=== PATIENT | male | born 1985 | race African-American/Black ===

== ENCOUNTER 2016-06-27 13:22 | Emergency (ER) | payer MEDICAID ==
[2016-06-27 13:27] VITALS: BP 119/59; BMI 21.6
--- NOTE | 2016-06-27 13:39 | DR.GENAD ---
HPI - PCP Primary Care Physician: PATRICIO - Complaint/Symptoms Chief Complaint:: PT C/O SHARP PAINS IN RIGHT LEG AND HE THINKS HE IS HAVING A SICKLE CELL CRISIS - Nurses notes reviewed Nurses Notes Review: Yes - Source History Provided: Patient - Mode of Arrival Mode of Arrival: Ambulatory - Timing Onset of Chief Complaint: 06/27/16 Came on: Suddenly - Duration Duration: Constant How lon Duration: Days - Location Location: right leg - Severity Severity: Moderate - Modifying Factors Worsens:: poor wound care - Associated Signs and Symptoms Associated Signs and Symptoms: pain odor PMH - PMH Past Medical History: Yes Past Medical History: Anemia, Depression, GERD, PUD Past Medical History Comment: SICKLE CELL Past Surgical History: Yes Surgical History: Other Past Surgical History Comment: RT LEG/FOOT - Family History History of Family Medical Conditions: Yes Family Medical History: Diabetes Mellitus, Hypertension - Social History Does patient currently use any type of tobacco product: Yes Have you used tobacco products in the last 12 months: Yes Type of Tobacco Use: Cigarettes Does any household member use tobacco: Yes Alcohol Use: None Do you use any recreational Drugs:: No Lives With: Alone Lives Where: Home - infectious screening In the last 2 months have you had wt loss of >10#?: NO Have you had fever, night sweats or hemotysis?: No Have you traveled outside the country in the last 6 months?: No Isolation: Standard ROS - Review of Systems Constitutional: No Symptoms Reported Eyes: No Symptoms Reported ENTM: No Symptoms Reported Respiratoy: No Symptoms Reported Cardiovascular: No Symptoms Reported Gastrointestinal/Abdominal: No Symptoms Reported Genitourinary: No Symptoms Reported Neurological: No Symptoms Reported Musculoskeletal: Right, Leg Integumentary: Wound (right lower leg ) Hematologic/Lymphatic: No Symptoms Reported Endocrine: No Symptoms Reported Psychiatric: No Symptoms Reported All Other Systems: Reviewed and Negative PE - Vital Signs Vitals: Temperature 98.8 F Pulse Rate 82 Respiratory Rate 18 Blood Pressure [Right Arm] 113/57 Blood Pressure [Left Arm] 106/54 Blood Pressure 119/59 O2 Sat by Pulse Oximetry 98 - General Limitations: No Limitations General Appearance: Alert, In No Apparent Distress - Head Head Exam: Normal Inspection - Eyes Eye exam: Normal Appearance, EOMI. negative: Scleral Icterus, Conjunctival Injection - ENT ENT Exam: Normal Exam - Neck Neck Exam: Normal Inspection, Full ROM, Trachea Midline - Extremities Extremities Exam: Full ROM, Tenderness (right lower leg). negative: Normal Inspection - Neurologic Neurological Exam: Alert, Oriented X3, CN II-XII Intact - Psychiatric Psychiatric Exam: Normal Mood - Skin Skin Exam: negative: Normal Color Course - Treatment Treatment: dressing changed on leg, told to follow up at wound clinic he was at previously. ROR - Labs Reviewed Result Diagrams: 06/27/16 14:22 Laboratory: WBC 15.4 X10^3/uL (3.6-10.0) H 06/27/16 14:22 RBC 1.74 X10^6/uL (4.7-6.0) L 06/27/16 14:22 Hgb 6.5 g/dL (13.5-18.0) L* 06/27/16 14:22 Hct 19.0 % (42.0-54.0) L* 06/27/16 14:22 MCV 109.7 fL (80.0-100.0) H 06/27/16 14:22 MCH 37.3 pg (27.0-34.0) H 06/27/16 14:22 MCHC 34.0 g/dL (33.0-35.0) 06/27/16 14:22 RDW 18.6 % (11.6-16.5) H 06/27/16 14:22 Plt Count 820 X10^3/uL (150.0-450.0) H 06/27/16 14:22 Plt Count Comment Increased (ADEQUATE) 06/27/16 14:22 MPV 7.3 fL (7.4-11.0) L 06/27/16 14:22 Neut % 67.1 % (42.0-75.0) 06/27/16 14:22 Lymph % 21.6 % (21.0-51.0) 06/27/16 14:22 [place] % 8.7 % (0.0-13.0) 06/27/16 14:22 Eos % 1.8 % (0.9-2.9) 06/27/16 14:22 Baso % 0.8 % (0.2-1.0) 06/27/16 14:22 Neut # 10.4 x10^3/uL (2.2-4.8) H 06/27/16 14:22 Lymph # 3.3 X10^3/uL (1.3-2.9) H 06/27/16 14:22 [place] # 1.3 x10^3/uL (0.3-0.8) H 06/27/16 14:22 Eos # 0.3 x10^3/uL (0.0-0.2) H 06/27/16 14:22 Baso # 0.1 X10^3/uL (0.0-0.1) 06/27/16 14:22 Absolute Nucleated RBC 1.3 /100WBC 06/27/16 14:22 Plt Morphology Comment Normal (NORMAL) 06/27/16 14:22 RBC Morphology Abnormal (NORMAL) 06/27/16 14:22 Hypochromasia 2+ A 06/27/16 14:22 Anisocytosis 2+ A 06/27/16 14:22 Microcytosis 2+ A 06/27/16 14:22 Sickle Cells Slight A 06/27/16 14:22 Absolute Retic 0.2133 10^6/uL 06/27/16 14:22 Percent Retic 12.28 % (0.8-2.2) H 06/27/16 14:22 - Diagnosis Discharge Problem: Wound exudate odor absent - Discharge Plan Condition: Stable Prescriptions: Amoxicillin & Pot Clavulanate [AUGMENTIN TAB 875 mg/125 mg *] 1 tab PO BID #20 tab Tramadol HCl [ULTRAM 50 MG *] 50 mg PO Q8H PRN #21 tab PRN Reason: Pain - Follow ups/Referrals Follow ups/Referrals: JOSE ELIAS CURRY [Primary Care Provider] - 3 days - Instructions
[2016-06-27] MEDS ORDERED: NS IRRIGATION 1000 ML 1,000 ML ONE (13:43)
[2016-06-27] MEDS ORDERED: ULTRAM PO ONE (14:17)
[2016-06-27] MEDS ORDERED: ULTRAM ONE (14:26)
[2016-06-27 14:28] LABS: BASOPHILS # (AUTO) 0.1 X10^3/uL (0.0-0.1); MONOCYTES % (AUTO) 8.7 % (0.0-13.0)
[2016-06-27 14:36] LABS: BASOPHILS % (AUTO) 0.8 % (0.2-1.0); EOSINOPHILS # (AUTO) 0.3 x10^3/uL (0.0-0.2); EOSINOPHILS % (AUTO) 1.8 % (0.9-2.9); LYMPHOCYTES # (AUTO) 3.3 X10^3/uL (1.3-2.9); LYMPHOCYTES % (AUTO) 21.6 % (21.0-51.0); MEAN CORPUSCULAR HEMOGLOBIN 37.3 pg (27.0-34.0); MEAN CORPUSCULAR VOLUME 109.7 fL (80.0-100.0); MEAN PLATELET VOLUME 7.3 fL (7.4-11.0); MONOCYTES # (AUTO) 1.3 x10^3/uL (0.3-0.8); NEUTROPHILS # (AUTO) 10.4 x10^3/uL (2.2-4.8); NEUTROPHILS % (AUTO) 67.1 % (42.0-75.0); PLATELET COUNT 820 X10^3/uL (150.0-450.0); RED BLOOD COUNT 1.74 X10^6/uL (4.7-6.0); RED CELL DISTRIBUTION WIDTH 18.6 % (11.6-16.5); RETICULOCYTE % 12.28 % (0.8-2.2); WHITE BLOOD COUNT 15.4 X10^3/uL (3.6-10.0)
[2016-06-27 14:48] LABS: HEMOGLOBIN 6.5 g/dL (13.5-18.0)
[2016-06-27 14:50] LABS: PLATELET MORPHOLOGY COMMENT NORMAL (NORMAL)
[2016-06-27 14:51] LABS: ANISOCYTOSIS 2+; HYPOCHROMASIA 2+; MICROCYTOSIS 2+; SICKLE CELLS SLIGHT
[2016-06-27] MEDS ORDERED: NS 500 ML IV 1,000 ML IV ONE (15:05)
[2016-06-27] MEDS ORDERED: DEMEROL INJ IVP ONE (15:22)
[2016-06-27] MEDS ORDERED: NS 1000 ML 1,000 ML ONE (15:25)
[2016-06-27] MEDS ORDERED: DEMEROL INJ ONE (15:26)
[2016-06-27] MEDS ORDERED: ZOSYN VIAL 4.5 GM 4.5 GM in NS 100 ML IV + SPIKE MINIBAG* 100 ML IV SCH (16:00)
[2016-06-27] MEDS ORDERED: NS 100 ML IV + SPIKE MINIBAG* 100 ML IV ONE (16:12)
== END 2016-06-27 17:47 | disposition home or self-care (01) ==
LOC: ER 13:39
DX: T81.89XA Other complications of procedures, not elsewhere classified, initial encounter (principal)
CPT/HCPCS: 36415; 85025; 85045; 87070; 87075; 87077; 87186; 96365; 96374; 96375; 99283; A4222; J2175

== ENCOUNTER 2017-10-12 21:01 | Inpatient (IN) ==
[2017-10-13 00:13] LABS: BASOPHILS # (AUTO) 0.1 X10^3/uL (0.0-0.1); BASOPHILS % (AUTO) 0.9 % (0.2-1.0); EOSINOPHILS # (AUTO) 0.4 x10^3/uL (0.0-0.2); EOSINOPHILS % (AUTO) 2.2 % (0.9-2.9); LYMPHOCYTES % (AUTO) 25.3 % (21.0-51.0); MEAN CORPUSCULAR HEMOGLOBIN 31.8 pg (27.0-34.0); MEAN CORPUSCULAR HGB CONC 34.7 g/dL (33.0-35.0); MEAN CORPUSCULAR VOLUME 91.4 fL (80.0-100.0); MEAN PLATELET VOLUME 8.1 fL (7.4-11.0); MONOCYTES # (AUTO) 1.1 x10^3/uL (0.3-0.8); MONOCYTES % (AUTO) 6.9 % (0.0-13.0); NEUTROPHILS # (AUTO) 10.3 x10^3/uL (2.2-4.8); NEUTROPHILS % (AUTO) 64.7 % (42.0-75.0); PLATELET COUNT 713 X10^3/uL (150.0-450.0); RED BLOOD COUNT 1.84 X10^6/uL (4.7-6.0); RED CELL DISTRIBUTION WIDTH 17.8 % (11.6-16.5); WHITE BLOOD COUNT 15.9 X10^3/uL (3.6-10.0)
[2017-10-13 00:20] LABS: ALANINE AMINOTRANSFERASE 17 Units/L (12-78); ALBUMIN 3.7 g/dL (3.4-5.0); ALKALINE PHOSPHATASE 102 Units/L (46-116); ASPARTATE AMINO TRANSFERASE 28 Units/L (15-37); BLOOD UREA NITROGEN 15 mg/dL (7-18); CALCIUM 8.9 mg/dL (8.5-10.1); CARBON DIOXIDE 24.6 mmol/L (21-32); CHLORIDE 108 mmol/L (98-107); CREATININE 1.09 mg/dL (0.70-1.30); SODIUM 139 mmol/L (136-145); TOTAL PROTEIN 8.4 g/dL (6.4-8.2); eGFR NON BLACK RACES > 60 (>60)
[2017-10-13 00:23] LABS: HEMOGLOBIN 5.8 g/dL (13.5-18.0)
[2017-10-13 00:24] LABS: HEMATOCRIT 16.8 % (42.0-54.0)
[2017-10-13 00:37] LABS: HYPOCHROMASIA 3+; PLATELET MORPHOLOGY COMMENT NORMAL (NORMAL)
[2017-10-13] MEDS ORDERED: MORPHINE SULFATE INJ 4 MG IVP ONE (01:09)
[2017-10-13] MEDS ORDERED: ZOFRAN INJ 4 MG VIAL IVP ONE (01:09)
--- NOTE | 2017-10-13 01:13 | DR.GENAD ---
HPI PCP Primary Care Physician: sean HPI Comment HPI Comment: PATIENT HAVE SICKLE CELL DISEASE. Complaint/Symptoms Chief Complaint Doctors Comments: PATIENT SEEN AT 23:30PM. CHRONIC ULCER RIGHT LEG THAT IS MORE PAINFULL AND DRAINING GREENISH FLUID. INCREASE FOUL SCENT COMING FROM WOUND ALSO. Chief Complaint:: pt states" my right leg is infected it is starting to smell and i believe i'm having a sickle cell crisis" pt states " the wound on my leg has been there since 2005 and i've had sickle cell since " Nurses notes reviewed Nurses Notes Review: Yes Source History Provided: Patient Mode of Arrival Mode of Arrival: Ambulatory Timing Onset of Chief Complaint: 10/12/17 Came on: Gradually Duration Duration: Constant Severity Severity: Severe Modifying Factors Worsens:: WITH WALKING, CONDITION GETS WORSE. Improves:: ED Associated Signs and Symptoms Associated Signs and Symptoms: FEVER, PMH PMH Past Medical History: Yes Past Medical History: Anemia, Depression, GERD and PUD Past Medical History Comment: sickle cell Past Surgical History: Yes Surgical History: Other Past Surgical History Comment: rt lower leg Family History History of Family Medical Conditions: Yes Family Medical History: Diabetes Mellitus and Hypertension Social History Type of Tobacco Use: Cigarettes Does any household member use tobacco: Yes Alcohol Use: None Do you use any recreational Drugs:: No Lives With: Family Lives Where: Home infectious screening In the last 2 months have you had wt loss of >10#?: NO Have you had fever, night sweats or hemotysis?: No Have you traveled outside the country in the last 6 months?: No Isolation: Standard ROS Review of Systems Constitutional: Fever, Weakness and Fatigue Eyes: No Symptoms Reported ENTM: No Symptoms Reported Respiratoy: Non-Productive Cough and Short of Breath; negative Wheezing and Hemoptysis Cardiovascular: No Symptoms Reported Gastrointestinal/Abdominal: No Symptoms Reported Neurological: Weakness Musculoskeletal: Right and Leg Integumentary: Change in Color and Wound Hematologic/Lymphatic: Easy Bleeding and Easy Bruising Endocrine: No Symptoms Reported Psychiatric: No Symptoms Reported All Other Systems: Reviewed and Negative PE Vital Signs Vitals: Temperature 99.8 F Pulse Rate [Left Brachial] 108 Pulse Rate 98 Respiratory Rate 18 Blood Pressure [Right Arm] 107/67 Blood Pressure [Left Arm] 109/68 Blood Pressure 115/65 O2 Sat by Pulse Oximetry 100 General Limitations: No Limitations General Appearance: Alert and In No Apparent Distress Head Head Exam: Normal Inspection Eyes Eye exam: Normal Appearance, PERRL and EOMI; negative Scleral Icterus and Conjunctival Injection ENT ENT Exam: Normal Exam External Ear Exam: Normal External Inspection TM/Canal Exam: Bilateral: Normal Nose Exam: Normal Nose Exam Mouth Exam: Normal Inspection Throat Exam: Normal Inspection Neck Neck Exam: Normal Inspection Chest Chest Inspection: Normal Inspection Respiratory Respiratory Exam: Normal Lung Sounds Bilat Respiratory Exam: Bilateral: Clear to Auscultation Cardiovascular Cardiovascular Exam: Tachycardia Abdominal Exam Abdominal Exam: Normal Inspection, Normal Bowel Sounds and Soft; negative Tenderness Extremities Extremities Exam: Normal Inspection, Tenderness (RT LEG DENUDED AND NECROTIC. DRAINING GREENISH SECREATION.) and Normal Capillary Refill Back Back Exam: Normal Inspection Neurologic Neurological Exam: Alert, Oriented X3 and CN II-XII Intact; negative Motor Sensory Deficit Psychiatric Psychiatric Exam: Anxious Skin Skin Exam: Warm and Erythema MDM Differential Diagnosis Differential Diagnosis: CELLULITIS RLE/LEG, SICKLE CELL CRISIS COURSE Treatment Treatment: SEE ORDERS. Education/Counseling Education/Counseling: Patient and Education Educated On: Diagnosis ROR Labs Reviewed Laboratory Results Reviewed?: Yes Result Diagrams: 10/12/17 23:40 10/12/17 23:45 Laboratory: 10/13/17 02:01 Leg - Right Gram Stain - Final WBC 15.9 X10^3/uL (3.6-10.0) H 10/12/17 23:40 RBC 1.84 X10^6/uL (4.7-6.0) L 10/12/17 23:40 Hgb 5.8 g/dL (13.5-18.0) L* 10/12/17 23:40 Hct 16.8 % (42.0-54.0) L* 10/12/17 23:40 MCV 91.4 fL (80.0-100.0) 10/12/17 23:40 MCH 31.8 pg (27.0-34.0) 10/12/17 23:40 MCHC 34.7 g/dL (33.0-35.0) 10/12/17 23:40 RDW 17.8 % (11.6-16.5) H 10/12/17 23:40 Plt Count 713 X10^3/uL (150.0-450.0) H 10/12/17 23:40 Plt Count Comment Increased (ADEQUATE) 10/12/17 23:40 MPV 8.1 fL (7.4-11.0) 10/12/17 23:40 Neut % (Auto) 64.7 % (42.0-75.0) 10/12/17 23:40 Lymph % (Auto) 25.3 % (21.0-51.0) 10/12/17 23:40 [place] % (Auto) 6.9 % (0.0-13.0) 10/12/17 23:40 Eos % (Auto) 2.2 % (0.9-2.9) 10/12/17 23:40 Baso % (Auto) 0.9 % (0.2-1.0) 10/12/17 23:40 Neut # (Auto) 10.3 x10^3/uL (2.2-4.8) H 10/12/17 23:40 Lymph # (Auto) 4.0 X10^3/uL (1.3-2.9) H 10/12/17 23:40 [place] # (Auto) 1.1 x10^3/uL (0.3-0.8) H 10/12/17 23:40 Eos # (Auto) 0.4 x10^3/uL (0.0-0.2) H 10/12/17 23:40 Baso # (Auto) 0.1 X10^3/uL (0.0-0.1) 10/12/17 23:40 Absolute Nucleated RBC 1.0 /100WBC 10/12/17 23:40 Plt Morphology Comment Normal (NORMAL) 10/12/17 23:40 RBC Morphology Abnormal (NORMAL) 10/12/17 23:40 Hypochromasia 3+ A 10/12/17 23:40 Macrocytosis Slight A 10/12/17 23:40 Percent Retic 11.60 % (0.8-2.2) H 10/12/17 23:40 Sodium 139 mmol/L (136-145) 10/12/17 23:45 Corrected Sodium TNP 10/12/17 23:45 Potassium 4.1 mmol/L (3.5-5.1) 10/12/17 23:45 Chloride 108 mmol/L (98-107) H 10/12/17 23:45 Carbon Dioxide 24.6 mmol/L (21-32) 10/12/17 23:45 BUN 15 mg/dL (7-18) 10/12/17 23:45 Creatinine 1.09 mg/dL (0.70-1.30) 10/12/17 23:45 Est GFR (MDRD) Af Amer > 60 (>60) 10/12/17 23:45 Est GFR (MDRD) Non-Af > 60 (>60) 10/12/17 23:45 Glucose 83 mg/dL (65-99) 10/12/17 23:45 Lactic Acid 2.0 mmol/L (0.4-2.0) 10/12/17 00:11 Calcium 8.9 mg/dL (8.5-10.1) 10/12/17 23:45 Corrected Calcium TNP 10/12/17 23:45 Total Bilirubin 2.90 mg/dL (0.2-1.0) H 10/12/17 23:45 AST 28 Units/L (15-37) 10/12/17 23:45 ALT 17 Units/L (12-78) 10/12/17 23:45 Alkaline Phosphatase 102 Units/L (46-116) 10/12/17 23:45 C-Reactive Protein 38.80 mg/L (0-3.0) H 10/12/17 00:11 Total Protein 8.4 g/dL (6.4-8.2) H 10/12/17 23:45 Albumin 3.7 g/dL (3.4-5.0) 10/12/17 23:45 Globulin 4.7 g/dL (2.5-4.5) H 10/12/17 23:45 Albumin/Globulin Ratio 0.8 Ratio (1.1-2.1) L 10/12/17 23:45 Specimen Type Random urine 10/13/17 02:22 Urine Color Yellow (YELLOW) 10/13/17 02:22 Urine Appearance Hazy (CLEAR) 10/13/17 02:22 Urine pH 6.5 (5.0 - 8.0) 10/13/17 02:22 Ur Specific [place] 1.010 (1.000-1.030) 10/13/17 02:22 Urine Protein 1+ (NEGATIVE) 10/13/17 02:22 Urine Glucose (UA) Negative (NEGATIVE) 10/13/17 02:22 Urine Ketones Negative (NEGATIVE) 10/13/17 02:22 Urine Occult Blood Negative (NEGATIVE) 10/13/17 02:22 Urine Nitrite Negative (NEGATIVE) 10/13/17 02:22 Urine Bilirubin Negative (NEGATIVE) 10/13/17 02:22 Urine Urobilinogen 2+ (NORMAL) 10/13/17 02:22 Ur Leukocyte Esterase Negative (NEGATIVE) 10/13/17 02:22 Urine RBC None seen /HPF (NONE SEEN) 10/13/17 02:22 Urine WBC None seen /HPF (NONE SEEN) 10/13/17 02:22 Ur Squamous Epith Cells Negative /HPF (NEGATIVE) 10/13/17 02:22 Urine Bacteria Negative /HPF (NEGATIVE) 10/13/17 02:22 Urine Mucus Few /HPF (NEGATIVE) 10/13/17 02:22 Ur Culture Indicated? No/not indicated 10/13/17 02:22 Blood Type B POSITIVE 10/13/17 05:10 Antibody Screen Negative 10/13/17 05:10 Crossmatch See Detail 10/13/17 05:10 XRAY XRAY Interpreted by: Radiologist XRAY Findings: REPORT DISCUSS WITH PATIENT. Diagnosis Discharge Problem: Cellulitis of leg without foot, right, Sickle cell anemia with crisis
[2017-10-13] MEDS ORDERED: MORPHINE SULFATE INJ 4 MG ONE (01:27)
[2017-10-13] MEDS ORDERED: ZOFRAN INJ 4 MG VIAL ONE (01:27)
--- NOTE | 2017-10-13 01:34 | RAD ---
Right lower leg, AP and lateral Indication: Abscess Comparison: 04/13/2015 Findings: There is bandage along the lower portion of the leg. No soft tissue gas or other significan t soft tissue abnormality identified. No acute cortical disruption or malalignment of the tibia or fi bula. Impression: No acute osseous abnormality of the right lower leg. Reported By:
[2017-10-13] MEDS ORDERED: BENADRYL INJ 50 MG VIAL ONE (01:44)
[2017-10-13] MEDS ORDERED: BENADRYL INJ 50 MG VIAL IVP ONE (01:45)
[2017-10-13 02:33] LABS: BILIRUBIN,URINE NEGATIVE (NEGATIVE); BLOOD/HEMOGLOBIN,URINE NEGATIVE (NEGATIVE); GLUCOSE, URINE NEGATIVE (NEGATIVE); KETONES,URINE NEGATIVE (NEGATIVE); LEUKOCYTE ESTERASE ,URINE NEGATIVE (NEGATIVE); NITRITES,URINE NEGATIVE (NEGATIVE); PH,URINE 6.5 (5.0 - 8.0); PROTEIN,URINE 1+ (NEGATIVE); UROBILINOGEN,URINE 2+ (NORMAL)
[2017-10-13 02:40] LABS: APPEARANCE,URINE HAZY (CLEAR); COLOR,URINE YELLOW (YELLOW)
[2017-10-13 02:41] LABS: BACTERIA,URINE NEGATIVE /HPF (NEGATIVE); MUCUS,URINE FEW /HPF (NEGATIVE); RBC,URINE NONE SEEN /HPF (NONE SEEN); SQUAMOUS EPITHELIAL CELL,UR NEGATIVE /HPF (NEGATIVE)
[2017-10-13] MEDS ORDERED: FORTAZ or TAZICEF VIAL INJ ONE (04:50)
[2017-10-13] MEDS ORDERED: PHENERGAN INJ 25 MG ONE (04:50)
[2017-10-13] MEDS ORDERED: DEMEROL INJ ONE (04:51)
[2017-10-13] MEDS ORDERED: NS 100 ML IV + SPIKE MINIBAG* 100 ML IV ONE (04:52)
[2017-10-13] MEDS: FORTAZ or TAZICEF VIAL INJ 1 G in NS 100 ML IV + SPIKE MINIBAG* 100 ML IV SCH ×4 (04:53→22:10)
[2017-10-13] MEDS: DEMEROL INJ IVP PRN ×5 (04:54→23:16)
[2017-10-13] MEDS: PHENERGAN INJ 25 MG IV PRN ×2 (04:54→23:16)
[2017-10-13] MEDS ORDERED: NS 1000 ML 1,000 ML ONE ×2 (04:55→12:02)
[2017-10-13] MEDS ORDERED: PHENERGAN TAB 25 MG PO PRN (06:42)
[2017-10-13] MEDS ORDERED: NS 1000 ML 1,000 ML IV SCH (06:42)
[2017-10-13 07:24] VITALS: BMI 20.2
[2017-10-13] MEDS: NS 1000 ML 1,000 ML IV SCH ×2 (07:30→15:39)
[2017-10-13] MEDS: ZOSYN VIAL 3.375 GRAMS 3.375 G in NS 100 ML IV + SPIKE MINIBAG* 100 ML IV SCH ×3 (07:53→23:00)
[2017-10-13] MEDS: MOTRIN TAB 600 MG PO PRN (08:14)
--- NOTE | 2017-10-13 08:38 | DR.H&P ---
H&P - History & Physical for Day of: H&P Date: 10/13/17 - Chief Complaint Chief Complaint: RLL WOUND, WEAKNESS, "SICKLE CELL" - History of Present Illness History of Present Illness: 32 BM ER ADMISSION WITH SEVERE RLL OPEN WOUND, CHRONIC WOUND WITH WORSENED PAIN, D/C. PT HAS HX OF SICKLE CELL DISEASE. PT HAS LONG HX OF NON COMPLIANCE AND HX OF MULTIPLE SURGICAL WOUND DEBRIDEMENT AND SKIN GRAFTS. PT WAS ADMITTED FOR WOUND CARE, IV ATBX, PAIN CONTROL, SURGICAL CONSULT, TREATMENT OF ANEMIA - Past Medical History Past Medical History: Depression, Anemia, PUD, GERD Additional Medical History: Sickle Cell Disease - Past Surgical History Surgical History: Other Additional Surgical History: Skin Graft (R) Leg Wound - Family History Family Medical History: Diabetes Mellitus, Hypertension - Social History Does patient currently use any type of tobacco product: Yes Have you used tobacco products in the last 12 months: Yes Type of Tobacco Use: Cigarettes Does any household member use tobacco: Yes Alcohol Use: None Drug Use: None - Medications Home Medications: Egg Derived Allergy (Verified 10/12/17 21:04) mayonnaise Allergy (Verified 10/12/17 21:04) morphine Allergy (Verified 10/13/17 05:57) ondansetron [From Zofran] Allergy (Verified 10/13/17 05:57) - Review of Systems Constitutional: Chills, Weakness Eyes: No Symptoms Reported ENT: No Symptoms Reported Respiratory: SOB with Excertion Cardiovascular: Palpitations, Edema Gastrointestinal: Other (NO APPETITE) Genitourinary: No Symptoms Reported Musculoskeletal: Leg Pain Skin: Wound Neurological: Weakness - Physical Exam Vital Signs: Temperature 98.8 F Pulse Rate [Left Brachial] 88 Pulse Rate 98 Respiratory Rate 24 Blood Pressure [Right Arm] 113/66 Blood Pressure [Left Arm] 109/68 Blood Pressure 115/65 O2 Sat by Pulse Oximetry 100 Oriented: Normal Eyes: Normal Ear: Normal Nose: Normal Throat: Dry Respiratory: RLL Diminished, LLL Diminished Cardiovascular: Tachycardia, Edema Auscultation: Bowel Sounds: Normal Palpation: Normal Tenderness: Normal Skin: Decreased Turgur, Wound (circumferential RRL NACROTIC WOUND WITH FOUL DISCHARGE) Musculoskeletal: Right, Leg, Swelling, Tender Mood Description: Depressed, Sad Affect: Flat Speech Pattern: Clear - Assessment/Plan (1) Sickle cell disease Qualifiers: Sickle-cell associated disorders: without crisis Qualified Code(s): D57.1 - Sickle-cell disease without crisis Status: Chronic Plan: ADMIT WOUND CULTURES, IV ATBX. BLOOD CULTURES, SURGICAL CONSULT. TYPE AND CROSS MATCH TRANSFUSE WHEN BLOOD AVAILABLE. CONFIRM HOME MEDS, CARDIAC MONITORING, BP CONTROL (2) Ulcer of lower extremity with necrosis of muscle Qualifiers: Laterality: right Qualified Code(s): L97.913 - Non-pressure chronic ulcer of unspecified part of right lower leg with necrosis of muscle Status: Acute - Allergies Allergies/Adverse Reactions: Allergies Allergy/AdvReac Type Severity Reaction Status Date / Time Egg Derived Allergy Verified 10/12/17 21:04 mayonnaise Allergy Verified 10/12/17 21:04 morphine Allergy Verified 10/13/17 05:57 ondansetron [From Zofran] Allergy Verified 10/13/17 05:57
[2017-10-13] MEDS ORDERED: FENTANYL INJ 100 mcg ONE ×2 (12:30→12:59)
[2017-10-13] MEDS ORDERED: NS IRRIGATION 1000 ML 1,000 ML with BACITRACIN VIAL 50,000 UNIT IR ONE ×2 (12:40)
[2017-10-13] MEDS ORDERED: DILAUDID INJ IVP PRN (13:28)
[2017-10-13] MEDS ORDERED: BENADRYL INJ 50 MG VIAL IVP PRN (13:28)
[2017-10-13] MEDS ORDERED: PHENERGAN INJ 25 MG IVP PRN (13:28)
[2017-10-13] MEDS ORDERED: REGLAN INJ 10 MG VIAL IVP PRN (13:28)
[2017-10-13] MEDS ORDERED: DILAUDID INJ ONE (13:29)
--- NOTE | 2017-10-13 13:37 | OR.GENERIC ---
Post-Op Note Generic - Post-Op Note Operative Report: excisional debridement of multiple and large Rt leg ulcers total of 92 cm2 was done pt has acute and chronic infected Rt leg ulcers with sickle cell anemia . h/o previous failed skin graft Rt leg did well ..will change dressing in 2 days
[2017-10-13] MEDS: PERCOCET TAB 5/325 MG PO PRN (22:28)
[2017-10-14] MEDS: NS 1000 ML 1,000 ML IV SCH ×3 (02:30→15:50)
[2017-10-14] MEDS: DEMEROL INJ IVP PRN ×5 (03:30→21:45)
[2017-10-14] MEDS: PHENERGAN INJ 25 MG IV PRN ×3 (03:45→21:45)
[2017-10-14] MEDS: FORTAZ or TAZICEF VIAL INJ 1 G in NS 100 ML IV + SPIKE MINIBAG* 100 ML IV SCH ×3 (05:25→21:15)
[2017-10-14] MEDS: ZOSYN VIAL 3.375 GRAMS 3.375 G in NS 100 ML IV + SPIKE MINIBAG* 100 ML IV SCH ×3 (06:28→22:15)
[2017-10-14 07:05] LABS: BASOPHILS # (AUTO) 0.1 X10^3/uL (0.0-0.1); BASOPHILS % (AUTO) 0.7 % (0.2-1.0); EOSINOPHILS # (AUTO) 0.5 x10^3/uL (0.0-0.2); EOSINOPHILS % (AUTO) 3.6 % (0.9-2.9); LYMPHOCYTES # (AUTO) 3.9 X10^3/uL (1.3-2.9); LYMPHOCYTES % (AUTO) 29.2 % (21.0-51.0); MEAN CORPUSCULAR HEMOGLOBIN 32.5 pg (27.0-34.0); MEAN CORPUSCULAR HGB CONC 36.4 g/dL (33.0-35.0); MEAN CORPUSCULAR VOLUME 89.4 fL (80.0-100.0); MEAN PLATELET VOLUME 7.6 fL (7.4-11.0); MONOCYTES # (AUTO) 1.2 x10^3/uL (0.3-0.8); MONOCYTES % (AUTO) 9.3 % (0.0-13.0); NEUTROPHILS # (AUTO) 7.6 x10^3/uL (2.2-4.8); NEUTROPHILS % (AUTO) 57.2 % (42.0-75.0); PLATELET COUNT 642 X10^3/uL (150.0-450.0); RED BLOOD COUNT 1.41 X10^6/uL (4.7-6.0); RED CELL DISTRIBUTION WIDTH 18.1 % (11.6-16.5); WHITE BLOOD COUNT 13.3 X10^3/uL (3.6-10.0)
[2017-10-14 07:07] LABS: HEMOGLOBIN 4.6 g/dL (13.5-18.0)
[2017-10-14 07:08] LABS: HEMATOCRIT 12.6 % (42.0-54.0)
[2017-10-14 07:20] LABS: ALANINE AMINOTRANSFERASE 13 Units/L (12-78); ALBUMIN 2.7 g/dL (3.4-5.0); ALKALINE PHOSPHATASE 68 Units/L (46-116); ASPARTATE AMINO TRANSFERASE 22 Units/L (15-37); BLOOD UREA NITROGEN 8 mg/dL (7-18); CALCIUM 8.4 mg/dL (8.5-10.1); CARBON DIOXIDE 22.8 mmol/L (21-32); CHLORIDE 111 mmol/L (98-107); COR CA(FOR HYPOALB) 9.4 mg/dL (8.5-10.1); CREATININE 0.79 mg/dL (0.70-1.30); SODIUM 139 mmol/L (136-145); TOTAL PROTEIN 6.5 g/dL (6.4-8.2); eGFR NON BLACK RACES > 60 (>60)
[2017-10-14 07:34] LABS: ANISOCYTOSIS 2+; HYPOCHROMASIA 3+; PLATELET MORPHOLOGY COMMENT NORMAL (NORMAL)
[2017-10-14] MEDS ORDERED: NS 500 ML IV 500 ML IV ONE (08:47)
[2017-10-14] MEDS ORDERED: REGLAN INJ 10 MG VIAL ONE (09:29)
[2017-10-14] MEDS ORDERED: DIPRIVAN VIAL ONE (09:29)
[2017-10-14] MEDS ORDERED: VERSED ONE (09:29)
[2017-10-14] MEDS ORDERED: SUPRANE IN ONE (09:29)
[2017-10-14] MEDS: PERCOCET TAB 5/325 MG PO PRN ×2 (11:05→19:10)
[2017-10-14 19:27] LABS: HEMOGLOBIN 6.4 g/dL (13.5-18.0)
[2017-10-14 19:28] LABS: HEMATOCRIT 17.7 % (42.0-54.0)
[2017-10-15] MEDS: NS 1000 ML 1,000 ML IV SCH ×5 (02:19→22:01)
[2017-10-15] MEDS: DEMEROL INJ IVP PRN ×5 (02:20→20:22)
[2017-10-15] MEDS: FORTAZ or TAZICEF VIAL INJ 1 G in NS 100 ML IV + SPIKE MINIBAG* 100 ML IV SCH ×3 (05:30→21:00)
[2017-10-15] MEDS: ZOSYN VIAL 3.375 GRAMS 3.375 G in NS 100 ML IV + SPIKE MINIBAG* 100 ML IV SCH ×3 (06:30→21:00)
[2017-10-15 07:19] LABS: BASOPHILS # (AUTO) 0.2 X10^3/uL (0.0-0.1); BASOPHILS % (AUTO) 1.2 % (0.2-1.0); EOSINOPHILS # (AUTO) 0.8 x10^3/uL (0.0-0.2); EOSINOPHILS % (AUTO) 6.1 % (0.9-2.9); HEMATOCRIT 20.6 % (42.0-54.0); LYMPHOCYTES # (AUTO) 4.6 X10^3/uL (1.3-2.9); LYMPHOCYTES % (AUTO) 36.8 % (21.0-51.0); MEAN CORPUSCULAR HEMOGLOBIN 30.5 pg (27.0-34.0); MEAN CORPUSCULAR HGB CONC 35.5 g/dL (33.0-35.0); MEAN CORPUSCULAR VOLUME 85.7 fL (80.0-100.0); MEAN PLATELET VOLUME 7.4 fL (7.4-11.0); MONOCYTES # (AUTO) 1.1 x10^3/uL (0.3-0.8); MONOCYTES % (AUTO) 8.5 % (0.0-13.0); NEUTROPHILS # (AUTO) 5.9 x10^3/uL (2.2-4.8); NEUTROPHILS % (AUTO) 47.4 % (42.0-75.0); PLATELET COUNT 679 X10^3/uL (150.0-450.0); RED CELL DISTRIBUTION WIDTH 18.2 % (11.6-16.5); WHITE BLOOD COUNT 12.5 X10^3/uL (3.6-10.0)
[2017-10-15 07:26] LABS: ALANINE AMINOTRANSFERASE 12 Units/L (12-78); ALBUMIN 2.8 g/dL (3.4-5.0); ALKALINE PHOSPHATASE 66 Units/L (46-116); ASPARTATE AMINO TRANSFERASE 21 Units/L (15-37); BLOOD UREA NITROGEN 10 mg/dL (7-18); CALCIUM 8.7 mg/dL (8.5-10.1); CHLORIDE 112 mmol/L (98-107); COR CA(FOR HYPOALB) 9.7 mg/dL (8.5-10.1); CREATININE 0.83 mg/dL (0.70-1.30); SODIUM 141 mmol/L (136-145); TOTAL PROTEIN 6.6 g/dL (6.4-8.2); eGFR NON BLACK RACES > 60 (>60)
[2017-10-15 07:30] LABS: ANISOCYTOSIS 1+; HEMOGLOBIN 7.3 g/dL (13.5-18.0); HYPOCHROMASIA 2+; PLATELET MORPHOLOGY COMMENT NORMAL (NORMAL)
[2017-10-15 07:31] LABS: MICROCYTOSIS 1+
[2017-10-15] MEDS ORDERED: XYLOCAINE 1 % (PLAIN) ONE ×2 (07:34→09:52)
[2017-10-15] MEDS ORDERED: NS 1000 ML 1,000 ML ONE (08:10)
[2017-10-15] MEDS ORDERED: FENTANYL INJ 100 mcg ONE (08:23)
[2017-10-15] MEDS ORDERED: VERSED ONE (09:17)
[2017-10-15] MEDS ORDERED: DIPRIVAN VIAL ONE (09:17)
[2017-10-15] MEDS ORDERED: D5 LR 1000 ML 1,000 ML IV ONE (10:05)
[2017-10-15] MEDS ORDERED: BACTROBAN TOPICAL OINT ONE (10:26)
[2017-10-15] MEDS ORDERED: DILAUDID INJ ONE (10:46)
[2017-10-15] MEDS ORDERED: DILAUDID INJ IVP PRN (10:48)
[2017-10-15] MEDS ORDERED: REGLAN INJ 10 MG VIAL IVP PRN (10:48)
[2017-10-15] MEDS ORDERED: BENADRYL INJ 50 MG VIAL IVP PRN (10:48)
[2017-10-15] MEDS ORDERED: PHENERGAN INJ 25 MG IVP PRN (10:48)
--- NOTE | 2017-10-15 11:09 | RAD ---
HISTORY: Port-A-Cath placement, abscess on right tibia and fibula, near ankle. Prior history of sick le cell disease Study: Single-view chest Comparison: 02/14/2016 Technique: Single portable upright view of the chest is provided. Expiratory phase. Findings: Left-sided Port-A-Cath is seen inserted via an internal jugular approach. The catheter tip is at the cavoatrial junction. No pneumothorax is seen. The trachea is midline. The interstitial markings in tr ansverse cardiac size are situated by the expiratory technique. There is likely mild cardiomegaly. No pleural fluid is seen. Foci of atelectasis are present in the lung bases more so on the right. Left Hand us structures displayed no acute abnormality. IMPRESSION: Satisfactory position of left-sided Port-A-Cath without pneumothorax. Expiratory phase is seen to accentuate the transverse cardiac diameter and bronchovascular markings. There is likely mild cardiomegaly with bibasilar foci of atelectasis, more pronounced on the right si de. Reported By:
--- NOTE | 2017-10-15 11:14 | OR.GENERIC ---
Post-Op Note Generic - Post-Op Note Operative Report: tunneled port using the Lt internal jugular was done . dressing Lt leg was changed . will continue local care and IV ATB and use the port .. all ulcers seem to be better with less cellulitis and no necrosis
[2017-10-15] MEDS: PERCOCET TAB 5/325 MG PO PRN ×3 (13:21→23:17)
--- NOTE | 2017-10-15 13:25 | PCM.PROG ---
Progress Note - Progress Note for Day of Date of Exam: 10/14/17 - Subjective Subjective: 32 BM ER ADMISSION WITH SEVERE RLL OPEN WOUND, CHRONIC WOUND WITH WORSENED PAIN, D/C. PT HAS HX OF SICKLE CELL DISEASE. PT HAS LONG HX OF NON COMPLIANCE AND HX OF MULTIPLE SURGICAL WOUND DEBRIDEMENT AND SKIN GRAFTS. PT S/ P WOUND DEBRIDEMENT PER DR GIRARD, DISCUSSED THE NEED FOR PORT A CATH PLACEMENT. PT ANEMIC HGB 4.6, PLAN TO TRANSFUSE PRBC WHEN BLOOD AVAILABLE. PT STATES PAIN IS CONTROLLED AT THIS TIME - Past Medical Family Social History Past Med/Fam/Surg Hx: No changes since H&P Allergies: Allergies Egg Derived Allergy (Verified 10/12/17 21:04) mayonnaise Allergy (Verified 10/12/17 21:04) morphine Allergy (Verified 10/13/17 05:57) ondansetron [From Zofran] Allergy (Verified 10/13/17 05:57) - Review of Systems ROS: No change since H&P - Vital Signs and I&O's Vital Signs: Temperature 98.2 F Pulse Rate [Apical] 80 Pulse Rate [Left Brachial] 72 Pulse Rate 81 Respiratory Rate 22 Blood Pressure [Right Arm] 97/64 Blood Pressure [Left Arm] 111/63 Blood Pressure 105/60 O2 Sat by Pulse Oximetry 96 Intake and Output: Intake & Output 10/13/17 10/14/17 10/15/17 10/16/17 11:59 11:59 11:59 11:59 Intake Total 6436 / 6436 6285 / 6285 Output Total 3900 / 3900 3450 / 3450 Balance 2536 / 2536 2835 / 2835 - Physical Exam Oriented: Normal Eyes: Normal Ear: Normal Nose: Normal Throat: Dry Respiratory: Normal Cardiovascular: Tachycardia, Edema Auscultation: Bowel Sounds: Normal Tenderness: Normal Skin: Decreased Turgur, Wound (circumferential RRL WITH CLEAN DRY INTACT DRESSING) Musculoskeletal: Right, Leg, Swelling, Tender Mood Description: Depressed, Sad Affect: Flat Speech Pattern: Clear, Appropriate - Laboratory and Diagnostics Result Diagrams: 10/15/17 07:07 10/15/17 07:07 Labs: 10/13/17 13:24 Leg - Right Gram Stain - Final 10/13/17 13:24 Leg - Right Wound Culture - Final Pseudomonas Aeruginosa Morganella Morganii 10/13/17 02:01 Leg - Right Gram Stain - Final 10/13/17 02:01 Leg - Right Wound Culture - Final Proteus Mirabilis 10/12/17 23:40 Blood Blood Culture - Preliminary 10/12/17 23:45 Blood Blood Culture - Preliminary Laboratory WBC 12.5 X10^3/uL (3.6-10.0) H 10/15/17 07:07 RBC 2.40 X10^6/uL (4.7-6.0) L 10/15/17 07:07 Hgb 7.3 g/dL (13.5-18.0) L 10/15/17 07:07 Hct 20.6 % (42.0-54.0) L 10/15/17 07:07 MCV 85.7 fL (80.0-100.0) 10/15/17 07:07 MCH 30.5 pg (27.0-34.0) 10/15/17 07:07 MCHC 35.5 g/dL (33.0-35.0) H 10/15/17 07:07 RDW 18.2 % (11.6-16.5) H 10/15/17 07:07 Plt Count 679 X10^3/uL (150.0-450.0) H 10/15/17 07:07 Plt Count Comment Increased (ADEQUATE) 10/15/17 07:07 MPV 7.4 fL (7.4-11.0) 10/15/17 07:07 Neut % (Auto) 47.4 % (42.0-75.0) 10/15/17 07:07 Lymph % (Auto) 36.8 % (21.0-51.0) 10/15/17 07:07 [place] % (Auto) 8.5 % (0.0-13.0) 10/15/17 07:07 Eos % (Auto) 6.1 % (0.9-2.9) H 10/15/17 07:07 Baso % (Auto) 1.2 % (0.2-1.0) H 10/15/17 07:07 Neut # (Auto) 5.9 x10^3/uL (2.2-4.8) H 10/15/17 07:07 Lymph # (Auto) 4.6 X10^3/uL (1.3-2.9) H 10/15/17 07:07 [place] # (Auto) 1.1 x10^3/uL (0.3-0.8) H 10/15/17 07:07 Eos # (Auto) 0.8 x10^3/uL (0.0-0.2) H 10/15/17 07:07 Baso # (Auto) 0.2 X10^3/uL (0.0-0.1) H 10/15/17 07:07 Absolute Nucleated RBC 0.4 /100WBC 10/15/17 07:07 Plt Morphology Comment Normal (NORMAL) 10/15/17 07:07 RBC Morphology Abnormal (NORMAL) 10/15/17 07:07 Hypochromasia 2+ A 10/15/17 07:07 Anisocytosis 1+ A 10/15/17 07:07 Microcytosis 1+ A 10/15/17 07:07 Macrocytosis Slight A 10/12/17 23:40 Percent Retic 11.60 % (0.8-2.2) H 10/12/17 23:40 Sodium 141 mmol/L (136-145) 10/15/17 07:07 Corrected Sodium TNP 10/15/17 07:07 Potassium 4.2 mmol/L (3.5-5.1) 10/15/17 07:07 Chloride 112 mmol/L (98-107) H 10/15/17 07:07 Carbon Dioxide 25.0 mmol/L (21-32) 10/15/17 07:07 BUN 10 mg/dL (7-18) 10/15/17 07:07 Creatinine 0.83 mg/dL (0.70-1.30) 10/15/17 07:07 Est GFR (MDRD) Af Amer > 60 (>60) 10/15/17 07:07 Est GFR (MDRD) Non-Af > 60 (>60) 10/15/17 07:07 Glucose 86 mg/dL (65-99) 10/15/17 07:07 POC Glucose (mg/dL) 83 mg/dL (65-99) 10/15/17 10:46 Lactic Acid 2.0 mmol/L (0.4-2.0) 10/12/17 00:11 Calcium 8.7 mg/dL (8.5-10.1) 10/15/17 07:07 Corrected Calcium 9.7 mg/dL (8.5-10.1) 10/15/17 07:07 Total Bilirubin 2.30 mg/dL (0.2-1.0) H 10/15/17 07:07 AST 21 Units/L (15-37) 10/15/17 07:07 ALT 12 Units/L (12-78) 10/15/17 07:07 Alkaline Phosphatase 66 Units/L (46-116) 10/15/17 07:07 C-Reactive Protein 38.80 mg/L (0-3.0) H 10/12/17 00:11 Total Protein 6.6 g/dL (6.4-8.2) 10/15/17 07:07 Albumin 2.8 g/dL (3.4-5.0) L 10/15/17 07:07 Globulin 3.8 g/dL (2.5-4.5) 10/15/17 07:07 Albumin/Globulin Ratio 0.7 Ratio (1.1-2.1) L 10/15/17 07:07 Specimen Type Random urine 10/13/17 02:22 Urine Color Yellow (YELLOW) 10/13/17 02:22 Urine Appearance Hazy (CLEAR) 10/13/17 02:22 Urine pH 6.5 (5.0 - 8.0) 10/13/17 02:22 Ur Specific [place] 1.010 (1.000-1.030) 10/13/17 02:22 Urine Protein 1+ (NEGATIVE) 10/13/17 02:22 Urine Glucose (UA) Negative (NEGATIVE) 10/13/17 02:22 Urine Ketones Negative (NEGATIVE) 10/13/17 02:22 Urine Occult Blood Negative (NEGATIVE) 10/13/17 02:22 Urine Nitrite Negative (NEGATIVE) 10/13/17 02:22 Urine Bilirubin Negative (NEGATIVE) 10/13/17 02:22 Urine Urobilinogen 2+ (NORMAL) 10/13/17 02:22 Ur Leukocyte Esterase Negative (NEGATIVE) 10/13/17 02:22 Urine RBC None seen /HPF (NONE SEEN) 10/13/17 02:22 Urine WBC None seen /HPF (NONE SEEN) 10/13/17 02:22 Ur Squamous Epith Cells Negative /HPF (NEGATIVE) 10/13/17 02:22 Urine Bacteria Negative /HPF (NEGATIVE) 10/13/17 02:22 Urine Mucus Few /HPF (NEGATIVE) 10/13/17 02:22 Ur Culture Indicated? No/not indicated 10/13/17 02:22 Tissue Pathology To follow 10/13/17 13:24 Blood Type B POSITIVE 10/13/17 05:10 Antibody Screen Negative 10/13/17 05:10 Crossmatch See Detail 10/13/17 05:10 - Plan (1) Sickle cell disease Status: Chronic Qualifiers: Sickle-cell associated disorders: without crisis Qualified Code(s): D57.1 - Sickle-cell disease without crisis Plan: WOUND CULTURES, IV ATBX. BLOOD CULTURES, SURGICAL CONSULT CONTINUED S/P DEBRIDEMENT. TYPE AND CROSS MATCH TRANSFUSE WHEN BLOOD AVAILABLE. CONFIRM HOME MEDS, CARDIAC MONITORING, BP CONTROL (2) Ulcer of lower extremity with necrosis of muscle Status: Acute Qualifiers: Laterality: right Qualified Code(s): L97.913 - Non-pressure chronic ulcer of unspecified part of right lower leg with necrosis of muscle (3) Anemia Status: Acute Plan: TRANSFUSE BLOOD PRODUCT ORDERED. MONITOR H & H
[2017-10-16] MEDS: DEMEROL INJ IVP PRN ×5 (01:13→22:12)
[2017-10-16] MEDS: MOTRIN TAB 600 MG PO PRN (04:45)
[2017-10-16 05:16] LABS: WHITE BLOOD COUNT 15.3 X10^3/uL (3.6-10.0)
[2017-10-16 05:20] LABS: ALANINE AMINOTRANSFERASE 10 Units/L (12-78); ALBUMIN 2.5 g/dL (3.4-5.0); ALKALINE PHOSPHATASE 59 Units/L (46-116); ASPARTATE AMINO TRANSFERASE 21 Units/L (15-37); BASOPHILS # (AUTO) 0.2 X10^3/uL (0.0-0.1); BLOOD UREA NITROGEN 10 mg/dL (7-18); CARBON DIOXIDE 22.2 mmol/L (21-32); CHLORIDE 111 mmol/L (98-107); COR CA(FOR HYPOALB) 9.2 mg/dL (8.5-10.1); CREATININE 0.75 mg/dL (0.70-1.30); EOSINOPHILS # (AUTO) 0.9 x10^3/uL (0.0-0.2); EOSINOPHILS % (AUTO) 5.9 % (0.9-2.9); LYMPHOCYTES # (AUTO) 4.6 X10^3/uL (1.3-2.9); LYMPHOCYTES % (AUTO) 30.3 % (21.0-51.0); MEAN CORPUSCULAR HEMOGLOBIN 30.4 pg (27.0-34.0); MEAN CORPUSCULAR HGB CONC 35.7 g/dL (33.0-35.0); MEAN CORPUSCULAR VOLUME 85.2 fL (80.0-100.0); MEAN PLATELET VOLUME 7.8 fL (7.4-11.0); MONOCYTES # (AUTO) 1.3 x10^3/uL (0.3-0.8); MONOCYTES % (AUTO) 8.4 % (0.0-13.0); NEUTROPHILS # (AUTO) 8.3 x10^3/uL (2.2-4.8); NEUTROPHILS % (AUTO) 54.4 % (42.0-75.0); PLATELET COUNT 526 X10^3/uL (150.0-450.0); RED BLOOD COUNT 2.19 X10^6/uL (4.7-6.0); RED CELL DISTRIBUTION WIDTH 18.2 % (11.6-16.5); SODIUM 143 mmol/L (136-145); TOTAL PROTEIN 6.2 g/dL (6.4-8.2); eGFR NON BLACK RACES > 60 (>60)
[2017-10-16 05:23] LABS: HEMOGLOBIN 6.7 g/dL (13.5-18.0)
[2017-10-16 05:24] LABS: HEMATOCRIT 18.7 % (42.0-54.0)
[2017-10-16] MEDS: FORTAZ or TAZICEF VIAL INJ 1 G in NS 100 ML IV + SPIKE MINIBAG* 100 ML IV SCH ×3 (05:24→21:13)
[2017-10-16] MEDS: ZOSYN VIAL 3.375 GRAMS 3.375 G in NS 100 ML IV + SPIKE MINIBAG* 100 ML IV SCH ×3 (05:24→21:26)
--- NOTE | 2017-10-16 08:28 | DR.PROGNOT ---
Hospital Progress Notes - Progress Note for Day of: Progress Note Date: 10/16/17 - Chief Complaint Chief Complaint: c/o incisional and leg pain.. tolerating diet well . port is being used now. - Past Medical Family Social History Past Med/Fam/Surg Hx: No changes since H&P Allergies: Allergies Egg Derived Allergy (Verified 10/12/17 21:04) mayonnaise Allergy (Verified 10/12/17 21:04) morphine Allergy (Verified 10/13/17 05:57) ondansetron [From Zofran] Allergy (Verified 10/13/17 05:57) - Review Of Systems ROS: No change since H&P - Vital Signs Vital Signs: Temperature 99.0 F Pulse Rate [Right Brachial] 68 Pulse Rate [Apical] 60 Pulse Rate [Left Brachial] 72 Pulse Rate 81 Respiratory Rate 20 Blood Pressure [Right Arm] 104/59 Blood Pressure [Left Arm] 111/63 Blood Pressure 105/60 O2 Sat by Pulse Oximetry 97 - Physical Exam Oriented: Normal Eyes: Normal Ear: Normal Nose: Normal Throat: Dry Respiratory: Normal Cardiovascular: Tachycardia, Edema GI:Auscultation: Normal GI:Palpation: Normal GI: Tenderness: Normal Skin: Decreased Turgur, Wound (circumferential RRL WITH CLEAN DRY INTACT DRESSING.. no more necrosis or abscess formation .) Musculoskeletal: Right, Leg, Swelling, Tender Mood Description: Depressed, Sad Affect: Flat Speech Pattern: Clear, Appropriate - Laboratory and Diagnostics Result Diagrams: 10/16/17 04:35 10/16/17 04:35 Labs: 10/13/17 13:24 Leg - Right Gram Stain - Final 10/13/17 13:24 Leg - Right Wound Culture - Final Pseudomonas Aeruginosa Morganella Morganii 10/13/17 02:01 Leg - Right Gram Stain - Final 10/13/17 02:01 Leg - Right Wound Culture - Final Proteus Mirabilis 10/12/17 23:40 Blood Blood Culture - Preliminary 10/12/17 23:45 Blood Blood Culture - Preliminary Laboratory WBC 15.3 X10^3/uL (3.6-10.0) H 10/16/17 04:35 RBC 2.19 X10^6/uL (4.7-6.0) L 10/16/17 04:35 Hgb 6.7 g/dL (13.5-18.0) L* 10/16/17 04:35 Hct 18.7 % (42.0-54.0) L* 10/16/17 04:35 MCV 85.2 fL (80.0-100.0) 10/16/17 04:35 MCH 30.4 pg (27.0-34.0) 10/16/17 04:35 MCHC 35.7 g/dL (33.0-35.0) H 10/16/17 04:35 RDW 18.2 % (11.6-16.5) H 10/16/17 04:35 Plt Count 526 X10^3/uL (150.0-450.0) H 10/16/17 04:35 Plt Count Comment Increased (ADEQUATE) 10/15/17 07:07 MPV 7.8 fL (7.4-11.0) 10/16/17 04:35 Neut % (Auto) 54.4 % (42.0-75.0) 10/16/17 04:35 Lymph % (Auto) 30.3 % (21.0-51.0) 10/16/17 04:35 [place] % (Auto) 8.4 % (0.0-13.0) 10/16/17 04:35 Eos % (Auto) 5.9 % (0.9-2.9) H 10/16/17 04:35 Baso % (Auto) 1.0 % (0.2-1.0) 10/16/17 04:35 Neut # (Auto) 8.3 x10^3/uL (2.2-4.8) H 10/16/17 04:35 Lymph # (Auto) 4.6 X10^3/uL (1.3-2.9) H 10/16/17 04:35 [place] # (Auto) 1.3 x10^3/uL (0.3-0.8) H 10/16/17 04:35 Eos # (Auto) 0.9 x10^3/uL (0.0-0.2) H 10/16/17 04:35 Baso # (Auto) 0.2 X10^3/uL (0.0-0.1) H 10/16/17 04:35 Absolute Nucleated RBC 0.7 /100WBC 10/16/17 04:35 Plt Morphology Comment Normal (NORMAL) 10/15/17 07:07 RBC Morphology Abnormal (NORMAL) 10/15/17 07:07 Hypochromasia 2+ A 10/15/17 07:07 Anisocytosis 1+ A 10/15/17 07:07 Microcytosis 1+ A 10/15/17 07:07 Macrocytosis Slight A 10/12/17 23:40 Percent Retic 11.60 % (0.8-2.2) H 10/12/17 23:40 Sodium 143 mmol/L (136-145) 10/16/17 04:35 Corrected Sodium TNP 10/16/17 04:35 Potassium 4.1 mmol/L (3.5-5.1) 10/16/17 04:35 Chloride 111 mmol/L (98-107) H 10/16/17 04:35 Carbon Dioxide 22.2 mmol/L (21-32) 10/16/17 04:35 BUN 10 mg/dL (7-18) 10/16/17 04:35 Creatinine 0.75 mg/dL (0.70-1.30) 10/16/17 04:35 Est GFR (MDRD) Af Amer > 60 (>60) 10/16/17 04:35 Est GFR (MDRD) Non-Af > 60 (>60) 10/16/17 04:35 Glucose 76 mg/dL (65-99) 10/16/17 04:35 POC Glucose (mg/dL) 83 mg/dL (65-99) 10/15/17 10:46 Lactic Acid 2.0 mmol/L (0.4-2.0) 10/12/17 00:11 Calcium 8.0 mg/dL (8.5-10.1) L 10/16/17 04:35 Corrected Calcium 9.2 mg/dL (8.5-10.1) 10/16/17 04:35 Total Bilirubin 1.80 mg/dL (0.2-1.0) H 10/16/17 04:35 AST 21 Units/L (15-37) 10/16/17 04:35 ALT 10 Units/L (12-78) L 10/16/17 04:35 Alkaline Phosphatase 59 Units/L (46-116) 10/16/17 04:35 C-Reactive Protein 38.80 mg/L (0-3.0) H 10/12/17 00:11 Total Protein 6.2 g/dL (6.4-8.2) L 10/16/17 04:35 Albumin 2.5 g/dL (3.4-5.0) L 10/16/17 04:35 Globulin 3.7 g/dL (2.5-4.5) 10/16/17 04:35 Albumin/Globulin Ratio 0.7 Ratio (1.1-2.1) L 10/16/17 04:35 Specimen Type Random urine 10/13/17 02:22 Urine Color Yellow (YELLOW) 10/13/17 02:22 Urine Appearance Hazy (CLEAR) 10/13/17 02:22 Urine pH 6.5 (5.0 - 8.0) 10/13/17 02:22 Ur Specific [place] 1.010 (1.000-1.030) 10/13/17 02:22 Urine Protein 1+ (NEGATIVE) 10/13/17 02:22 Urine Glucose (UA) Negative (NEGATIVE) 10/13/17 02:22 Urine Ketones Negative (NEGATIVE) 10/13/17 02:22 Urine Occult Blood Negative (NEGATIVE) 10/13/17 02:22 Urine Nitrite Negative (NEGATIVE) 10/13/17 02:22 Urine Bilirubin Negative (NEGATIVE) 10/13/17 02:22 Urine Urobilinogen 2+ (NORMAL) 10/13/17 02:22 Ur Leukocyte Esterase Negative (NEGATIVE) 10/13/17 02:22 Urine RBC None seen /HPF (NONE SEEN) 10/13/17 02:22 Urine WBC None seen /HPF (NONE SEEN) 10/13/17 02:22 Ur Squamous Epith Cells Negative /HPF (NEGATIVE) 10/13/17 02:22 Urine Bacteria Negative /HPF (NEGATIVE) 10/13/17 02:22 Urine Mucus Few /HPF (NEGATIVE) 10/13/17 02:22 Ur Culture Indicated? No/not indicated 10/13/17 02:22 Tissue Pathology To follow 10/13/17 13:24 Blood Type B POSITIVE 10/13/17 05:10 Antibody Screen Negative 10/13/17 05:10 Crossmatch See Detail 10/13/17 05:10 - Assessment and Plan 1: po placement of tunneled port Lt J. large chronic and acute lef ulcers . sickle cell anemia . anemia . same plan and maybe skilled care placement for 2 weeks. - Problem Patient Problems: Patient Problems Cellulitis of leg without foot, right (Acute) L03.115 Sickle cell anemia with crisis (Acute) D57.00 Anemia (Acute) D64.9
[2017-10-16] MEDS: LOVENOX INJ 40 MG SYR SC SCH (09:41)
[2017-10-16] MEDS: NS 1000 ML 1,000 ML IV SCH ×4 (09:41→22:11)
[2017-10-16] MEDS: PERCOCET TAB 5/325 MG PO PRN ×2 (15:18→20:07)
[2017-10-16] MEDS ORDERED: NS 500 ML IV 500 ML IV ONE (16:46)
[2017-10-17] MEDS: PERCOCET TAB 5/325 MG PO PRN ×4 (01:01→19:24)
[2017-10-17] MEDS: DEMEROL INJ IVP PRN ×4 (02:13→20:06)
[2017-10-17] MEDS: MOTRIN TAB 600 MG PO PRN ×2 (04:41→16:43)
[2017-10-17] MEDS: FORTAZ or TAZICEF VIAL INJ 1 G in NS 100 ML IV + SPIKE MINIBAG* 100 ML IV SCH ×3 (05:00→21:20)
[2017-10-17] MEDS: ZOSYN VIAL 3.375 GRAMS 3.375 G in NS 100 ML IV + SPIKE MINIBAG* 100 ML IV SCH ×3 (05:01→22:51)
[2017-10-17 05:51] LABS: ALANINE AMINOTRANSFERASE 12 Units/L (12-78); ALBUMIN 2.7 g/dL (3.4-5.0); ALKALINE PHOSPHATASE 63 Units/L (46-116); ASPARTATE AMINO TRANSFERASE 20 Units/L (15-37); BLOOD UREA NITROGEN 11 mg/dL (7-18); CALCIUM 8.3 mg/dL (8.5-10.1); CARBON DIOXIDE 25.5 mmol/L (21-32); CHLORIDE 111 mmol/L (98-107); COR CA(FOR HYPOALB) 9.3 mg/dL (8.5-10.1); CREATININE 0.78 mg/dL (0.70-1.30); SODIUM 142 mmol/L (136-145); TOTAL PROTEIN 6.5 g/dL (6.4-8.2); eGFR NON BLACK RACES > 60 (>60)
[2017-10-17 05:56] LABS: BASOPHILS # (AUTO) 0.1 X10^3/uL (0.0-0.1); BASOPHILS % (AUTO) 0.6 % (0.2-1.0); EOSINOPHILS # (AUTO) 0.8 x10^3/uL (0.0-0.2); EOSINOPHILS % (AUTO) 4.7 % (0.9-2.9); HEMATOCRIT 20.9 % (42.0-54.0); HEMOGLOBIN 7.3 g/dL (13.5-18.0); LYMPHOCYTES # (AUTO) 3.5 X10^3/uL (1.3-2.9); LYMPHOCYTES % (AUTO) 21.3 % (21.0-51.0); MEAN CORPUSCULAR HEMOGLOBIN 30.7 pg (27.0-34.0); MEAN CORPUSCULAR HGB CONC 34.9 g/dL (33.0-35.0); MEAN PLATELET VOLUME 8.1 fL (7.4-11.0); MONOCYTES # (AUTO) 1.7 x10^3/uL (0.3-0.8); MONOCYTES % (AUTO) 10.4 % (0.0-13.0); NEUTROPHILS # (AUTO) 10.4 x10^3/uL (2.2-4.8); PLATELET COUNT 627 X10^3/uL (150.0-450.0); RED BLOOD COUNT 2.38 X10^6/uL (4.7-6.0); RED CELL DISTRIBUTION WIDTH 18.2 % (11.6-16.5); WHITE BLOOD COUNT 16.6 X10^3/uL (3.6-10.0)
[2017-10-17 06:02] LABS: ANISOCYTOSIS 1+; HYPOCHROMASIA 1+; PLATELET MORPHOLOGY COMMENT NORMAL (NORMAL)
[2017-10-17] MEDS: LOVENOX INJ 40 MG SYR SC SCH (09:01)
[2017-10-17] MEDS: NS 1000 ML 1,000 ML IV SCH ×2 (09:02→14:06)
[2017-10-17] MEDS ORDERED: BACITRACIN ZINC ONE (09:50)
--- NOTE | 2017-10-17 10:10 | DR.PROGNOT ---
Hospital Progress Notes - Progress Note for Day of: Progress Note Date: 10/17/17 - Chief Complaint Chief Complaint: moderate drainage from the leg ulcers . cultures are growing mixed bacteria ,. afebrile . dressing wsa changed . - Past Medical Family Social History Past Med/Fam/Surg Hx: No changes since H&P Allergies: Allergies Egg Derived Allergy (Verified 10/12/17 21:04) mayonnaise Allergy (Verified 10/12/17 21:04) morphine Allergy (Verified 10/13/17 05:57) ondansetron [From Zofran] Allergy (Verified 10/13/17 05:57) - Review Of Systems ROS: No change since H&P - Vital Signs Vital Signs: Temperature 98.4 F Pulse Rate [Right Brachial] 66 Pulse Rate [Apical] 60 Pulse Rate [Left Brachial] 72 Pulse Rate 81 Respiratory Rate 18 Blood Pressure [Right Arm] 129/58 Blood Pressure [Left Arm] 111/63 Blood Pressure 105/60 O2 Sat by Pulse Oximetry 100 - Physical Exam Oriented: Normal Eyes: Normal Ear: Normal Nose: Normal Throat: Dry Respiratory: Normal Cardiovascular: Tachycardia, Edema GI:Auscultation: Normal GI:Palpation: Normal GI: Tenderness: Normal Skin: Decreased Turgur, Wound (circumferential RRL .. no more necrosis or abscess formation .) Musculoskeletal: Right, Leg, Swelling, Tender Mood Description: Depressed, Sad Affect: Flat Speech Pattern: Clear, Appropriate - Laboratory and Diagnostics Result Diagrams: 10/17/17 04:10 10/17/17 04:10 Labs: 10/13/17 13:24 Leg - Right Gram Stain - Final 10/13/17 13:24 Leg - Right Wound Culture - Final Pseudomonas Aeruginosa Morganella Morganii 10/13/17 02:01 Leg - Right Gram Stain - Final 10/13/17 02:01 Leg - Right Wound Culture - Final Proteus Mirabilis 10/12/17 23:40 Blood Blood Culture - Preliminary 10/12/17 23:45 Blood Blood Culture - Preliminary Laboratory WBC 16.6 X10^3/uL (3.6-10.0) H 10/17/17 04:10 RBC 2.38 X10^6/uL (4.7-6.0) L 10/17/17 04:10 Hgb 7.3 g/dL (13.5-18.0) L 10/17/17 04:10 Hct 20.9 % (42.0-54.0) L 10/17/17 04:10 MCV 88.0 fL (80.0-100.0) 10/17/17 04:10 MCH 30.7 pg (27.0-34.0) 10/17/17 04:10 MCHC 34.9 g/dL (33.0-35.0) 10/17/17 04:10 RDW 18.2 % (11.6-16.5) H 10/17/17 04:10 Plt Count 627 X10^3/uL (150.0-450.0) H 10/17/17 04:10 Plt Count Comment Increased (ADEQUATE) 10/17/17 04:10 MPV 8.1 fL (7.4-11.0) 10/17/17 04:10 Neut % (Auto) 63.0 % (42.0-75.0) 10/17/17 04:10 Lymph % (Auto) 21.3 % (21.0-51.0) 10/17/17 04:10 [place] % (Auto) 10.4 % (0.0-13.0) 10/17/17 04:10 Eos % (Auto) 4.7 % (0.9-2.9) H 10/17/17 04:10 Baso % (Auto) 0.6 % (0.2-1.0) 10/17/17 04:10 Neut # (Auto) 10.4 x10^3/uL (2.2-4.8) H 10/17/17 04:10 Lymph # (Auto) 3.5 X10^3/uL (1.3-2.9) H 10/17/17 04:10 [place] # (Auto) 1.7 x10^3/uL (0.3-0.8) H 10/17/17 04:10 Eos # (Auto) 0.8 x10^3/uL (0.0-0.2) H 10/17/17 04:10 Baso # (Auto) 0.1 X10^3/uL (0.0-0.1) 10/17/17 04:10 Absolute Nucleated RBC 0.3 /100WBC 10/17/17 04:10 Plt Morphology Comment Normal (NORMAL) 10/17/17 04:10 RBC Morphology Abnormal (NORMAL) 10/17/17 04:10 Hypochromasia 1+ A 10/17/17 04:10 Anisocytosis 1+ A 10/17/17 04:10 Microcytosis 1+ A 10/15/17 07:07 Macrocytosis Slight A 10/12/17 23:40 Percent Retic 11.60 % (0.8-2.2) H 10/12/17 23:40 Sodium 142 mmol/L (136-145) 10/17/17 04:10 Corrected Sodium TNP 10/17/17 04:10 Potassium 3.9 mmol/L (3.5-5.1) 10/17/17 04:10 Chloride 111 mmol/L (98-107) H 10/17/17 04:10 Carbon Dioxide 25.5 mmol/L (21-32) 10/17/17 04:10 BUN 11 mg/dL (7-18) 10/17/17 04:10 Creatinine 0.78 mg/dL (0.70-1.30) 10/17/17 04:10 Est GFR (MDRD) Af Amer > 60 (>60) 10/17/17 04:10 Est GFR (MDRD) Non-Af > 60 (>60) 10/17/17 04:10 Glucose 82 mg/dL (65-99) 10/17/17 04:10 POC Glucose (mg/dL) 83 mg/dL (65-99) 10/15/17 10:46 Lactic Acid 2.0 mmol/L (0.4-2.0) 10/12/17 00:11 Calcium 8.3 mg/dL (8.5-10.1) L 10/17/17 04:10 Corrected Calcium 9.3 mg/dL (8.5-10.1) 10/17/17 04:10 Total Bilirubin 1.30 mg/dL (0.2-1.0) H 10/17/17 04:10 AST 20 Units/L (15-37) 10/17/17 04:10 ALT 12 Units/L (12-78) 10/17/17 04:10 Alkaline Phosphatase 63 Units/L (46-116) 10/17/17 04:10 C-Reactive Protein 38.80 mg/L (0-3.0) H 10/12/17 00:11 Total Protein 6.5 g/dL (6.4-8.2) 10/17/17 04:10 Albumin 2.7 g/dL (3.4-5.0) L 10/17/17 04:10 Globulin 3.8 g/dL (2.5-4.5) 10/17/17 04:10 Albumin/Globulin Ratio 0.7 Ratio (1.1-2.1) L 10/17/17 04:10 Specimen Type Random urine 10/13/17 02:22 Urine Color Yellow (YELLOW) 10/13/17 02:22 Urine Appearance Hazy (CLEAR) 10/13/17 02:22 Urine pH 6.5 (5.0 - 8.0) 10/13/17 02:22 Ur Specific [place] 1.010 (1.000-1.030) 10/13/17 02:22 Urine Protein 1+ (NEGATIVE) 10/13/17 02:22 Urine Glucose (UA) Negative (NEGATIVE) 10/13/17 02:22 Urine Ketones Negative (NEGATIVE) 10/13/17 02:22 Urine Occult Blood Negative (NEGATIVE) 10/13/17 02:22 Urine Nitrite Negative (NEGATIVE) 10/13/17 02:22 Urine Bilirubin Negative (NEGATIVE) 10/13/17 02:22 Urine Urobilinogen 2+ (NORMAL) 10/13/17 02:22 Ur Leukocyte Esterase Negative (NEGATIVE) 10/13/17 02:22 Urine RBC None seen /HPF (NONE SEEN) 10/13/17 02:22 Urine WBC None seen /HPF (NONE SEEN) 10/13/17 02:22 Ur Squamous Epith Cells Negative /HPF (NEGATIVE) 10/13/17 02:22 Urine Bacteria Negative /HPF (NEGATIVE) 10/13/17 02:22 Urine Mucus Few /HPF (NEGATIVE) 10/13/17 02:22 Ur Culture Indicated? No/not indicated 10/13/17 02:22 Tissue Pathology To follow 10/13/17 13:24 Blood Type B POSITIVE 10/13/17 05:10 Antibody Screen Negative 10/13/17 05:10 Crossmatch See Detail 10/13/17 05:10 - Assessment and Plan 1: po placement of tunneled port Lt J. large chronic and acute RL ulcers . sickle cell anemia . anemia . to change dressing daily ,. clean with H2O2 and saline . use xyroform , ABD , Curlex and Zay bandage . if xyroform is not available apply Bacitracin ointment and vaseline gauze and cover the same way - Problem Patient Problems: Patient Problems Cellulitis of leg without foot, right (Acute) L03.115 Sickle cell anemia with crisis (Acute) D57.00 Anemia (Acute) D64.9
--- NOTE | 2017-10-17 15:43 | PCM.PROG ---
Progress Note - Progress Note for Day of Date of Exam: 10/17/17 - Subjective Subjective: 32 BM ER ADMISSION WITH SEVERE RLL OPEN WOUND, CHRONIC WOUND WITH WORSENED PAIN, D/C. PT HAS HX OF SICKLE CELL DISEASE. PT HAS LONG HX OF NON COMPLIANCE AND HX OF MULTIPLE SURGICAL WOUND DEBRIDEMENT AND SKIN GRAFTS. PT S/ P WOUND DEBRIDEMENT PER DR GIRARD AND PORT A CATH PLACEMENT. PT CURRENTLY STATES HE IS FEELING BETTER, DENIES NAUSEA. PT REPORTS NORMAL BM. CASE MANAGEMENT CONSULT FOR PLAN FOR D/C WHEN STABLE. PT WILL NEED EXTENDED IV ATBX THERAPY AND WOUND CARE. REPEAT AM LABS, PAIN CONTROL, WOUND CARE - Past Medical Family Social History Past Med/Fam/Surg Hx: No changes since H&P Allergies: Allergies Egg Derived Allergy (Verified 10/12/17 21:04) mayonnaise Allergy (Verified 10/12/17 21:04) morphine Allergy (Verified 10/13/17 05:57) ondansetron [From Zofran] Allergy (Verified 10/13/17 05:57) - Review of Systems ROS: No change since H&P - Vital Signs and I&O's Vital Signs: Temperature 98.4 F Pulse Rate [Right Brachial] 51 Pulse Rate [Apical] 60 Pulse Rate [Left Brachial] 72 Pulse Rate 81 Respiratory Rate 18 Blood Pressure [Right Arm] 119/61 Blood Pressure [Left Arm] 111/63 Blood Pressure 105/60 O2 Sat by Pulse Oximetry 97 Intake and Output: Intake & Output 10/15/17 10/16/17 10/17/17 10/18/17 11:59 11:59 11:59 11:59 Intake Total 6285 / 6285 3466 / 3466 3734 / 3734 1200 / 1200 Output Total 3450 / 3450 1500 / 1500 2675 / 2675 Balance 2835 / 2835 1965 / 1965 1059 / 1059 1200 / 1200 - Physical Exam Oriented: Normal Eyes: Normal Ear: Normal Nose: Normal Throat: Dry Respiratory: Normal Cardiovascular: Tachycardia, Edema Auscultation: Bowel Sounds: Normal Tenderness: Normal Skin: Decreased Turgur, Wound (circumferential RRL .. no more necrosis or abscess formation .) Musculoskeletal: Right, Leg, Swelling, Tender Mood Description: Depressed, Sad Affect: Flat Speech Pattern: Clear, Appropriate - Laboratory and Diagnostics Result Diagrams: 10/17/17 04:10 10/17/17 04:10 Labs: 10/13/17 13:24 Leg - Right Gram Stain - Final 10/13/17 13:24 Leg - Right Wound Culture - Final Pseudomonas Aeruginosa Morganella Morganii 10/13/17 02:01 Leg - Right Gram Stain - Final 10/13/17 02:01 Leg - Right Wound Culture - Final Proteus Mirabilis 10/12/17 23:40 Blood Blood Culture - Preliminary 10/12/17 23:45 Blood Blood Culture - Preliminary Laboratory WBC 16.6 X10^3/uL (3.6-10.0) H 10/17/17 04:10 RBC 2.38 X10^6/uL (4.7-6.0) L 10/17/17 04:10 Hgb 7.3 g/dL (13.5-18.0) L 10/17/17 04:10 Hct 20.9 % (42.0-54.0) L 10/17/17 04:10 MCV 88.0 fL (80.0-100.0) 10/17/17 04:10 MCH 30.7 pg (27.0-34.0) 10/17/17 04:10 MCHC 34.9 g/dL (33.0-35.0) 10/17/17 04:10 RDW 18.2 % (11.6-16.5) H 10/17/17 04:10 Plt Count 627 X10^3/uL (150.0-450.0) H 10/17/17 04:10 Plt Count Comment Increased (ADEQUATE) 10/17/17 04:10 MPV 8.1 fL (7.4-11.0) 10/17/17 04:10 Neut % (Auto) 63.0 % (42.0-75.0) 10/17/17 04:10 Lymph % (Auto) 21.3 % (21.0-51.0) 10/17/17 04:10 [place] % (Auto) 10.4 % (0.0-13.0) 10/17/17 04:10 Eos % (Auto) 4.7 % (0.9-2.9) H 10/17/17 04:10 Baso % (Auto) 0.6 % (0.2-1.0) 10/17/17 04:10 Neut # (Auto) 10.4 x10^3/uL (2.2-4.8) H 10/17/17 04:10 Lymph # (Auto) 3.5 X10^3/uL (1.3-2.9) H 10/17/17 04:10 [place] # (Auto) 1.7 x10^3/uL (0.3-0.8) H 10/17/17 04:10 Eos # (Auto) 0.8 x10^3/uL (0.0-0.2) H 10/17/17 04:10 Baso # (Auto) 0.1 X10^3/uL (0.0-0.1) 10/17/17 04:10 Absolute Nucleated RBC 0.3 /100WBC 10/17/17 04:10 Plt Morphology Comment Normal (NORMAL) 10/17/17 04:10 RBC Morphology Abnormal (NORMAL) 10/17/17 04:10 Hypochromasia 1+ A 10/17/17 04:10 Anisocytosis 1+ A 10/17/17 04:10 Microcytosis 1+ A 10/15/17 07:07 Macrocytosis Slight A 10/12/17 23:40 Percent Retic 11.60 % (0.8-2.2) H 10/12/17 23:40 Sodium 142 mmol/L (136-145) 10/17/17 04:10 Corrected Sodium TNP 10/17/17 04:10 Potassium 3.9 mmol/L (3.5-5.1) 10/17/17 04:10 Chloride 111 mmol/L (98-107) H 10/17/17 04:10 Carbon Dioxide 25.5 mmol/L (21-32) 10/17/17 04:10 BUN 11 mg/dL (7-18) 10/17/17 04:10 Creatinine 0.78 mg/dL (0.70-1.30) 10/17/17 04:10 Est GFR (MDRD) Af Amer > 60 (>60) 10/17/17 04:10 Est GFR (MDRD) Non-Af > 60 (>60) 10/17/17 04:10 Glucose 82 mg/dL (65-99) 10/17/17 04:10 POC Glucose (mg/dL) 83 mg/dL (65-99) 10/15/17 10:46 Lactic Acid 2.0 mmol/L (0.4-2.0) 10/12/17 00:11 Calcium 8.3 mg/dL (8.5-10.1) L 10/17/17 04:10 Corrected Calcium 9.3 mg/dL (8.5-10.1) 10/17/17 04:10 Total Bilirubin 1.30 mg/dL (0.2-1.0) H 10/17/17 04:10 AST 20 Units/L (15-37) 10/17/17 04:10 ALT 12 Units/L (12-78) 10/17/17 04:10 Alkaline Phosphatase 63 Units/L (46-116) 10/17/17 04:10 C-Reactive Protein 38.80 mg/L (0-3.0) H 10/12/17 00:11 Total Protein 6.5 g/dL (6.4-8.2) 10/17/17 04:10 Albumin 2.7 g/dL (3.4-5.0) L 10/17/17 04:10 Globulin 3.8 g/dL (2.5-4.5) 10/17/17 04:10 Albumin/Globulin Ratio 0.7 Ratio (1.1-2.1) L 10/17/17 04:10 Specimen Type Random urine 10/13/17 02:22 Urine Color Yellow (YELLOW) 10/13/17 02:22 Urine Appearance Hazy (CLEAR) 10/13/17 02:22 Urine pH 6.5 (5.0 - 8.0) 10/13/17 02:22 Ur Specific [place] 1.010 (1.000-1.030) 10/13/17 02:22 Urine Protein 1+ (NEGATIVE) 10/13/17 02:22 Urine Glucose (UA) Negative (NEGATIVE) 10/13/17 02:22 Urine Ketones Negative (NEGATIVE) 10/13/17 02:22 Urine Occult Blood Negative (NEGATIVE) 10/13/17 02:22 Urine Nitrite Negative (NEGATIVE) 10/13/17 02:22 Urine Bilirubin Negative (NEGATIVE) 10/13/17 02:22 Urine Urobilinogen 2+ (NORMAL) 10/13/17 02:22 Ur Leukocyte Esterase Negative (NEGATIVE) 10/13/17 02:22 Urine RBC None seen /HPF (NONE SEEN) 10/13/17 02:22 Urine WBC None seen /HPF (NONE SEEN) 10/13/17 02:22 Ur Squamous Epith Cells Negative /HPF (NEGATIVE) 10/13/17 02:22 Urine Bacteria Negative /HPF (NEGATIVE) 10/13/17 02:22 Urine Mucus Few /HPF (NEGATIVE) 10/13/17 02:22 Ur Culture Indicated? No/not indicated 10/13/17 02:22 Tissue Pathology To follow 10/13/17 13:24 Blood Type B POSITIVE 10/13/17 05:10 Antibody Screen Negative 10/13/17 05:10 Crossmatch See Detail 10/13/17 05:10 - Plan (1) Sickle cell disease Status: Chronic Qualifiers: Sickle-cell associated disorders: without crisis Qualified Code(s): D57.1 - Sickle-cell disease without crisis Plan: WOUND CULTURES, IV ATBX. BLOOD CULTURES, SURGICAL CONSULT CONTINUED S/P DEBRIDEMENT. S/P TRANSFUSION. PAIN CONTROL, BP CONTROL. NUTRITION CONSULT, CASE MANAGEMENT CONSULT (2) Ulcer of lower extremity with necrosis of muscle Status: Acute Qualifiers: Laterality: right Qualified Code(s): L97.913 - Non-pressure chronic ulcer of unspecified part of right lower leg with necrosis of muscle Plan: S/P PORT A CATH PLACEMENT FOR IV ATBX THERAPY POST. D/C (3) Anemia Status: Acute Plan: S/P TRANSFUSION. MONITOR H & H (4) Protein calorie malnutrition Status: Acute Plan: PROTEIN SUPPLEMENT REPLACEMENT (5) Adult failure to thrive Status: Acute Plan: FOLLOWED BY APS
[2017-10-17] MEDS ORDERED: PHARMACY CONSULT - DOSE _____ XX SCH (16:00)
[2017-10-17] MEDS: FOLIC ACID TAB 1 MG PO SCH (16:43)
[2017-10-18] MEDS: NS 1000 ML 1,000 ML IV SCH ×5 (00:31→22:12)
[2017-10-18] MEDS: MOTRIN TAB 600 MG PO PRN (00:31)
[2017-10-18] MEDS: DEMEROL INJ IVP PRN ×6 (00:32→21:31)
[2017-10-18] MEDS: PERCOCET TAB 5/325 MG PO PRN ×3 (04:16→20:13)
[2017-10-18 05:24] LABS: ALANINE AMINOTRANSFERASE 20 Units/L (12-78); ALBUMIN 2.8 g/dL (3.4-5.0); ALKALINE PHOSPHATASE 65 Units/L (46-116); ASPARTATE AMINO TRANSFERASE 36 Units/L (15-37); BASOPHILS # (AUTO) 0.2 X10^3/uL (0.0-0.1); BASOPHILS % (AUTO) 0.8 % (0.2-1.0); BLOOD UREA NITROGEN 10 mg/dL (7-18); CALCIUM 8.5 mg/dL (8.5-10.1); CARBON DIOXIDE 27.2 mmol/L (21-32); CHLORIDE 109 mmol/L (98-107); COR CA(FOR HYPOALB) 9.5 mg/dL (8.5-10.1); CREATININE 0.74 mg/dL (0.70-1.30); EOSINOPHILS # (AUTO) 0.7 x10^3/uL (0.0-0.2); EOSINOPHILS % (AUTO) 4.2 % (0.9-2.9); HEMATOCRIT 21.1 % (42.0-54.0); HEMOGLOBIN 7.4 g/dL (13.5-18.0); LYMPHOCYTES # (AUTO) 2.2 X10^3/uL (1.3-2.9); LYMPHOCYTES % (AUTO) 12.3 % (21.0-51.0); MEAN CORPUSCULAR HEMOGLOBIN 30.5 pg (27.0-34.0); MEAN CORPUSCULAR HGB CONC 34.9 g/dL (33.0-35.0); MEAN CORPUSCULAR VOLUME 87.4 fL (80.0-100.0); MEAN PLATELET VOLUME 8.1 fL (7.4-11.0); MONOCYTES # (AUTO) 1.4 x10^3/uL (0.3-0.8); MONOCYTES % (AUTO) 7.6 % (0.0-13.0); NEUTROPHILS # (AUTO) 13.4 x10^3/uL (2.2-4.8); NEUTROPHILS % (AUTO) 75.1 % (42.0-75.0); PLATELET COUNT 613 X10^3/uL (150.0-450.0); RED BLOOD COUNT 2.42 X10^6/uL (4.7-6.0); RED CELL DISTRIBUTION WIDTH 18.4 % (11.6-16.5); SODIUM 142 mmol/L (136-145); TOTAL PROTEIN 6.7 g/dL (6.4-8.2); WHITE BLOOD COUNT 17.8 X10^3/uL (3.6-10.0); eGFR NON BLACK RACES > 60 (>60)
[2017-10-18] MEDS: FORTAZ or TAZICEF VIAL INJ 1 G in NS 100 ML IV + SPIKE MINIBAG* 100 ML IV SCH ×3 (05:45→21:04)
[2017-10-18 05:47] LABS: ANISOCYTOSIS 1+; HYPOCHROMASIA 1+; PLATELET MORPHOLOGY COMMENT NORMAL (NORMAL)
[2017-10-18 05:48] LABS: SICKLE CELLS PRESENT; TARGET CELLS PRESENT
[2017-10-18] MEDS: ZOSYN VIAL 3.375 GRAMS 3.375 G in NS 100 ML IV + SPIKE MINIBAG* 100 ML IV SCH ×3 (07:50→21:31)
[2017-10-18] MEDS: FOLIC ACID TAB 1 MG PO SCH (08:04)
[2017-10-18] MEDS: LOVENOX INJ 40 MG SYR SC SCH (08:04)
--- NOTE | 2017-10-18 10:26 | RAD ---
Examination: AP chest History: Diminished lung sounds with leukocytosis and sickle cell Comparison reference 10/15/2017 Findings: Continued cardiomegaly. There is significant improvement in aeration of the lungs with inc reased pulmonary volumes. Slight residual pulmonary vascular prominence is probably normal for this p atient with sickle cell disease. There is no evidence for pneumonia, atelectasis or pulmonary edema. Central line it is again noted terminating near the cavoatrial junction. Impression: Interval improvement in appearance of the chest. No new abnormality demonstrated. Reported By:
--- NOTE | 2017-10-18 12:20 | PCM.PROG ---
Progress Note - Progress Note for Day of Date of Exam: 10/18/17 - Subjective Subjective: 32 BM ER ADMISSION WITH SEVERE RLL OPEN WOUND, CHRONIC WOUND WITH WORSENED PAIN, D/C. PT HAS HX OF SICKLE CELL DISEASE. PT HAS LONG HX OF NON COMPLIANCE AND HX OF MULTIPLE SURGICAL WOUND DEBRIDEMENT AND SKIN GRAFTS. PT S/ P WOUND DEBRIDEMENT PER DR GIRARD AND PORT A CATH PLACEMENT. PT CURRENTLY STATES HE IS FEELING BETTER, DENIES NAUSEA. PT REPORTS NORMAL BM. MILD DIMINISHED LUNG BASES, WILL OBTAIN CXR TODAY, ENCOURAGE IS. CASE MANAGEMENT CONSULT FOR PLAN FOR D/C WHEN STABLE. PT WILL NEED EXTENDED IV ATBX THERAPY AND WOUND CARE. REPEAT AM LABS, PAIN CONTROL, WOUND CARE - Past Medical Family Social History Past Med/Fam/Surg Hx: No changes since H&P Allergies: Allergies Egg Derived Allergy (Verified 10/12/17 21:04) mayonnaise Allergy (Verified 10/12/17 21:04) morphine Allergy (Verified 10/13/17 05:57) ondansetron [From Zofran] Allergy (Verified 10/13/17 05:57) - Review of Systems ROS: No change since H&P - Vital Signs and I&O's Vital Signs: Temperature 97.8 F Pulse Rate [Right Brachial] 70 Pulse Rate [Apical] 60 Pulse Rate [Left Brachial] 51 Pulse Rate 81 Respiratory Rate 20 Blood Pressure [Right Arm] 116/72 Blood Pressure [Left Arm] 138/65 Blood Pressure 105/60 O2 Sat by Pulse Oximetry 98 Intake and Output: Intake & Output 10/16/17 10/17/17 10/18/17 10/19/17 11:59 11:59 11:59 11:59 Intake Total 3466 / 3466 3734 / 3734 4278 / 4278 Output Total 1500 / 1500 2675 / 2675 2200 / 2200 Balance 1965 / 1965 1059 / 1059 2077 / 2077 - Physical Exam Oriented: Normal Eyes: Normal Ear: Normal Nose: Normal Throat: Dry Respiratory: Diminished Cardiovascular: Tachycardia, Edema Auscultation: Bowel Sounds: Normal Tenderness: Normal Skin: Decreased Turgur, Wound (circumferential RRL .. no more necrosis or abscess formation .) Musculoskeletal: Right, Leg, Swelling, Tender Mood Description: Depressed, Sad Affect: Flat Speech Pattern: Clear, Appropriate - Laboratory and Diagnostics Result Diagrams: 10/18/17 04:29 10/18/17 04:29 Labs: 10/12/17 23:45 Blood Blood Culture - Final 10/12/17 23:40 Blood Blood Culture - Final 10/13/17 13:24 Leg - Right Gram Stain - Final 10/13/17 13:24 Leg - Right Wound Culture - Final Pseudomonas Aeruginosa Morganella Morganii 10/13/17 02:01 Leg - Right Gram Stain - Final 10/13/17 02:01 Leg - Right Wound Culture - Final Proteus Mirabilis Laboratory WBC 17.8 X10^3/uL (3.6-10.0) H 10/18/17 04:29 RBC 2.42 X10^6/uL (4.7-6.0) L 10/18/17 04:29 Hgb 7.4 g/dL (13.5-18.0) L 10/18/17 04:29 Hct 21.1 % (42.0-54.0) L 10/18/17 04:29 MCV 87.4 fL (80.0-100.0) 10/18/17 04:29 MCH 30.5 pg (27.0-34.0) 10/18/17 04:29 MCHC 34.9 g/dL (33.0-35.0) 10/18/17 04:29 RDW 18.4 % (11.6-16.5) H 10/18/17 04:29 Plt Count 613 X10^3/uL (150.0-450.0) H 10/18/17 04:29 Plt Count Comment Increased (ADEQUATE) 10/18/17 04:29 MPV 8.1 fL (7.4-11.0) 10/18/17 04:29 Neut % (Auto) 75.1 % (42.0-75.0) H 10/18/17 04:29 Lymph % (Auto) 12.3 % (21.0-51.0) L 10/18/17 04:29 [place] % (Auto) 7.6 % (0.0-13.0) 10/18/17 04:29 Eos % (Auto) 4.2 % (0.9-2.9) H 10/18/17 04:29 Baso % (Auto) 0.8 % (0.2-1.0) 10/18/17 04:29 Neut # (Auto) 13.4 x10^3/uL (2.2-4.8) H 10/18/17 04:29 Lymph # (Auto) 2.2 X10^3/uL (1.3-2.9) 10/18/17 04:29 [place] # (Auto) 1.4 x10^3/uL (0.3-0.8) H 10/18/17 04:29 Eos # (Auto) 0.7 x10^3/uL (0.0-0.2) H 10/18/17 04:29 Baso # (Auto) 0.2 X10^3/uL (0.0-0.1) H 10/18/17 04:29 Absolute Nucleated RBC 0.2 /100WBC 10/18/17 04:29 Plt Morphology Comment Normal (NORMAL) 10/18/17 04:29 RBC Morphology Abnormal (NORMAL) 10/18/17 04:29 Hypochromasia 1+ A 10/18/17 04:29 Anisocytosis 1+ A 10/18/17 04:29 Microcytosis 1+ A 10/15/17 07:07 Macrocytosis Slight A 10/12/17 23:40 Sickle Cells Present 10/18/17 04:29 Target Cells Present 10/18/17 04:29 Percent Retic 11.60 % (0.8-2.2) H 10/12/17 23:40 Sodium 142 mmol/L (136-145) 10/18/17 04:29 Corrected Sodium TNP 10/18/17 04:29 Potassium 3.9 mmol/L (3.5-5.1) 10/18/17 04:29 Chloride 109 mmol/L (98-107) H 10/18/17 04:29 Carbon Dioxide 27.2 mmol/L (21-32) 10/18/17 04:29 BUN 10 mg/dL (7-18) 10/18/17 04:29 Creatinine 0.74 mg/dL (0.70-1.30) 10/18/17 04:29 Est GFR (MDRD) Af Amer > 60 (>60) 10/18/17 04:29 Est GFR (MDRD) Non-Af > 60 (>60) 10/18/17 04:29 Glucose 92 mg/dL (65-99) 10/18/17 04:29 POC Glucose (mg/dL) 83 mg/dL (65-99) 10/15/17 10:46 Lactic Acid 2.0 mmol/L (0.4-2.0) 10/12/17 00:11 Calcium 8.5 mg/dL (8.5-10.1) 10/18/17 04:29 Corrected Calcium 9.5 mg/dL (8.5-10.1) 10/18/17 04:29 Total Bilirubin 1.70 mg/dL (0.2-1.0) H 10/18/17 04:29 AST 36 Units/L (15-37) 10/18/17 04:29 ALT 20 Units/L (12-78) 10/18/17 04:29 Alkaline Phosphatase 65 Units/L (46-116) 10/18/17 04:29 C-Reactive Protein 38.80 mg/L (0-3.0) H 10/12/17 00:11 Total Protein 6.7 g/dL (6.4-8.2) 10/18/17 04:29 Albumin 2.8 g/dL (3.4-5.0) L 10/18/17 04:29 Globulin 3.9 g/dL (2.5-4.5) 10/18/17 04:29 Albumin/Globulin Ratio 0.7 Ratio (1.1-2.1) L 10/18/17 04:29 Specimen Type Random urine 10/13/17 02:22 Urine Color Yellow (YELLOW) 10/13/17 02:22 Urine Appearance Hazy (CLEAR) 10/13/17 02:22 Urine pH 6.5 (5.0 - 8.0) 10/13/17 02:22 Ur Specific [place] 1.010 (1.000-1.030) 10/13/17 02:22 Urine Protein 1+ (NEGATIVE) 10/13/17 02:22 Urine Glucose (UA) Negative (NEGATIVE) 10/13/17 02:22 Urine Ketones Negative (NEGATIVE) 10/13/17 02:22 Urine Occult Blood Negative (NEGATIVE) 10/13/17 02:22 Urine Nitrite Negative (NEGATIVE) 10/13/17 02:22 Urine Bilirubin Negative (NEGATIVE) 10/13/17 02:22 Urine Urobilinogen 2+ (NORMAL) 10/13/17 02:22 Ur Leukocyte Esterase Negative (NEGATIVE) 10/13/17 02:22 Urine RBC None seen /HPF (NONE SEEN) 10/13/17 02:22 Urine WBC None seen /HPF (NONE SEEN) 10/13/17 02:22 Ur Squamous Epith Cells Negative /HPF (NEGATIVE) 10/13/17 02:22 Urine Bacteria Negative /HPF (NEGATIVE) 10/13/17 02:22 Urine Mucus Few /HPF (NEGATIVE) 10/13/17 02:22 Ur Culture Indicated? No/not indicated 10/13/17 02:22 Tissue Pathology To follow 10/13/17 13:24 Blood Type B POSITIVE 10/13/17 05:10 Antibody Screen Negative 10/13/17 05:10 Crossmatch See Detail 10/13/17 05:10 - Plan (1) Sickle cell disease Status: Chronic Qualifiers: Sickle-cell associated disorders: without crisis Qualified Code(s): D57.1 - Sickle-cell disease without crisis Plan: WOUND CULTURES, IV ATBX. BLOOD CULTURES, SURGICAL CONSULT CONTINUED S/P DEBRIDEMENT. S/P TRANSFUSION. PAIN CONTROL, BP CONTROL. NUTRITION CONSULT, CASE MANAGEMENT CONSULT (2) Ulcer of lower extremity with necrosis of muscle Status: Acute Qualifiers: Laterality: right Qualified Code(s): L97.913 - Non-pressure chronic ulcer of unspecified part of right lower leg with necrosis of muscle Plan: S/P PORT A CATH PLACEMENT FOR IV ATBX THERAPY POST. D/C (3) Anemia Status: Acute Plan: S/P TRANSFUSION. MONITOR H & H (4) Protein calorie malnutrition Status: Acute Plan: PROTEIN SUPPLEMENT REPLACEMENT (5) Adult failure to thrive Status: Acute Plan: FOLLOWED BY APS
[2017-10-19] MEDS: DEMEROL INJ IVP PRN ×5 (01:51→17:47)
[2017-10-19] MEDS: PERCOCET TAB 5/325 MG PO PRN ×3 (04:19→22:10)
[2017-10-19 05:25] LABS: BASOPHILS # (AUTO) 0.1 X10^3/uL (0.0-0.1); BASOPHILS % (AUTO) 0.9 % (0.2-1.0); EOSINOPHILS # (AUTO) 0.7 x10^3/uL (0.0-0.2); EOSINOPHILS % (AUTO) 5.5 % (0.9-2.9); HEMATOCRIT 21.1 % (42.0-54.0); HEMOGLOBIN 7.2 g/dL (13.5-18.0); LYMPHOCYTES # (AUTO) 3.1 X10^3/uL (1.3-2.9); LYMPHOCYTES % (AUTO) 26.3 % (21.0-51.0); MEAN CORPUSCULAR HEMOGLOBIN 29.9 pg (27.0-34.0); MEAN CORPUSCULAR HGB CONC 34.3 g/dL (33.0-35.0); MEAN CORPUSCULAR VOLUME 87.1 fL (80.0-100.0); MEAN PLATELET VOLUME 8.3 fL (7.4-11.0); MONOCYTES # (AUTO) 0.9 x10^3/uL (0.3-0.8); MONOCYTES % (AUTO) 7.5 % (0.0-13.0); NEUTROPHILS # (AUTO) 7.1 x10^3/uL (2.2-4.8); NEUTROPHILS % (AUTO) 59.8 % (42.0-75.0); PLATELET COUNT 621 X10^3/uL (150.0-450.0); RED BLOOD COUNT 2.42 X10^6/uL (4.7-6.0); RED CELL DISTRIBUTION WIDTH 17.9 % (11.6-16.5); WHITE BLOOD COUNT 11.8 X10^3/uL (3.6-10.0)
[2017-10-19] MEDS: FORTAZ or TAZICEF VIAL INJ 1 G in NS 100 ML IV + SPIKE MINIBAG* 100 ML IV SCH ×3 (05:30→23:00)
[2017-10-19 05:37] LABS: ALANINE AMINOTRANSFERASE 123 Units/L (12-78); ALBUMIN 2.8 g/dL (3.4-5.0); ALKALINE PHOSPHATASE 97 Units/L (46-116); ASPARTATE AMINO TRANSFERASE 131 Units/L (15-37); BLOOD UREA NITROGEN 8 mg/dL (7-18); CALCIUM 8.5 mg/dL (8.5-10.1); CARBON DIOXIDE 24.4 mmol/L (21-32); CHLORIDE 109 mmol/L (98-107); COR CA(FOR HYPOALB) 9.5 mg/dL (8.5-10.1); CREATININE 0.76 mg/dL (0.70-1.30); SODIUM 140 mmol/L (136-145); TOTAL PROTEIN 6.7 g/dL (6.4-8.2); eGFR NON BLACK RACES > 60 (>60)
[2017-10-19] MEDS: ZOSYN VIAL 3.375 GRAMS 3.375 G in NS 100 ML IV + SPIKE MINIBAG* 100 ML IV SCH ×3 (05:53→23:00)
[2017-10-19 05:59] LABS: ANISOCYTOSIS 1+; HYPOCHROMASIA 1+; PLATELET MORPHOLOGY COMMENT NORMAL (NORMAL); TARGET CELLS PRESENT
[2017-10-19] MEDS: NS 1000 ML 1,000 ML IV SCH ×2 (06:01→17:52)
[2017-10-19 06:19] LABS: RETICULOCYTE % 2.67 % (0.8-2.2)
[2017-10-19] MEDS: LOVENOX INJ 40 MG SYR SC SCH (09:18)
[2017-10-19] MEDS: FOLIC ACID TAB 1 MG PO SCH (09:18)
--- NOTE | 2017-10-19 12:01 | PCM.PROG ---
Progress Note - Progress Note for Day of Date of Exam: 10/19/17 - Subjective Subjective: 32 BM ER ADMISSION WITH SEVERE RLL OPEN WOUND, CHRONIC WOUND WITH WORSENED PAIN, D/C. PT HAS HX OF SICKLE CELL DISEASE. PT HAS LONG HX OF NON COMPLIANCE AND HX OF MULTIPLE SURGICAL WOUND DEBRIDEMENT AND SKIN GRAFTS. PT S/ P WOUND DEBRIDEMENT PER DR GIRARD AND PORT A CATH PLACEMENT. PT CURRENTLY STATES HE IS FEELING BETTER, DID HAVE SOME NAUSEA AND MILD RUQ AND EPIGASTRIC TENDERNESS ON PALPATION WITH REPORTS OF INCREASED PO INTAKE ON FRIDAY. PT HAS INCREASED ELEVATED LIVER ENZYMES, REPORTS STILL HAS GALLBLADDER. WILL ORDER GB US Q AM, GALL BLADDER DISEASE COMMON IN [place] PATIENTS, DISCUSSED WITH PT. CASE MANAGEMENT CONSULT FOR PLAN FOR D/C WHEN STABLE. PT WILL NEED EXTENDED IV ATBX THERAPY AND WOUND CARE. REPEAT AM LABS, PAIN CONTROL, WOUND CARE - Past Medical Family Social History Past Med/Fam/Surg Hx: No changes since H&P Allergies: Allergies Egg Derived Allergy (Verified 10/12/17 21:04) mayonnaise Allergy (Verified 10/12/17 21:04) morphine Allergy (Verified 10/13/17 05:57) ondansetron [From Zofran] Allergy (Verified 10/13/17 05:57) - Review of Systems ROS: No change since H&P - Vital Signs and I&O's Vital Signs: Temperature 98.3 F Pulse Rate [Right Brachial] 53 Pulse Rate [Apical] 60 Pulse Rate [Left Brachial] 50 Pulse Rate 81 Respiratory Rate 18 Blood Pressure [Right Arm] 136/64 Blood Pressure [Left Arm] 118/73 Blood Pressure 105/60 O2 Sat by Pulse Oximetry 97 Intake and Output: Intake & Output 10/16/17 10/17/17 10/18/17 10/19/17 11:59 11:59 11:59 11:59 Intake Total 3466 / 3466 3734 / 3734 4278 / 4278 3820 / 3820 Output Total 1500 / 1500 2675 / 2675 2200 / 2200 3050 / 3050 Balance 1965 / 1965 1059 / 1059 2077 / 2077 770 / 770 - Physical Exam Oriented: Normal Eyes: Normal Ear: Normal Nose: Normal Throat: Dry Respiratory: Diminished Cardiovascular: Tachycardia, Edema Auscultation: Bowel Sounds: Normal Tenderness: RUQ, Epigastric, Mild Skin: Decreased Turgur, Wound (circumferential RRL .. no more necrosis or abscess formation .) Musculoskeletal: Right, Leg, Swelling, Tender Mood Description: Depressed, Sad Affect: Flat Speech Pattern: Clear, Appropriate - Laboratory and Diagnostics Result Diagrams: 10/19/17 04:14 10/19/17 04:14 Labs: 10/12/17 23:45 Blood Blood Culture - Final 10/12/17 23:40 Blood Blood Culture - Final 10/13/17 13:24 Leg - Right Gram Stain - Final 10/13/17 13:24 Leg - Right Wound Culture - Final Pseudomonas Aeruginosa Morganella Morganii 10/13/17 02:01 Leg - Right Gram Stain - Final 10/13/17 02:01 Leg - Right Wound Culture - Final Proteus Mirabilis Laboratory WBC 11.8 X10^3/uL (3.6-10.0) H 10/19/17 04:14 RBC 2.42 X10^6/uL (4.7-6.0) L 10/19/17 04:14 Hgb 7.2 g/dL (13.5-18.0) L 10/19/17 04:14 Hct 21.1 % (42.0-54.0) L 10/19/17 04:14 MCV 87.1 fL (80.0-100.0) 10/19/17 04:14 MCH 29.9 pg (27.0-34.0) 10/19/17 04:14 MCHC 34.3 g/dL (33.0-35.0) 10/19/17 04:14 RDW 17.9 % (11.6-16.5) H 10/19/17 04:14 Plt Count 621 X10^3/uL (150.0-450.0) H 10/19/17 04:14 Plt Count Comment Increased (ADEQUATE) 10/19/17 04:14 MPV 8.3 fL (7.4-11.0) 10/19/17 04:14 Neut % (Auto) 59.8 % (42.0-75.0) 10/19/17 04:14 Lymph % (Auto) 26.3 % (21.0-51.0) 10/19/17 04:14 [place] % (Auto) 7.5 % (0.0-13.0) 10/19/17 04:14 Eos % (Auto) 5.5 % (0.9-2.9) H 10/19/17 04:14 Baso % (Auto) 0.9 % (0.2-1.0) 10/19/17 04:14 Neut # (Auto) 7.1 x10^3/uL (2.2-4.8) H 10/19/17 04:14 Lymph # (Auto) 3.1 X10^3/uL (1.3-2.9) H 10/19/17 04:14 [place] # (Auto) 0.9 x10^3/uL (0.3-0.8) H 10/19/17 04:14 Eos # (Auto) 0.7 x10^3/uL (0.0-0.2) H 10/19/17 04:14 Baso # (Auto) 0.1 X10^3/uL (0.0-0.1) 10/19/17 04:14 Absolute Nucleated RBC 0.3 /100WBC 10/19/17 04:14 Plt Morphology Comment Normal (NORMAL) 10/19/17 04:14 RBC Morphology Abnormal (NORMAL) 10/19/17 04:14 Hypochromasia 1+ A 10/19/17 04:14 Anisocytosis 1+ A 10/19/17 04:14 Microcytosis 1+ A 10/15/17 07:07 Macrocytosis Slight A 10/12/17 23:40 Sickle Cells Present 10/18/17 04:29 Target Cells Present 10/19/17 04:14 Absolute Retic 2.6700 10^6/uL 10/19/17 04:14 Percent Retic 2.67 % (0.8-2.2) H 10/19/17 04:14 Sodium 140 mmol/L (136-145) 10/19/17 04:14 Corrected Sodium TNP 10/19/17 04:14 Potassium 4.0 mmol/L (3.5-5.1) 10/19/17 04:14 Chloride 109 mmol/L (98-107) H 10/19/17 04:14 Carbon Dioxide 24.4 mmol/L (21-32) 10/19/17 04:14 BUN 8 mg/dL (7-18) 10/19/17 04:14 Creatinine 0.76 mg/dL (0.70-1.30) 10/19/17 04:14 Est GFR (MDRD) Af Amer > 60 (>60) 10/19/17 04:14 Est GFR (MDRD) Non-Af > 60 (>60) 10/19/17 04:14 Glucose 81 mg/dL (65-99) 10/19/17 04:14 POC Glucose (mg/dL) 83 mg/dL (65-99) 10/15/17 10:46 Lactic Acid 2.0 mmol/L (0.4-2.0) 10/12/17 00:11 Calcium 8.5 mg/dL (8.5-10.1) 10/19/17 04:14 Corrected Calcium 9.5 mg/dL (8.5-10.1) 10/19/17 04:14 Total Bilirubin 2.40 mg/dL (0.2-1.0) H 10/19/17 04:14 AST 131 Units/L (15-37) H 10/19/17 04:14 ALT 123 Units/L (12-78) H 10/19/17 04:14 Alkaline Phosphatase 97 Units/L (46-116) 10/19/17 04:14 C-Reactive Protein 38.80 mg/L (0-3.0) H 10/12/17 00:11 Total Protein 6.7 g/dL (6.4-8.2) 10/19/17 04:14 Albumin 2.8 g/dL (3.4-5.0) L 10/19/17 04:14 Globulin 3.9 g/dL (2.5-4.5) 10/19/17 04:14 Albumin/Globulin Ratio 0.7 Ratio (1.1-2.1) L 10/19/17 04:14 Specimen Type Random urine 10/13/17 02:22 Urine Color Yellow (YELLOW) 10/13/17 02:22 Urine Appearance Hazy (CLEAR) 10/13/17 02:22 Urine pH 6.5 (5.0 - 8.0) 10/13/17 02:22 Ur Specific [place] 1.010 (1.000-1.030) 10/13/17 02:22 Urine Protein 1+ (NEGATIVE) 10/13/17 02:22 Urine Glucose (UA) Negative (NEGATIVE) 10/13/17 02:22 Urine Ketones Negative (NEGATIVE) 10/13/17 02:22 Urine Occult Blood Negative (NEGATIVE) 10/13/17 02:22 Urine Nitrite Negative (NEGATIVE) 10/13/17 02:22 Urine Bilirubin Negative (NEGATIVE) 10/13/17 02:22 Urine Urobilinogen 2+ (NORMAL) 10/13/17 02:22 Ur Leukocyte Esterase Negative (NEGATIVE) 10/13/17 02:22 Urine RBC None seen /HPF (NONE SEEN) 10/13/17 02:22 Urine WBC None seen /HPF (NONE SEEN) 10/13/17 02:22 Ur Squamous Epith Cells Negative /HPF (NEGATIVE) 10/13/17 02:22 Urine Bacteria Negative /HPF (NEGATIVE) 10/13/17 02:22 Urine Mucus Few /HPF (NEGATIVE) 10/13/17 02:22 Ur Culture Indicated? No/not indicated 10/13/17 02:22 Tissue Pathology To follow 10/13/17 13:24 Blood Type B POSITIVE 10/13/17 05:10 Antibody Screen Negative 10/13/17 05:10 Crossmatch See Detail 10/13/17 05:10 - Plan (1) Sickle cell disease Status: Chronic Qualifiers: Sickle-cell associated disorders: without crisis Qualified Code(s): D57.1 - Sickle-cell disease without crisis Plan: WOUND CULTURES, IV ATBX. BLOOD CULTURES, SURGICAL CONSULT CONTINUED S/P DEBRIDEMENT. S/P TRANSFUSION. PAIN CONTROL, BP CONTROL. NUTRITION CONSULT, CASE MANAGEMENT CONSULT (2) Ulcer of lower extremity with necrosis of muscle Status: Acute Qualifiers: Laterality: right Qualified Code(s): L97.913 - Non-pressure chronic ulcer of unspecified part of right lower leg with necrosis of muscle Plan: S/P PORT A CATH PLACEMENT FOR IV ATBX THERAPY POST. D/C (3) Anemia Status: Acute Plan: S/P TRANSFUSION. MONITOR H & H (4) Protein calorie malnutrition Status: Acute Plan: PROTEIN SUPPLEMENT REPLACEMENT (5) Adult failure to thrive Status: Acute Plan: FOLLOWED BY APS (6) RUQ pain Status: Acute Plan: GB US, PPI THERAPY. PAIN CONTROL. MONITOR LFTS
[2017-10-19] MEDS ORDERED: BACTROBAN TOPICAL OINT TOP ONE (16:24)
[2017-10-19] MEDS ORDERED: BACTROBAN TOPICAL OINT TOP PRN (17:42)
[2017-10-20] MEDS: NS 1000 ML 1,000 ML IV SCH ×2 (01:45→14:56)
[2017-10-20] MEDS: DEMEROL INJ IVP PRN ×4 (02:31→19:39)
[2017-10-20 05:36] LABS: BASOPHILS # (AUTO) 0.2 X10^3/uL (0.0-0.1); BASOPHILS % (AUTO) 1.4 % (0.2-1.0); EOSINOPHILS # (AUTO) 0.7 x10^3/uL (0.0-0.2); EOSINOPHILS % (AUTO) 6.1 % (0.9-2.9); HEMATOCRIT 20.6 % (42.0-54.0); HEMOGLOBIN 7.3 g/dL (13.5-18.0); LYMPHOCYTES # (AUTO) 3.2 X10^3/uL (1.3-2.9); LYMPHOCYTES % (AUTO) 29.7 % (21.0-51.0); MEAN CORPUSCULAR HGB CONC 35.6 g/dL (33.0-35.0); MEAN PLATELET VOLUME 8.4 fL (7.4-11.0); MONOCYTES # (AUTO) 1.2 x10^3/uL (0.3-0.8); MONOCYTES % (AUTO) 11.3 % (0.0-13.0); NEUTROPHILS # (AUTO) 5.6 x10^3/uL (2.2-4.8); NEUTROPHILS % (AUTO) 51.5 % (42.0-75.0); PLATELET COUNT 595 X10^3/uL (150.0-450.0); RED BLOOD COUNT 2.37 X10^6/uL (4.7-6.0); RED CELL DISTRIBUTION WIDTH 17.5 % (11.6-16.5); WHITE BLOOD COUNT 10.9 X10^3/uL (3.6-10.0)
[2017-10-20] MEDS: ZOSYN VIAL 3.375 GRAMS 3.375 G in NS 100 ML IV + SPIKE MINIBAG* 100 ML IV SCH ×2 (05:37→15:28)
[2017-10-20] MEDS: FORTAZ or TAZICEF VIAL INJ 1 G in NS 100 ML IV + SPIKE MINIBAG* 100 ML IV SCH ×2 (05:37→14:56)
[2017-10-20 05:47] LABS: ALANINE AMINOTRANSFERASE 85 Units/L (12-78); ALBUMIN 2.8 g/dL (3.4-5.0); ALKALINE PHOSPHATASE 93 Units/L (46-116); ASPARTATE AMINO TRANSFERASE 65 Units/L (15-37); BLOOD UREA NITROGEN 9 mg/dL (7-18); CALCIUM 8.6 mg/dL (8.5-10.1); CARBON DIOXIDE 26.7 mmol/L (21-32); CHLORIDE 109 mmol/L (98-107); COR CA(FOR HYPOALB) 9.6 mg/dL (8.5-10.1); SODIUM 141 mmol/L (136-145); TOTAL PROTEIN 6.8 g/dL (6.4-8.2); eGFR NON BLACK RACES > 60 (>60)
[2017-10-20 06:02] LABS: ANISOCYTOSIS 1+; HYPOCHROMASIA 1+; PLATELET MORPHOLOGY COMMENT NORMAL (NORMAL); TARGET CELLS PRESENT
--- NOTE | 2017-10-20 08:35 | US ---
HISTORY: Right upper quadrant pain. Nausea. Study: Right upper quadrant ultrasound: Multiplanar ultrasonographic examination of the right upper abdominal quadrant was performed. Comparison: None Findings: The liver is of normal size, echogenicity and echotexture. No evidence of intrahepatic biliary duct dilatation is noted. Vascular flow was in normal direction. The gallbladder shows several echogenic mobile foci consistent with multiple gallstones. I see no ev idence of pericholecystic fluid or gallbladder wall thickening. The common bile duct is normal at 4 mm. The visualized pancreas and inferior vena cava are normal. The right kidney is of normal size, echogenicity and echotexture. No evidence of renal mass or hydro nephrosis is noted. The right kidney measures 10 cm in length by 4 x 6 cm. Cortex is measured at 13 mm. IMPRESSION: 1. Cholelithiasis. I see no ultrasonographic evidence of cholecystitis. 2. Otherwise, negative right upper quadrant ultrasound. Reported By:
[2017-10-20] MEDS: LOVENOX INJ 40 MG SYR SC SCH (09:46)
[2017-10-20] MEDS: FOLIC ACID TAB 1 MG PO SCH (09:46)
[2017-10-20 19:56] VITALS: BP 109/61
== END 2017-10-20 19:55 | disposition home or self-care (01) | DRG 571 ==
LOC: ICU 21:01 → ER 21:01 → OBSVTOIN 10-13 05:19 → ICU 10-13 06:32 → MED/SURG 10-15 17:34
PROVIDERS: ADMIT Internal Medicine; ATTEND Internal Medicine
DX: L03.115 Cellulitis of right lower limb; Z91.19 Patient's noncompliance with other medical treatment and regimen; D48.9 Neoplasm of uncertain behavior, unspecified; F32.89 Other specified depressive episodes; E46 Unspecified protein-calorie malnutrition; R06.02 Shortness of breath; B96.4 Proteus (mirabilis) (morganii) as the cause of diseases classified elsewhere; R11.0 Nausea; F41.8 Other specified anxiety disorders; R62.7 Adult failure to thrive; L97.813 Non-pressure chronic ulcer of other part of right lower leg with necrosis of muscle; D57.1 Sickle-cell disease without crisis; K21.9 Gastro-esophageal reflux disease without esophagitis; R10.11 Right upper quadrant pain; B96.5 Pseudomonas (aeruginosa) (mallei) (pseudomallei) as the cause of diseases classified elsewhere; R79.82 Elevated C-reactive protein (CRP); I87.2 Venous insufficiency (chronic) (peripheral)
CPT/HCPCS: 36415; 36430; 71010; 71045; 73590; 76000; 76705; 80053; 81001; 83605; 85014; 85018; 85025; 85045; 85660; 86140; 86850; 86860; 86880; 86885; 86900; 86901; 86902; 86921; 86922; 87040; 87070; 87075; 87077; 87186; 87205; 96365; 96367; 96374; 96375; 99231; 99283; 99284; 99285; A4216; A4222; P9016; Q0169; J0713; J1170; J1200; J1642; J1650; J2175; J2250; J2270; J2405; J2543; J2550; J2704; J2765; J3010; J3490; J7030; J7040; J7050; J7121

== ENCOUNTER 2018-10-12 13:16 | Inpatient (IN) ==
--- NOTE | 2018-10-12 14:36 | DR.GENAD ---
HPI Time Seen Time Seen by Provider: 10/12/18 14:29 PCP Primary Care Physician: JOHNIE HPI Comment HPI Comment: 33 yo m w/ prev hx of sickle cell anemia and chronic wound of the left lower extremity presents w/ wound discharge x 3 days. Patient hs a prev hx of non healing ulcer of the left calf. Not currently being followed by wound care. Multiple previous hospitalizations for cellulitis of this are in the past. Last one Nov. Concerned because of increasing pain from wound along w/ development of odor and green discharge over the past 3 days. No fever / chills, abd pain, CP/ SOB, urinary irritative sx's. Complaint/Symptoms Chief Complaint:: "I THINK I HAVE AN INFECTION IN MY RIGHT LEG WHERE I HAD SURGERY. IT'S DRAINING GREEN STUFF." Source History Provided: Patient Mode of Arrival Mode of Arrival: Ambulatory Timing Onset of Chief Complaint: 10/08/18 PMH PMH Past Medical History: Yes Past Medical History: Anemia, Depression, GERD and PUD Past Medical History Comment: sickle cell disease Past Surgical History: Yes Surgical History: Other Family History History of Family Medical Conditions: Yes Family Medical History: Diabetes Mellitus and Hypertension Social History Does patient currently use any type of tobacco product: Yes Have you used tobacco products in the last 12 months: Yes Type of Tobacco Use: Cigarettes Does any household member use tobacco: No Alcohol Use: None Do you use any recreational Drugs:: No Lives With: Family Lives Where: Home infectious screening In the last 2 months have you had wt loss of >10#?: NO Have you had fever, night sweats or hemotysis?: No Have you traveled outside the country in the last 6 months?: No Isolation: Standard ROS Review of Systems Constitutional: Weakness and Loss of Appetite; negative Chills and Fever Eyes: No Symptoms Reported ENTM: No Symptoms Reported Respiratoy: No Symptoms Reported Cardiovascular: No Symptoms Reported Gastrointestinal/Abdominal: No Symptoms Reported Genitourinary: No Symptoms Reported Neurological: No Symptoms Reported Musculoskeletal: No Symptoms Reported Integumentary: See HPI and Wound Hematologic/Lymphatic: No Symptoms Reported Endocrine: No Symptoms Reported Psychiatric: No Symptoms Reported All Other Systems: Reviewed and Negative PE Vital Signs Vitals: Temperature 98.0 F Pulse Rate [Left Radial] 72 Pulse Rate 99 Respiratory Rate 17 Blood Pressure [Right Arm] 109/61 Blood Pressure [Left Arm] 107/58 Blood Pressure 120/70 O2 Sat by Pulse Oximetry 100 General Limitations: No Limitations General Appearance: Alert and In Distress (mild pain distress ) Head Head Exam: Normal Inspection Eyes Eye exam: Normal Appearance ENT ENT Exam: Normal Exam External Ear Exam: Normal External Inspection TM/Canal Exam: Bilateral: Normal Nose Exam: Normal Nose Exam Mouth Exam: Normal Inspection Throat Exam: Normal Inspection Neck Neck Exam: Normal Inspection Chest Chest Inspection: Normal Inspection Respiratory Respiratory Exam: Normal Lung Sounds Bilat Respiratory Exam: Bilateral: Clear to Auscultation Cardiovascular Cardiovascular Exam: Regular Rate and Normal Rhythm Abdominal Exam Abdominal Exam: Normal Inspection, Normal Bowel Sounds and Soft Extremities Extremities Exam: Normal Inspection Back Back Exam: Normal Inspection Neurologic Neurological Exam: Alert and Oriented X3 Psychiatric Psychiatric Exam: Normal Affect and Normal Mood Skin Skin Exam: Warm, Dry, Intact and Normal Color Other Exam Other Exam: skin: three 6 cm diameter ulcerations left calf, indurated, erythema, no fluctuance, purulant discharge. MDM Additional Information Additional Information Obtained From: Old Records Differential Diagnosis Differential Diagnosis: cellulitis, osteomyelitis, chronic ulcer, sepsis COURSE Treatment Treatment: 33 yo m w/ prev hx of sickle cell disease and chronic non healing ulcer of left leg presents w/ purulent discharge from wound. Mild pain distress on arrival, afebrile. Non toxic in appearance. Wound cx obtained by RN. Given dilaudid for pain control. CBC demonstrated mod leukocytosis. Vanco initiated. Anemia noted w/ hgb in the 5 range. Most recent hgb 8. Crossmatched for 2 units packed cells. 1u packed cells given in ED. Given IVF's. Retic count ordered. Anemia likely combination between his chronic sickle cell with concomitant infection. No thrombocytopenia. Discussed all details of case with hospitalist whom agrees to admit the patient to the floor. Education/Counseling Education/Counseling: Patient Educated On: Treatment, Diagnosis and Needs for Follow Up ROR Labs Reviewed Laboratory Results Reviewed?: Yes Result Diagrams: 10/12/18 14:53 10/12/18 14:53 Laboratory: 10/12/18 14:58 Leg - Left Gram Stain - Final WBC 14.1 X10^3/uL (3.6-10.0) H 10/12/18 14:53 RBC 1.71 X10^6/uL (4.7-6.0) L 10/12/18 14:53 Hgb 5.6 g/dL (13.5-18.0) L* 10/12/18 14:53 Hct 16.0 % (42.0-54.0) L* 10/12/18 14:53 MCV 93.1 fL (80.0-100.0) 10/12/18 14:53 MCH 32.6 pg (27.0-34.0) 10/12/18 14:53 MCHC 35.1 g/dL (33.0-35.0) H 10/12/18 14:53 RDW 22.0 % (11.6-16.5) H 10/12/18 14:53 Plt Count 690 X10^3/uL (150.0-450.0) H 10/12/18 14:53 Plt Count Comment Increased (ADEQUATE) 10/12/18 14:53 MPV 7.3 fL (7.4-11.0) L 10/12/18 14:53 Neut % (Auto) 57.2 % (42.0-75.0) 10/12/18 14:53 Lymph % (Auto) 30.8 % (21.0-51.0) 10/12/18 14:53 [place] % (Auto) 8.5 % (0.0-13.0) 10/12/18 14:53 Eos % (Auto) 2.4 % (0.9-2.9) 10/12/18 14:53 Baso % (Auto) 1.1 % (0.2-1.0) H 10/12/18 14:53 Neut # (Auto) 8.1 x10^3/uL (2.2-4.8) H 10/12/18 14:53 Lymph # (Auto) 4.3 X10^3/uL (1.3-2.9) H 10/12/18 14:53 [place] # (Auto) 1.2 x10^3/uL (0.3-0.8) H 10/12/18 14:53 Eos # (Auto) 0.3 x10^3/uL (0.0-0.2) H 10/12/18 14:53 Baso # (Auto) 0.2 X10^3/uL (0.0-0.1) H 10/12/18 14:53 Absolute Nucleated RBC 1.2 /100WBC 10/12/18 14:53 Plt Morphology Comment Normal (NORMAL) 10/12/18 14:53 RBC Morphology Abnormal (NORMAL) 10/12/18 14:53 Hypochromasia 2+ A 10/12/18 14:53 Poikilocytosis 2+ A 10/12/18 14:53 Anisocytosis 2+ A 10/12/18 14:53 Sickle Cells Slight A 10/12/18 14:53 Target Cells Slight A 10/12/18 14:53 Absolute Retic 0.2555 10^6/uL 10/12/18 14:53 Percent Retic 14.78 % (0.8-2.2) H 10/12/18 14:53 Sodium 142 mmol/L (136-145) 10/12/18 14:53 Corrected Sodium TNP 10/12/18 14:53 Potassium 3.7 mmol/L (3.5-5.1) 10/12/18 14:53 Chloride 109 mmol/L (98-107) H 10/12/18 14:53 Carbon Dioxide 21.6 mmol/L (21-32) 10/12/18 14:53 BUN 6 mg/dL (7-18) L 10/12/18 14:53 Creatinine 0.83 mg/dL (0.70-1.30) 10/12/18 14:53 Est GFR (MDRD) Af Amer > 60 (>60) 10/12/18 14:53 Est GFR (MDRD) Non-Af > 60 (>60) 10/12/18 14:53 Glucose 83 mg/dL (65-99) 10/12/18 14:53 Calcium 8.6 mg/dL (8.5-10.1) 10/12/18 14:53 Opioid Opioid Risk Tool Total: 0 Total Score Risk Category: Low Risk Copyright: Trevin JOHNSON predicting aberrant behaviors Diagnosis Discharge Problem: Sickle cell disease, Non-healing wound, Cellulitis, Anemia ADDITIONAL NOTES Additional Notes Additional Notes: Admitted to medicine floor
[2018-10-12] MEDS ORDERED: MORPHINE SULFATE INJ 4 MG IVP ONE (14:57)
[2018-10-12] MEDS ORDERED: ZOFRAN INJ 4 MG VIAL IVP ONE (14:57)
[2018-10-12] MEDS ORDERED: ZOFRAN INJ 4 MG VIAL ONE (15:01)
[2018-10-12] MEDS ORDERED: MORPHINE SULFATE INJ 4 MG ONE (15:02)
[2018-10-12] MEDS ORDERED: COMPAZINE INJ IVP ONE (15:04)
[2018-10-12] MEDS ORDERED: DILAUDID INJ ONE (15:07)
[2018-10-12] MEDS ORDERED: COMPAZINE INJ ONE (15:07)
[2018-10-12] MEDS: DILAUDID INJ IVP PRN ×2 (15:13→20:42)
[2018-10-12 15:15] LABS: BASOPHILS # (AUTO) 0.2 X10^3/uL (0.0-0.1); BASOPHILS % (AUTO) 1.1 % (0.2-1.0); BLOOD UREA NITROGEN 6 mg/dL (7-18); CALCIUM 8.6 mg/dL (8.5-10.1); CARBON DIOXIDE 21.6 mmol/L (21-32); CHLORIDE 109 mmol/L (98-107); CREATININE 0.83 mg/dL (0.70-1.30); EOSINOPHILS # (AUTO) 0.3 x10^3/uL (0.0-0.2); EOSINOPHILS % (AUTO) 2.4 % (0.9-2.9); LYMPHOCYTES # (AUTO) 4.3 X10^3/uL (1.3-2.9); LYMPHOCYTES % (AUTO) 30.8 % (21.0-51.0); MEAN CORPUSCULAR HEMOGLOBIN 32.6 pg (27.0-34.0); MEAN CORPUSCULAR HGB CONC 35.1 g/dL (33.0-35.0); MEAN CORPUSCULAR VOLUME 93.1 fL (80.0-100.0); MEAN PLATELET VOLUME 7.3 fL (7.4-11.0); MONOCYTES # (AUTO) 1.2 x10^3/uL (0.3-0.8); MONOCYTES % (AUTO) 8.5 % (0.0-13.0); NEUTROPHILS # (AUTO) 8.1 x10^3/uL (2.2-4.8); NEUTROPHILS % (AUTO) 57.2 % (42.0-75.0); PLATELET COUNT 690 X10^3/uL (150.0-450.0); RED BLOOD COUNT 1.71 X10^6/uL (4.7-6.0); SODIUM 142 mmol/L (136-145); WHITE BLOOD COUNT 14.1 X10^3/uL (3.6-10.0); eGFR NON BLACK RACES > 60 (>60)
[2018-10-12 15:35] LABS: HEMOGLOBIN 5.6 g/dL (13.5-18.0)
[2018-10-12 15:36] LABS: ANISOCYTOSIS 2+; HYPOCHROMASIA 2+; PLATELET MORPHOLOGY COMMENT NORMAL (NORMAL); POIKILOCYTOSIS 2+
[2018-10-12 15:37] LABS: SICKLE CELLS SLIGHT; TARGET CELLS SLIGHT
[2018-10-12] MEDS ORDERED: PHARMACY CONSULT - VANCOMYCIN XX SCH (16:00)
[2018-10-12] MEDS ORDERED: NS 1000 ML 1,000 ML ONE (16:03)
[2018-10-12] MEDS ORDERED: VANCOMYCIN HCL 1 GM VIAL ONE (16:04)
[2018-10-12] MEDS: VANCOMYCIN HCL 1 GM VIAL 1 G in D5W 250 ML IV 250 ML IV SCH ×2 (16:07→21:44)
[2018-10-12 16:18] LABS: RETICULOCYTE % 14.78 % (0.8-2.2)
[2018-10-12] MEDS ORDERED: DUONEB 0.5 MG/3 MG NEB ONE (16:29)
[2018-10-12] MEDS ORDERED: MILK OF MAGNESIA PO PRN (16:51)
[2018-10-12] MEDS ORDERED: TYLENOL 325 MG TAB PO PRN (16:51)
[2018-10-12] MEDS ORDERED: PHENERGAN SUPP 25 MG PR PRN (16:51)
[2018-10-12] MEDS: NORCO 5/325 MG TAB PO PRN (18:26)
[2018-10-12] MEDS ORDERED: MICRO K EXTEN CAP 10 MEQ PO PRN (19:56)
[2018-10-12] MEDS ORDERED: K-RIDER 10 MEQ/NS 100 ML 10 MEQ/100 ML BAG IV PRN (19:56)
[2018-10-12] MEDS ORDERED: POTASSIUM CHL 40 MEQ/NS 0.45% 500 ML IV PRN (19:56)
[2018-10-12] MEDS ORDERED: KLOR-CON PO PRN (19:56)
[2018-10-12] MEDS ORDERED: POTASSIUM CHL 60 MEQ/NS 0.45% 500 ML IV PRN (19:56)
[2018-10-12] MEDS ORDERED: K-DUR TAB 20 MEQ PO PRN (19:56)
[2018-10-12] MEDS ORDERED: POTASSIUM CHLORIDE LIQ 20 MEQ UDC PO PRN (19:56)
[2018-10-12] MEDS ORDERED: MAGNESIUM SULFATE 1 GRAM/100 mL PREMIX 1 GM/100 ML BAG IV PRN (19:56)
[2018-10-13] MEDS: NORCO 5/325 MG TAB PO PRN ×3 (01:57→19:37)
[2018-10-13] MEDS: DILAUDID INJ IVP PRN ×3 (03:46→20:43)
[2018-10-13] MEDS: VANCOMYCIN HCL 1 GM VIAL 1 G in D5W 250 ML IV 250 ML IV SCH ×3 (05:06→21:29)
[2018-10-13 05:50] LABS: BASOPHILS # (AUTO) 0.1 X10^3/uL (0.0-0.1); BASOPHILS % (AUTO) 0.7 % (0.2-1.0); EOSINOPHILS # (AUTO) 0.5 x10^3/uL (0.0-0.2); EOSINOPHILS % (AUTO) 5.1 % (0.9-2.9); LYMPHOCYTES # (AUTO) 3.8 X10^3/uL (1.3-2.9); LYMPHOCYTES % (AUTO) 36.1 % (21.0-51.0); MEAN CORPUSCULAR HEMOGLOBIN 33.7 pg (27.0-34.0); MEAN CORPUSCULAR HGB CONC 36.1 g/dL (33.0-35.0); MEAN CORPUSCULAR VOLUME 93.3 fL (80.0-100.0); MEAN PLATELET VOLUME 7.5 fL (7.4-11.0); MONOCYTES # (AUTO) 1.2 x10^3/uL (0.3-0.8); MONOCYTES % (AUTO) 11.1 % (0.0-13.0); PLATELET COUNT 537 X10^3/uL (150.0-450.0); RED BLOOD COUNT 1.35 X10^6/uL (4.7-6.0); RED CELL DISTRIBUTION WIDTH 21.4 % (11.6-16.5); WHITE BLOOD COUNT 10.6 X10^3/uL (3.6-10.0)
[2018-10-13 05:53] LABS: HEMATOCRIT 12.6 % (42.0-54.0); HEMOGLOBIN 4.5 g/dL (13.5-18.0)
[2018-10-13 06:02] LABS: ALANINE AMINOTRANSFERASE 9 Units/L (12-78); ALBUMIN 2.9 g/dL (3.4-5.0); ALKALINE PHOSPHATASE 76 Units/L (46-116); ASPARTATE AMINO TRANSFERASE 22 Units/L (15-37); BLOOD UREA NITROGEN 5 mg/dL (7-18); CALCIUM 8.1 mg/dL (8.5-10.1); CARBON DIOXIDE 21.3 mmol/L (21-32); CHLORIDE 109 mmol/L (98-107); CREATININE 0.83 mg/dL (0.70-1.30); MAGNESIUM 1.9 mg/dL (1.7-2.9); SODIUM 140 mmol/L (136-145); TOTAL PROTEIN 6.9 g/dL (6.4-8.2); eGFR NON BLACK RACES > 60 (>60)
[2018-10-13 06:12] LABS: ANISOCYTOSIS 1+; HYPOCHROMASIA 1+; OVALOCYTES 1+; PLATELET MORPHOLOGY COMMENT NORMAL (NORMAL); POIKILOCYTOSIS 1+; SICKLE CELLS 1+
--- NOTE | 2018-10-13 09:32 | RAD ---
HISTORY: Shortness of breath Study: Chest AP portable Comparison: 10/18/2017 Findings: There is a left port present with its tip near the cavoatrial junction. The heart is enlarged. No congestive heart failure is noted. No acute alveolar infiltrates or pleural effusions are identified. The bony thorax is unremarkable. IMPRESSION: Mild cardiomegaly without congestive heart failure Lungs clear Reported By:
[2018-10-13] MEDS ORDERED: PHARMACY COMMENT IV NR (13:30)
--- NOTE | 2018-10-13 16:23 | DR.PROGNOT ---
Hospital Progress Notes - Progress Note for Day of: Progress Note Date: 10/13/18 - Chief Complaint Chief Complaint: c/o pain and drainage from Rt leg ulcers . Pt has these ulcers for long time . - Past Medical Family Social History Past Med/Fam/Surg Hx: No changes since H&P Allergies: Allergies Egg Derived Allergy (Verified 10/12/17 21:04) mayonnaise Allergy (Verified 10/12/17 21:04) morphine Allergy (Verified 10/13/17 05:57) ondansetron [From Zofran] Allergy (Verified 10/13/17 05:57) - Review Of Systems ROS: No change since H&P - Vital Signs Vital Signs: Temperature 98.4 F Pulse Rate [Left Radial] 58 Pulse Rate 99 Respiratory Rate 24 Blood Pressure [Right Arm] 109/61 Blood Pressure [Left Arm] 103/53 Blood Pressure 120/70 O2 Sat by Pulse Oximetry 100 - Physical Exam Oriented: Normal Eyes: Normal Ear: Normal Nose: Normal Respiratory: Normal Cardiovascular: Normal GI:Auscultation: Normal GI:Palpation: Normal GI: Tenderness: Normal Skin: Other (mutiple large skin ulcers involving he Rt lower extremity with purulent drainage . normal distal pulses ) Speech Pattern: Clear, Appropriate - Laboratory and Diagnostics Result Diagrams: 10/13/18 04:23 10/13/18 04:23 Labs: 10/12/18 14:58 Leg - Left Gram Stain - Final 10/12/18 14:58 Leg - Left Wound Culture - Preliminary Laboratory WBC 10.6 X10^3/uL (3.6-10.0) H 10/13/18 04:23 RBC 1.35 X10^6/uL (4.7-6.0) L 10/13/18 04:23 Hgb 4.5 g/dL (13.5-18.0) L* 10/13/18 04:23 Hct 12.6 % (42.0-54.0) L* 10/13/18 04:23 MCV 93.3 fL (80.0-100.0) 10/13/18 04:23 MCH 33.7 pg (27.0-34.0) 10/13/18 04:23 MCHC 36.1 g/dL (33.0-35.0) H 10/13/18 04:23 RDW 21.4 % (11.6-16.5) H 10/13/18 04:23 Plt Count 537 X10^3/uL (150.0-450.0) H 10/13/18 04:23 Plt Count Comment Increased (ADEQUATE) 10/13/18 04:23 MPV 7.5 fL (7.4-11.0) 10/13/18 04:23 Neut % (Auto) 47.0 % (42.0-75.0) 10/13/18 04:23 Lymph % (Auto) 36.1 % (21.0-51.0) 10/13/18 04:23 [place] % (Auto) 11.1 % (0.0-13.0) 10/13/18 04:23 Eos % (Auto) 5.1 % (0.9-2.9) H 10/13/18 04:23 Baso % (Auto) 0.7 % (0.2-1.0) 10/13/18 04:23 Neut # (Auto) 5.0 x10^3/uL (2.2-4.8) H 10/13/18 04:23 Lymph # (Auto) 3.8 X10^3/uL (1.3-2.9) H 10/13/18 04:23 [place] # (Auto) 1.2 x10^3/uL (0.3-0.8) H 10/13/18 04:23 Eos # (Auto) 0.5 x10^3/uL (0.0-0.2) H 10/13/18 04:23 Baso # (Auto) 0.1 X10^3/uL (0.0-0.1) 10/13/18 04:23 Absolute Nucleated RBC 1.3 /100WBC 10/13/18 04:23 Plt Morphology Comment Normal (NORMAL) 10/13/18 04:23 RBC Morphology Abnormal (NORMAL) 10/13/18 04:23 Hypochromasia 1+ A 10/13/18 04:23 Poikilocytosis 1+ A 10/13/18 04:23 Anisocytosis 1+ A 10/13/18 04:23 Sickle Cells 1+ A 10/13/18 04:23 Target Cells Slight A 10/12/18 14:53 Ovalocytes 1+ A 10/13/18 04:23 Absolute Retic 0.2555 10^6/uL 10/12/18 14:53 Percent Retic 14.78 % (0.8-2.2) H 10/12/18 14:53 Sodium 140 mmol/L (136-145) 10/13/18 04:23 Corrected Sodium TNP 10/13/18 04:23 Potassium 4.0 mmol/L (3.5-5.1) 10/13/18 04:23 Chloride 109 mmol/L (98-107) H 10/13/18 04:23 Carbon Dioxide 21.3 mmol/L (21-32) 10/13/18 04:23 BUN 5 mg/dL (7-18) L 10/13/18 04:23 Creatinine 0.83 mg/dL (0.70-1.30) 10/13/18 04:23 Est GFR (MDRD) Af Amer > 60 (>60) 10/13/18 04:23 Est GFR (MDRD) Non-Af > 60 (>60) 10/13/18 04:23 Glucose 81 mg/dL (65-99) 10/13/18 04:23 Lactic Acid 0.9 mmol/L (0.4-2.0) 10/13/18 08:30 Calcium 8.1 mg/dL (8.5-10.1) L 10/13/18 04:23 Corrected Calcium 9.0 mg/dL (8.5-10.1) 10/13/18 04:23 Magnesium 1.9 mg/dL (1.7-2.9) 10/13/18 04:23 Total Bilirubin 2.10 mg/dL (0.2-1.0) H 10/13/18 04:23 AST 22 Units/L (15-37) 10/13/18 04:23 ALT 9 Units/L (12-78) L 10/13/18 04:23 Alkaline Phosphatase 76 Units/L (46-116) 10/13/18 04:23 Total Protein 6.9 g/dL (6.4-8.2) 10/13/18 04:23 Albumin 2.9 g/dL (3.4-5.0) L 10/13/18 04:23 Globulin 4.0 g/dL (2.5-4.5) 10/13/18 04:23 Albumin/Globulin Ratio 0.7 Ratio (1.1-2.1) L 10/13/18 04:23 Random Vancomycin 14.2 ug/mL 10/13/18 13:25 Blood Type B POSITIVE 10/12/18 14:53 Antibody Screen Negative 10/12/18 14:53 Antibody Identification Cancelled 10/12/18 14:53 Crossmatch See Detail 10/12/18 14:53 - Assessment and Plan 1: 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 will debride in the OR in am amd maybe apply wound vac after the infection is controlled .. - Problem Patient Problems: Patient Problems Sickle cell anemia (Acute) D57.1 Non-healing wound (Acute) Cellulitis (Acute) L03.90 Anemia (Acute) D64.9
[2018-10-13] MEDS ORDERED: NS 500 ML IV 500 ML ONE (16:45)
--- NOTE | 2018-10-13 18:01 | DR.H&P ---
H&P - History & Physical for Day of: H&P Date: 10/12/18 - Chief Complaint Chief Complaint: weakness, sob, pain in limb - History of Present Illness History of Present Illness: 33 yo m w/ prev hx of sickle cell anemia and chronic wound of the left lower extremity presents w/ wound discharge x 3 days. Patient hs a prev hx of non healing ulcer of the left calf. Not currently being followed by wound care. Multiple previous hospitalizations for cellulitis of this are in the past. Last one Nov. Concerned because of increasing pain from wound along w/ development of odor and green discharge over the past 3 days. No fever / chills, abd pain, CP/ SOB, urinary irritative sx's. - Past Medical History Past Medical History: Depression, Anemia, PUD, GERD Additional Medical History: Sickle Cell Disease - Past Surgical History Surgical History: Other Additional Surgical History: Skin Graft (R) Leg Wound - Family History Family Medical History: Diabetes Mellitus, Hypertension - Social History Does patient currently use any type of tobacco product: Yes Have you used tobacco products in the last 12 months: Yes Type of Tobacco Use: Cigarettes Does any household member use tobacco: No Alcohol Use: None - Medications Home Medications: Egg Derived Allergy (Verified 10/12/17 21:04) mayonnaise Allergy (Verified 10/12/17 21:04) morphine Allergy (Verified 10/13/17 05:57) ondansetron [From Zofran] Allergy (Verified 10/13/17 05:57) CONTINUE taking the following medications NK 10/12/18 [History] - Review of Systems Constitutional: Weakness, Malaise Eyes: No Symptoms Reported ENT: No Symptoms Reported Respiratory: Shortness of Breath Cardiovascular: No Symptoms Reported Gastrointestinal: No Symptoms Reported Genitourinary: No Symptoms Reported Musculoskeletal: Leg Pain Skin: Wound Neurological: Weakness - Physical Exam Vital Signs: Temperature 99.7 F Pulse Rate [Left Radial] 69 Pulse Rate 99 Respiratory Rate 13 Blood Pressure [Right Arm] 109/61 Blood Pressure [Left Arm] 91/54 Blood Pressure 120/70 O2 Sat by Pulse Oximetry 100 Oriented: Normal Eyes: Normal Ear: Normal Nose: Normal Throat: Normal Respiratory: RLL Diminished, LLL Diminished Cardiovascular: Tachycardia, Edema. negative: Murmur : Normal Auscultation: Bowel Sounds: Normal Palpation: Normal Tenderness: Normal Skin: Red, Tender, Wound (left lower extremity open wound chronic healing) Musculoskeletal: Left, Leg, Back:Lumbar, Swelling, Tender, Deformity Psychiatric: Anxiety Affect: Anxious, Depressed Speech Pattern: Clear, Appropriate - Assessment/Plan (1) Anemia Status: Acute Plan: admit, icu type and cross and transfuse 2 u PRBCs. wound culture, IV ATBX THERAPY. PAIN CONTROL, WOUND CARE, SURGICAL CONSULT (2) Sickle cell disease Qualifiers: Sickle-cell associated disorders: without crisis Qualified Code(s): D57.1 - Sickle-cell disease without crisis Status: Chronic (3) GERD (gastroesophageal reflux disease) Status: Chronic (4) Ulcer of leg, chronic, right Status: Chronic (5) Protein calorie malnutrition Status: Acute (6) Adult failure to thrive Status: Acute - Allergies Allergies/Adverse Reactions: Allergies Allergy/AdvReac Type Severity Reaction Status Date / Time Egg Derived Allergy Verified 10/12/17 21:04 mayonnaise Allergy Verified 10/12/17 21:04 morphine Allergy Verified 10/13/17 05:57 ondansetron [From Zofran] Allergy Verified 10/13/17 05:57
[2018-10-13 21:16] LABS: HEMOGLOBIN 6.2 g/dL (13.5-18.0)
[2018-10-13 21:17] LABS: HEMATOCRIT 17.7 % (42.0-54.0)
[2018-10-13] MEDS ORDERED: NS 250 ML IV 250 ML ONE (23:25)
[2018-10-14] MEDS: DILAUDID INJ IVP PRN ×5 (03:00→20:30)
[2018-10-14 05:04] LABS: BASOPHILS # (AUTO) 0.1 X10^3/uL (0.0-0.1); BASOPHILS % (AUTO) 0.8 % (0.2-1.0); EOSINOPHILS # (AUTO) 0.6 x10^3/uL (0.0-0.2); EOSINOPHILS % (AUTO) 5.5 % (0.9-2.9); HEMATOCRIT 21.4 % (42.0-54.0); HEMOGLOBIN 7.5 g/dL (13.5-18.0); LYMPHOCYTES # (AUTO) 3.8 X10^3/uL (1.3-2.9); LYMPHOCYTES % (AUTO) 32.9 % (21.0-51.0); MEAN CORPUSCULAR HEMOGLOBIN 31.8 pg (27.0-34.0); MEAN CORPUSCULAR HGB CONC 34.8 g/dL (33.0-35.0); MEAN CORPUSCULAR VOLUME 91.3 fL (80.0-100.0); MEAN PLATELET VOLUME 8.1 fL (7.4-11.0); MONOCYTES # (AUTO) 1.2 x10^3/uL (0.3-0.8); MONOCYTES % (AUTO) 10.2 % (0.0-13.0); NEUTROPHILS # (AUTO) 5.8 x10^3/uL (2.2-4.8); NEUTROPHILS % (AUTO) 50.6 % (42.0-75.0); PLATELET COUNT 593 X10^3/uL (150.0-450.0); RED BLOOD COUNT 2.35 X10^6/uL (4.7-6.0); RED CELL DISTRIBUTION WIDTH 18.4 % (11.6-16.5); WHITE BLOOD COUNT 11.5 X10^3/uL (3.6-10.0)
[2018-10-14 05:15] LABS: ALANINE AMINOTRANSFERASE 10 Units/L (12-78); ALKALINE PHOSPHATASE 85 Units/L (46-116); ASPARTATE AMINO TRANSFERASE 24 Units/L (15-37); BLOOD UREA NITROGEN 6 mg/dL (7-18); CALCIUM 8.1 mg/dL (8.5-10.1); CARBON DIOXIDE 23.1 mmol/L (21-32); CHLORIDE 108 mmol/L (98-107); COR CA(FOR HYPOALB) 8.9 mg/dL (8.5-10.1); CREATININE 0.81 mg/dL (0.70-1.30); SODIUM 140 mmol/L (136-145); TOTAL PROTEIN 7.2 g/dL (6.4-8.2); eGFR NON BLACK RACES > 60 (>60)
[2018-10-14 05:22] LABS: HYPOCHROMASIA 1+; PLATELET MORPHOLOGY COMMENT NORMAL (NORMAL); POIKILOCYTOSIS SLIGHT; SICKLE CELLS SLIGHT
[2018-10-14] MEDS: VANCOMYCIN HCL 1 GM VIAL 1 G in D5W 250 ML IV 250 ML IV SCH ×3 (06:09→21:21)
[2018-10-14] MEDS: NORCO 5/325 MG TAB PO PRN (08:14)
[2018-10-14] MEDS ORDERED: NS IRRIGATION 1000 ML ONE (09:28)
[2018-10-14] MEDS ORDERED: LR 1000 ML IV 1,000 ML ONE (11:28)
[2018-10-14] MEDS ORDERED: XYLOCAINE 1 % (PLAIN) ONE (11:36)
[2018-10-14] MEDS ORDERED: BACITRACIN VIAL ONE (11:36)
[2018-10-14] MEDS ORDERED: DILAUDID INJ ONE ×3 (11:58→14:03)
[2018-10-14] MEDS: MILK OF MAGNESIA PO SCH ×2 (12:08→20:31)
[2018-10-14] MEDS ORDERED: BENADRYL INJ 50 MG VIAL IVP PRN (12:41)
[2018-10-14] MEDS ORDERED: PHENERGAN INJ 25 MG IM PRN (12:41)
[2018-10-14] MEDS ORDERED: REGLAN INJ 10 MG VIAL IVP PRN (12:41)
[2018-10-14] MEDS ORDERED: BACTROBAN TOPICAL OINT ONE (13:10)
[2018-10-14] MEDS ORDERED: PHARMACY COMMENT IV NR (13:30)
[2018-10-14] MEDS ORDERED: NORCURON INJ 10 MG VIAL ONE (15:57)
[2018-10-14] MEDS ORDERED: VERSED ONE (15:57)
[2018-10-14] MEDS ORDERED: DIPRIVAN VIAL ONE (15:57)
--- NOTE | 2018-10-14 17:27 | PCM.PROG ---
Progress Note - Progress Note for Day of Date of Exam: 10/13/18 - Subjective Subjective: 33 BM ER ADMISSION WITH CO LLE PAIN, CHRONIC WOUND WITH ACUTE INFECTION, WOUND CULTURE COLLECTED ON ADMISSION. PT CURRENTLY ON IV VANCOMYCIN. WBC 10.6 THIS AM PT HAD SYMPTOMATIC ANEMIA, HGB THIS AM 4.5 PENDING TRANSFUSION. PT HAD ANTIBODIES, AWAITING ARRIVAL OF BLOOD FROM [facility]. PT IS CALM THIS AM WITH CO LOWER LEG PAIN, DENIES SOB THIS AM. DR GIRARD CONSULTED FOR WOUND EVALUATION - Past Medical Family Social History Past Med/Fam/Surg Hx: No changes since H&P Allergies: Allergies Egg Derived Allergy (Verified 10/12/17 21:04) mayonnaise Allergy (Verified 10/12/17 21:04) morphine Allergy (Verified 10/13/17 05:57) ondansetron [From Zofran] Allergy (Verified 10/13/17 05:57) - Review of Systems ROS: No change since H&P - Vital Signs and I&O's Vital Signs: Temperature 97 F Pulse Rate [Left Radial] 54 Pulse Rate 62 Respiratory Rate 18 Blood Pressure [Right Arm] 109/61 Blood Pressure [Left Arm] 94/54 Blood Pressure 99/67 O2 Sat by Pulse Oximetry 100 Intake and Output: Intake & Output 10/12/18 10/13/18 10/14/18 10/15/18 11:59 11:59 11:59 11:59 Intake Total 1250 / 1250 2831 / 2831 1080 / 1080 Output Total 600 / 600 3700 / 3700 1000 / 1000 Balance 650 / 650 -869 / -869 80 / 80 - Physical Exam Oriented: Normal Eyes: Normal Ear: Normal Nose: Normal Throat: Normal Respiratory: Normal Cardiovascular: Tachycardia, Edema. negative: Murmur : Normal Auscultation: Bowel Sounds: Normal Tenderness: Normal Skin: Red, Tender, Wound (left lower extremity open wound chronic healing) Musculoskeletal: Left, Leg, Back:Lumbar, Swelling, Tender, Deformity Psychiatric: Anxiety Affect: Anxious, Depressed Speech Pattern: Clear, Appropriate - Laboratory and Diagnostics Result Diagrams: 10/14/18 03:44 10/14/18 03:44 Labs: 10/12/18 14:58 Leg - Left Gram Stain - Final 10/12/18 14:58 Leg - Left Wound Culture - Final Pseudomonas Aeruginosa Laboratory WBC 11.5 X10^3/uL (3.6-10.0) H 10/14/18 03:44 RBC 2.35 X10^6/uL (4.7-6.0) L 10/14/18 03:44 Hgb 7.5 g/dL (13.5-18.0) L 10/14/18 03:44 Hct 21.4 % (42.0-54.0) L 10/14/18 03:44 MCV 91.3 fL (80.0-100.0) 10/14/18 03:44 MCH 31.8 pg (27.0-34.0) 10/14/18 03:44 MCHC 34.8 g/dL (33.0-35.0) 10/14/18 03:44 RDW 18.4 % (11.6-16.5) H 10/14/18 03:44 Plt Count 593 X10^3/uL (150.0-450.0) H 10/14/18 03:44 Plt Count Comment Increased (ADEQUATE) 10/14/18 03:44 MPV 8.1 fL (7.4-11.0) 10/14/18 03:44 Neut % (Auto) 50.6 % (42.0-75.0) 10/14/18 03:44 Lymph % (Auto) 32.9 % (21.0-51.0) 10/14/18 03:44 [place] % (Auto) 10.2 % (0.0-13.0) 10/14/18 03:44 Eos % (Auto) 5.5 % (0.9-2.9) H 10/14/18 03:44 Baso % (Auto) 0.8 % (0.2-1.0) 10/14/18 03:44 Neut # (Auto) 5.8 x10^3/uL (2.2-4.8) H 10/14/18 03:44 Lymph # (Auto) 3.8 X10^3/uL (1.3-2.9) H 10/14/18 03:44 [place] # (Auto) 1.2 x10^3/uL (0.3-0.8) H 10/14/18 03:44 Eos # (Auto) 0.6 x10^3/uL (0.0-0.2) H 10/14/18 03:44 Baso # (Auto) 0.1 X10^3/uL (0.0-0.1) 10/14/18 03:44 Absolute Nucleated RBC 1.1 /100WBC 10/14/18 03:44 Plt Morphology Comment Normal (NORMAL) 10/14/18 03:44 RBC Morphology Abnormal (NORMAL) 10/14/18 03:44 Hypochromasia 1+ A 10/14/18 03:44 Poikilocytosis Slight A 10/14/18 03:44 Anisocytosis 1+ A 10/13/18 04:23 Sickle Cells Slight A 10/14/18 03:44 Target Cells Slight A 10/12/18 14:53 Ovalocytes 1+ A 10/13/18 04:23 Absolute Retic 0.2555 10^6/uL 10/12/18 14:53 Percent Retic 14.78 % (0.8-2.2) H 10/12/18 14:53 Sodium 140 mmol/L (136-145) 10/14/18 03:44 Corrected Sodium TNP 10/14/18 03:44 Potassium 3.8 mmol/L (3.5-5.1) 10/14/18 03:44 Chloride 108 mmol/L (98-107) H 10/14/18 03:44 Carbon Dioxide 23.1 mmol/L (21-32) 10/14/18 03:44 BUN 6 mg/dL (7-18) L 10/14/18 03:44 Creatinine 0.81 mg/dL (0.70-1.30) 10/14/18 03:44 Est GFR (MDRD) Af Amer > 60 (>60) 10/14/18 03:44 Est GFR (MDRD) Non-Af > 60 (>60) 10/14/18 03:44 Glucose 89 mg/dL (65-99) 10/14/18 03:44 Lactic Acid 0.9 mmol/L (0.4-2.0) 10/13/18 08:30 Calcium 8.1 mg/dL (8.5-10.1) L 10/14/18 03:44 Corrected Calcium 8.9 mg/dL (8.5-10.1) 10/14/18 03:44 Magnesium 1.9 mg/dL (1.7-2.9) 10/13/18 04:23 Total Bilirubin 1.50 mg/dL (0.2-1.0) H 10/14/18 03:44 AST 24 Units/L (15-37) 10/14/18 03:44 ALT 10 Units/L (12-78) L 10/14/18 03:44 Alkaline Phosphatase 85 Units/L (46-116) 10/14/18 03:44 Total Protein 7.2 g/dL (6.4-8.2) 10/14/18 03:44 Albumin 3.0 g/dL (3.4-5.0) L 10/14/18 03:44 Globulin 4.2 g/dL (2.5-4.5) 10/14/18 03:44 Albumin/Globulin Ratio 0.7 Ratio (1.1-2.1) L 10/14/18 03:44 Random Vancomycin 16.9 ug/mL 10/14/18 15:11 Tissue Pathology To follow 10/14/18 13:15 Blood Type B POSITIVE 10/12/18 14:53 Antibody Screen Negative 10/12/18 14:53 Antibody Identification Cancelled 10/12/18 14:53 Crossmatch See Detail 10/12/18 14:53 - Plan (1) Anemia Status: Acute Plan: ICU type and cross and transfuse 2 u PRBCs WHEN AVAILABLE. wound culture, IV ATBX THERAPY. PAIN CONTROL, WOUND CARE, SURGICAL CONSULT (2) Sickle cell disease Status: Chronic Qualifiers: Sickle-cell associated disorders: without crisis Qualified Code(s): D57.1 - Sickle-cell disease without crisis (3) GERD (gastroesophageal reflux disease) Status: Chronic (4) Ulcer of leg, chronic, right Status: Chronic Plan: IV VANCOMYCIN, WOUND CULTURE ON ADMISSION, DR GIRARD CONSULTED FOR WOULD CARE (5) Protein calorie malnutrition Status: Acute (6) Adult failure to thrive Status: Acute
--- NOTE | 2018-10-14 17:34 | PCM.PROG ---
Progress Note - Progress Note for Day of Date of Exam: 10/14/18 - Subjective Subjective: 33 BM ER ADMISSION WITH CO LLE PAIN, CHRONIC WOUND WITH ACUTE INFECTION, WOUND CULTURE COLLECTED ON ADMISSION. PT CURRENTLY ON IV VANCOMYCIN. WBC 11.5 THIS AM PT HAD SYMPTOMATIC ANEMIA, HGB THIS AM 7.5 POST TRANSFUSION 2U PRBC. PTIS NPO FOR SURGICAL DEBRIDEMENT OF WOUND THIS AM. PAIN IS CONTROLLED AT THIS TIME. PT DENIES SOB THIS AM. - Past Medical Family Social History Past Med/Fam/Surg Hx: No changes since H&P Allergies: Allergies Egg Derived Allergy (Verified 10/12/17 21:04) mayonnaise Allergy (Verified 10/12/17 21:04) morphine Allergy (Verified 10/13/17 05:57) ondansetron [From Zofran] Allergy (Verified 10/13/17 05:57) - Review of Systems ROS: No change since H&P - Vital Signs and I&O's Vital Signs: Temperature 97 F Pulse Rate [Left Radial] 54 Pulse Rate 62 Respiratory Rate 18 Blood Pressure [Right Arm] 109/61 Blood Pressure [Left Arm] 94/54 Blood Pressure 99/67 O2 Sat by Pulse Oximetry 100 Intake and Output: Intake & Output 10/12/18 10/13/18 10/14/18 10/15/18 11:59 11:59 11:59 11:59 Intake Total 1250 / 1250 2831 / 2831 1080 / 1080 Output Total 600 / 600 3700 / 3700 1000 / 1000 Balance 650 / 650 -869 / -869 80 / 80 - Physical Exam Oriented: Normal Eyes: Normal Ear: Normal Nose: Normal Throat: Normal Respiratory: Normal Cardiovascular: Bradycardia (RATE 58 ON EXAM), Edema. negative: Murmur : Normal Auscultation: Bowel Sounds: Normal Tenderness: Normal Skin: Red, Tender, Wound (left lower extremity open wound chronic healing) Musculoskeletal: Left, Leg, Back:Lumbar, Swelling, Tender, Deformity Psychiatric: Anxiety Affect: Anxious, Depressed Speech Pattern: Clear, Appropriate - Laboratory and Diagnostics Result Diagrams: 10/14/18 03:44 10/14/18 03:44 Labs: 10/12/18 14:58 Leg - Left Gram Stain - Final 10/12/18 14:58 Leg - Left Wound Culture - Final Pseudomonas Aeruginosa Laboratory WBC 11.5 X10^3/uL (3.6-10.0) H 10/14/18 03:44 RBC 2.35 X10^6/uL (4.7-6.0) L 10/14/18 03:44 Hgb 7.5 g/dL (13.5-18.0) L 10/14/18 03:44 Hct 21.4 % (42.0-54.0) L 10/14/18 03:44 MCV 91.3 fL (80.0-100.0) 10/14/18 03:44 MCH 31.8 pg (27.0-34.0) 10/14/18 03:44 MCHC 34.8 g/dL (33.0-35.0) 10/14/18 03:44 RDW 18.4 % (11.6-16.5) H 10/14/18 03:44 Plt Count 593 X10^3/uL (150.0-450.0) H 10/14/18 03:44 Plt Count Comment Increased (ADEQUATE) 10/14/18 03:44 MPV 8.1 fL (7.4-11.0) 10/14/18 03:44 Neut % (Auto) 50.6 % (42.0-75.0) 10/14/18 03:44 Lymph % (Auto) 32.9 % (21.0-51.0) 10/14/18 03:44 [place] % (Auto) 10.2 % (0.0-13.0) 10/14/18 03:44 Eos % (Auto) 5.5 % (0.9-2.9) H 10/14/18 03:44 Baso % (Auto) 0.8 % (0.2-1.0) 10/14/18 03:44 Neut # (Auto) 5.8 x10^3/uL (2.2-4.8) H 10/14/18 03:44 Lymph # (Auto) 3.8 X10^3/uL (1.3-2.9) H 10/14/18 03:44 [place] # (Auto) 1.2 x10^3/uL (0.3-0.8) H 10/14/18 03:44 Eos # (Auto) 0.6 x10^3/uL (0.0-0.2) H 10/14/18 03:44 Baso # (Auto) 0.1 X10^3/uL (0.0-0.1) 10/14/18 03:44 Absolute Nucleated RBC 1.1 /100WBC 10/14/18 03:44 Plt Morphology Comment Normal (NORMAL) 10/14/18 03:44 RBC Morphology Abnormal (NORMAL) 10/14/18 03:44 Hypochromasia 1+ A 10/14/18 03:44 Poikilocytosis Slight A 10/14/18 03:44 Anisocytosis 1+ A 10/13/18 04:23 Sickle Cells Slight A 10/14/18 03:44 Target Cells Slight A 10/12/18 14:53 Ovalocytes 1+ A 10/13/18 04:23 Absolute Retic 0.2555 10^6/uL 10/12/18 14:53 Percent Retic 14.78 % (0.8-2.2) H 10/12/18 14:53 Sodium 140 mmol/L (136-145) 10/14/18 03:44 Corrected Sodium TNP 10/14/18 03:44 Potassium 3.8 mmol/L (3.5-5.1) 10/14/18 03:44 Chloride 108 mmol/L (98-107) H 10/14/18 03:44 Carbon Dioxide 23.1 mmol/L (21-32) 10/14/18 03:44 BUN 6 mg/dL (7-18) L 10/14/18 03:44 Creatinine 0.81 mg/dL (0.70-1.30) 10/14/18 03:44 Est GFR (MDRD) Af Amer > 60 (>60) 10/14/18 03:44 Est GFR (MDRD) Non-Af > 60 (>60) 10/14/18 03:44 Glucose 89 mg/dL (65-99) 10/14/18 03:44 Lactic Acid 0.9 mmol/L (0.4-2.0) 10/13/18 08:30 Calcium 8.1 mg/dL (8.5-10.1) L 10/14/18 03:44 Corrected Calcium 8.9 mg/dL (8.5-10.1) 10/14/18 03:44 Magnesium 1.9 mg/dL (1.7-2.9) 10/13/18 04:23 Total Bilirubin 1.50 mg/dL (0.2-1.0) H 10/14/18 03:44 AST 24 Units/L (15-37) 10/14/18 03:44 ALT 10 Units/L (12-78) L 10/14/18 03:44 Alkaline Phosphatase 85 Units/L (46-116) 10/14/18 03:44 Total Protein 7.2 g/dL (6.4-8.2) 10/14/18 03:44 Albumin 3.0 g/dL (3.4-5.0) L 10/14/18 03:44 Globulin 4.2 g/dL (2.5-4.5) 10/14/18 03:44 Albumin/Globulin Ratio 0.7 Ratio (1.1-2.1) L 10/14/18 03:44 Random Vancomycin 16.9 ug/mL 10/14/18 15:11 Tissue Pathology To follow 10/14/18 13:15 Blood Type B POSITIVE 10/12/18 14:53 Antibody Screen Negative 10/12/18 14:53 Antibody Identification Cancelled 10/12/18 14:53 Crossmatch See Detail 10/12/18 14:53 - Plan (1) Anemia Status: Acute Plan: ICU type and cross and transfused 2 u PRBCs. wound culture + pseudomonas. PAIN CONTROL, WOUND CARE, SURGICAL CONSULT (2) Sickle cell disease Status: Chronic Qualifiers: Sickle-cell associated disorders: without crisis Qualified Code(s): D57.1 - Sickle-cell disease without crisis (3) GERD (gastroesophageal reflux disease) Status: Chronic (4) Ulcer of leg, chronic, right Status: Chronic Plan: IV VANCOMYCIN, WOUND CULTURE ON ADMISSION, DR GIRARD CONSULTED FOR WOULD CARE (5) Protein calorie malnutrition Status: Acute (6) Adult failure to thrive Status: Acute
[2018-10-15] MEDS: DILAUDID INJ IVP PRN ×5 (02:12→18:11)
[2018-10-15] MEDS: VANCOMYCIN HCL 1 GM VIAL 1 G in D5W 250 ML IV 250 ML IV SCH ×2 (05:10→14:00)
[2018-10-15 05:20] LABS: BASOPHILS # (AUTO) 0.1 X10^3/uL (0.0-0.1); BASOPHILS % (AUTO) 0.9 % (0.2-1.0); EOSINOPHILS # (AUTO) 0.8 x10^3/uL (0.0-0.2); EOSINOPHILS % (AUTO) 6.4 % (0.9-2.9); HEMATOCRIT 21.3 % (42.0-54.0); HEMOGLOBIN 7.6 g/dL (13.5-18.0); LYMPHOCYTES # (AUTO) 3.8 X10^3/uL (1.3-2.9); LYMPHOCYTES % (AUTO) 31.9 % (21.0-51.0); MEAN CORPUSCULAR HEMOGLOBIN 31.8 pg (27.0-34.0); MEAN CORPUSCULAR HGB CONC 35.4 g/dL (33.0-35.0); MEAN CORPUSCULAR VOLUME 89.9 fL (80.0-100.0); MEAN PLATELET VOLUME 7.5 fL (7.4-11.0); MONOCYTES # (AUTO) 0.7 x10^3/uL (0.3-0.8); NEUTROPHILS # (AUTO) 6.5 x10^3/uL (2.2-4.8); NEUTROPHILS % (AUTO) 54.8 % (42.0-75.0); PLATELET COUNT 627 X10^3/uL (150.0-450.0); RED BLOOD COUNT 2.37 X10^6/uL (4.7-6.0); RED CELL DISTRIBUTION WIDTH 18.2 % (11.6-16.5); WHITE BLOOD COUNT 11.9 X10^3/uL (3.6-10.0)
[2018-10-15 05:39] LABS: ALANINE AMINOTRANSFERASE 9 Units/L (12-78); ALKALINE PHOSPHATASE 84 Units/L (46-116); ASPARTATE AMINO TRANSFERASE 22 Units/L (15-37); BLOOD UREA NITROGEN 8 mg/dL (7-18); CALCIUM 8.3 mg/dL (8.5-10.1); CARBON DIOXIDE 22.2 mmol/L (21-32); CHLORIDE 110 mmol/L (98-107); COR CA(FOR HYPOALB) 9.1 mg/dL (8.5-10.1); CREATININE 0.84 mg/dL (0.70-1.30); SODIUM 142 mmol/L (136-145); TOTAL PROTEIN 7.1 g/dL (6.4-8.2); eGFR NON BLACK RACES > 60 (>60)
[2018-10-15 05:45] LABS: ANISOCYTOSIS SLIGHT; HYPOCHROMASIA SLIGHT; PLATELET MORPHOLOGY COMMENT NORMAL (NORMAL); POIKILOCYTOSIS SLIGHT
--- NOTE | 2018-10-15 10:56 | DR.PROGNOT ---
Hospital Progress Notes - Progress Note for Day of: Progress Note Date: 10/15/18 - Chief Complaint Chief Complaint: post op excisional debridement Rt leg ulcers . dressing intact , no bleeding . still having pain Rt leg . afebrile . - Past Medical Family Social History Past Med/Fam/Surg Hx: No changes since H&P Allergies: Allergies Egg Derived Allergy (Verified 10/12/17 21:04) mayonnaise Allergy (Verified 10/12/17 21:04) morphine Allergy (Verified 10/13/17 05:57) ondansetron [From Zofran] Allergy (Verified 10/13/17 05:57) - Review Of Systems ROS: No change since H&P - Vital Signs Vital Signs: Temperature 99.5 F Pulse Rate [Left Radial] 64 Pulse Rate 62 Respiratory Rate 20 Blood Pressure [Right Arm] 109/61 Blood Pressure [Left Arm] 103/62 Blood Pressure 99/67 O2 Sat by Pulse Oximetry 99 - Physical Exam Oriented: Normal Eyes: Normal Ear: Normal Nose: Normal Throat: Normal Respiratory: Normal Cardiovascular: Bradycardia (RATE 58 ON EXAM), Edema. negative: Murmur : Normal GI:Auscultation: Normal GI:Palpation: Normal GI: Tenderness: Normal Skin: Wound (dressing dry and intact . good distal pulses ) Psychiatric: Anxiety Affect: Anxious, Depressed Speech Pattern: Clear, Appropriate - Laboratory and Diagnostics Result Diagrams: 10/15/18 04:45 10/15/18 04:45 Labs: 10/12/18 14:58 Leg - Left Gram Stain - Final 10/12/18 14:58 Leg - Left Wound Culture - Final Pseudomonas Aeruginosa Laboratory WBC 11.9 X10^3/uL (3.6-10.0) H 10/15/18 04:45 RBC 2.37 X10^6/uL (4.7-6.0) L 10/15/18 04:45 Hgb 7.6 g/dL (13.5-18.0) L 10/15/18 04:45 Hct 21.3 % (42.0-54.0) L 10/15/18 04:45 MCV 89.9 fL (80.0-100.0) 10/15/18 04:45 MCH 31.8 pg (27.0-34.0) 10/15/18 04:45 MCHC 35.4 g/dL (33.0-35.0) H 10/15/18 04:45 RDW 18.2 % (11.6-16.5) H 10/15/18 04:45 Plt Count 627 X10^3/uL (150.0-450.0) H 10/15/18 04:45 Plt Count Comment Increased (ADEQUATE) 10/15/18 04:45 MPV 7.5 fL (7.4-11.0) 10/15/18 04:45 Neut % (Auto) 54.8 % (42.0-75.0) 10/15/18 04:45 Lymph % (Auto) 31.9 % (21.0-51.0) 10/15/18 04:45 [place] % (Auto) 6.0 % (0.0-13.0) 10/15/18 04:45 Eos % (Auto) 6.4 % (0.9-2.9) H 10/15/18 04:45 Baso % (Auto) 0.9 % (0.2-1.0) 10/15/18 04:45 Neut # (Auto) 6.5 x10^3/uL (2.2-4.8) H 10/15/18 04:45 Lymph # (Auto) 3.8 X10^3/uL (1.3-2.9) H 10/15/18 04:45 [place] # (Auto) 0.7 x10^3/uL (0.3-0.8) 10/15/18 04:45 Eos # (Auto) 0.8 x10^3/uL (0.0-0.2) H 10/15/18 04:45 Baso # (Auto) 0.1 X10^3/uL (0.0-0.1) 10/15/18 04:45 Absolute Nucleated RBC 0.9 /100WBC 10/15/18 04:45 Plt Morphology Comment Normal (NORMAL) 10/15/18 04:45 RBC Morphology Abnormal (NORMAL) 10/15/18 04:45 Hypochromasia Slight A 10/15/18 04:45 Poikilocytosis Slight A 10/15/18 04:45 Anisocytosis Slight A 10/15/18 04:45 Sickle Cells Slight A 10/14/18 03:44 Target Cells Slight A 10/12/18 14:53 Ovalocytes 1+ A 10/13/18 04:23 Absolute Retic 0.2555 10^6/uL 10/12/18 14:53 Percent Retic 14.78 % (0.8-2.2) H 10/12/18 14:53 Sodium 142 mmol/L (136-145) 10/15/18 04:45 Corrected Sodium TNP 10/15/18 04:45 Potassium 3.9 mmol/L (3.5-5.1) 10/15/18 04:45 Chloride 110 mmol/L (98-107) H 10/15/18 04:45 Carbon Dioxide 22.2 mmol/L (21-32) 10/15/18 04:45 BUN 8 mg/dL (7-18) 10/15/18 04:45 Creatinine 0.84 mg/dL (0.70-1.30) 10/15/18 04:45 Est GFR (MDRD) Af Amer > 60 (>60) 10/15/18 04:45 Est GFR (MDRD) Non-Af > 60 (>60) 10/15/18 04:45 Glucose 85 mg/dL (65-99) 10/15/18 04:45 Lactic Acid 0.9 mmol/L (0.4-2.0) 10/13/18 08:30 Calcium 8.3 mg/dL (8.5-10.1) L 10/15/18 04:45 Corrected Calcium 9.1 mg/dL (8.5-10.1) 10/15/18 04:45 Magnesium 1.9 mg/dL (1.7-2.9) 10/13/18 04:23 Total Bilirubin 2.30 mg/dL (0.2-1.0) H 10/15/18 04:45 AST 22 Units/L (15-37) 10/15/18 04:45 ALT 9 Units/L (12-78) L 10/15/18 04:45 Alkaline Phosphatase 84 Units/L (46-116) 10/15/18 04:45 Total Protein 7.1 g/dL (6.4-8.2) 10/15/18 04:45 Albumin 3.0 g/dL (3.4-5.0) L 10/15/18 04:45 Globulin 4.1 g/dL (2.5-4.5) 10/15/18 04:45 Albumin/Globulin Ratio 0.7 Ratio (1.1-2.1) L 10/15/18 04:45 Random Vancomycin 16.9 ug/mL 10/14/18 15:11 Tissue Pathology To follow 10/14/18 13:15 Blood Type B POSITIVE 10/12/18 14:53 Antibody Screen Negative 10/12/18 14:53 Antibody Identification Cancelled 10/12/18 14:53 Crossmatch See Detail 10/12/18 14:53 - Assessment and Plan 1: 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 same IV ATB pending final culture report.. - Problem Patient Problems: Patient Problems Sickle cell anemia (Acute) D57.1 Non-healing wound (Acute) Cellulitis (Acute) L03.90 Anemia (Acute) D64.9
[2018-10-15] MEDS: MILK OF MAGNESIA PO SCH ×2 (10:59→21:02)
[2018-10-15 15:00] LABS: CREATININE 0.76 mg/dL (0.70-1.30); VANCOMYCIN,TROUGH 14.7 ug/mL (15-20)
[2018-10-15] MEDS: ZOSYN VIAL 4.5 GRAMS 4.5 G in NS 100 ML IV + SPIKE MINIBAG* 100 ML IV SCH ×2 (15:06→21:02)
[2018-10-16] MEDS: DILAUDID INJ IVP PRN ×6 (00:37→23:51)
[2018-10-16] MEDS: ZOSYN VIAL 4.5 GRAMS 4.5 G in NS 100 ML IV + SPIKE MINIBAG* 100 ML IV SCH ×3 (05:04→21:16)
[2018-10-16 05:25] LABS: BASOPHILS # (AUTO) 0.1 X10^3/uL (0.0-0.1); BASOPHILS % (AUTO) 1.3 % (0.2-1.0); EOSINOPHILS # (AUTO) 0.9 x10^3/uL (0.0-0.2); EOSINOPHILS % (AUTO) 9.5 % (0.9-2.9); HEMATOCRIT 20.9 % (42.0-54.0); HEMOGLOBIN 7.5 g/dL (13.5-18.0); LYMPHOCYTES # (AUTO) 2.9 X10^3/uL (1.3-2.9); LYMPHOCYTES % (AUTO) 28.8 % (21.0-51.0); MEAN CORPUSCULAR HEMOGLOBIN 32.3 pg (27.0-34.0); MEAN CORPUSCULAR HGB CONC 35.7 g/dL (33.0-35.0); MEAN CORPUSCULAR VOLUME 90.5 fL (80.0-100.0); MEAN PLATELET VOLUME 7.9 fL (7.4-11.0); MONOCYTES # (AUTO) 0.9 x10^3/uL (0.3-0.8); MONOCYTES % (AUTO) 8.9 % (0.0-13.0); NEUTROPHILS # (AUTO) 5.1 x10^3/uL (2.2-4.8); NEUTROPHILS % (AUTO) 51.5 % (42.0-75.0); PLATELET COUNT 605 X10^3/uL (150.0-450.0); RED BLOOD COUNT 2.31 X10^6/uL (4.7-6.0); RED CELL DISTRIBUTION WIDTH 18.1 % (11.6-16.5)
[2018-10-16 05:44] LABS: ALANINE AMINOTRANSFERASE 12 Units/L (12-78); ALBUMIN 3.1 g/dL (3.4-5.0); ALKALINE PHOSPHATASE 84 Units/L (46-116); ASPARTATE AMINO TRANSFERASE 29 Units/L (15-37); BLOOD UREA NITROGEN 9 mg/dL (7-18); CALCIUM 8.3 mg/dL (8.5-10.1); CHLORIDE 109 mmol/L (98-107); CREATININE 0.88 mg/dL (0.70-1.30); SODIUM 142 mmol/L (136-145); TOTAL PROTEIN 7.4 g/dL (6.4-8.2); eGFR NON BLACK RACES > 60 (>60)
[2018-10-16 06:04] LABS: HYPOCHROMASIA 1+; PLATELET MORPHOLOGY COMMENT NORMAL (NORMAL); POIKILOCYTOSIS SLIGHT; TARGET CELLS PRESENT
[2018-10-16] MEDS: MILK OF MAGNESIA PO SCH ×2 (10:17→21:16)
[2018-10-16] MEDS ORDERED: ZINC SULFATE PO SCH (12:00)
[2018-10-16] MEDS ORDERED: NS 1000 ML 1,000 ML ONE (14:04)
--- NOTE | 2018-10-16 14:21 | DR.PROGNOT ---
Hospital Progress Notes - Progress Note for Day of: Progress Note Date: 10/16/18 - Chief Complaint Chief Complaint: post op excisional debridement Rt leg ulcers . dressing intact , no bleeding . still having constant pain Rt leg . afebrile . culture showed pseudomonas . - Past Medical Family Social History Past Med/Fam/Surg Hx: No changes since H&P Allergies: Allergies Egg Derived Allergy (Verified 10/12/17 21:04) mayonnaise Allergy (Verified 10/12/17 21:04) morphine Allergy (Verified 10/13/17 05:57) ondansetron [From Zofran] Allergy (Verified 10/13/17 05:57) - Review Of Systems ROS: No change since H&P - Vital Signs Vital Signs: Temperature 97.8 F Pulse Rate [Left Radial] 68 Pulse Rate 78 Respiratory Rate 30 Blood Pressure [Right Arm] 109/61 Blood Pressure [Left Arm] 95/51 Blood Pressure 109/61 O2 Sat by Pulse Oximetry 98 - Physical Exam Oriented: Normal Eyes: Normal Ear: Normal Nose: Normal Throat: Normal Respiratory: Normal Cardiovascular: Bradycardia (RATE 58 ON EXAM), Edema. negative: Murmur : Normal GI:Auscultation: Normal GI:Palpation: Normal GI: Tenderness: Normal Skin: Wound (dressing dry and intact .minimal drainage . good distal pulses ) Musculoskeletal: Left, Leg, Back:Lumbar Psychiatric: Anxiety Affect: Anxious, Depressed Speech Pattern: Clear, Appropriate - Laboratory and Diagnostics Result Diagrams: 10/16/18 04:26 10/16/18 04:26 Labs: 10/12/18 14:58 Leg - Left Gram Stain - Final 10/12/18 14:58 Leg - Left Wound Culture - Final Pseudomonas Aeruginosa Laboratory WBC 10.0 X10^3/uL (3.6-10.0) 10/16/18 04:26 RBC 2.31 X10^6/uL (4.7-6.0) L 10/16/18 04:26 Hgb 7.5 g/dL (13.5-18.0) L 10/16/18 04:26 Hct 20.9 % (42.0-54.0) L 10/16/18 04:26 MCV 90.5 fL (80.0-100.0) 10/16/18 04:26 MCH 32.3 pg (27.0-34.0) 10/16/18 04:26 MCHC 35.7 g/dL (33.0-35.0) H 10/16/18 04:26 RDW 18.1 % (11.6-16.5) H 10/16/18 04:26 Plt Count 605 X10^3/uL (150.0-450.0) H 10/16/18 04:26 Plt Count Comment Increased (ADEQUATE) 10/16/18 04:26 MPV 7.9 fL (7.4-11.0) 10/16/18 04:26 Neut % (Auto) 51.5 % (42.0-75.0) 10/16/18 04:26 Lymph % (Auto) 28.8 % (21.0-51.0) 10/16/18 04:26 [place] % (Auto) 8.9 % (0.0-13.0) 10/16/18 04:26 Eos % (Auto) 9.5 % (0.9-2.9) H 10/16/18 04:26 Baso % (Auto) 1.3 % (0.2-1.0) H 10/16/18 04:26 Neut # (Auto) 5.1 x10^3/uL (2.2-4.8) H 10/16/18 04:26 Lymph # (Auto) 2.9 X10^3/uL (1.3-2.9) 10/16/18 04:26 [place] # (Auto) 0.9 x10^3/uL (0.3-0.8) H 10/16/18 04:26 Eos # (Auto) 0.9 x10^3/uL (0.0-0.2) H 10/16/18 04:26 Baso # (Auto) 0.1 X10^3/uL (0.0-0.1) 10/16/18 04:26 Absolute Nucleated RBC 1.1 /100WBC 10/16/18 04:26 Plt Morphology Comment Normal (NORMAL) 10/16/18 04:26 RBC Morphology Abnormal (NORMAL) 10/16/18 04:26 Hypochromasia 1+ A 10/16/18 04:26 Poikilocytosis Slight A 10/16/18 04:26 Anisocytosis Slight A 10/15/18 04:45 Sickle Cells Slight A 10/14/18 03:44 Target Cells Present 10/16/18 04:26 Ovalocytes 1+ A 10/13/18 04:23 Absolute Retic 0.2555 10^6/uL 10/12/18 14:53 Percent Retic 14.78 % (0.8-2.2) H 10/12/18 14:53 Sodium 142 mmol/L (136-145) 10/16/18 04:26 Corrected Sodium TNP 10/16/18 04:26 Potassium 4.2 mmol/L (3.5-5.1) 10/16/18 04:26 Chloride 109 mmol/L (98-107) H 10/16/18 04:26 Carbon Dioxide 25.0 mmol/L (21-32) 10/16/18 04:26 BUN 9 mg/dL (7-18) 10/16/18 04:26 Creatinine 0.88 mg/dL (0.70-1.30) 10/16/18 04:26 Est GFR (MDRD) Af Amer > 60 (>60) 10/16/18 04:26 Est GFR (MDRD) Non-Af > 60 (>60) 10/16/18 04:26 Glucose 90 mg/dL (65-99) 10/16/18 04:26 Lactic Acid 0.9 mmol/L (0.4-2.0) 10/13/18 08:30 Calcium 8.3 mg/dL (8.5-10.1) L 10/16/18 04:26 Corrected Calcium 9.0 mg/dL (8.5-10.1) 10/16/18 04:26 Magnesium 1.9 mg/dL (1.7-2.9) 10/13/18 04:23 Total Bilirubin 2.80 mg/dL (0.2-1.0) H 10/16/18 04:26 AST 29 Units/L (15-37) 10/16/18 04:26 ALT 12 Units/L (12-78) 10/16/18 04:26 Alkaline Phosphatase 84 Units/L (46-116) 10/16/18 04:26 Total Protein 7.4 g/dL (6.4-8.2) 10/16/18 04:26 Albumin 3.1 g/dL (3.4-5.0) L 10/16/18 04:26 Globulin 4.3 g/dL (2.5-4.5) 10/16/18 04:26 Albumin/Globulin Ratio 0.7 Ratio (1.1-2.1) L 10/16/18 04:26 Vancomycin Trough 14.7 ug/mL (15-20) L 10/15/18 14:15 Random Vancomycin 16.9 ug/mL 10/14/18 15:11 Tissue Pathology To follow 10/14/18 13:15 Blood Type B POSITIVE 10/12/18 14:53 Antibody Screen Negative 10/12/18 14:53 Antibody Identification Cancelled 10/12/18 14:53 Crossmatch See Detail 10/12/18 14:53 - Assessment and Plan 1: 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 to continue local care ( keep Xeroform dressing in place and change the top dressing ). add Toradol and Zinc to his meds .. [facility] . will follow as out Pt . - Problem Patient Problems: Patient Problems Sickle cell anemia (Acute) D57.1 Non-healing wound (Acute) Cellulitis (Acute) L03.90 Anemia (Acute) D64.9
--- NOTE | 2018-10-16 15:10 | PCM.PROG ---
Progress Note - Progress Note for Day of Date of Exam: 10/16/18 - Subjective Subjective: 33 BM ER ADMISSION WITH CO LLE PAIN, CHRONIC WOUND WITH ACUTE INFECTION, WOUND CULTURE COLLECTED ON ADMISSION. PT HAD SYMPTOMATIC ANEMIA, HGB THIS AM 7.5 POST TRANSFUSION 2U PRBC. WBC 10. PT IS CURRENTLY ON IV ZOSYN FOR RLE WOUND INFECTION, S/P WOUND DEBRIDEMENT PER DR GIRARD. PT STATES PAIN IS CONTROLLED AT THIS TIME, BP AND HEART RATE STABLE. CONSULTED [facility] FOR POSSIBLE TRANSFER FOR CARE. PT AWARE OF PLAN OF CARE. - Past Medical Family Social History Past Med/Fam/Surg Hx: No changes since H&P Allergies: Allergies Egg Derived Allergy (Verified 10/12/17 21:04) mayonnaise Allergy (Verified 10/12/17 21:04) morphine Allergy (Verified 10/13/17 05:57) ondansetron [From Zofran] Allergy (Verified 10/13/17 05:57) - Review of Systems ROS: No change since H&P - Vital Signs and I&O's Vital Signs: Temperature 97.8 F Pulse Rate [Left Radial] 68 Pulse Rate 78 Respiratory Rate 22 Blood Pressure [Right Arm] 109/61 Blood Pressure [Left Arm] 95/51 Blood Pressure 109/61 O2 Sat by Pulse Oximetry 98 Intake and Output: Intake & Output 10/14/18 10/15/18 10/16/18 10/17/18 11:59 11:59 11:59 11:59 Intake Total 2831 / 2831 2480 / 2480 1942 / 1942 Output Total 3700 / 3700 2701 / 2701 2950 / 2950 Balance -869 / -869 -221 / -221 -1008 / -1008 - Physical Exam Oriented: Normal Eyes: Normal Ear: Normal Nose: Normal Throat: Normal Respiratory: Normal Cardiovascular: Bradycardia (RATE 58 ON EXAM), Edema. negative: Murmur : Normal Auscultation: Bowel Sounds: Normal Tenderness: Normal Skin: Wound (dressing dry and intact .minimal drainage . good distal pulses ) Musculoskeletal: Left, Leg, Back:Lumbar Psychiatric: Anxiety Affect: Anxious, Depressed Speech Pattern: Clear, Appropriate - Laboratory and Diagnostics Result Diagrams: 10/16/18 04:26 10/16/18 04:26 Labs: 10/12/18 14:58 Leg - Left Gram Stain - Final 10/12/18 14:58 Leg - Left Wound Culture - Final Pseudomonas Aeruginosa Laboratory WBC 10.0 X10^3/uL (3.6-10.0) 10/16/18 04:26 RBC 2.31 X10^6/uL (4.7-6.0) L 10/16/18 04:26 Hgb 7.5 g/dL (13.5-18.0) L 10/16/18 04:26 Hct 20.9 % (42.0-54.0) L 10/16/18 04:26 MCV 90.5 fL (80.0-100.0) 10/16/18 04:26 MCH 32.3 pg (27.0-34.0) 10/16/18 04:26 MCHC 35.7 g/dL (33.0-35.0) H 10/16/18 04:26 RDW 18.1 % (11.6-16.5) H 10/16/18 04:26 Plt Count 605 X10^3/uL (150.0-450.0) H 10/16/18 04:26 Plt Count Comment Increased (ADEQUATE) 10/16/18 04:26 MPV 7.9 fL (7.4-11.0) 10/16/18 04:26 Neut % (Auto) 51.5 % (42.0-75.0) 10/16/18 04:26 Lymph % (Auto) 28.8 % (21.0-51.0) 10/16/18 04:26 [place] % (Auto) 8.9 % (0.0-13.0) 10/16/18 04:26 Eos % (Auto) 9.5 % (0.9-2.9) H 10/16/18 04:26 Baso % (Auto) 1.3 % (0.2-1.0) H 10/16/18 04:26 Neut # (Auto) 5.1 x10^3/uL (2.2-4.8) H 10/16/18 04:26 Lymph # (Auto) 2.9 X10^3/uL (1.3-2.9) 10/16/18 04:26 [place] # (Auto) 0.9 x10^3/uL (0.3-0.8) H 10/16/18 04:26 Eos # (Auto) 0.9 x10^3/uL (0.0-0.2) H 10/16/18 04:26 Baso # (Auto) 0.1 X10^3/uL (0.0-0.1) 10/16/18 04:26 Absolute Nucleated RBC 1.1 /100WBC 10/16/18 04:26 Plt Morphology Comment Normal (NORMAL) 10/16/18 04:26 RBC Morphology Abnormal (NORMAL) 10/16/18 04:26 Hypochromasia 1+ A 10/16/18 04:26 Poikilocytosis Slight A 10/16/18 04:26 Anisocytosis Slight A 10/15/18 04:45 Sickle Cells Slight A 10/14/18 03:44 Target Cells Present 10/16/18 04:26 Ovalocytes 1+ A 10/13/18 04:23 Absolute Retic 0.2555 10^6/uL 10/12/18 14:53 Percent Retic 14.78 % (0.8-2.2) H 10/12/18 14:53 Sodium 142 mmol/L (136-145) 10/16/18 04:26 Corrected Sodium TNP 10/16/18 04:26 Potassium 4.2 mmol/L (3.5-5.1) 10/16/18 04:26 Chloride 109 mmol/L (98-107) H 10/16/18 04:26 Carbon Dioxide 25.0 mmol/L (21-32) 10/16/18 04:26 BUN 9 mg/dL (7-18) 10/16/18 04:26 Creatinine 0.88 mg/dL (0.70-1.30) 10/16/18 04:26 Est GFR (MDRD) Af Amer > 60 (>60) 10/16/18 04:26 Est GFR (MDRD) Non-Af > 60 (>60) 10/16/18 04:26 Glucose 90 mg/dL (65-99) 10/16/18 04:26 Lactic Acid 0.9 mmol/L (0.4-2.0) 10/13/18 08:30 Calcium 8.3 mg/dL (8.5-10.1) L 10/16/18 04:26 Corrected Calcium 9.0 mg/dL (8.5-10.1) 10/16/18 04:26 Magnesium 1.9 mg/dL (1.7-2.9) 10/13/18 04:23 Total Bilirubin 2.80 mg/dL (0.2-1.0) H 10/16/18 04:26 AST 29 Units/L (15-37) 10/16/18 04:26 ALT 12 Units/L (12-78) 10/16/18 04:26 Alkaline Phosphatase 84 Units/L (46-116) 10/16/18 04:26 Total Protein 7.4 g/dL (6.4-8.2) 10/16/18 04:26 Albumin 3.1 g/dL (3.4-5.0) L 10/16/18 04:26 Globulin 4.3 g/dL (2.5-4.5) 10/16/18 04:26 Albumin/Globulin Ratio 0.7 Ratio (1.1-2.1) L 10/16/18 04:26 Vancomycin Trough 14.7 ug/mL (15-20) L 10/15/18 14:15 Random Vancomycin 16.9 ug/mL 10/14/18 15:11 Tissue Pathology To follow 10/14/18 13:15 Blood Type B POSITIVE 10/12/18 14:53 Antibody Screen Negative 10/12/18 14:53 Antibody Identification Cancelled 10/12/18 14:53 Crossmatch See Detail 10/12/18 14:53 - Plan (1) Anemia Status: Acute Plan: ICU type and cross and transfused 2 u PRBCs. wound culture + pseudomonas, ON IV ATBX THERAPY. PAIN CONTROL, WOUND CARE, S/P WOUND DEBRIDEMENT PER DR WAHL. CONSULTING [facility] FOR PLACEMENT (2) Sickle cell disease Status: Chronic Qualifiers: Sickle-cell associated disorders: without crisis Qualified Code(s): D57.1 - Sickle-cell disease without crisis (3) GERD (gastroesophageal reflux disease) Status: Chronic (4) Ulcer of leg, chronic, right Status: Chronic Plan: IV VANCOMYCIN, WOUND CULTURE ON ADMISSION, DR GIRARD CONSULTED FOR WOULD CARE (5) Protein calorie malnutrition Status: Acute (6) Adult failure to thrive Status: Acute
[2018-10-16] MEDS: TORADOL TAB PO PRN (22:39)
[2018-10-17] MEDS: DILAUDID INJ IVP PRN ×5 (03:40→21:14)
[2018-10-17] MEDS: ZOSYN VIAL 4.5 GRAMS 4.5 G in NS 100 ML IV + SPIKE MINIBAG* 100 ML IV SCH ×3 (05:13→21:13)
[2018-10-17 05:21] LABS: BASOPHILS # (AUTO) 0.1 X10^3/uL (0.0-0.1); BASOPHILS % (AUTO) 1.6 % (0.2-1.0); EOSINOPHILS # (AUTO) 1.2 x10^3/uL (0.0-0.2); EOSINOPHILS % (AUTO) 15.2 % (0.9-2.9); HEMATOCRIT 20.6 % (42.0-54.0); HEMOGLOBIN 7.1 g/dL (13.5-18.0); LYMPHOCYTES % (AUTO) 36.9 % (21.0-51.0); MEAN CORPUSCULAR HEMOGLOBIN 31.1 pg (27.0-34.0); MEAN CORPUSCULAR HGB CONC 34.3 g/dL (33.0-35.0); MEAN CORPUSCULAR VOLUME 90.7 fL (80.0-100.0); MEAN PLATELET VOLUME 7.6 fL (7.4-11.0); MONOCYTES # (AUTO) 0.8 x10^3/uL (0.3-0.8); MONOCYTES % (AUTO) 10.3 % (0.0-13.0); NEUTROPHILS # (AUTO) 2.9 x10^3/uL (2.2-4.8); PLATELET COUNT 612 X10^3/uL (150.0-450.0); RED BLOOD COUNT 2.27 X10^6/uL (4.7-6.0); RED CELL DISTRIBUTION WIDTH 17.5 % (11.6-16.5); WHITE BLOOD COUNT 8.1 X10^3/uL (3.6-10.0)
[2018-10-17 05:22] LABS: ALANINE AMINOTRANSFERASE 9 Units/L (12-78); ALBUMIN 3.1 g/dL (3.4-5.0); ALKALINE PHOSPHATASE 80 Units/L (46-116); ASPARTATE AMINO TRANSFERASE 33 Units/L (15-37); BLOOD UREA NITROGEN 10 mg/dL (7-18); CALCIUM 8.5 mg/dL (8.5-10.1); CARBON DIOXIDE 24.6 mmol/L (21-32); CHLORIDE 109 mmol/L (98-107); COR CA(FOR HYPOALB) 9.2 mg/dL (8.5-10.1); CREATININE 0.97 mg/dL (0.70-1.30); SODIUM 143 mmol/L (136-145); TOTAL PROTEIN 7.3 g/dL (6.4-8.2); eGFR NON BLACK RACES > 60 (>60)
[2018-10-17 05:58] LABS: HYPOCHROMASIA 1+; PLATELET MORPHOLOGY COMMENT NORMAL (NORMAL); POIKILOCYTOSIS SLIGHT
[2018-10-17 05:59] LABS: ANISOCYTOSIS SLIGHT; MICROCYTOSIS SLIGHT; TARGET CELLS PRESENT
[2018-10-17] MEDS: MILK OF MAGNESIA PO SCH ×2 (08:25→21:13)
[2018-10-17] MEDS: ZINC SULFATE PO SCH (09:23)
[2018-10-17] MEDS ORDERED: PROCRIT or EPOGEN SC ONE (09:29)
[2018-10-17] MEDS: HEMOCYTE-PLUS PO SCH (15:55)
[2018-10-17] MEDS ORDERED: PROCRIT or EPOGEN ONE (15:59)
[2018-10-18] MEDS: DILAUDID INJ IVP PRN ×5 (02:07→21:01)
[2018-10-18] MEDS: ZOSYN VIAL 4.5 GRAMS 4.5 G in NS 100 ML IV + SPIKE MINIBAG* 100 ML IV SCH ×3 (05:24→21:01)
[2018-10-18 05:34] LABS: BASOPHILS # (AUTO) 0.1 X10^3/uL (0.0-0.1); BASOPHILS % (AUTO) 1.2 % (0.2-1.0); EOSINOPHILS # (AUTO) 1.4 x10^3/uL (0.0-0.2); EOSINOPHILS % (AUTO) 13.3 % (0.9-2.9); HEMATOCRIT 20.1 % (42.0-54.0); HEMOGLOBIN 7.1 g/dL (13.5-18.0); LYMPHOCYTES # (AUTO) 2.7 X10^3/uL (1.3-2.9); MEAN CORPUSCULAR HEMOGLOBIN 32.1 pg (27.0-34.0); MEAN CORPUSCULAR HGB CONC 35.6 g/dL (33.0-35.0); MEAN CORPUSCULAR VOLUME 90.1 fL (80.0-100.0); MEAN PLATELET VOLUME 7.6 fL (7.4-11.0); MONOCYTES # (AUTO) 1.1 x10^3/uL (0.3-0.8); MONOCYTES % (AUTO) 10.3 % (0.0-13.0); NEUTROPHILS # (AUTO) 5.1 x10^3/uL (2.2-4.8); NEUTROPHILS % (AUTO) 49.2 % (42.0-75.0); PLATELET COUNT 609 X10^3/uL (150.0-450.0); RED BLOOD COUNT 2.23 X10^6/uL (4.7-6.0); RED CELL DISTRIBUTION WIDTH 17.3 % (11.6-16.5); WHITE BLOOD COUNT 10.3 X10^3/uL (3.6-10.0)
[2018-10-18 05:46] LABS: ALANINE AMINOTRANSFERASE 11 Units/L (12-78); ALBUMIN 3.3 g/dL (3.4-5.0); ALKALINE PHOSPHATASE 79 Units/L (46-116); ASPARTATE AMINO TRANSFERASE 34 Units/L (15-37); BLOOD UREA NITROGEN 12 mg/dL (7-18); CALCIUM 8.8 mg/dL (8.5-10.1); CARBON DIOXIDE 27.1 mmol/L (21-32); CHLORIDE 108 mmol/L (98-107); COR CA(FOR HYPOALB) 9.4 mg/dL (8.5-10.1); CREATININE 0.86 mg/dL (0.70-1.30); TOTAL PROTEIN 7.5 g/dL (6.4-8.2); eGFR NON BLACK RACES > 60 (>60)
[2018-10-18 06:06] LABS: HYPOCHROMASIA 1+; PLATELET MORPHOLOGY COMMENT NORMAL (NORMAL); POIKILOCYTOSIS SLIGHT
[2018-10-18 06:07] LABS: ANISOCYTOSIS SLIGHT; TARGET CELLS PRESENT
[2018-10-18 06:14] LABS: SODIUM 142 mmol/L (136-145)
[2018-10-18] MEDS ORDERED: PROCRIT or EPOGEN SC NR (09:00)
[2018-10-18] MEDS: HEMOCYTE-PLUS PO SCH (10:02)
[2018-10-18] MEDS: MILK OF MAGNESIA PO SCH ×2 (10:02→20:34)
[2018-10-18] MEDS: ZINC SULFATE PO SCH (10:02)
[2018-10-18] MEDS: TORADOL TAB PO PRN (10:10)
[2018-10-18] MEDS: NORCO 5/325 MG TAB PO PRN (14:44)
--- NOTE | 2018-10-18 19:55 | PCM.PROG ---
Progress Note - Progress Note for Day of Date of Exam: 10/17/18 - Subjective Subjective: IS A 33 YEAR OLD BLACK MALE WHO IS A PATIENT OF . HE IS BEING TREATED FOR LLE PAIN, CHRONIC WOUND WITH ACUTE INFECTION, AND ANEMIA. HE IS STATUS POST DEBRIDEMENT PER . HE RECEIVED TWO UNITS OF PACKED RED BLOOD CELLS ON ADMISSION DUE TO SYMTOMATIC ANEMIA WITH H GB OF 5.6. TODAY, HE IS ALERT AND ORIENTED, LYING IN BED ON MORNING ROUNDS. HE CONTINUES WITH LOWER EXTREMITY PAIN. ON EXAMINATION, HEART IS REGULAR IN RATE AND RHYTHM. BILATERAL LUNGS ARE NOTED WITH DIMINISHED LUNG SOUNDS THROUGHOUT. ABDOMEN IS FLAT, SOFT, AND NON-TENDER WITH NORMAL BOWEL SOUNDS NOTED IN ALL QUADRANTS. HIS VITALS THIS MORNING ARE: 99.5-64-25-97%-91/54. LABS WERE OBTAINED. ABNORMAL LAB VALUES INCLUDE THE FOLLOWING: RBC 2.27, HGB 7.1, HCT 20.6, PLT COUNT 612, CHLORIDE 109, GLUCOSE 108, TOTAL BILI 2.90, ALT 9, ALBUMIN 3.1. WOUND CULTURE WAS POSITIVE FOR GROWTH OF PSEUDOMONAS AERUGINOSA. HE IS CURRENTLY RECEIVING IV ZOSYN. WE WILL CONTINUE WITH CURRENT PLAN OF CARE TODAY AND START HEMOCYTE PLUS 1 TABLET DAILY AND ADMINISTER PROCRIT 5,000 UNITS X 1 DOSE. OTHERWISE, WE WILL FOLLOW UP WITH AM LABS AND CONTINUE TO MONITOR. - Past Medical Family Social History Past Med/Fam/Surg Hx: No changes since H&P Allergies: Allergies Egg Derived Allergy (Verified 10/12/17 21:04) mayonnaise Allergy (Verified 10/12/17 21:04) morphine Allergy (Verified 10/13/17 05:57) ondansetron [From Zofran] Allergy (Verified 10/13/17 05:57) - Review of Systems ROS: No change since H&P - Vital Signs and I&O's Vital Signs: Temperature 98.9 F Pulse Rate [Left Radial] 67 Pulse Rate 78 Respiratory Rate 23 Blood Pressure [Right Arm] 109/61 Blood Pressure [Left Arm] 95/54 Blood Pressure 109/61 O2 Sat by Pulse Oximetry 98 Intake and Output: Intake & Output 10/16/18 10/17/18 10/18/18 10/19/18 11:59 11:59 11:59 11:59 Intake Total 1941 1941 3033 / 3033 2029 2029 1218 / 1218 Output Total 2950 / 2950 1478 / 1478 2857 / 2857 1400 / 1400 Balance -1008 / -1008 1555 / 1555 -827 / -827 -182 / -182 - Physical Exam Oriented: Normal Eyes: Normal Ear: Normal Nose: Normal Throat: Normal Respiratory: Normal Cardiovascular: Normal, Edema. negative: Murmur : Normal Auscultation: Bowel Sounds: Normal Palpation: Normal Tenderness: Normal Skin: Wound (dressing dry and intact .minimal drainage . good distal pulses ) Musculoskeletal: Left, Leg, Back:Lumbar Psychiatric: Anxiety Affect: Anxious, Depressed Speech Pattern: Clear, Appropriate - Laboratory and Diagnostics Result Diagrams: 10/18/18 04:57 10/18/18 04:57 Labs: 10/12/18 14:58 Leg - Left Gram Stain - Final 10/12/18 14:58 Leg - Left Wound Culture - Final Pseudomonas Aeruginosa Laboratory WBC 10.3 X10^3/uL (3.6-10.0) H 10/18/18 04:57 RBC 2.23 X10^6/uL (4.7-6.0) L 10/18/18 04:57 Hgb 7.1 g/dL (13.5-18.0) L 10/18/18 04:57 Hct 20.1 % (42.0-54.0) L 10/18/18 04:57 MCV 90.1 fL (80.0-100.0) 10/18/18 04:57 MCH 32.1 pg (27.0-34.0) 10/18/18 04:57 MCHC 35.6 g/dL (33.0-35.0) H 10/18/18 04:57 RDW 17.3 % (11.6-16.5) H 10/18/18 04:57 Plt Count 609 X10^3/uL (150.0-450.0) H 10/18/18 04:57 Plt Count Comment Increased (ADEQUATE) 10/18/18 04:57 MPV 7.6 fL (7.4-11.0) 10/18/18 04:57 Neut % (Auto) 49.2 % (42.0-75.0) 10/18/18 04:57 Lymph % (Auto) 26.0 % (21.0-51.0) 10/18/18 04:57 [place] % (Auto) 10.3 % (0.0-13.0) 10/18/18 04:57 Eos % (Auto) 13.3 % (0.9-2.9) H 10/18/18 04:57 Baso % (Auto) 1.2 % (0.2-1.0) H 10/18/18 04:57 Neut # (Auto) 5.1 x10^3/uL (2.2-4.8) H 10/18/18 04:57 Lymph # (Auto) 2.7 X10^3/uL (1.3-2.9) 10/18/18 04:57 [place] # (Auto) 1.1 x10^3/uL (0.3-0.8) H 10/18/18 04:57 Eos # (Auto) 1.4 x10^3/uL (0.0-0.2) H 10/18/18 04:57 Baso # (Auto) 0.1 X10^3/uL (0.0-0.1) 10/18/18 04:57 Absolute Nucleated RBC 0.3 /100WBC 10/18/18 04:57 Plt Morphology Comment Normal (NORMAL) 10/18/18 04:57 RBC Morphology Abnormal (NORMAL) 10/18/18 04:57 Hypochromasia 1+ A 10/18/18 04:57 Poikilocytosis Slight A 10/18/18 04:57 Anisocytosis Slight A 10/18/18 04:57 Microcytosis Slight A 10/17/18 04:42 Sickle Cells Slight A 10/14/18 03:44 Target Cells Present 10/18/18 04:57 Ovalocytes 1+ A 10/13/18 04:23 Absolute Retic 0.2555 10^6/uL 10/12/18 14:53 Percent Retic 14.78 % (0.8-2.2) H 10/12/18 14:53 Sodium 142 mmol/L (136-145) 10/18/18 04:57 Corrected Sodium TNP 10/18/18 04:57 Potassium 4.2 mmol/L (3.5-5.1) 10/18/18 04:57 Chloride 108 mmol/L (98-107) H 10/18/18 04:57 Carbon Dioxide 27.1 mmol/L (21-32) 10/18/18 04:57 BUN 12 mg/dL (7-18) 10/18/18 04:57 Creatinine 0.86 mg/dL (0.70-1.30) 10/18/18 04:57 Est GFR (MDRD) Af Amer > 60 (>60) 10/18/18 04:57 Est GFR (MDRD) Non-Af > 60 (>60) 10/18/18 04:57 Glucose 88 mg/dL (65-99) 10/18/18 04:57 Lactic Acid 0.9 mmol/L (0.4-2.0) 10/13/18 08:30 Calcium 8.8 mg/dL (8.5-10.1) 10/18/18 04:57 Corrected Calcium 9.4 mg/dL (8.5-10.1) 10/18/18 04:57 Magnesium 1.9 mg/dL (1.7-2.9) 10/13/18 04:23 Total Bilirubin 3.00 mg/dL (0.2-1.0) H 10/18/18 04:57 AST 34 Units/L (15-37) 10/18/18 04:57 ALT 11 Units/L (12-78) L 10/18/18 04:57 Alkaline Phosphatase 79 Units/L (46-116) 10/18/18 04:57 Total Protein 7.5 g/dL (6.4-8.2) 10/18/18 04:57 Albumin 3.3 g/dL (3.4-5.0) L 10/18/18 04:57 Globulin 4.2 g/dL (2.5-4.5) 10/18/18 04:57 Albumin/Globulin Ratio 0.8 Ratio (1.1-2.1) L 10/18/18 04:57 Vancomycin Trough 14.7 ug/mL (15-20) L 10/15/18 14:15 Random Vancomycin 16.9 ug/mL 10/14/18 15:11 Tissue Pathology To follow 10/14/18 13:15 Blood Type B POSITIVE 10/12/18 14:53 Antibody Screen Negative 10/12/18 14:53 Antibody Identification Cancelled 10/12/18 14:53 Crossmatch See Detail 10/12/18 14:53
[2018-10-18] MEDS: SENOKOT PO SCH (20:34)
[2018-10-19] MEDS: DILAUDID INJ IVP PRN ×6 (01:17→22:38)
[2018-10-19] MEDS: ZOSYN VIAL 4.5 GRAMS 4.5 G in NS 100 ML IV + SPIKE MINIBAG* 100 ML IV SCH ×3 (05:00→21:00)
[2018-10-19 06:22] LABS: BASOPHILS # (AUTO) 0.1 X10^3/uL (0.0-0.1); BASOPHILS % (AUTO) 1.2 % (0.2-1.0); EOSINOPHILS # (AUTO) 1.6 x10^3/uL (0.0-0.2); EOSINOPHILS % (AUTO) 14.2 % (0.9-2.9); HEMATOCRIT 20.1 % (42.0-54.0); LYMPHOCYTES # (AUTO) 3.3 X10^3/uL (1.3-2.9); LYMPHOCYTES % (AUTO) 29.4 % (21.0-51.0); MEAN CORPUSCULAR HEMOGLOBIN 30.8 pg (27.0-34.0); MEAN CORPUSCULAR HGB CONC 33.9 g/dL (33.0-35.0); MEAN CORPUSCULAR VOLUME 90.8 fL (80.0-100.0); MONOCYTES % (AUTO) 8.7 % (0.0-13.0); NEUTROPHILS # (AUTO) 5.2 x10^3/uL (2.2-4.8); NEUTROPHILS % (AUTO) 46.5 % (42.0-75.0); PLATELET COUNT 640 X10^3/uL (150.0-450.0); RED BLOOD COUNT 2.21 X10^6/uL (4.7-6.0); RED CELL DISTRIBUTION WIDTH 17.3 % (11.6-16.5); WHITE BLOOD COUNT 11.1 X10^3/uL (3.6-10.0)
[2018-10-19 06:23] LABS: ALANINE AMINOTRANSFERASE 11 Units/L (12-78); ALBUMIN 3.2 g/dL (3.4-5.0); ALKALINE PHOSPHATASE 76 Units/L (46-116); ASPARTATE AMINO TRANSFERASE 31 Units/L (15-37); BLOOD UREA NITROGEN 13 mg/dL (7-18); CALCIUM 8.9 mg/dL (8.5-10.1); CARBON DIOXIDE 27.6 mmol/L (21-32); CHLORIDE 107 mmol/L (98-107); COR CA(FOR HYPOALB) 9.5 mg/dL (8.5-10.1); CREATININE 0.87 mg/dL (0.70-1.30); SODIUM 142 mmol/L (136-145); TOTAL PROTEIN 7.4 g/dL (6.4-8.2); eGFR NON BLACK RACES > 60 (>60)
[2018-10-19 06:32] LABS: HEMOGLOBIN 6.8 g/dL (13.5-18.0)
[2018-10-19 06:45] LABS: HYPOCHROMASIA 1+; PLATELET MORPHOLOGY COMMENT NORMAL (NORMAL)
[2018-10-19 06:46] LABS: SICKLE CELLS SLIGHT
[2018-10-19] MEDS: HEMOCYTE-PLUS PO SCH (09:56)
[2018-10-19] MEDS: ZINC SULFATE PO SCH (09:56)
[2018-10-19] MEDS: MILK OF MAGNESIA PO SCH ×2 (09:59→20:19)
[2018-10-19] MEDS ORDERED: HYDROGEN PEROXIDE 3% ONE (10:35)
[2018-10-19] MEDS ORDERED: NS IRRIGATION 500 ML ONE (10:35)
--- NOTE | 2018-10-19 17:50 | PCM.PROG ---
Progress Note - Progress Note for Day of Date of Exam: 10/19/18 - Subjective Subjective: IS A 33 YEAR OLD BLACK MALE WHO IS A PATIENT OF . HE IS BEING TREATED FOR LLE PAIN, CHRONIC WOUND WITH ACUTE INFECTION, AND ANEMIA. HE IS STATUS POST DEBRIDEMENT PER . HE RECEIVED TWO UNITS OF PACKED RED BLOOD CELLS ON ADMISSION DUE TO SYMTOMATIC ANEMIA WITH H GB OF 5.6. TODAY, HE IS ALERT AND ORIENTED, LYING IN BED ON MORNING ROUNDS. HE CONTINUES WITH LOWER EXTREMITY PAIN. WE WILL FOLLOW UP WITH AM LABS AND CONTINUE TO MONITOR. PT HAS BEEN EVALUATED BY [facility] AND TRANSFER PENDING Friday. - Past Medical Family Social History Past Med/Fam/Surg Hx: No changes since H&P Allergies: Allergies Egg Derived Allergy (Verified 10/12/17 21:04) mayonnaise Allergy (Verified 10/12/17 21:04) morphine Allergy (Verified 10/13/17 05:57) ondansetron [From Zofran] Allergy (Verified 10/13/17 05:57) - Review of Systems ROS: No change since H&P - Vital Signs and I&O's Vital Signs: Temperature 99.1 F Pulse Rate [Left Radial] 75 Pulse Rate 78 Respiratory Rate 18 Blood Pressure [Right Arm] 109/61 Blood Pressure [Left Arm] 99/52 Blood Pressure 109/61 O2 Sat by Pulse Oximetry 99 Intake and Output: Intake & Output 10/17/18 10/18/18 10/19/18 10/20/18 11:59 11:59 11:59 11:59 Intake Total 3033 / 3033 2029 / 2029 2378 / 2378 986 / 986 Output Total 1478 / 1478 2857 / 2857 2800 / 2800 800 / 800 Balance 1555 / 1555 -827 / -827 -422 / -422 186 / 186 - Physical Exam Oriented: Normal Eyes: Normal Ear: Normal Nose: Normal Throat: Normal Respiratory: Normal Cardiovascular: Normal, Edema. negative: Murmur : Normal Auscultation: Bowel Sounds: Normal Tenderness: Normal Skin: Wound (dressing dry and intact .minimal drainage . good distal pulses ) Musculoskeletal: Left, Leg, Back:Lumbar Psychiatric: Anxiety Affect: Anxious, Depressed Speech Pattern: Clear, Appropriate - Laboratory and Diagnostics Result Diagrams: 10/19/18 05:10 08/19/19 05:10 Labs: 10/12/18 14:58 Leg - Left Gram Stain - Final 10/12/18 14:58 Leg - Left Wound Culture - Final Pseudomonas Aeruginosa Laboratory WBC 11.1 X10^3/uL (3.6-10.0) H 10/19/18 05:10 RBC 2.21 X10^6/uL (4.7-6.0) L 10/19/18 05:10 Hgb 6.8 g/dL (13.5-18.0) L* 10/19/18 05:10 Hct 20.1 % (42.0-54.0) L 10/19/18 05:10 MCV 90.8 fL (80.0-100.0) 10/19/18 05:10 MCH 30.8 pg (27.0-34.0) 10/19/18 05:10 MCHC 33.9 g/dL (33.0-35.0) 10/19/18 05:10 RDW 17.3 % (11.6-16.5) H 10/19/18 05:10 Plt Count 640 X10^3/uL (150.0-450.0) H 10/19/18 05:10 Plt Count Comment Increased (ADEQUATE) 10/19/18 05:10 MPV 8.0 fL (7.4-11.0) 10/19/18 05:10 Neut % (Auto) 46.5 % (42.0-75.0) 10/19/18 05:10 Lymph % (Auto) 29.4 % (21.0-51.0) 10/19/18 05:10 [place] % (Auto) 8.7 % (0.0-13.0) 10/19/18 05:10 Eos % (Auto) 14.2 % (0.9-2.9) H 10/19/18 05:10 Baso % (Auto) 1.2 % (0.2-1.0) H 10/19/18 05:10 Neut # (Auto) 5.2 x10^3/uL (2.2-4.8) H 10/19/18 05:10 Lymph # (Auto) 3.3 X10^3/uL (1.3-2.9) H 10/19/18 05:10 [place] # (Auto) 1.0 x10^3/uL (0.3-0.8) H 10/19/18 05:10 Eos # (Auto) 1.6 x10^3/uL (0.0-0.2) H 10/19/18 05:10 Baso # (Auto) 0.1 X10^3/uL (0.0-0.1) 10/19/18 05:10 Absolute Nucleated RBC 0.4 /100WBC 10/19/18 05:10 Plt Morphology Comment Normal (NORMAL) 10/19/18 05:10 RBC Morphology Abnormal (NORMAL) 10/19/18 05:10 Hypochromasia 1+ A 10/19/18 05:10 Poikilocytosis Slight A 10/18/18 04:57 Anisocytosis Slight A 10/18/18 04:57 Microcytosis Slight A 10/17/18 04:42 Sickle Cells Slight A 10/19/18 05:10 Target Cells Present 10/18/18 04:57 Ovalocytes 1+ A 10/13/18 04:23 Absolute Retic 0.2555 10^6/uL 10/12/18 14:53 Percent Retic 14.78 % (0.8-2.2) H 10/12/18 14:53 Sodium 142 mmol/L (136-145) 10/19/18 05:10 Corrected Sodium TNP 10/19/18 05:10 Potassium 4.1 mmol/L (3.5-5.1) 10/19/18 05:10 Chloride 107 mmol/L (98-107) 10/19/18 05:10 Carbon Dioxide 27.6 mmol/L (21-32) 10/19/18 05:10 BUN 13 mg/dL (7-18) 10/19/18 05:10 Creatinine 0.87 mg/dL (0.70-1.30) 10/19/18 05:10 Est GFR (MDRD) Af Amer > 60 (>60) 10/19/18 05:10 Est GFR (MDRD) Non-Af > 60 (>60) 10/19/18 05:10 Glucose 77 mg/dL (65-99) 10/19/18 05:10 Lactic Acid 0.9 mmol/L (0.4-2.0) 10/13/18 08:30 Calcium 8.9 mg/dL (8.5-10.1) 10/19/18 05:10 Corrected Calcium 9.5 mg/dL (8.5-10.1) 10/19/18 05:10 Magnesium 1.9 mg/dL (1.7-2.9) 10/13/18 04:23 Total Bilirubin 2.50 mg/dL (0.2-1.0) H 10/19/18 05:10 AST 31 Units/L (15-37) 10/19/18 05:10 ALT 11 Units/L (12-78) L 10/19/18 05:10 Alkaline Phosphatase 76 Units/L (46-116) 10/19/18 05:10 Total Protein 7.4 g/dL (6.4-8.2) 10/19/18 05:10 Albumin 3.2 g/dL (3.4-5.0) L 10/19/18 05:10 Globulin 4.2 g/dL (2.5-4.5) 10/19/18 05:10 Albumin/Globulin Ratio 0.8 Ratio (1.1-2.1) L 10/19/18 05:10 Vancomycin Trough 14.7 ug/mL (15-20) L 10/15/18 14:15 Random Vancomycin 16.9 ug/mL 10/14/18 15:11 Tissue Pathology To follow 10/14/18 13:15 Blood Type B POSITIVE 10/12/18 14:53 Antibody Screen Negative 10/12/18 14:53 Antibody Identification Cancelled 10/12/18 14:53 Crossmatch See Detail 10/12/18 14:53 - Plan (1) Anemia Status: Acute Plan: ICU type and cross and transfused 2 u PRBCs. wound culture + pseudomonas, ON IV ATBX THERAPY. PAIN CONTROL, WOUND CARE, S/P WOUND DEBRIDEMENT PER DR GIRARD. CONSULTING [facility] FOR PLACEMENT (2) Sickle cell disease Status: Chronic Qualifiers: Sickle-cell associated disorders: without crisis Qualified Code(s): D57.1 - Sickle-cell disease without crisis (3) GERD (gastroesophageal reflux disease) Status: Chronic (4) Ulcer of leg, chronic, right Status: Chronic Plan: IV VANCOMYCIN, WOUND CULTURE ON ADMISSION, DR GIRARD CONSULTED FOR WOULD CARE (5) Protein calorie malnutrition Status: Acute (6) Adult failure to thrive Status: Acute
[2018-10-19] MEDS: SENOKOT PO SCH (20:36)
[2018-10-20] MEDS: DILAUDID INJ IVP PRN ×2 (03:06→06:56)
[2018-10-20] MEDS: ZOSYN VIAL 4.5 GRAMS 4.5 G in NS 100 ML IV + SPIKE MINIBAG* 100 ML IV SCH (05:00)
[2018-10-20] MEDS: HEMOCYTE-PLUS PO SCH (09:14)
[2018-10-20] MEDS: ZINC SULFATE PO SCH (09:15)
[2018-10-20] MEDS: MILK OF MAGNESIA PO SCH (09:15)
--- NOTE | 2018-10-20 09:21 | DR.PROGNOT ---
Hospital Progress Notes - Progress Note for Day of: Progress Note Date: 10/20/18 - Chief Complaint Chief Complaint: dressing was changed yesterday . all ulcers seem to be stable , no necrosis or abscess formation . c/o significant pain . afebrile . - Past Medical Family Social History Past Med/Fam/Surg Hx: No changes since H&P Allergies: Allergies Egg Derived Allergy (Verified 10/12/17 21:04) mayonnaise Allergy (Verified 10/12/17 21:04) morphine Allergy (Verified 10/13/17 05:57) ondansetron [From Zofran] Allergy (Verified 10/13/17 05:57) - Review Of Systems ROS: No change since H&P - Vital Signs Vital Signs: Temperature 98.0 F Pulse Rate [Left Radial] 53 Pulse Rate 78 Respiratory Rate 22 Blood Pressure [Right Arm] 109/61 Blood Pressure [Left Arm] 100/55 Blood Pressure 109/61 O2 Sat by Pulse Oximetry 99 - Physical Exam Oriented: Normal Eyes: Normal Ear: Normal Nose: Normal Throat: Normal Respiratory: Normal Cardiovascular: Normal, Edema. negative: Murmur : Normal GI:Auscultation: Normal GI:Palpation: Normal GI: Tenderness: Normal Skin: Wound ( .minimal drainage .some granulation of the ulcers . good distal pulses ) Musculoskeletal: Left, Leg, Back:Lumbar Psychiatric: Anxiety Affect: Anxious, Depressed Speech Pattern: Clear, Appropriate - Laboratory and Diagnostics Result Diagrams: 10/19/18 05:10 10/19/18 05:10 Labs: 10/12/18 14:58 Leg - Left Gram Stain - Final 10/12/18 14:58 Leg - Left Wound Culture - Final Pseudomonas Aeruginosa Laboratory WBC 11.1 X10^3/uL (3.6-10.0) H 10/19/18 05:10 RBC 2.21 X10^6/uL (4.7-6.0) L 10/19/18 05:10 Hgb 6.8 g/dL (13.5-18.0) L* 10/19/18 05:10 Hct 20.1 % (42.0-54.0) L 10/19/18 05:10 MCV 90.8 fL (80.0-100.0) 10/19/18 05:10 MCH 30.8 pg (27.0-34.0) 10/19/18 05:10 MCHC 33.9 g/dL (33.0-35.0) 10/19/18 05:10 RDW 17.3 % (11.6-16.5) H 10/19/18 05:10 Plt Count 640 X10^3/uL (150.0-450.0) H 10/19/18 05:10 Plt Count Comment Increased (ADEQUATE) 10/19/18 05:10 MPV 8.0 fL (7.4-11.0) 10/19/18 05:10 Neut % (Auto) 46.5 % (42.0-75.0) 10/19/18 05:10 Lymph % (Auto) 29.4 % (21.0-51.0) 10/19/18 05:10 [place] % (Auto) 8.7 % (0.0-13.0) 10/19/18 05:10 Eos % (Auto) 14.2 % (0.9-2.9) H 10/19/18 05:10 Baso % (Auto) 1.2 % (0.2-1.0) H 10/19/18 05:10 Neut # (Auto) 5.2 x10^3/uL (2.2-4.8) H 10/19/18 05:10 Lymph # (Auto) 3.3 X10^3/uL (1.3-2.9) H 10/19/18 05:10 [place] # (Auto) 1.0 x10^3/uL (0.3-0.8) H 10/19/18 05:10 Eos # (Auto) 1.6 x10^3/uL (0.0-0.2) H 10/19/18 05:10 Baso # (Auto) 0.1 X10^3/uL (0.0-0.1) 10/19/18 05:10 Absolute Nucleated RBC 0.4 /100WBC 10/19/18 05:10 Plt Morphology Comment Normal (NORMAL) 10/19/18 05:10 RBC Morphology Abnormal (NORMAL) 10/19/18 05:10 Hypochromasia 1+ A 10/19/18 05:10 Poikilocytosis Slight A 10/18/18 04:57 Anisocytosis Slight A 10/18/18 04:57 Microcytosis Slight A 10/17/18 04:42 Sickle Cells Slight A 10/19/18 05:10 Target Cells Present 10/18/18 04:57 Ovalocytes 1+ A 10/13/18 04:23 Absolute Retic 0.2555 10^6/uL 10/12/18 14:53 Percent Retic 14.78 % (0.8-2.2) H 10/12/18 14:53 Sodium 142 mmol/L (136-145) 10/19/18 05:10 Corrected Sodium TNP 10/19/18 05:10 Potassium 4.1 mmol/L (3.5-5.1) 10/19/18 05:10 Chloride 107 mmol/L (98-107) 10/19/18 05:10 Carbon Dioxide 27.6 mmol/L (21-32) 10/19/18 05:10 BUN 13 mg/dL (7-18) 10/19/18 05:10 Creatinine 0.87 mg/dL (0.70-1.30) 10/19/18 05:10 Est GFR (MDRD) Af Amer > 60 (>60) 10/19/18 05:10 Est GFR (MDRD) Non-Af > 60 (>60) 10/19/18 05:10 Glucose 77 mg/dL (65-99) 10/19/18 05:10 Lactic Acid 0.9 mmol/L (0.4-2.0) 10/13/18 08:30 Calcium 8.9 mg/dL (8.5-10.1) 10/19/18 05:10 Corrected Calcium 9.5 mg/dL (8.5-10.1) 10/19/18 05:10 Magnesium 1.9 mg/dL (1.7-2.9) 10/13/18 04:23 Total Bilirubin 2.50 mg/dL (0.2-1.0) H 10/19/18 05:10 AST 31 Units/L (15-37) 10/19/18 05:10 ALT 11 Units/L (12-78) L 10/19/18 05:10 Alkaline Phosphatase 76 Units/L (46-116) 10/19/18 05:10 Total Protein 7.4 g/dL (6.4-8.2) 10/19/18 05:10 Albumin 3.2 g/dL (3.4-5.0) L 10/19/18 05:10 Globulin 4.2 g/dL (2.5-4.5) 10/19/18 05:10 Albumin/Globulin Ratio 0.8 Ratio (1.1-2.1) L 10/19/18 05:10 Vancomycin Trough 14.7 ug/mL (15-20) L 10/15/18 14:15 Random Vancomycin 16.9 ug/mL 10/14/18 15:11 Tissue Pathology To follow 10/14/18 13:15 Blood Type B POSITIVE 10/12/18 14:53 Antibody Screen Negative 10/12/18 14:53 Antibody Identification Cancelled 10/12/18 14:53 Crossmatch See Detail 10/12/18 14:53 - Assessment and Plan 1: 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 to continue local care and follow up . - Problem Patient Problems: Patient Problems Sickle cell anemia (Acute) D57.1 Non-healing wound (Acute) Cellulitis (Acute) L03.90 Anemia (Acute) D64.9
[2018-10-20 09:57] VITALS: BP 98/55
== END 2018-10-20 09:50 | disposition short-term general hospital (02) | DRG 803 ==
LOC: ER 13:16 → ICU 16:12
PROVIDERS: ADMIT Internal Medicine; ATTEND Internal Medicine
DX: E46 Unspecified protein-calorie malnutrition; R94.31 Abnormal electrocardiogram [ECG] [EKG]; B96.5 Pseudomonas (aeruginosa) (mallei) (pseudomallei) as the cause of diseases classified elsewhere; R62.7 Adult failure to thrive; D64.89 Other specified anemias; D57.1 Sickle-cell disease without crisis; L03.115 Cellulitis of right lower limb; L97.918 Non-pressure chronic ulcer of unspecified part of right lower leg with other specified severity; K21.9 Gastro-esophageal reflux disease without esophagitis
CPT/HCPCS: 36415; 36430; 71010; 71045; 80048; 80053; 80202; 82565; 83605; 83735; 85014; 85018; 85025; 85045; 85660; 86850; 86900; 86901; 86902; 86922; 87070; 87075; 87077; 87186; 87205; 93005; 96365; 96374; 96375; 99284; A4222; J3490; P9016; J0780; J0885; J1170; J2250; J2270; J2405; J2543; J2704; J3370; J7030; J7040; J7050; J7060; J7120

== ENCOUNTER 2020-06-09 14:58 | Inpatient (IN) ==
[2020-06-09] MEDS ORDERED: NS 1000 ML 1,000 ML IV STA (15:58)
--- NOTE | 2020-06-09 15:59 | DR.GENAD ---
HPI Time Seen Time Seen by Provider: 06/09/20 15:54 HPI Comment HPI Comment: PATIENT WITH A HISTORY OF SICKLE CELL DISEASE COMPLAINS OF RIGHT ULCERATIONS TO RIGHT SCHUSTER AND CALF WITH DRAINAGE PAST YEAR. HAS SEVERE PAIN, AND DRAINAGE OVER ULCERATIONS. DENIES FEVER AND CHILLS. Complaint/Symptoms Chief Complaint Doctors Comments: ULCERATIONS TO LEFT SCHUSTER, DRAINAGE Chief Complaint:: PATIENT CAME TO ER REPORTS WOUND TO RIGHT LOWER LEG WITH FOUL SMELL. COVID-19 Coronavirus risk:travel/contact w/high risk person: No Has patient experienced Coronavirus symptoms: No Source History Provided: Patient Mode of Arrival Mode of Arrival: Ambulatory Timing Onset of Chief Complaint: 06/09/20 Associated Signs and Symptoms Associated Signs and Symptoms: DENIES FEVER PMH PMH Past Medical History: Yes Past Medical History: Anemia, Depression, GERD and PUD Past Medical History Comment: SICKLE CELL Past Surgical History: Yes Surgical History: Other Past Surgical History Comment: SKIN GRAFTS WITH DEBRIDMENT Family History History of Family Medical Conditions: No Family Medical History: Diabetes Mellitus and Hypertension Social History Alcohol Use: None Do you use any recreational Drugs:: No Lives With: Alone Lives Where: Home Travel Risk Coronavirus risk:travel/contact w/high risk person: No Has patient experienced Coronavirus symptoms: No Infectious screening In the last 2 months have you had wt loss of >10#?: NO Have you had fever, night sweats or hemotysis?: No Have you traveled outside the country in the last 6 months?: No Isolation: Standard ROS Review of Systems Constitutional: No Symptoms Reported Eyes: No Symptoms Reported ENTM: No Symptoms Reported Respiratoy: No Symptoms Reported Cardiovascular: No Symptoms Reported Gastrointestinal/Abdominal: No Symptoms Reported Genitourinary: No Symptoms Reported Neurological: No Symptoms Reported Musculoskeletal: See HPI, Left and Leg (LEFT LEG ULCERATIONS AND DRAINAGE) Integumentary: No Symptoms Reported Hematologic/Lymphatic: No Symptoms Reported Endocrine: No Symptoms Reported Psychiatric: No Symptoms Reported All Other Systems: Reviewed and Negative PE Vital Signs Vitals: Temperature 98.5 F Pulse Rate 88 Respiratory Rate 16 Blood Pressure [Right Arm] 109/61 Blood Pressure [Left Arm] 98/55 Blood Pressure 110/58 O2 Sat by Pulse Oximetry 90 General Limitations: No Limitations General Appearance: Alert and In No Apparent Distress Head Head Exam: Normal Inspection and Atraumatic Eyes Eye exam: Normal Appearance and PERRL ENT ENT Exam: Normal Exam and Normal Oropharynx External Ear Exam: Normal External Inspection TM/Canal Exam: Bilateral: Normal Nose Exam: Normal Nose Exam Mouth Exam: Normal Inspection Throat Exam: Normal Inspection Neck Neck Exam: Normal Inspection and Full ROM Chest Chest Inspection: Normal Inspection Respiratory Respiratory Exam: Normal Lung Sounds Bilat Respiratory Exam: Bilateral: Clear to Auscultation Cardiovascular Cardiovascular Exam: Regular Rate and Normal Rhythm Abdominal Exam Abdominal Exam: Normal Inspection, Normal Bowel Sounds and Soft Extremities Extremities Exam: Other (LEFT LOWER EXTREMITY WITH CONFLUENT DECUBITUS MID TO DISTAL SCHUSTER CIRCUMFERENCIAL, GREEN DISCHARGE, 4CM X 8CM ULCERATION OVER MEDIAL MALLEOLUS) Back Back Exam: Normal Inspection Neurologic Neurological Exam: Alert and Oriented X3 Psychiatric Psychiatric Exam: Normal Affect and Normal Mood Skin Skin Exam: Warm, Dry, Intact and Normal Color MDM Differential Diagnosis Differential Diagnosis: SEVERE ANEMIA, SICKLE CELL ANEMIA, CELLULITIS LEFT LOWER EXTREMITY, COURSE Treatment Treatment: IV NORMAL SALINE 200ML/HR, DILAUDID 0.5MG IV, AFTER 2 SETS OF BLOOD CULTURES, VANCOMYCIN 1GM IVPB Reevaluation 1st: Improved Consultation Call Returned: 18:40 Consultation Comments: DICSCUSSE FINDINGS WITH DR WILLIS AT 1840 FOR ADMISSION, WILL CONSULT GENERAL SURGERY DR GONZALEZ FOR CONSULTATION. ROR Labs Reviewed Laboratory Results Reviewed?: Yes Result Diagrams: 06/09/20 16:34 06/09/20 16:25 Laboratory: WBC 22.3 X10^3/uL (3.6-10.0) H 06/09/20 16:34 RBC 1.55 X10^6/uL (4.7-6.0) L 06/09/20 16:34 Hgb 4.6 g/dL (13.5-18.0) L* 06/09/20 16:34 Hct 13.3 % (42.0-54.0) L* 06/09/20 16:34 MCV 85.8 fL (80.0-100.0) 06/09/20 16:34 MCH 29.4 pg (27.0-34.0) 06/09/20 16:34 MCHC 34.2 g/dL (33.0-35.0) 06/09/20 16:34 RDW 23.5 % (11.6-16.5) H 06/09/20 16:34 Plt Count 752 X10^3/uL (150.0-450.0) H 06/09/20 16:34 Plt Count Comment Increased (ADEQUATE) 06/09/20 16:34 MPV 7.0 fL (7.4-11.0) L 06/09/20 16:34 Neut % (Auto) 67.9 % (42.0-75.0) 06/09/20 16:34 Lymph % (Auto) 19.6 % (21.0-51.0) L 06/09/20 16:34 [place] % (Auto) 7.8 % (0.0-13.0) 06/09/20 16:34 Eos % (Auto) 4.0 % (0.9-2.9) H 06/09/20 16:34 Baso % (Auto) 0.7 % (0.2-1.0) 06/09/20 16:34 Neut # (Auto) 15.2 x10^3/uL (2.2-4.8) H 06/09/20 16:34 Lymph # (Auto) 4.4 X10^3/uL (1.3-2.9) H 06/09/20 16:34 [place] # (Auto) 1.7 x10^3/uL (0.3-0.8) H 06/09/20 16:34 Eos # (Auto) 0.9 x10^3/uL (0.0-0.2) H 06/09/20 16:34 Baso # (Auto) 0.2 X10^3/uL (0.0-0.1) H 06/09/20 16:34 Absolute Nucleated RBC 2.1 /100WBC 06/09/20 16:34 Total Counted 100 06/09/20 16:34 Neutrophils % (Manual) 69 % (39-76) 06/09/20 16:34 Band Neutrophils % 5 % (0-10) 06/09/20 16:34 Lymphocytes % (Manual) 18 % (13-43) 06/09/20 16:34 Monocytes % (Manual) 5 % (4-9) 06/09/20 16:34 Eosinophils % (Manual) 3 % (0-6) 06/09/20 16:34 Plt Morphology Comment Normal (NORMAL) 06/09/20 16:34 RBC Morphology Abnormal (NORMAL) 06/09/20 16:34 Polychromasia 1+ 06/09/20 16:34 Poikilocytosis Slight A 06/09/20 16:34 Anisocytosis 2+ A 06/09/20 16:34 Sickle Cells 1+ A 06/09/20 16:34 Target Cells Slight A 06/09/20 16:34 PT 15.2 SECONDS (11.8-14.3) 06/09/20 16:25 INR Target Range - 06/09/20 16:25 INR 1.26 (0.8-1.3) 06/09/20 16:25 Sodium 140 mmol/L (136-145) 06/09/20 16:25 Corrected Sodium 140 mmol/L (136-145) 06/09/20 16:25 Potassium 3.8 mmol/L (3.5-5.1) 06/09/20 16:25 Chloride 107 mmol/L (98-107) 06/09/20 16:25 Carbon Dioxide 24.5 mmol/L (21-32) 06/09/20 16:25 BUN 7 mg/dL (7-18) 06/09/20 16:25 Creatinine 1.14 mg/dL (0.70-1.30) 06/09/20 16:25 Est GFR (MDRD) Af Amer > 60 (>60) 06/09/20 16:25 Est GFR (MDRD) Non-Af > 60 (>60) 06/09/20 16:25 Glucose 111 mg/dL (65-99) H 06/09/20 16:25 Calcium 8.4 mg/dL (8.5-10.1) L 06/09/20 16:25 Corrected Calcium 9.2 mg/dL (8.5-10.1) 06/09/20 16:25 Total Bilirubin 3.80 mg/dL (0.2-1.0) H 06/09/20 16:25 AST 23 Units/L (15-37) 06/09/20 16:25 ALT 20 Units/L (12-78) 06/09/20 16:25 Alkaline Phosphatase 101 Units/L (46-116) 06/09/20 16:25 Total Protein 7.3 g/dL (6.4-8.2) 06/09/20 16:25 Albumin 3.0 g/dL (3.4-5.0) L 06/09/20 16:25 Globulin 4.3 g/dL (2.5-4.5) 06/09/20 16:25 Albumin/Globulin Ratio 0.7 Ratio (1.1-2.1) L 06/09/20 16:25 Blood Type B POSITIVE 06/09/20 18:24 Antibody Screen Negative 06/09/20 18:24 Crossmatch See Detail 06/09/20 18:24 Opioid Opioid Risk Tool Age (Pablo box if 16-45): Yes History of Preadolescent Sexual Abuse: No Psychological Disease: Depression Total: 1 Total Score Risk Category: Low Risk Copyright: Trevin JOHNSON predicting aberrant behaviors Diagnosis Discharge Problem: Cellulitis of left leg, Decubitus ulcer of left leg, Signs and symptoms of anemia Instructions Forms: Social Distancing
[2020-06-09] MEDS ORDERED: NS 1000 ML 1,000 ML ONE (16:09)
[2020-06-09] MEDS ORDERED: HYDROGEN PEROXIDE 3% ONE (16:42)
[2020-06-09] MEDS ORDERED: VANCOMYCIN IV *PREMIX 1 G/200 ML BAG 1 G/200 ML PIGGYBACK IV ONE ×2 (16:43→17:05)
[2020-06-09] MEDS ORDERED: DILAUDID INJ IVP STA (16:43)
[2020-06-09 16:52] LABS: BASOPHILS # (AUTO) 0.2 X10^3/uL (0.0-0.1); BASOPHILS % (AUTO) 0.7 % (0.2-1.0); EOSINOPHILS # (AUTO) 0.9 x10^3/uL (0.0-0.2); LYMPHOCYTES # (AUTO) 4.4 X10^3/uL (1.3-2.9); LYMPHOCYTES % (AUTO) 19.6 % (21.0-51.0); MEAN CORPUSCULAR HEMOGLOBIN 29.4 pg (27.0-34.0); MEAN CORPUSCULAR HGB CONC 34.2 g/dL (33.0-35.0); MEAN CORPUSCULAR VOLUME 85.8 fL (80.0-100.0); MONOCYTES # (AUTO) 1.7 x10^3/uL (0.3-0.8); MONOCYTES % (AUTO) 7.8 % (0.0-13.0); NEUTROPHILS # (AUTO) 15.2 x10^3/uL (2.2-4.8); NEUTROPHILS % (AUTO) 67.9 % (42.0-75.0); PLATELET COUNT 752 X10^3/uL (150.0-450.0); RED BLOOD COUNT 1.55 X10^6/uL (4.7-6.0); RED CELL DISTRIBUTION WIDTH 23.5 % (11.6-16.5); WHITE BLOOD COUNT 22.3 X10^3/uL (3.6-10.0)
[2020-06-09 16:59] LABS: ALANINE AMINOTRANSFERASE 20 Units/L (12-78); ALKALINE PHOSPHATASE 101 Units/L (46-116); ASPARTATE AMINO TRANSFERASE 23 Units/L (15-37); BLOOD UREA NITROGEN 7 mg/dL (7-18); CALCIUM 8.4 mg/dL (8.5-10.1); CARBON DIOXIDE 24.5 mmol/L (21-32); CHLORIDE 107 mmol/L (98-107); COR CA(FOR HYPOALB) 9.2 mg/dL (8.5-10.1); COR NA(FOR HYPERGLY) 140 mmol/L (136-145); CREATININE 1.14 mg/dL (0.70-1.30); SODIUM 140 mmol/L (136-145); TOTAL PROTEIN 7.3 g/dL (6.4-8.2); eGFR NON BLACK RACES > 60 (>60)
[2020-06-09 17:00] LABS: HEMOGLOBIN 4.6 g/dL (13.5-18.0)
[2020-06-09 17:02] LABS: HEMATOCRIT 13.3 % (42.0-54.0)
[2020-06-09] MEDS ORDERED: DILAUDID INJ ONE (17:05)
[2020-06-09 17:14] LABS: BAND NEUTROPHILS % 5 % (0-10); SICKLE CELLS 1+
[2020-06-09 17:15] LABS: TARGET CELLS SLIGHT
[2020-06-09 17:19] LABS: ANISOCYTOSIS 2+; PLATELET MORPHOLOGY COMMENT NORMAL (NORMAL); POIKILOCYTOSIS SLIGHT; POLYCHROMASIA 1+
[2020-06-09] MEDS ORDERED: VANCOMYCIN IV *PREMIX 1 G/200 ML BAG 1 G/200 ML PIGGYBACK IV SCH (20:47)
[2020-06-09] MEDS: DILAUDID INJ IVP PRN (22:29)
[2020-06-09] MEDS ORDERED: NS 500 ML IV 500 ML IV ONE (23:22)
[2020-06-09] MEDS ORDERED: NS 500 ML IV 500 ML IV PRN (23:24)
[2020-06-10] MEDS: DILAUDID INJ IVP PRN ×5 (02:18→20:10)
[2020-06-10] MEDS ORDERED: NS 250 ML IV 250 ML IV ONE (10:13)
[2020-06-10] MEDS ORDERED: MORPHINE SULFATE INJ 4 MG IVP PRN (10:58)
--- NOTE | 2020-06-10 10:58 | DR.H&P ---
H&P History & Physical for Day of: H&P Date: 06/10/20 Chief Complaint Chief Complaint: Lightheaded/Weakness Right leg ulcer Allergies Allergies Allergy/AdvReac Type Severity Reaction Status Date / Time Egg Derived Allergy Verified 10/12/17 21:04 mayonnaise Allergy Verified 10/12/17 21:04 morphine Allergy Verified 10/13/17 05:57 ondansetron [From Zofran] Allergy Verified 10/13/17 05:57 History of Present Illness History of Present Illness: Pt is a 35 year old male past medical history of sickle cell disease, anemia, depression, presenting feeling lightheaded, weak, and with chronic right lower leg wound/ulceration. Pt has been non-compliance in the past with medication and follow up with any pcp. He is currently not on any medications. Labs/imaging: Wbc 22.3, Hgb 4.6, Platelet 752, Na 140, K 3.8, Creatinine 1.14, Glucose 111, COVID-19 negative. Pt was started on packed red blood cells infusion. Total units ordered 4, will transfuse 2 units today and another 2 units tomorrow. Order serial H/H and trend. IVF NS@75ml/h, regular diet. Start on IV vancomycin, pharmacy to dose. Chronic wound/ulcerations noted on right lower extremity, will consult general surgery to evaluate and follow up recommendations. IV dilaudid for pain control. Will continue to monitor and follow up labs/imaging in the morning. Past Medical History Past Medical History: Anemia, Depression, GERD and PUD Additional Medical History: Sickle Cell Disease Past Surgical History Surgical History: Other Additional Surgical History: Skin Graft (R) Leg Wound Family History Family Medical History: Diabetes Mellitus and Hypertension Social History Does patient currently use any type of tobacco product: Yes Have you used tobacco products in the last 12 months: Yes Type of Tobacco Use: Cigarettes How many years tobacco product used: 6 Does any household member use tobacco: No Alcohol Use: None Drug Use: None Medications Home Medications: Egg Derived Allergy (Verified 10/12/17 21:04) mayonnaise Allergy (Verified 10/12/17 21:04) morphine Allergy (Verified 10/13/17 05:57) ondansetron [From Zofran] Allergy (Verified 10/13/17 05:57) Labs Result Diagrams: 06/09/20 16:34 06/09/20 16:25 Labs: 06/09/20 21:16 Leg - Right Wound Culture - Preliminary Laboratory WBC 22.3 X10^3/uL (3.6-10.0) H 06/09/20 16:34 RBC 1.55 X10^6/uL (4.7-6.0) L 06/09/20 16:34 Hgb 4.6 g/dL (13.5-18.0) L* 06/09/20 16:34 Hct 13.3 % (42.0-54.0) L* 06/09/20 16:34 MCV 85.8 fL (80.0-100.0) 06/09/20 16:34 MCH 29.4 pg (27.0-34.0) 06/09/20 16:34 MCHC 34.2 g/dL (33.0-35.0) 06/09/20 16:34 RDW 23.5 % (11.6-16.5) H 06/09/20 16:34 Plt Count 752 X10^3/uL (150.0-450.0) H 06/09/20 16:34 Plt Count Comment Increased (ADEQUATE) 06/09/20 16:34 MPV 7.0 fL (7.4-11.0) L 06/09/20 16:34 Neut % (Auto) 67.9 % (42.0-75.0) 06/09/20 16:34 Lymph % (Auto) 19.6 % (21.0-51.0) L 06/09/20 16:34 [place] % (Auto) 7.8 % (0.0-13.0) 06/09/20 16:34 Eos % (Auto) 4.0 % (0.9-2.9) H 06/09/20 16:34 Baso % (Auto) 0.7 % (0.2-1.0) 06/09/20 16:34 Neut # (Auto) 15.2 x10^3/uL (2.2-4.8) H 06/09/20 16:34 Lymph # (Auto) 4.4 X10^3/uL (1.3-2.9) H 06/09/20 16:34 [place] # (Auto) 1.7 x10^3/uL (0.3-0.8) H 06/09/20 16:34 Eos # (Auto) 0.9 x10^3/uL (0.0-0.2) H 06/09/20 16:34 Baso # (Auto) 0.2 X10^3/uL (0.0-0.1) H 06/09/20 16:34 Absolute Nucleated RBC 2.1 /100WBC 06/09/20 16:34 Total Counted 100 06/09/20 16:34 Neutrophils % (Manual) 69 % (39-76) 06/09/20 16:34 Band Neutrophils % 5 % (0-10) 06/09/20 16:34 Lymphocytes % (Manual) 18 % (13-43) 06/09/20 16:34 Monocytes % (Manual) 5 % (4-9) 06/09/20 16:34 Eosinophils % (Manual) 3 % (0-6) 06/09/20 16:34 Plt Morphology Comment Normal (NORMAL) 06/09/20 16:34 RBC Morphology Abnormal (NORMAL) 06/09/20 16:34 Polychromasia 1+ 06/09/20 16:34 Poikilocytosis Slight A 06/09/20 16:34 Anisocytosis 2+ A 06/09/20 16:34 Sickle Cells 1+ A 06/09/20 16:34 Target Cells Slight A 06/09/20 16:34 PT 15.2 SECONDS (11.8-14.3) 06/09/20 16:25 INR Target Range - 06/09/20 16:25 INR 1.26 (0.8-1.3) 06/09/20 16:25 Sodium 140 mmol/L (136-145) 06/09/20 16:25 Corrected Sodium 140 mmol/L (136-145) 06/09/20 16:25 Potassium 3.8 mmol/L (3.5-5.1) 06/09/20 16:25 Chloride 107 mmol/L (98-107) 06/09/20 16:25 Carbon Dioxide 24.5 mmol/L (21-32) 06/09/20 16:25 BUN 7 mg/dL (7-18) 06/09/20 16:25 Creatinine 1.14 mg/dL (0.70-1.30) 06/09/20 16:25 Est GFR (MDRD) Af Amer > 60 (>60) 06/09/20 16:25 Est GFR (MDRD) Non-Af > 60 (>60) 06/09/20 16:25 Glucose 111 mg/dL (65-99) H 06/09/20 16:25 Calcium 8.4 mg/dL (8.5-10.1) L 06/09/20 16:25 Corrected Calcium 9.2 mg/dL (8.5-10.1) 06/09/20 16:25 Total Bilirubin 3.80 mg/dL (0.2-1.0) H 06/09/20 16:25 AST 23 Units/L (15-37) 06/09/20 16:25 ALT 20 Units/L (12-78) 06/09/20 16:25 Alkaline Phosphatase 101 Units/L (46-116) 06/09/20 16:25 Total Protein 7.3 g/dL (6.4-8.2) 06/09/20 16:25 Albumin 3.0 g/dL (3.4-5.0) L 06/09/20 16:25 Globulin 4.3 g/dL (2.5-4.5) 06/09/20 16:25 Albumin/Globulin Ratio 0.7 Ratio (1.1-2.1) L 06/09/20 16:25 SARS CoV-2 RNA Rapid MAGNOLIA Negative (NEGATIVE) 06/09/20 20:47 Blood Type B POSITIVE 06/09/20 18:24 Antibody Screen Negative 06/09/20 18:24 Crossmatch See Detail 06/09/20 18:24 Review of Systems Constitutional: Weakness Eyes: No Symptoms Reported ENT: No Symptoms Reported Respiratory: No Symptoms Reported Cardiovascular: No Symptoms Reported Gastrointestinal: No Symptoms Reported Genitourinary: No Symptoms Reported Musculoskeletal: No Symptoms Reported Skin: Wound (Purulent ulceration RLE) Neurological: No Symptoms Reported Physical Exam Vital Signs: Temperature 98.7 F Pulse Rate [Left Brachial] 73 Pulse Rate 88 Respiratory Rate 18 Blood Pressure [Right Arm] 109/61 Blood Pressure [Left Arm] 103/59 Blood Pressure 110/58 O2 Sat by Pulse Oximetry 99 Oriented: Normal Eyes: Normal Ear: Normal Nose: Normal Throat: Normal Respiratory: Clear Throughout Cardiovascular: Normal : Normal Auscultation: Bowel Sounds: Normal Palpation: Normal Tenderness: Normal Skin: Normal Musculoskeletal: Leg (ulceration RLE) Psychiatric: Normal Mood Description: Calm and Appropriate Affect: Normal Speech Pattern: Clear and Appropriate Assessment/Plan (1) Sickle cell anemia: Status: Acute Plan: Hgb 4.6, order 4 units pack red blood cells Trend H/H. (2) Ulcer of leg, chronic, right: Status: Chronic Plan: consult general surgery IV vancomycin Review H&P Reviewed: Yes Patient was examined?: Yes
[2020-06-10] MEDS ORDERED: PHARMACY CONSULT - VANCOMYCIN XX SCH (11:00)
[2020-06-10 12:24] LABS: HEMATOCRIT 19.9 % (42.0-54.0); HEMOGLOBIN 6.7 g/dL (13.5-18.0)
[2020-06-10] MEDS: NS 1000 ML 1,000 ML IV SCH (12:38)
[2020-06-10] MEDS: VANCOMYCIN IV *PREMIX 750 mg/150 ML BAG 750 MG/150 ML PIGGYBACK IV SCH ×2 (12:38→20:46)
[2020-06-10 12:42] VITALS: BMI 19.8
--- NOTE | 2020-06-10 16:24 | DR.CONSULT ---
CONSULT Consultation for Day of: Date: 06/10/20 Chief Complaint Chief Complaint: 35 yo male with history of sickle cell disease with several year history of open wounds to the right leg below the knee with near circumferential wound from the knee to the foot into the subcutaneous fat. Has been treated before ,including skin grafting with little benefit . Allergies Allergies Allergy/AdvReac Type Severity Reaction Status Date / Time Egg Derived Allergy Verified 10/12/17 21:04 mayonnaise Allergy Verified 10/12/17 21:04 morphine Allergy Verified 10/13/17 05:57 ondansetron [From Zofran] Allergy Verified 10/13/17 05:57 History of Present Illness History of Present Illness: See chief complaint above. Last sickle crisis event over 1 year ago. Past Medical History Past Medical History: Anemia, Depression, GERD and PUD Additional Medical History: Sickle Cell Disease Past Surgical History Surgical History: Other Additional Surgical History: Skin Graft (R) Leg Wound Family History Family Medical History: Diabetes Mellitus and Hypertension Social History Does patient currently use any type of tobacco product: Yes Have you used tobacco products in the last 12 months: Yes Type of Tobacco Use: Cigarettes How many years tobacco product used: 6 Does any household member use tobacco: No Alcohol Use: None Drug Use: None Medications Home Medications: Egg Derived Allergy (Verified 10/12/17 21:04) mayonnaise Allergy (Verified 10/12/17 21:04) morphine Allergy (Verified 10/13/17 05:57) ondansetron [From Zofran] Allergy (Verified 10/13/17 05:57) Review of Systems Constitutional: No Symptoms Reported, See HPI, Chills, Sweats and Other; denies Fever and Weakness Eyes: No Symptoms Reported ENT: No Symptoms Reported Respiratory: No Symptoms Reported Cardiovascular: No Symptoms Reported Gastrointestinal: Other (Ge reflux) Musculoskeletal: See HPI, Leg Pain (right lg with pain and open wound as reported ) and Other Skin: Other (as above ) Neurological: No Symptoms Reported Physical Exam Vital Signs: Temperature 99.0 F Pulse Rate [Left Brachial] 66 Pulse Rate 88 Respiratory Rate 17 Blood Pressure [Right Arm] 109/61 Blood Pressure [Left Arm] 112/76 Blood Pressure 110/58 O2 Sat by Pulse Oximetry 100 Oriented: Normal, Time, Person and Place Eyes: Normal Ear: Normal Nose: Normal Throat: Normal Respiratory: Clear Throughout Cardiovascular: Normal : Normal Auscultation: Bowel Sounds: Normal Tenderness: Normal Skin: Pustular, Tender and Wound (nearly encmpassing the entire leg below the knee into the subcutaneous tissue and onto the foot on the right) Musculoskeletal: Normal Mood Description: Calm, Depressed and Flat Affect: Flat Speech Pattern: Clear Plan Plan: Will admit and place on IV vancomycin and dressing changes and plan debridement next Friday. To receive one unit of packed red blood cells. When wound is clean will need skin grafting of some type and may be excellent candidate for full thickness skin grafting using Skin TE process. I will follow daily.
[2020-06-11] MEDS: DILAUDID INJ IVP PRN ×6 (01:37→21:49)
[2020-06-11] MEDS: NS 1000 ML 1,000 ML IV SCH ×2 (05:04→17:00)
[2020-06-11 05:51] LABS: BASOPHILS # (AUTO) 0.1 X10^3/uL (0.0-0.1); EOSINOPHILS # (AUTO) 0.8 x10^3/uL (0.0-0.2)
[2020-06-11 05:59] LABS: BASOPHILS % (AUTO) 0.8 % (0.2-1.0); EOSINOPHILS % (AUTO) 4.2 % (0.9-2.9); HEMATOCRIT 20.3 % (42.0-54.0); LYMPHOCYTES # (AUTO) 3.9 X10^3/uL (1.3-2.9); LYMPHOCYTES % (AUTO) 20.9 % (21.0-51.0); MEAN CORPUSCULAR HEMOGLOBIN 28.7 pg (27.0-34.0); MEAN CORPUSCULAR HGB CONC 33.4 g/dL (33.0-35.0); MEAN CORPUSCULAR VOLUME 86.1 fL (80.0-100.0); MEAN PLATELET VOLUME 7.3 fL (7.4-11.0); MONOCYTES # (AUTO) 1.3 x10^3/uL (0.3-0.8); MONOCYTES % (AUTO) 7.1 % (0.0-13.0); NEUTROPHILS # (AUTO) 12.4 x10^3/uL (2.2-4.8); PLATELET COUNT 851 X10^3/uL (150.0-450.0); RED BLOOD COUNT 2.36 X10^6/uL (4.7-6.0); RED CELL DISTRIBUTION WIDTH 22.6 % (11.6-16.5); WHITE BLOOD COUNT 18.6 X10^3/uL (3.6-10.0)
[2020-06-11 06:01] LABS: ALANINE AMINOTRANSFERASE 14 Units/L (12-78); ALBUMIN 2.6 g/dL (3.4-5.0); ALKALINE PHOSPHATASE 98 Units/L (46-116); ASPARTATE AMINO TRANSFERASE 20 Units/L (15-37); BLOOD UREA NITROGEN 5 mg/dL (7-18); CALCIUM 8.7 mg/dL (8.5-10.1); CARBON DIOXIDE 22.3 mmol/L (21-32); CHLORIDE 110 mmol/L (98-107); COR CA(FOR HYPOALB) 9.8 mg/dL (8.5-10.1); CREATININE 0.92 mg/dL (0.70-1.30); SODIUM 140 mmol/L (136-145); TOTAL PROTEIN 6.9 g/dL (6.4-8.2); eGFR NON BLACK RACES > 60 (>60)
[2020-06-11 06:02] LABS: HEMOGLOBIN 6.8 g/dL (13.5-18.0)
[2020-06-11 06:36] LABS: PLATELET MORPHOLOGY COMMENT NORMAL (NORMAL)
[2020-06-11 06:40] LABS: POLYCHROMASIA SLIGHT
[2020-06-11 06:41] LABS: HYPOCHROMASIA SLIGHT; POIKILOCYTOSIS SLIGHT
[2020-06-11 06:42] LABS: ANISOCYTOSIS 2+; SICKLE CELLS SLIGHT; TARGET CELLS 1+
[2020-06-11] MEDS ORDERED: XYLOCAINE 1 % (PLAIN) ONE (09:00)
[2020-06-11] MEDS ORDERED: DECADRON INJ ONE (09:00)
[2020-06-11] MEDS ORDERED: DIPRIVAN VIAL ONE (09:00)
[2020-06-11] MEDS ORDERED: KETALAR ONE (09:00)
[2020-06-11] MEDS: VANCOMYCIN IV *PREMIX 750 mg/150 ML BAG 750 MG/150 ML PIGGYBACK IV SCH ×2 (09:02→21:49)
--- NOTE | 2020-06-11 10:42 | PCM.PROG ---
Progress Note Progress Note for Day of Date of Exam: 06/11/20 Subjective Subjective: Pt is a 35 year old male past medical history of sickle cell disease, anemia, depression, admitted for symptomatic anemia and chronic right lower leg wound/ulceration. This morning patient reports some improvement in his fatigue. No acute events overnight. Labs/imaging: Wbc 18.6, Hgb 4.6>2 units prbc>6.8, Platelet 851, Na 140, K 4.1, Creatinine 0.92, Glucose 92. Pt is scheduled this morning to receive another 2 units packed red blood cells. Monitor serial H/H and trend. IVF NS@75ml/h, regular diet. Continue antibiotics IV vancomycin, pharmacy to dose. Wound cultures pending. General surgery following chronic right lower extremity wound/ulceration, plan for debridement tomorrow. NPO after midnight. IV dilaudid for pain control. Continue to monitor and follow up labs/imaging in the morning. Past Medical Family Social History Past Med/Fam/Surg Hx: No changes since H&P Allergies: Allergies Egg Derived Allergy (Verified 10/12/17 21:04) mayonnaise Allergy (Verified 10/12/17 21:04) morphine Allergy (Verified 10/13/17 05:57) ondansetron [From Zofran] Allergy (Verified 10/13/17 05:57) Review of Systems ROS: No change since H&P Vital Signs and I&O's Vital Signs: Temperature 98.7 F Pulse Rate [Left Brachial] 69 Pulse Rate 88 Respiratory Rate 18 Blood Pressure [Right Arm] 109/61 Blood Pressure [Left Arm] 106/59 Blood Pressure 110/58 O2 Sat by Pulse Oximetry 99 Intake and Output: Intake & Output 06/08/20 06/09/20 06/10/20 06/11/20 23:59 23:59 23:59 23:59 Intake Total 160 / 160 2558 / 2558 1240 / 1240 Output Total 2875 / 2875 1125 / 1125 Balance 160 / 160 -317 / -317 115 / 115 Physical Exam Oriented: Normal, Time, Person and Place Eyes: Normal Ear: Normal Nose: Normal Throat: Normal Respiratory: Normal Cardiovascular: Normal : Normal Auscultation: Bowel Sounds: Normal Tenderness: Normal Skin: Pustular, Tender and Wound (nearly encmpassing the entire leg below the knee into the subcutaneous tissue and onto the foot on the right) Musculoskeletal: Normal Psychiatric: Normal Mood Description: Calm, Depressed and Flat Affect: Flat Speech Pattern: Clear and Appropriate Laboratory and Diagnostics Result Diagrams: 06/11/20 05:25 06/11/20 05:25 Labs: 06/09/20 21:16 Leg - Right Wound Culture - Preliminary Laboratory WBC 18.6 X10^3/uL (3.6-10.0) H 06/11/20 05:25 RBC 2.36 X10^6/uL (4.7-6.0) L 06/11/20 05:25 Hgb 6.8 g/dL (13.5-18.0) L* 06/11/20 05:25 Hct 20.3 % (42.0-54.0) L 06/11/20 05:25 MCV 86.1 fL (80.0-100.0) 06/11/20 05:25 MCH 28.7 pg (27.0-34.0) 06/11/20 05:25 MCHC 33.4 g/dL (33.0-35.0) 06/11/20 05:25 RDW 22.6 % (11.6-16.5) H 06/11/20 05:25 Plt Count 851 X10^3/uL (150.0-450.0) H 06/11/20 05:25 Plt Count Comment Increased (ADEQUATE) 06/11/20 05:25 MPV 7.3 fL (7.4-11.0) L 06/11/20 05:25 Neut % (Auto) 67.0 % (42.0-75.0) 06/11/20 05:25 Lymph % (Auto) 20.9 % (21.0-51.0) L 06/11/20 05:25 [place] % (Auto) 7.1 % (0.0-13.0) 06/11/20 05:25 Eos % (Auto) 4.2 % (0.9-2.9) H 06/11/20 05:25 Baso % (Auto) 0.8 % (0.2-1.0) 06/11/20 05:25 Neut # (Auto) 12.4 x10^3/uL (2.2-4.8) H 06/11/20 05:25 Lymph # (Auto) 3.9 X10^3/uL (1.3-2.9) H 06/11/20 05:25 [place] # (Auto) 1.3 x10^3/uL (0.3-0.8) H 06/11/20 05:25 Eos # (Auto) 0.8 x10^3/uL (0.0-0.2) H 06/11/20 05:25 Baso # (Auto) 0.1 X10^3/uL (0.0-0.1) 06/11/20 05:25 Absolute Nucleated RBC 1.9 /100WBC 06/11/20 05:25 Total Counted 100 06/09/20 16:34 Neutrophils % (Manual) 69 % (39-76) 06/09/20 16:34 Band Neutrophils % 5 % (0-10) 06/09/20 16:34 Lymphocytes % (Manual) 18 % (13-43) 06/09/20 16:34 Monocytes % (Manual) 5 % (4-9) 06/09/20 16:34 Eosinophils % (Manual) 3 % (0-6) 06/09/20 16:34 Plt Morphology Comment Normal (NORMAL) 06/11/20 05:25 RBC Morphology Abnormal (NORMAL) 06/11/20 05:25 Dimorphic RBCs Noted 06/11/20 05:25 Polychromasia Slight 06/11/20 05:25 Hypochromasia Slight A 06/11/20 05:25 Poikilocytosis Slight A 06/11/20 05:25 Anisocytosis 2+ A 06/11/20 05:25 Sickle Cells Slight A 06/11/20 05:25 Target Cells 1+ A 06/11/20 05:25 PT 15.2 SECONDS (11.8-14.3) 06/09/20 16:25 INR Target Range - 06/09/20 16:25 INR 1.26 (0.8-1.3) 06/09/20 16:25 Sodium 140 mmol/L (136-145) 06/11/20 05:25 Corrected Sodium TNP 06/11/20 05:25 Potassium 4.1 mmol/L (3.5-5.1) 06/11/20 05:25 Chloride 110 mmol/L (98-107) H 06/11/20 05:25 Carbon Dioxide 22.3 mmol/L (21-32) 06/11/20 05:25 BUN 5 mg/dL (7-18) L 06/11/20 05:25 Creatinine 0.92 mg/dL (0.70-1.30) 06/11/20 05:25 Est GFR (MDRD) Af Amer > 60 (>60) 06/11/20 05:25 Est GFR (MDRD) Non-Af > 60 (>60) 06/11/20 05:25 Glucose 92 mg/dL (65-99) 06/11/20 05:25 Calcium 8.7 mg/dL (8.5-10.1) 06/11/20 05:25 Corrected Calcium 9.8 mg/dL (8.5-10.1) 06/11/20 05:25 Total Bilirubin 2.90 mg/dL (0.2-1.0) H 06/11/20 05:25 AST 20 Units/L (15-37) 06/11/20 05:25 ALT 14 Units/L (12-78) 06/11/20 05:25 Alkaline Phosphatase 98 Units/L (46-116) 06/11/20 05:25 Total Protein 6.9 g/dL (6.4-8.2) 06/11/20 05:25 Albumin 2.6 g/dL (3.4-5.0) L 06/11/20 05:25 Globulin 4.3 g/dL (2.5-4.5) 06/11/20 05:25 Albumin/Globulin Ratio 0.6 Ratio (1.1-2.1) L 06/11/20 05:25 SARS CoV-2 RNA Rapid MAGNOLIA Negative (NEGATIVE) 06/09/20 20:47 Blood Type B POSITIVE 06/09/20 18:24 Antibody Screen Negative 06/09/20 18:24 Crossmatch See Detail 06/09/20 18:24 Plan (1) Sickle cell anemia: Status: Acute Plan: Hgb 6.8 Trend H/H. (2) Ulcer of leg, chronic, right: Status: Chronic Plan: General surgery following, debridement tomorrow. IV vancomycin, Wound cultures pending
--- NOTE | 2020-06-11 15:07 | PCM.PROG ---
Progress Note Progress Note for Day of Date of Exam: 06/11/20 Subjective Subjective: Pt is a 35 year old male past medical history of sickle cell disease, anemia, depression, admitted for symptomatic anemia and chronic right lower leg wound/ulceration. This morning patient reports some improvement in his fatigue. No acute events overnight. Labs/imaging: Wbc 18.6, Hgb 4.6>2 units prbc>6.8, Platelet 851, Na 140, K 4.1, Creatinine 0.92, Glucose 92. Pt is scheduled this morning to receive another 2 units packed red blood cells. Monitor serial H/H and trend. IVF NS@75ml/h, regular diet. Continue antibiotics IV vancomycin, pharmacy to dose. Wound cultures pending. General surgery following chronic right lower extremity wound/ulceration, plan for debridement tomorrow. NPO after midnight. IV dilaudid for pain control. Continue to monitor and follow up labs/imaging in the morning. As above, WBC decreased. Past Medical Family Social History Past Med/Fam/Surg Hx: No changes since H&P Changes in Past Med/Fam/Surg Hx: As above Allergies: Allergies Egg Derived Allergy (Verified 10/12/17 21:04) mayonnaise Allergy (Verified 10/12/17 21:04) morphine Allergy (Verified 10/13/17 05:57) ondansetron [From Zofran] Allergy (Verified 10/13/17 05:57) Review of Systems ROS: No change since H&P Vital Signs and I&O's Vital Signs: Temperature 99.5 F Pulse Rate [Left Brachial] 70 Pulse Rate 88 Respiratory Rate 18 Blood Pressure [Right Arm] 109/61 Blood Pressure [Left Arm] 89/50 Blood Pressure 110/58 O2 Sat by Pulse Oximetry 96 Intake and Output: Intake & Output 06/08/20 06/09/20 06/10/20 06/11/20 23:59 23:59 23:59 23:59 Intake Total 160 / 160 2558 / 2558 1240 / 1240 Output Total 2875 / 2875 1125 / 1125 Balance 160 / 160 -317 / -317 115 / 115 Physical Exam Oriented: Normal, Time, Person and Place Eyes: Normal Ear: Normal Nose: Normal Throat: Normal Respiratory: Normal Cardiovascular: Normal : Normal Auscultation: Bowel Sounds: Normal Tenderness: Normal Skin: Pustular, Tender and Wound (nearly encmpassing the entire leg below the knee into the subcutaneous tissue and onto the foot on the right. Wound dressed today) Musculoskeletal: Normal Psychiatric: Normal Mood Description: Calm, Depressed and Flat Affect: Flat Speech Pattern: Clear and Appropriate Laboratory and Diagnostics Result Diagrams: 06/11/20 05:25 06/11/20 05:25 Labs: 06/09/20 16:34 Blood Blood Culture - Preliminary 06/09/20 16:25 Blood Blood Culture - Preliminary 06/09/20 21:16 Leg - Right Wound Culture - Preliminary Laboratory WBC 18.6 X10^3/uL (3.6-10.0) H 06/11/20 05:25 RBC 2.36 X10^6/uL (4.7-6.0) L 06/11/20 05:25 Hgb 6.8 g/dL (13.5-18.0) L* 06/11/20 05:25 Hct 20.3 % (42.0-54.0) L 06/11/20 05:25 MCV 86.1 fL (80.0-100.0) 06/11/20 05:25 MCH 28.7 pg (27.0-34.0) 06/11/20 05:25 MCHC 33.4 g/dL (33.0-35.0) 06/11/20 05:25 RDW 22.6 % (11.6-16.5) H 06/11/20 05:25 Plt Count 851 X10^3/uL (150.0-450.0) H 06/11/20 05:25 Plt Count Comment Increased (ADEQUATE) 06/11/20 05:25 MPV 7.3 fL (7.4-11.0) L 06/11/20 05:25 Neut % (Auto) 67.0 % (42.0-75.0) 06/11/20 05:25 Lymph % (Auto) 20.9 % (21.0-51.0) L 06/11/20 05:25 [place] % (Auto) 7.1 % (0.0-13.0) 06/11/20 05:25 Eos % (Auto) 4.2 % (0.9-2.9) H 06/11/20 05:25 Baso % (Auto) 0.8 % (0.2-1.0) 06/11/20 05:25 Neut # (Auto) 12.4 x10^3/uL (2.2-4.8) H 06/11/20 05:25 Lymph # (Auto) 3.9 X10^3/uL (1.3-2.9) H 06/11/20 05:25 [place] # (Auto) 1.3 x10^3/uL (0.3-0.8) H 06/11/20 05:25 Eos # (Auto) 0.8 x10^3/uL (0.0-0.2) H 06/11/20 05:25 Baso # (Auto) 0.1 X10^3/uL (0.0-0.1) 06/11/20 05:25 Absolute Nucleated RBC 1.9 /100WBC 06/11/20 05:25 Total Counted 100 06/09/20 16:34 Neutrophils % (Manual) 69 % (39-76) 06/09/20 16:34 Band Neutrophils % 5 % (0-10) 06/09/20 16:34 Lymphocytes % (Manual) 18 % (13-43) 06/09/20 16:34 Monocytes % (Manual) 5 % (4-9) 06/09/20 16:34 Eosinophils % (Manual) 3 % (0-6) 06/09/20 16:34 Plt Morphology Comment Normal (NORMAL) 06/11/20 05:25 RBC Morphology Abnormal (NORMAL) 06/11/20 05:25 Dimorphic RBCs Noted 06/11/20 05:25 Polychromasia Slight 06/11/20 05:25 Hypochromasia Slight A 06/11/20 05:25 Poikilocytosis Slight A 06/11/20 05:25 Anisocytosis 2+ A 06/11/20 05:25 Sickle Cells Slight A 06/11/20 05:25 Target Cells 1+ A 06/11/20 05:25 PT 15.2 SECONDS (11.8-14.3) 06/09/20 16:25 INR Target Range - 06/09/20 16:25 INR 1.26 (0.8-1.3) 06/09/20 16:25 Sodium 140 mmol/L (136-145) 06/11/20 05:25 Corrected Sodium TNP 06/11/20 05:25 Potassium 4.1 mmol/L (3.5-5.1) 06/11/20 05:25 Chloride 110 mmol/L (98-107) H 06/11/20 05:25 Carbon Dioxide 22.3 mmol/L (21-32) 06/11/20 05:25 BUN 5 mg/dL (7-18) L 06/11/20 05:25 Creatinine 0.92 mg/dL (0.70-1.30) 06/11/20 05:25 Est GFR (MDRD) Af Amer > 60 (>60) 06/11/20 05:25 Est GFR (MDRD) Non-Af > 60 (>60) 06/11/20 05:25 Glucose 92 mg/dL (65-99) 06/11/20 05:25 Calcium 8.7 mg/dL (8.5-10.1) 06/11/20 05:25 Corrected Calcium 9.8 mg/dL (8.5-10.1) 06/11/20 05:25 Total Bilirubin 2.90 mg/dL (0.2-1.0) H 06/11/20 05:25 AST 20 Units/L (15-37) 06/11/20 05:25 ALT 14 Units/L (12-78) 06/11/20 05:25 Alkaline Phosphatase 98 Units/L (46-116) 06/11/20 05:25 Total Protein 6.9 g/dL (6.4-8.2) 06/11/20 05:25 Albumin 2.6 g/dL (3.4-5.0) L 06/11/20 05:25 Globulin 4.3 g/dL (2.5-4.5) 06/11/20 05:25 Albumin/Globulin Ratio 0.6 Ratio (1.1-2.1) L 06/11/20 05:25 SARS CoV-2 RNA Rapid MAGNOLIA Negative (NEGATIVE) 06/09/20 20:47 Blood Type B POSITIVE 06/09/20 18:24 Antibody Screen Negative 06/09/20 18:24 Crossmatch See Detail 06/09/20 18:24 Plan (1) Sickle cell anemia: Status: Acute Narrative Support Text: Will plan debridement of wound in OR tomorrow AM. Plan: Hgb 6.8 Trend H/H. (2) Ulcer of leg, chronic, right: Status: Chronic Plan: General surgery following, debridement tomorrow. IV vancomycin, Wound cultures pending
[2020-06-11] MEDS ORDERED: PHARMACY COMMENT IV NR (20:30)
[2020-06-11 21:18] LABS: CREATININE 0.91 mg/dL (0.70-1.30); VANCOMYCIN,TROUGH 8.7 ug/mL (15-20)
[2020-06-11] MEDS ORDERED: VANCOMYCIN HCL 750 MG VIAL 750 MG in D5W 250 ML IV 250 ML IV SCH (22:00)
[2020-06-12 04:03] LABS: BASOPHILS # (AUTO) 0.1 X10^3/uL (0.0-0.1); BASOPHILS % (AUTO) 0.8 % (0.2-1.0); EOSINOPHILS # (AUTO) 0.8 x10^3/uL (0.0-0.2); HEMATOCRIT 32.1 % (42.0-54.0); HEMOGLOBIN 10.5 g/dL (13.5-18.0); LYMPHOCYTES # (AUTO) 3.4 X10^3/uL (1.3-2.9); LYMPHOCYTES % (AUTO) 22.4 % (21.0-51.0); MEAN CORPUSCULAR HEMOGLOBIN 28.4 pg (27.0-34.0); MEAN CORPUSCULAR HGB CONC 32.8 g/dL (33.0-35.0); MEAN CORPUSCULAR VOLUME 86.7 fL (80.0-100.0); MONOCYTES # (AUTO) 1.3 x10^3/uL (0.3-0.8); MONOCYTES % (AUTO) 8.3 % (0.0-13.0); NEUTROPHILS # (AUTO) 9.6 x10^3/uL (2.2-4.8); NEUTROPHILS % (AUTO) 63.5 % (42.0-75.0); PLATELET COUNT 932 X10^3/uL (150.0-450.0); RED CELL DISTRIBUTION WIDTH 19.2 % (11.6-16.5); WHITE BLOOD COUNT 15.1 X10^3/uL (3.6-10.0)
[2020-06-12] MEDS: DILAUDID INJ IVP PRN ×5 (04:03→20:57)
[2020-06-12 04:15] LABS: ALANINE AMINOTRANSFERASE 17 Units/L (12-78); ALKALINE PHOSPHATASE 108 Units/L (46-116); ASPARTATE AMINO TRANSFERASE 21 Units/L (15-37); BLOOD UREA NITROGEN 9 mg/dL (7-18); CARBON DIOXIDE 21.9 mmol/L (21-32); CHLORIDE 106 mmol/L (98-107); COR CA(FOR HYPOALB) 9.8 mg/dL (8.5-10.1); CREATININE 0.87 mg/dL (0.70-1.30); SODIUM 138 mmol/L (136-145); eGFR NON BLACK RACES > 60 (>60)
[2020-06-12] MEDS: NS 1000 ML 1,000 ML IV SCH ×2 (05:06→20:56)
[2020-06-12] MEDS: VANCOMYCIN IV *PREMIX 750 mg/150 ML BAG 750 MG/150 ML PIGGYBACK IV SCH ×3 (05:06→23:11)
[2020-06-12] MEDS ORDERED: BETADINE SOLN ONE (07:15)
[2020-06-12] MEDS ORDERED: MARCAINE/EPINEPHRINE ONE (07:16)
[2020-06-12] MEDS ORDERED: KETALAR ONE (08:29)
[2020-06-12] MEDS ORDERED: DECADRON INJ ONE (08:29)
[2020-06-12] MEDS ORDERED: FENTANYL INJ 100 mcg ONE (08:30)
[2020-06-12] MEDS ORDERED: LR 1000 ML IV 1,000 ML IV ONE (08:51)
--- NOTE | 2020-06-12 09:08 | PCM.PROG ---
Progress Note Progress Note for Day of Date of Exam: 06/12/20 Subjective Subjective: Pt is a 35 year old male past medical history of sickle cell disease, anemia, depression, admitted for symptomatic anemia and chronic right lower leg wound/ulceration. Pt no longer having dizziness, Hgb responded well to transfusion. Labs/imaging: Wbc 15.1, Hgb 10.5, Platelet 932, Na 138, K 4.6, Creatinine 0.87, Glucose 104. Pt has received a total of 4 units packed red blood cells. Monitor serial H/H and trend. IVF NS@75ml/h, regular diet. Continue antibiotics IV vancomycin, add Levaquin. Wound cultures prelim gram negative rods. General surgery following chronic right lower extremity wound/ulceration, plan for debridement today. IV dilaudid for pain control. Continue to monitor and follow up labs/imaging in the morning. Past Medical Family Social History Past Med/Fam/Surg Hx: No changes since H&P Allergies: Allergies Egg Derived Allergy (Verified 10/12/17 21:04) mayonnaise Allergy (Verified 10/12/17 21:04) morphine Allergy (Verified 10/13/17 05:57) ondansetron [From Zofran] Allergy (Verified 10/13/17 05:57) Review of Systems ROS: No change since H&P Vital Signs and I&O's Vital Signs: Temperature 98.5 F Pulse Rate [Left Brachial] 73 Pulse Rate 88 Respiratory Rate 18 Blood Pressure [Right Arm] 109/61 Blood Pressure [Left Arm] 106/61 Blood Pressure 110/58 O2 Sat by Pulse Oximetry 99 Intake and Output: Intake & Output 06/09/20 06/10/20 06/11/20 06/12/20 23:59 23:59 23:59 23:59 Intake Total 160 / 160 2558 / 2558 3370 / 3370 540 / 540 Output Total 2875 / 2875 4225 / 4225 675 / 675 Balance 160 / 160 -317 / -317 -855 / -855 -135 / -135 Physical Exam Oriented: Normal, Time, Person and Place Eyes: Normal Ear: Normal Nose: Normal Throat: Normal Respiratory: Normal Cardiovascular: Normal : Normal Auscultation: Bowel Sounds: Normal Tenderness: Normal Skin: Pustular, Tender and Wound (nearly encmpassing the entire leg below the knee into the subcutaneous tissue and onto the foot on the right. Wound dressed today) Musculoskeletal: Normal Psychiatric: Normal Mood Description: Calm, Depressed and Flat Affect: Flat Speech Pattern: Clear and Appropriate Laboratory and Diagnostics Result Diagrams: 06/12/20 03:45 06/12/20 03:45 Labs: 06/09/20 21:16 Leg - Right Wound Culture - Final Providencia Rettgeri Proteus Mirabilis 06/09/20 16:34 Blood Blood Culture - Preliminary 06/09/20 16:25 Blood Blood Culture - Preliminary Laboratory WBC 15.1 X10^3/uL (3.6-10.0) H 06/12/20 03:45 RBC 3.70 X10^6/uL (4.7-6.0) L 06/12/20 03:45 Hgb 10.5 g/dL (13.5-18.0) L D 06/12/20 03:45 Hct 32.1 % (42.0-54.0) L 06/12/20 03:45 MCV 86.7 fL (80.0-100.0) 06/12/20 03:45 MCH 28.4 pg (27.0-34.0) 06/12/20 03:45 MCHC 32.8 g/dL (33.0-35.0) L 06/12/20 03:45 RDW 19.2 % (11.6-16.5) H 06/12/20 03:45 Plt Count 932 X10^3/uL (150.0-450.0) H 06/12/20 03:45 Plt Count Comment Increased (ADEQUATE) 06/11/20 05:25 MPV 7.0 fL (7.4-11.0) L 06/12/20 03:45 Neut % (Auto) 63.5 % (42.0-75.0) 06/12/20 03:45 Lymph % (Auto) 22.4 % (21.0-51.0) 06/12/20 03:45 [place] % (Auto) 8.3 % (0.0-13.0) 06/12/20 03:45 Eos % (Auto) 5.0 % (0.9-2.9) H 06/12/20 03:45 Baso % (Auto) 0.8 % (0.2-1.0) 06/12/20 03:45 Neut # (Auto) 9.6 x10^3/uL (2.2-4.8) H 06/12/20 03:45 Lymph # (Auto) 3.4 X10^3/uL (1.3-2.9) H 06/12/20 03:45 [place] # (Auto) 1.3 x10^3/uL (0.3-0.8) H 06/12/20 03:45 Eos # (Auto) 0.8 x10^3/uL (0.0-0.2) H 06/12/20 03:45 Baso # (Auto) 0.1 X10^3/uL (0.0-0.1) 06/12/20 03:45 Absolute Nucleated RBC 2.1 /100WBC 06/12/20 03:45 Total Counted 100 06/09/20 16:34 Neutrophils % (Manual) 69 % (39-76) 06/09/20 16:34 Band Neutrophils % 5 % (0-10) 06/09/20 16:34 Lymphocytes % (Manual) 18 % (13-43) 06/09/20 16:34 Monocytes % (Manual) 5 % (4-9) 06/09/20 16:34 Eosinophils % (Manual) 3 % (0-6) 06/09/20 16:34 Plt Morphology Comment Normal (NORMAL) 06/11/20 05:25 RBC Morphology Abnormal (NORMAL) 06/11/20 05:25 Dimorphic RBCs Noted 06/11/20 05:25 Polychromasia Slight 06/11/20 05:25 Hypochromasia Slight A 06/11/20 05:25 Poikilocytosis Slight A 06/11/20 05:25 Anisocytosis 2+ A 06/11/20 05:25 Sickle Cells Slight A 06/11/20 05:25 Target Cells 1+ A 06/11/20 05:25 PT 15.2 SECONDS (11.8-14.3) 06/09/20 16:25 INR Target Range - 06/09/20 16:25 INR 1.26 (0.8-1.3) 06/09/20 16:25 Sodium 138 mmol/L (136-145) 06/12/20 03:45 Corrected Sodium TNP 06/12/20 03:45 Potassium 4.6 mmol/L (3.5-5.1) 06/12/20 03:45 Chloride 106 mmol/L (98-107) 06/12/20 03:45 Carbon Dioxide 21.9 mmol/L (21-32) 06/12/20 03:45 BUN 9 mg/dL (7-18) 06/12/20 03:45 Creatinine 0.87 mg/dL (0.70-1.30) 06/12/20 03:45 Est GFR (MDRD) Af Amer > 60 (>60) 06/12/20 03:45 Est GFR (MDRD) Non-Af > 60 (>60) 06/12/20 03:45 Glucose 104 mg/dL (65-99) H 06/12/20 03:45 Calcium 9.0 mg/dL (8.5-10.1) 06/12/20 03:45 Corrected Calcium 9.8 mg/dL (8.5-10.1) 06/12/20 03:45 Total Bilirubin 2.40 mg/dL (0.2-1.0) H 06/12/20 03:45 AST 21 Units/L (15-37) 06/12/20 03:45 ALT 17 Units/L (12-78) 06/12/20 03:45 Alkaline Phosphatase 108 Units/L (46-116) 06/12/20 03:45 Total Protein 8.0 g/dL (6.4-8.2) 06/12/20 03:45 Albumin 3.0 g/dL (3.4-5.0) L 06/12/20 03:45 Globulin 5.0 g/dL (2.5-4.5) H 06/12/20 03:45 Albumin/Globulin Ratio 0.6 Ratio (1.1-2.1) L 06/12/20 03:45 Vancomycin Trough 8.7 ug/mL (15-20) L 06/11/20 20:45 SARS CoV-2 RNA Rapid MAGNOLIA Negative (NEGATIVE) 06/09/20 20:47 Blood Type B POSITIVE 06/09/20 18:24 Antibody Screen Negative 06/09/20 18:24 Crossmatch See Detail 06/09/20 18:24 Plan (1) Sickle cell anemia: Status: Acute Plan: Hgb 10.5 Trend H/H. (2) Ulcer of leg, chronic, right: Status: Chronic Plan: General surgery following, debridement today. IV vancomycin and Levaquin, Wound cultures prelim gram negative rods.
--- NOTE | 2020-06-12 09:37 | OR.IMMED ---
IMMEDIATE POST-OP NOTE Immediate Post-Op Note Pre-Op Diagnosis: Necrotic infected wound right leg below knee , nearly circumfe rential Post-Op Diagnosis: same Procedure: Excisional debridement right leg Description of Procedure: see procedure above Surgeon/Tare Weigher: Tera Findings: As above , wound measures 40 x 20 x 0.5 cm Specimens Removed: Necrotic eschar Estimated Blood Loss: 25 cc Drains: NONE Complications: none Condition: Stable Post Hospital Plans and Medications: Continue wound care and daily dressing changes and IV antibiotics . May require additional debridement in the OR Final Diagnosis: Necrotic wound right leg below knee
[2020-06-12] MEDS: LEVAQUIN PREMIX IV 500 MG 500 MG/100 ML BAG IV SCH (10:27)
--- NOTE | 2020-06-12 11:17 | DR.OPNOTE ---
OP NOTE Pre-Op Diagnosis: Necrotic wound of right leg below knee nearly circumferential Post-Op Diagnosis: Same Procedure: Excisional debridement of right leg wound carried out right leg after prepping and draping right leg and time out performed. Necrotic material excised from this nearly circumferential wound of the right leg below the knee using # 10 blade and pick-ups. Hemostasis obtained with [employer] soaked in 0.5 % Marcaine , then 2x 6 inch Kerlix rolls and 6 inch Zay Wrap. Patient taken to PACU without incident . Anesthesia Comment: MAC Findings: As above Specimen/Pathology: none , cultures already obtained on admission Type of Fluids Used:: Normal Saline EBL: 25 cc Complications:: none Needle/Sponge Count:: correct Disposition/Condition: Pt. tolerated procedure without difficulty.
[2020-06-12] MEDS ORDERED: PHARMACY COMMENT IV ONE (20:30)
[2020-06-12 22:53] LABS: CREATININE 0.95 mg/dL (0.70-1.30); VANCOMYCIN,TROUGH 13.5 ug/mL (15-20)
[2020-06-13] MEDS: DILAUDID INJ IVP PRN ×6 (01:25→21:00)
[2020-06-13 04:51] LABS: BASOPHILS # (AUTO) 0.1 X10^3/uL (0.0-0.1); BASOPHILS % (AUTO) 0.9 % (0.2-1.0); EOSINOPHILS % (AUTO) 0.1 % (0.9-2.9); HEMATOCRIT 27.7 % (42.0-54.0); HEMOGLOBIN 9.2 g/dL (13.5-18.0); LYMPHOCYTES # (AUTO) 2.7 X10^3/uL (1.3-2.9); LYMPHOCYTES % (AUTO) 21.3 % (21.0-51.0); MEAN CORPUSCULAR HEMOGLOBIN 28.5 pg (27.0-34.0); MEAN CORPUSCULAR HGB CONC 33.1 g/dL (33.0-35.0); MEAN CORPUSCULAR VOLUME 86.2 fL (80.0-100.0); MEAN PLATELET VOLUME 7.5 fL (7.4-11.0); MONOCYTES # (AUTO) 1.2 x10^3/uL (0.3-0.8); MONOCYTES % (AUTO) 9.9 % (0.0-13.0); NEUTROPHILS # (AUTO) 8.5 x10^3/uL (2.2-4.8); NEUTROPHILS % (AUTO) 67.8 % (42.0-75.0); PLATELET COUNT 783 X10^3/uL (150.0-450.0); RED BLOOD COUNT 3.22 X10^6/uL (4.7-6.0); RED CELL DISTRIBUTION WIDTH 19.2 % (11.6-16.5); WHITE BLOOD COUNT 12.5 X10^3/uL (3.6-10.0)
[2020-06-13 04:58] LABS: ALANINE AMINOTRANSFERASE 17 Units/L (12-78); ALBUMIN 2.6 g/dL (3.4-5.0); ALKALINE PHOSPHATASE 85 Units/L (46-116); ASPARTATE AMINO TRANSFERASE 31 Units/L (15-37); BLOOD UREA NITROGEN 15 mg/dL (7-18); CALCIUM 8.5 mg/dL (8.5-10.1); CARBON DIOXIDE 21.3 mmol/L (21-32); CHLORIDE 108 mmol/L (98-107); COR CA(FOR HYPOALB) 9.6 mg/dL (8.5-10.1); CREATININE 0.78 mg/dL (0.70-1.30); SODIUM 138 mmol/L (136-145); TOTAL PROTEIN 7.1 g/dL (6.4-8.2); eGFR NON BLACK RACES > 60 (>60)
[2020-06-13] MEDS: VANCOMYCIN IV *PREMIX 750 mg/150 ML BAG 750 MG/150 ML PIGGYBACK IV SCH (05:50)
[2020-06-13] MEDS: LEVAQUIN PREMIX IV 500 MG 500 MG/100 ML BAG IV SCH (09:06)
--- NOTE | 2020-06-13 10:02 | PCM.PROG ---
Progress Note Progress Note for Day of Date of Exam: 06/13/20 Subjective Subjective: S/P right leg debridement in this 35 yo male with sickle cell disease and long standing wound of the right leg . Doing better. WBC has declined to 12k. Afebrile. Past Medical Family Social History Past Med/Fam/Surg Hx: No changes since H&P Allergies: Allergies Egg Derived Allergy (Verified 10/12/17 21:04) mayonnaise Allergy (Verified 10/12/17 21:04) morphine Allergy (Verified 10/13/17 05:57) ondansetron [From Zofran] Allergy (Verified 10/13/17 05:57) Review of Systems ROS: No change since H&P Vital Signs and I&O's Vital Signs: Temperature 98.2 F Pulse Rate [Left Brachial] 73 Pulse Rate 88 Respiratory Rate 18 Blood Pressure [Right Arm] 114/72 Blood Pressure [Left Arm] 113/58 Blood Pressure 110/58 O2 Sat by Pulse Oximetry 96 Intake and Output: Intake & Output 06/10/20 06/11/20 06/12/20 06/13/20 23:59 23:59 23:59 23:59 Intake Total 2558 / 2558 3370 / 3370 3840 / 3840 1227 / 1227 Output Total 2875 / 2875 4225 / 4225 3624 / 3624 800 / 800 Balance -317 / -317 -855 / -855 216 / 216 427 / 427 Physical Exam Oriented: Normal, Time, Person and Place Eyes: Normal Ear: Normal Nose: Normal Throat: Normal Respiratory: Normal Cardiovascular: Normal : Normal Auscultation: Bowel Sounds: Normal Tenderness: Normal Skin: Pustular, Tender and Wound ( Wound to be dressed with Santyl daily staerting today. ) Musculoskeletal: Normal Psychiatric: Normal Mood Description: Calm, Depressed and Flat Affect: Flat Speech Pattern: Clear and Appropriate Laboratory and Diagnostics Result Diagrams: 06/13/20 04:25 06/13/20 04:25 Labs: 06/09/20 21:16 Leg - Right Wound Culture - Final Providencia Rettgeri Proteus Mirabilis 06/09/20 16:34 Blood Blood Culture - Preliminary 06/09/20 16:25 Blood Blood Culture - Preliminary Laboratory WBC 12.5 X10^3/uL (3.6-10.0) H 06/13/20 04:25 RBC 3.22 X10^6/uL (4.7-6.0) L 06/13/20 04:25 Hgb 9.2 g/dL (13.5-18.0) L 06/13/20 04:25 Hct 27.7 % (42.0-54.0) L 06/13/20 04:25 MCV 86.2 fL (80.0-100.0) 06/13/20 04:25 MCH 28.5 pg (27.0-34.0) 06/13/20 04:25 MCHC 33.1 g/dL (33.0-35.0) 06/13/20 04:25 RDW 19.2 % (11.6-16.5) H 06/13/20 04:25 Plt Count 783 X10^3/uL (150.0-450.0) H 06/13/20 04:25 Plt Count Comment Increased (ADEQUATE) 06/11/20 05:25 MPV 7.5 fL (7.4-11.0) 06/13/20 04:25 Neut % (Auto) 67.8 % (42.0-75.0) 06/13/20 04:25 Lymph % (Auto) 21.3 % (21.0-51.0) 06/13/20 04:25 [place] % (Auto) 9.9 % (0.0-13.0) 06/13/20 04:25 Eos % (Auto) 0.1 % (0.9-2.9) L 06/13/20 04:25 Baso % (Auto) 0.9 % (0.2-1.0) 06/13/20 04:25 Neut # (Auto) 8.5 x10^3/uL (2.2-4.8) H 06/13/20 04:25 Lymph # (Auto) 2.7 X10^3/uL (1.3-2.9) 06/13/20 04:25 [place] # (Auto) 1.2 x10^3/uL (0.3-0.8) H 06/13/20 04:25 Eos # (Auto) 0.0 x10^3/uL (0.0-0.2) 06/13/20 04:25 Baso # (Auto) 0.1 X10^3/uL (0.0-0.1) 06/13/20 04:25 Absolute Nucleated RBC 1.1 /100WBC 06/13/20 04:25 Total Counted 100 06/09/20 16:34 Neutrophils % (Manual) 69 % (39-76) 06/09/20 16:34 Band Neutrophils % 5 % (0-10) 06/09/20 16:34 Lymphocytes % (Manual) 18 % (13-43) 06/09/20 16:34 Monocytes % (Manual) 5 % (4-9) 06/09/20 16:34 Eosinophils % (Manual) 3 % (0-6) 06/09/20 16:34 Plt Morphology Comment Normal (NORMAL) 06/11/20 05:25 RBC Morphology Abnormal (NORMAL) 06/11/20 05:25 Dimorphic RBCs Noted 06/11/20 05:25 Polychromasia Slight 06/11/20 05:25 Hypochromasia Slight A 06/11/20 05:25 Poikilocytosis Slight A 06/11/20 05:25 Anisocytosis 2+ A 06/11/20 05:25 Sickle Cells Slight A 06/11/20 05:25 Target Cells 1+ A 06/11/20 05:25 PT 15.2 SECONDS (11.8-14.3) 06/09/20 16:25 INR Target Range - 06/09/20 16:25 INR 1.26 (0.8-1.3) 06/09/20 16:25 Sodium 138 mmol/L (136-145) 06/13/20 04:25 Corrected Sodium TNP 06/13/20 04:25 Potassium 5.2 mmol/L (3.5-5.1) H 06/13/20 04:25 Chloride 108 mmol/L (98-107) H 06/13/20 04:25 Carbon Dioxide 21.3 mmol/L (21-32) 06/13/20 04:25 BUN 15 mg/dL (7-18) 06/13/20 04:25 Creatinine 0.78 mg/dL (0.70-1.30) 06/13/20 04:25 Est GFR (MDRD) Af Amer > 60 (>60) 06/13/20 04:25 Est GFR (MDRD) Non-Af > 60 (>60) 06/13/20 04:25 Glucose 109 mg/dL (65-99) H 06/13/20 04:25 Calcium 8.5 mg/dL (8.5-10.1) 06/13/20 04:25 Corrected Calcium 9.6 mg/dL (8.5-10.1) 06/13/20 04:25 Total Bilirubin 2.30 mg/dL (0.2-1.0) H 06/13/20 04:25 AST 31 Units/L (15-37) 06/13/20 04:25 ALT 17 Units/L (12-78) 06/13/20 04:25 Alkaline Phosphatase 85 Units/L (46-116) 06/13/20 04:25 Total Protein 7.1 g/dL (6.4-8.2) 06/13/20 04:25 Albumin 2.6 g/dL (3.4-5.0) L 06/13/20 04:25 Globulin 4.5 g/dL (2.5-4.5) 06/13/20 04:25 Albumin/Globulin Ratio 0.6 Ratio (1.1-2.1) L 06/13/20 04:25 Vancomycin Trough 13.5 ug/mL (15-20) L 06/12/20 22:33 SARS CoV-2 RNA Rapid MAGNOLIA Negative (NEGATIVE) 06/09/20 20:47 Blood Type B POSITIVE 06/09/20 18:24 Antibody Screen Negative 06/09/20 18:24 Crossmatch See Detail 06/09/20 18:24 Plan (1) Sickle cell anemia: Status: Acute Narrative Support Text: Cultures of wound growing Pseudomonas Aerig unosa, Providentia and Proteus Mirabilis all sensitive to Zoysn. Plan: Hgb 10.5 Trend H/H. (2) Ulcer of leg, chronic, right: Status: Chronic Plan: Will change to Zosyn. Continue gram negative coverage for now and stop Vancomycin.
[2020-06-13] MEDS: NS 1000 ML 1,000 ML IV SCH (10:17)
[2020-06-13] MEDS: ZOSYN VIAL 3.375 GRAMS 3.375 G in NS 100 ML IV + SPIKE MINIBAG* 100 ML IV SCH ×3 (13:15→21:04)
--- NOTE | 2020-06-13 13:16 | PCM.PROG ---
Progress Note Progress Note for Day of Date of Exam: 06/13/20 Subjective Subjective: Pt is a 35 year old male past medical history of sickle cell disease, anemia, depression, admitted for symptomatic anemia and s/p debridement of chronic right lower leg wound/ulceration. No concerns from patient this morning. Labs/imaging: Wbc 12.5, Hgb 9.2, Platelet 783, Na 138, K 5.2, Crea tinine 0.78, Glucose 109. Pt has received a total of 4 units packed red blood cells, hgb stabilized. IVF NS@75ml/h, regular diet. Wound cultures positive for Proteus mirabilis, Providentia. D/c Vancomycin. Continue IV Levaquin and surgery adding on Zosyn. General surgery following. IV dilaudid for pain control. Continue to monitor and follow up labs/imaging in the morning. Past Medical Family Social History Past Med/Fam/Surg Hx: No changes since H&P Allergies: Allergies Egg Derived Allergy (Verified 10/12/17 21:04) mayonnaise Allergy (Verified 10/12/17 21:04) morphine Allergy (Verified 10/13/17 05:57) ondansetron [From Zofran] Allergy (Verified 10/13/17 05:57) Review of Systems ROS: No change since H&P Vital Signs and I&O's Vital Signs: Temperature 98.2 F Pulse Rate [Left Brachial] 54 Pulse Rate 88 Respiratory Rate 18 Blood Pressure [Right Arm] 93/54 Blood Pressure [Left Arm] 113/58 Blood Pressure 110/58 O2 Sat by Pulse Oximetry 98 Intake and Output: Intake & Output 06/10/20 06/11/20 06/12/20 06/13/20 23:59 23:59 23:59 23:59 Intake Total 2558 / 2558 3370 / 3370 3840 / 3840 1227 / 1227 Output Total 2875 / 2875 4225 / 4225 3624 / 3624 800 / 800 Balance -317 / -317 -855 / -855 216 / 216 427 / 427 Physical Exam Oriented: Normal, Time, Person and Place Eyes: Normal Ear: Normal Nose: Normal Throat: Normal Respiratory: Normal Cardiovascular: Normal : Normal Auscultation: Bowel Sounds: Normal Tenderness: Normal Skin: Pustular, Tender and Wound ( Wound to be dressed with Santyl daily staerting today. ) Musculoskeletal: Normal Psychiatric: Normal Mood Description: Calm, Depressed and Flat Affect: Flat Speech Pattern: Clear and Appropriate Laboratory and Diagnostics Result Diagrams: 06/13/20 04:25 06/13/20 04:25 Labs: 06/09/20 21:16 Leg - Right Wound Culture - Final Providencia Rettgeri Proteus Mirabilis 06/09/20 16:34 Blood Blood Culture - Preliminary 06/09/20 16:25 Blood Blood Culture - Preliminary Laboratory WBC 12.5 X10^3/uL (3.6-10.0) H 06/13/20 04:25 RBC 3.22 X10^6/uL (4.7-6.0) L 06/13/20 04:25 Hgb 9.2 g/dL (13.5-18.0) L 06/13/20 04:25 Hct 27.7 % (42.0-54.0) L 06/13/20 04:25 MCV 86.2 fL (80.0-100.0) 06/13/20 04:25 MCH 28.5 pg (27.0-34.0) 06/13/20 04:25 MCHC 33.1 g/dL (33.0-35.0) 06/13/20 04:25 RDW 19.2 % (11.6-16.5) H 06/13/20 04:25 Plt Count 783 X10^3/uL (150.0-450.0) H 06/13/20 04:25 Plt Count Comment Increased (ADEQUATE) 06/11/20 05:25 MPV 7.5 fL (7.4-11.0) 06/13/20 04:25 Neut % (Auto) 67.8 % (42.0-75.0) 06/13/20 04:25 Lymph % (Auto) 21.3 % (21.0-51.0) 06/13/20 04:25 [place] % (Auto) 9.9 % (0.0-13.0) 06/13/20 04:25 Eos % (Auto) 0.1 % (0.9-2.9) L 06/13/20 04:25 Baso % (Auto) 0.9 % (0.2-1.0) 06/13/20 04:25 Neut # (Auto) 8.5 x10^3/uL (2.2-4.8) H 06/13/20 04:25 Lymph # (Auto) 2.7 X10^3/uL (1.3-2.9) 06/13/20 04:25 [place] # (Auto) 1.2 x10^3/uL (0.3-0.8) H 06/13/20 04:25 Eos # (Auto) 0.0 x10^3/uL (0.0-0.2) 06/13/20 04:25 Baso # (Auto) 0.1 X10^3/uL (0.0-0.1) 06/13/20 04:25 Absolute Nucleated RBC 1.1 /100WBC 06/13/20 04:25 Total Counted 100 06/09/20 16:34 Neutrophils % (Manual) 69 % (39-76) 06/09/20 16:34 Band Neutrophils % 5 % (0-10) 06/09/20 16:34 Lymphocytes % (Manual) 18 % (13-43) 06/09/20 16:34 Monocytes % (Manual) 5 % (4-9) 06/09/20 16:34 Eosinophils % (Manual) 3 % (0-6) 06/09/20 16:34 Plt Morphology Comment Normal (NORMAL) 06/11/20 05:25 RBC Morphology Abnormal (NORMAL) 06/11/20 05:25 Dimorphic RBCs Noted 06/11/20 05:25 Polychromasia Slight 06/11/20 05:25 Hypochromasia Slight A 06/11/20 05:25 Poikilocytosis Slight A 06/11/20 05:25 Anisocytosis 2+ A 06/11/20 05:25 Sickle Cells Slight A 06/11/20 05:25 Target Cells 1+ A 06/11/20 05:25 PT 15.2 SECONDS (11.8-14.3) 06/09/20 16:25 INR Target Range - 06/09/20 16:25 INR 1.26 (0.8-1.3) 06/09/20 16:25 Sodium 138 mmol/L (136-145) 06/13/20 04:25 Corrected Sodium TNP 06/13/20 04:25 Potassium 5.2 mmol/L (3.5-5.1) H 06/13/20 04:25 Chloride 108 mmol/L (98-107) H 06/13/20 04:25 Carbon Dioxide 21.3 mmol/L (21-32) 06/13/20 04:25 BUN 15 mg/dL (7-18) 06/13/20 04:25 Creatinine 0.78 mg/dL (0.70-1.30) 06/13/20 04:25 Est GFR (MDRD) Af Amer > 60 (>60) 06/13/20 04:25 Est GFR (MDRD) Non-Af > 60 (>60) 06/13/20 04:25 Glucose 109 mg/dL (65-99) H 06/13/20 04:25 Calcium 8.5 mg/dL (8.5-10.1) 06/13/20 04:25 Corrected Calcium 9.6 mg/dL (8.5-10.1) 06/13/20 04:25 Total Bilirubin 2.30 mg/dL (0.2-1.0) H 06/13/20 04:25 AST 31 Units/L (15-37) 06/13/20 04:25 ALT 17 Units/L (12-78) 06/13/20 04:25 Alkaline Phosphatase 85 Units/L (46-116) 06/13/20 04:25 Total Protein 7.1 g/dL (6.4-8.2) 06/13/20 04:25 Albumin 2.6 g/dL (3.4-5.0) L 06/13/20 04:25 Globulin 4.5 g/dL (2.5-4.5) 06/13/20 04:25 Albumin/Globulin Ratio 0.6 Ratio (1.1-2.1) L 06/13/20 04:25 Vancomycin Trough 13.5 ug/mL (15-20) L 06/12/20 22:33 SARS CoV-2 RNA Rapid MAGNOLIA Negative (NEGATIVE) 06/09/20 20:47 Blood Type B POSITIVE 06/09/20 18:24 Antibody Screen Negative 06/09/20 18:24 Crossmatch See Detail 06/09/20 18:24 Plan (1) Sickle cell anemia: Status: Acute Plan: Hgb stabilized (2) Ulcer of leg, chronic, right: Status: Chronic Plan: Will change to Zosyn. Continue gram negative coverage for now and stop Vancomycin.
[2020-06-14] MEDS: DILAUDID INJ IVP PRN ×6 (02:12→22:05)
[2020-06-14 05:07] LABS: BASOPHILS # (AUTO) 0.1 X10^3/uL (0.0-0.1); BASOPHILS % (AUTO) 0.5 % (0.2-1.0); EOSINOPHILS # (AUTO) 0.3 x10^3/uL (0.0-0.2); EOSINOPHILS % (AUTO) 1.9 % (0.9-2.9); HEMATOCRIT 26.8 % (42.0-54.0); HEMOGLOBIN 8.8 g/dL (13.5-18.0); LYMPHOCYTES # (AUTO) 3.2 X10^3/uL (1.3-2.9); LYMPHOCYTES % (AUTO) 21.9 % (21.0-51.0); MEAN CORPUSCULAR HEMOGLOBIN 28.5 pg (27.0-34.0); MEAN CORPUSCULAR HGB CONC 32.9 g/dL (33.0-35.0); MEAN CORPUSCULAR VOLUME 86.8 fL (80.0-100.0); MEAN PLATELET VOLUME 7.3 fL (7.4-11.0); MONOCYTES # (AUTO) 1.3 x10^3/uL (0.3-0.8); MONOCYTES % (AUTO) 8.9 % (0.0-13.0); NEUTROPHILS # (AUTO) 9.8 x10^3/uL (2.2-4.8); NEUTROPHILS % (AUTO) 66.8 % (42.0-75.0); PLATELET COUNT 749 X10^3/uL (150.0-450.0); RED BLOOD COUNT 3.09 X10^6/uL (4.7-6.0); RED CELL DISTRIBUTION WIDTH 18.3 % (11.6-16.5); WHITE BLOOD COUNT 14.6 X10^3/uL (3.6-10.0)
[2020-06-14 05:23] LABS: ALANINE AMINOTRANSFERASE 104 Units/L (12-78); ALBUMIN 2.6 g/dL (3.4-5.0); ALKALINE PHOSPHATASE 120 Units/L (46-116); ASPARTATE AMINO TRANSFERASE 194 Units/L (15-37); BLOOD UREA NITROGEN 10 mg/dL (7-18); CALCIUM 8.3 mg/dL (8.5-10.1); CARBON DIOXIDE 21.9 mmol/L (21-32); CHLORIDE 110 mmol/L (98-107); COR CA(FOR HYPOALB) 9.4 mg/dL (8.5-10.1); CREATININE 0.89 mg/dL (0.70-1.30); SODIUM 141 mmol/L (136-145); TOTAL PROTEIN 6.6 g/dL (6.4-8.2); eGFR NON BLACK RACES > 60 (>60)
[2020-06-14] MEDS: ZOSYN VIAL 3.375 GRAMS 3.375 G in NS 100 ML IV + SPIKE MINIBAG* 100 ML IV SCH ×3 (05:44→21:20)
[2020-06-14] MEDS: NS 1000 ML 1,000 ML IV SCH ×2 (05:49→14:39)
[2020-06-14] MEDS: LEVAQUIN PREMIX IV 500 MG 500 MG/100 ML BAG IV SCH (09:54)
--- NOTE | 2020-06-14 10:46 | PCM.PROG ---
Progress Note Progress Note for Day of Date of Exam: 06/14/20 Subjective Subjective: Pt is a 35 year old male past medical history of sickle cell disease, anemia, depression, admitted for symptomatic anemia and s/p debridement of chronic right lower leg wound/ulceration. Pt is doing well this morning, no events overnight. His pain has been well controlled. Labs/imaging: Wbc 14.6, Hgb 8.8, Platelet 749, Na 141, K 4.2, Creatinine 0.89, Glucose 90. Pt has received a total of 4 units packed red blood cells, hgb stabilized. IVF NS@75ml/h, regular diet. Wound cultures positive for Proteus mirabilis, Providentia. Currently on IV Levaquin and Zosyn. IV dilaudid for pain control. Wound care. General surgery following, will follow up recommendations. Continue to monitor and follow up labs/imaging in the morning. Past Medical Family Social History Past Med/Fam/Surg Hx: No changes since H&P Allergies: Allergies Egg Derived Allergy (Verified 10/12/17 21:04) mayonnaise Allergy (Verified 10/12/17 21:04) morphine Allergy (Verified 10/13/17 05:57) ondansetron [From Zofran] Allergy (Verified 10/13/17 05:57) Review of Systems ROS: No change since H&P Vital Signs and I&O's Vital Signs: Temperature 98.6 F Pulse Rate [Left Brachial] 50 Pulse Rate 88 Respiratory Rate 18 Blood Pressure [Right Arm] 105/63 Blood Pressure [Left Arm] 113/58 Blood Pressure 110/58 O2 Sat by Pulse Oximetry 98 Intake and Output: Intake & Output 06/11/20 06/12/20 06/13/20 06/14/20 23:59 23:59 23:59 23:59 Intake Total 3370 / 3370 3840 / 3840 3475 / 3475 995 / 995 Output Total 4225 / 4225 3624 / 3624 2575 / 2575 1200 / 1200 Balance -855 / -855 216 / 216 900 / 900 -205 / -205 Physical Exam Oriented: Normal, Time, Person and Place Eyes: Normal Ear: Normal Nose: Normal Throat: Normal Respiratory: Normal Cardiovascular: Normal : Normal Auscultation: Bowel Sounds: Normal Tenderness: Normal Skin: Pustular, Tender and Wound ( Wound to be dressed with Santyl daily staerting today. ) Musculoskeletal: Normal Psychiatric: Normal Mood Description: Calm, Depressed and Flat Affect: Flat Speech Pattern: Clear and Appropriate Laboratory and Diagnostics Result Diagrams: 06/14/20 04:34 06/14/20 04:34 Labs: 06/09/20 21:16 Leg - Right Wound Culture - Final Providencia Rettgeri Proteus Mirabilis 06/09/20 16:34 Blood Blood Culture - Preliminary 06/09/20 16:25 Blood Blood Culture - Preliminary Laboratory WBC 14.6 X10^3/uL (3.6-10.0) H 06/14/20 04:34 RBC 3.09 X10^6/uL (4.7-6.0) L 06/14/20 04:34 Hgb 8.8 g/dL (13.5-18.0) L 06/14/20 04:34 Hct 26.8 % (42.0-54.0) L 06/14/20 04:34 MCV 86.8 fL (80.0-100.0) 06/14/20 04:34 MCH 28.5 pg (27.0-34.0) 06/14/20 04:34 MCHC 32.9 g/dL (33.0-35.0) L 06/14/20 04:34 RDW 18.3 % (11.6-16.5) H 06/14/20 04:34 Plt Count 749 X10^3/uL (150.0-450.0) H 06/14/20 04:34 Plt Count Comment Increased (ADEQUATE) 06/11/20 05:25 MPV 7.3 fL (7.4-11.0) L 06/14/20 04:34 Neut % (Auto) 66.8 % (42.0-75.0) 06/14/20 04:34 Lymph % (Auto) 21.9 % (21.0-51.0) 06/14/20 04:34 [place] % (Auto) 8.9 % (0.0-13.0) 06/14/20 04:34 Eos % (Auto) 1.9 % (0.9-2.9) 06/14/20 04:34 Baso % (Auto) 0.5 % (0.2-1.0) 06/14/20 04:34 Neut # (Auto) 9.8 x10^3/uL (2.2-4.8) H 06/14/20 04:34 Lymph # (Auto) 3.2 X10^3/uL (1.3-2.9) H 06/14/20 04:34 [place] # (Auto) 1.3 x10^3/uL (0.3-0.8) H 06/14/20 04:34 Eos # (Auto) 0.3 x10^3/uL (0.0-0.2) H 06/14/20 04:34 Baso # (Auto) 0.1 X10^3/uL (0.0-0.1) 06/14/20 04:34 Absolute Nucleated RBC 0.7 /100WBC 06/14/20 04:34 Total Counted 100 06/09/20 16:34 Neutrophils % (Manual) 69 % (39-76) 06/09/20 16:34 Band Neutrophils % 5 % (0-10) 06/09/20 16:34 Lymphocytes % (Manual) 18 % (13-43) 06/09/20 16:34 Monocytes % (Manual) 5 % (4-9) 06/09/20 16:34 Eosinophils % (Manual) 3 % (0-6) 06/09/20 16:34 Plt Morphology Comment Normal (NORMAL) 06/11/20 05:25 RBC Morphology Abnormal (NORMAL) 06/11/20 05:25 Dimorphic RBCs Noted 06/11/20 05:25 Polychromasia Slight 06/11/20 05:25 Hypochromasia Slight A 06/11/20 05:25 Poikilocytosis Slight A 06/11/20 05:25 Anisocytosis 2+ A 06/11/20 05:25 Sickle Cells Slight A 06/11/20 05:25 Target Cells 1+ A 06/11/20 05:25 PT 15.2 SECONDS (11.8-14.3) 06/09/20 16:25 INR Target Range - 06/09/20 16:25 INR 1.26 (0.8-1.3) 06/09/20 16:25 Sodium 141 mmol/L (136-145) 06/14/20 04:34 Corrected Sodium TNP 06/14/20 04:34 Potassium 4.2 mmol/L (3.5-5.1) 06/14/20 04:34 Chloride 110 mmol/L (98-107) H 06/14/20 04:34 Carbon Dioxide 21.9 mmol/L (21-32) 06/14/20 04:34 BUN 10 mg/dL (7-18) 06/14/20 04:34 Creatinine 0.89 mg/dL (0.70-1.30) 06/14/20 04:34 Est GFR (MDRD) Af Amer > 60 (>60) 06/14/20 04:34 Est GFR (MDRD) Non-Af > 60 (>60) 06/14/20 04:34 Glucose 90 mg/dL (65-99) 06/14/20 04:34 Calcium 8.3 mg/dL (8.5-10.1) L 06/14/20 04:34 Corrected Calcium 9.4 mg/dL (8.5-10.1) 06/14/20 04:34 Total Bilirubin 3.40 mg/dL (0.2-1.0) H 06/14/20 04:34 AST 194 Units/L (15-37) H 06/14/20 04:34 ALT 104 Units/L (12-78) H 06/14/20 04:34 Alkaline Phosphatase 120 Units/L (46-116) H 06/14/20 04:34 Total Protein 6.6 g/dL (6.4-8.2) 06/14/20 04:34 Albumin 2.6 g/dL (3.4-5.0) L 06/14/20 04:34 Globulin 4.0 g/dL (2.5-4.5) 06/14/20 04:34 Albumin/Globulin Ratio 0.7 Ratio (1.1-2.1) L 06/14/20 04:34 Vancomycin Trough 13.5 ug/mL (15-20) L 06/12/20 22:33 SARS CoV-2 RNA Rapid MAGNOLIA Negative (NEGATIVE) 06/09/20 20:47 Blood Type B POSITIVE 06/09/20 18:24 Antibody Screen Negative 06/09/20 18:24 Crossmatch See Detail 06/09/20 18:24 Plan (1) Sickle cell anemia: Status: Acute Plan: Hgb stabilized (2) Ulcer of leg, chronic, right: Status: Chronic Plan: IV antibiotics Wound care Surgery following
--- NOTE | 2020-06-14 22:25 | PCM.PROG ---
Progress Note Subjective Subjective: Pt is a 35 year old male past medical history of sickle cell disease, anemia, depression, admitted for symptomatic anemia and s/p debridement of chronic right lower leg wound/ulceration. Pt is doing well this morning, no events overnight. His pain has been well controlled. Labs/imaging: Wbc 14.6, Hgb 8.8, Platelet 749, Na 141, K 4.2, Creatinine 0.89, Glucose 90. Pt has received a total of 4 units packed red blood cells, hgb stabilized. IVF NS@75ml/h, regular diet. Wound cultures positive for Proteus mirabilis, Providentia. Currently on IV Levaquin and Zosyn. IV dilaudid for pain control. Wound care. General surgery following, will follow up recommendations. Continue to monitor and follow up labs/imaging in the morning. As above. The wounds of the right leg are markedly improved . Early granulation tissue. Past Medical Family Social History Past Med/Fam/Surg Hx: No changes since H&P Allergies: Allergies Egg Derived Allergy (Verified 10/12/17 21:04) mayonnaise Allergy (Verified 10/12/17 21:04) morphine Allergy (Verified 10/13/17 05:57) ondansetron [From Zofran] Allergy (Verified 10/13/17 05:57) Review of Systems ROS: No change since H&P Vital Signs and I&O's Vital Signs: Temperature 99.2 F Pulse Rate [Left Brachial] 70 Pulse Rate 88 Respiratory Rate 18 Blood Pressure [Right Arm] 112/60 Blood Pressure [Left Arm] 113/58 Blood Pressure 110/58 O2 Sat by Pulse Oximetry 98 Intake and Output: Intake & Output 06/11/20 06/12/20 06/13/20 06/14/20 23:59 23:59 23:59 23:59 Intake Total 3370 / 3370 3840 / 3840 3475 / 3475 2009 Output Total 4225 / 4225 3624 / 3624 2575 / 2575 2125 / 2125 Balance -855 / -855 216 / 216 900 / 900 -115 / -115 Physical Exam Oriented: Normal, Time, Person and Place Eyes: Normal Ear: Normal Nose: Normal Throat: Normal Respiratory: Normal Cardiovascular: Normal : Normal Auscultation: Bowel Sounds: Normal Tenderness: Normal Skin: Tender and Wound ( Will continue Santyl to the wounds . May be able to change to po antibiiotics soon. ) Musculoskeletal: Normal Psychiatric: Normal Mood Description: Calm, Depressed and Flat Affect: Flat Speech Pattern: Clear and Appropriate Laboratory and Diagnostics Result Diagrams: 06/14/20 04:34 06/14/20 04:34 Labs: 06/09/20 16:34 Blood Blood Culture - Final 06/09/20 16:25 Blood Blood Culture - Final 06/09/20 21:16 Leg - Right Wound Culture - Final Providencia Rettgeri Proteus Mirabilis Laboratory WBC 14.6 X10^3/uL (3.6-10.0) H 06/14/20 04:34 RBC 3.09 X10^6/uL (4.7-6.0) L 06/14/20 04:34 Hgb 8.8 g/dL (13.5-18.0) L 06/14/20 04:34 Hct 26.8 % (42.0-54.0) L 06/14/20 04:34 MCV 86.8 fL (80.0-100.0) 06/14/20 04:34 MCH 28.5 pg (27.0-34.0) 06/14/20 04:34 MCHC 32.9 g/dL (33.0-35.0) L 06/14/20 04:34 RDW 18.3 % (11.6-16.5) H 06/14/20 04:34 Plt Count 749 X10^3/uL (150.0-450.0) H 06/14/20 04:34 Plt Count Comment Increased (ADEQUATE) 06/11/20 05:25 MPV 7.3 fL (7.4-11.0) L 06/14/20 04:34 Neut % (Auto) 66.8 % (42.0-75.0) 06/14/20 04:34 Lymph % (Auto) 21.9 % (21.0-51.0) 06/14/20 04:34 [place] % (Auto) 8.9 % (0.0-13.0) 06/14/20 04:34 Eos % (Auto) 1.9 % (0.9-2.9) 06/14/20 04:34 Baso % (Auto) 0.5 % (0.2-1.0) 06/14/20 04:34 Neut # (Auto) 9.8 x10^3/uL (2.2-4.8) H 06/14/20 04:34 Lymph # (Auto) 3.2 X10^3/uL (1.3-2.9) H 06/14/20 04:34 [place] # (Auto) 1.3 x10^3/uL (0.3-0.8) H 06/14/20 04:34 Eos # (Auto) 0.3 x10^3/uL (0.0-0.2) H 06/14/20 04:34 Baso # (Auto) 0.1 X10^3/uL (0.0-0.1) 06/14/20 04:34 Absolute Nucleated RBC 0.7 /100WBC 06/14/20 04:34 Total Counted 100 06/09/20 16:34 Neutrophils % (Manual) 69 % (39-76) 06/09/20 16:34 Band Neutrophils % 5 % (0-10) 06/09/20 16:34 Lymphocytes % (Manual) 18 % (13-43) 06/09/20 16:34 Monocytes % (Manual) 5 % (4-9) 06/09/20 16:34 Eosinophils % (Manual) 3 % (0-6) 06/09/20 16:34 Plt Morphology Comment Normal (NORMAL) 06/11/20 05:25 RBC Morphology Abnormal (NORMAL) 06/11/20 05:25 Dimorphic RBCs Noted 06/11/20 05:25 Polychromasia Slight 06/11/20 05:25 Hypochromasia Slight A 06/11/20 05:25 Poikilocytosis Slight A 06/11/20 05:25 Anisocytosis 2+ A 06/11/20 05:25 Sickle Cells Slight A 06/11/20 05:25 Target Cells 1+ A 06/11/20 05:25 PT 15.2 SECONDS (11.8-14.3) 06/09/20 16:25 INR Target Range - 06/09/20 16:25 INR 1.26 (0.8-1.3) 06/09/20 16:25 Sodium 141 mmol/L (136-145) 06/14/20 04:34 Corrected Sodium TNP 06/14/20 04:34 Potassium 4.2 mmol/L (3.5-5.1) 06/14/20 04:34 Chloride 110 mmol/L (98-107) H 06/14/20 04:34 Carbon Dioxide 21.9 mmol/L (21-32) 06/14/20 04:34 BUN 10 mg/dL (7-18) 06/14/20 04:34 Creatinine 0.89 mg/dL (0.70-1.30) 06/14/20 04:34 Est GFR (MDRD) Af Amer > 60 (>60) 06/14/20 04:34 Est GFR (MDRD) Non-Af > 60 (>60) 06/14/20 04:34 Glucose 90 mg/dL (65-99) 06/14/20 04:34 Calcium 8.3 mg/dL (8.5-10.1) L 06/14/20 04:34 Corrected Calcium 9.4 mg/dL (8.5-10.1) 06/14/20 04:34 Total Bilirubin 3.40 mg/dL (0.2-1.0) H 06/14/20 04:34 AST 194 Units/L (15-37) H 06/14/20 04:34 ALT 104 Units/L (12-78) H 06/14/20 04:34 Alkaline Phosphatase 120 Units/L (46-116) H 06/14/20 04:34 Total Protein 6.6 g/dL (6.4-8.2) 06/14/20 04:34 Albumin 2.6 g/dL (3.4-5.0) L 06/14/20 04:34 Globulin 4.0 g/dL (2.5-4.5) 06/14/20 04:34 Albumin/Globulin Ratio 0.7 Ratio (1.1-2.1) L 06/14/20 04:34 Vancomycin Trough 13.5 ug/mL (15-20) L 06/12/20 22:33 SARS CoV-2 RNA Rapid MAGNOLIA Negative (NEGATIVE) 06/09/20 20:47 Blood Type B POSITIVE 06/09/20 18:24 Antibody Screen Negative 06/09/20 18:24 Crossmatch See Detail 06/09/20 18:24 Plan (1) Sickle cell anemia: Status: Acute Plan: Hgb stabilized (2) Ulcer of leg, chronic, right: Status: Chronic Plan: IV antibiotics Wound care . May be able to change to p.o. antibiotics soon. Continue Santyl to the wound daily. Will need to continue Santyl as an outpatient.
[2020-06-14] MEDS ORDERED: ZOFRAN INJ 4 MG VIAL IVP PRN (22:38)
[2020-06-14] MEDS ORDERED: PHENERGAN INJ 25 MG IM PRN (22:58)
[2020-06-15] MEDS: NS 1000 ML 1,000 ML IV SCH ×4 (02:13→20:43)
[2020-06-15] MEDS: DILAUDID INJ IVP PRN ×2 (02:13→07:21)
[2020-06-15] MEDS: ZOSYN VIAL 3.375 GRAMS 3.375 G in NS 100 ML IV + SPIKE MINIBAG* 100 ML IV SCH ×3 (05:21→21:03)
[2020-06-15 05:33] LABS: BASOPHILS # (AUTO) 0.1 X10^3/uL (0.0-0.1); BASOPHILS % (AUTO) 0.7 % (0.2-1.0); EOSINOPHILS # (AUTO) 0.4 x10^3/uL (0.0-0.2); HEMATOCRIT 28.3 % (42.0-54.0); HEMOGLOBIN 9.4 g/dL (13.5-18.0); LYMPHOCYTES # (AUTO) 2.6 X10^3/uL (1.3-2.9); LYMPHOCYTES % (AUTO) 27.8 % (21.0-51.0); MEAN CORPUSCULAR HEMOGLOBIN 28.6 pg (27.0-34.0); MEAN CORPUSCULAR HGB CONC 33.4 g/dL (33.0-35.0); MEAN CORPUSCULAR VOLUME 85.6 fL (80.0-100.0); MEAN PLATELET VOLUME 7.5 fL (7.4-11.0); MONOCYTES # (AUTO) 0.7 x10^3/uL (0.3-0.8); MONOCYTES % (AUTO) 7.3 % (0.0-13.0); NEUTROPHILS # (AUTO) 5.6 x10^3/uL (2.2-4.8); NEUTROPHILS % (AUTO) 60.2 % (42.0-75.0); PLATELET COUNT 706 X10^3/uL (150.0-450.0); RED CELL DISTRIBUTION WIDTH 18.3 % (11.6-16.5); WHITE BLOOD COUNT 9.3 X10^3/uL (3.6-10.0)
[2020-06-15 05:45] LABS: ALANINE AMINOTRANSFERASE 208 Units/L (12-78); ALKALINE PHOSPHATASE 165 Units/L (46-116); ASPARTATE AMINO TRANSFERASE 236 Units/L (15-37); BLOOD UREA NITROGEN 11 mg/dL (7-18); CALCIUM 8.5 mg/dL (8.5-10.1); CARBON DIOXIDE 21.5 mmol/L (21-32); CHLORIDE 107 mmol/L (98-107); COR CA(FOR HYPOALB) 9.3 mg/dL (8.5-10.1); CREATININE 0.87 mg/dL (0.70-1.30); SODIUM 139 mmol/L (136-145); TOTAL PROTEIN 7.4 g/dL (6.4-8.2); eGFR NON BLACK RACES > 60 (>60)
[2020-06-15 06:12] LABS: ANISOCYTOSIS SLIGHT; HYPOCHROMASIA SLIGHT; PLATELET MORPHOLOGY COMMENT NORMAL (NORMAL)
[2020-06-15] MEDS: LOVENOX INJ 40 MG SYR SC SCH (10:48)
[2020-06-15] MEDS: ROXICODONE TAB 5 MG PO PRN ×3 (11:18→20:42)
[2020-06-15] MEDS ORDERED: DILAUDID INJ ONE ×2 (19:33→19:43)
--- NOTE | 2020-06-15 21:44 | PCM.PROG ---
Progress Note Progress Note for Day of Date of Exam: 06/15/20 Subjective Subjective: Pt is a 35 year old male past medical history of sickle cell disease, anemia, depression, admitted for symptomatic anemia and s/p debridement of chronic right lower leg wound/ulceration. Pt has no concerns this morning. Labs/imaging: Wbc 9.3, Hgb 9.4, Platelet 706, Na 139, K 3.9, Creatinine 0.87, Glucose 86. Pt has received a total of 4 units packed red blood cells, hgb stabilized. Bilirubin and liver enzymes elevated compared to baseline, will increase IVF NS to 125ml/h, d/c levaquin, continue IV Zosyn for wound cultures positive for Proteus mirabilis, Providentia. Will order oxycodone prn for pain control. Wound care with Santyl. General surgery following, will follow up recommendations. Anticipate switching over to po antibiotics soon. Continue to monitor and follow up labs/imaging in the morning. Past Medical Family Social History Past Med/Fam/Surg Hx: No changes since H&P Allergies: Allergies Egg Derived Allergy (Verified 10/12/17 21:04) mayonnaise Allergy (Verified 10/12/17 21:04) morphine Allergy (Verified 10/13/17 05:57) ondansetron [From Zofran] Allergy (Verified 10/13/17 05:57) Review of Systems ROS: No change since H&P Vital Signs and I&O's Vital Signs: Temperature 98.8 F Pulse Rate [Left Brachial] 88 Pulse Rate 88 Respiratory Rate 12 Blood Pressure [Right Arm] 110/62 Blood Pressure [Left Arm] 113/58 Blood Pressure 110/58 O2 Sat by Pulse Oximetry 100 Intake and Output: Intake & Output 06/12/20 06/13/20 06/14/20 06/15/20 23:59 23:59 23:59 23:59 Intake Total 3840 / 3840 3475 / 3475 2479 / 2479 2637 / 2637 Output Total 3624 / 3624 2575 / 2575 2675 / 2675 1625 / 1625 Balance 216 / 216 900 / 900 -196 / -196 1012 / 1012 Physical Exam Oriented: Normal, Time, Person and Place Eyes: Normal Ear: Normal Nose: Normal Throat: Normal Respiratory: Normal Cardiovascular: Normal : Normal Auscultation: Bowel Sounds: Normal Tenderness: Normal Skin: Tender and Wound ( Will continue Santyl to the wounds . May be able to change to po antibiiotics soon. ) Musculoskeletal: Normal Psychiatric: Normal Mood Description: Calm, Depressed and Flat Affect: Flat Speech Pattern: Clear and Appropriate Laboratory and Diagnostics Result Diagrams: 06/15/20 04:36 06/15/20 04:36 Labs: 06/09/20 16:34 Blood Blood Culture - Final 06/09/20 16:25 Blood Blood Culture - Final 06/09/20 21:16 Leg - Right Wound Culture - Final Providencia Rettgeri Proteus Mirabilis Laboratory WBC 9.3 X10^3/uL (3.6-10.0) 06/15/20 04:36 RBC 3.30 X10^6/uL (4.7-6.0) L 06/15/20 04:36 Hgb 9.4 g/dL (13.5-18.0) L 06/15/20 04:36 Hct 28.3 % (42.0-54.0) L 06/15/20 04:36 MCV 85.6 fL (80.0-100.0) 06/15/20 04:36 MCH 28.6 pg (27.0-34.0) 06/15/20 04:36 MCHC 33.4 g/dL (33.0-35.0) 06/15/20 04:36 RDW 18.3 % (11.6-16.5) H 06/15/20 04:36 Plt Count 706 X10^3/uL (150.0-450.0) H 06/15/20 04:36 Plt Count Comment Increased (ADEQUATE) 06/15/20 04:36 MPV 7.5 fL (7.4-11.0) 06/15/20 04:36 Neut % (Auto) 60.2 % (42.0-75.0) 06/15/20 04:36 Lymph % (Auto) 27.8 % (21.0-51.0) 06/15/20 04:36 [place] % (Auto) 7.3 % (0.0-13.0) 06/15/20 04:36 Eos % (Auto) 4.0 % (0.9-2.9) H 06/15/20 04:36 Baso % (Auto) 0.7 % (0.2-1.0) 06/15/20 04:36 Neut # (Auto) 5.6 x10^3/uL (2.2-4.8) H 06/15/20 04:36 Lymph # (Auto) 2.6 X10^3/uL (1.3-2.9) 06/15/20 04:36 [place] # (Auto) 0.7 x10^3/uL (0.3-0.8) 06/15/20 04:36 Eos # (Auto) 0.4 x10^3/uL (0.0-0.2) H 06/15/20 04:36 Baso # (Auto) 0.1 X10^3/uL (0.0-0.1) 06/15/20 04:36 Absolute Nucleated RBC 0.6 /100WBC 06/15/20 04:36 Total Counted 100 06/09/20 16:34 Neutrophils % (Manual) 69 % (39-76) 06/09/20 16:34 Band Neutrophils % 5 % (0-10) 06/09/20 16:34 Lymphocytes % (Manual) 18 % (13-43) 06/09/20 16:34 Monocytes % (Manual) 5 % (4-9) 06/09/20 16:34 Eosinophils % (Manual) 3 % (0-6) 06/09/20 16:34 Plt Morphology Comment Normal (NORMAL) 06/15/20 04:36 RBC Morphology Abnormal (NORMAL) 06/15/20 04:36 Dimorphic RBCs Noted 06/11/20 05:25 Polychromasia Slight 06/11/20 05:25 Hypochromasia Slight A 06/15/20 04:36 Poikilocytosis Slight A 06/11/20 05:25 Anisocytosis Slight A 06/15/20 04:36 Sickle Cells Slight A 06/11/20 05:25 Target Cells 1+ A 06/11/20 05:25 PT 15.2 SECONDS (11.8-14.3) 06/09/20 16:25 INR Target Range - 06/09/20 16:25 INR 1.26 (0.8-1.3) 06/09/20 16:25 Sodium 139 mmol/L (136-145) 06/15/20 04:36 Corrected Sodium TNP 06/15/20 04:36 Potassium 3.9 mmol/L (3.5-5.1) 06/15/20 04:36 Chloride 107 mmol/L (98-107) 06/15/20 04:36 Carbon Dioxide 21.5 mmol/L (21-32) 06/15/20 04:36 BUN 11 mg/dL (7-18) 06/15/20 04:36 Creatinine 0.87 mg/dL (0.70-1.30) 06/15/20 04:36 Est GFR (MDRD) Af Amer > 60 (>60) 06/15/20 04:36 Est GFR (MDRD) Non-Af > 60 (>60) 06/15/20 04:36 Glucose 86 mg/dL (65-99) 06/15/20 04:36 Calcium 8.5 mg/dL (8.5-10.1) 06/15/20 04:36 Corrected Calcium 9.3 mg/dL (8.5-10.1) 06/15/20 04:36 Total Bilirubin 5.10 mg/dL (0.2-1.0) H 06/15/20 04:36 AST 236 Units/L (15-37) H 06/15/20 04:36 ALT 208 Units/L (12-78) H 06/15/20 04:36 Alkaline Phosphatase 165 Units/L (46-116) H 06/15/20 04:36 Total Protein 7.4 g/dL (6.4-8.2) 06/15/20 04:36 Albumin 3.0 g/dL (3.4-5.0) L 06/15/20 04:36 Globulin 4.4 g/dL (2.5-4.5) 06/15/20 04:36 Albumin/Globulin Ratio 0.7 Ratio (1.1-2.1) L 06/15/20 04:36 Vancomycin Trough 13.5 ug/mL (15-20) L 06/12/20 22:33 SARS CoV-2 RNA Rapid MAGNOLIA Negative (NEGATIVE) 06/09/20 20:47 Blood Type B POSITIVE 06/09/20 18:24 Antibody Screen Negative 06/09/20 18:24 Crossmatch See Detail 06/09/20 18:24 Plan (1) Sickle cell anemia: Status: Acute Plan: Hgb stabilized (2) Ulcer of leg, chronic, right: Status: Chronic Plan: IV antibiotics Wound care . May be able to change to p.o. antibiotics soon. Continue Santyl to the wound daily. Will need to continue Santyl as an outpatient.
--- NOTE | 2020-06-15 23:24 | PCM.PROG ---
Progress Note Subjective Subjective: Pt is a 35 year old male past medical history of sickle cell disease, anemia, depression, admitted for symptomatic anemia and s/p debridement of chronic right lower leg wound/ulceration. Pt has no concerns this morning. Labs/imaging: Wbc 9.3, Hgb 9.4, Platelet 706, Na 139, K 3.9, Creatinine 0.87, Glucose 86. Pt has received a total of 4 units packed red blood cells, hgb stabilized. Bilirubin and liver enzymes elevated compared to baseline, will increase IVF NS to 125ml/h, d/c levaquin, continue IV Zosyn for wound cultures positive for Proteus mirabilis, Providentia. Will order oxycodone prn for pain control. Wound care with Santyl. General surgery following, will follow up recommendations. Anticipate switching over to po antibiotics soon. Continue to monitor and follow up labs/imaging in the morning. GENERAL SURGERY- As above . Wound dressing done by me today. Wound continues to improve . Cellulitis resolved with some early granulation tissue. Santyl applied . All bacteria sensitive to Cirpro except the Pseudomaonas but I think this can mostly be treated with the Santyl dressings alone Past Medical Family Social History Past Med/Fam/Surg Hx: No changes since H&P Allergies: Allergies Egg Derived Allergy (Verified 10/12/17 21:04) mayonnaise Allergy (Verified 10/12/17 21:04) morphine Allergy (Verified 10/13/17 05:57) ondansetron [From Zofran] Allergy (Verified 10/13/17 05:57) Review of Systems ROS: No change since H&P Vital Signs and I&O's Vital Signs: Temperature 98.8 F Pulse Rate [Left Brachial] 88 Pulse Rate 88 Respiratory Rate 12 Blood Pressure [Right Arm] 110/62 Blood Pressure [Left Arm] 113/58 Blood Pressure 110/58 O2 Sat by Pulse Oximetry 100 Intake and Output: Intake & Output 06/12/20 06/13/20 06/14/20 06/15/20 23:59 23:59 23:59 23:59 Intake Total 3840 / 3840 3475 / 3475 2479 / 2479 3187 / 3187 Output Total 3624 / 3624 2575 / 2575 2675 / 2675 1625 / 1625 Balance 216 / 216 900 / 900 -196 / -196 1562 / 1562 Physical Exam Oriented: Normal, Time, Person and Place Eyes: Normal Ear: Normal Nose: Normal Throat: Normal Respiratory: Normal Cardiovascular: Normal : Normal Auscultation: Bowel Sounds: Normal Tenderness: Normal Skin: Tender and Wound ( Will continue Santyl to the wounds . ) Musculoskeletal: Normal Psychiatric: Normal Mood Description: Calm, Depressed and Flat Affect: Flat Speech Pattern: Clear and Appropriate Laboratory and Diagnostics Result Diagrams: 06/15/20 04:36 06/15/20 04:36 Labs: 06/09/20 16:34 Blood Blood Culture - Final 06/09/20 16:25 Blood Blood Culture - Final 06/09/20 21:16 Leg - Right Wound Culture - Final Providencia Rettgeri Proteus Mirabilis [facility] WBC 9.3 X10^3/uL (3.6-10.0) 06/15/20 04:36 RBC 3.30 X10^6/uL (4.7-6.0) L 06/15/20 04:36 Hgb 9.4 g/dL (13.5-18.0) L 06/15/20 04:36 Hct 28.3 % (42.0-54.0) L 06/15/20 04:36 MCV 85.6 fL (80.0-100.0) 06/15/20 04:36 MCH 28.6 pg (27.0-34.0) 06/15/20 04:36 MCHC 33.4 g/dL (33.0-35.0) 06/15/20 04:36 RDW 18.3 % (11.6-16.5) H 06/15/20 04:36 Plt Count 706 X10^3/uL (150.0-450.0) H 06/15/20 04:36 Plt Count Comment Increased (ADEQUATE) 06/15/20 04:36 MPV 7.5 fL (7.4-11.0) 06/15/20 04:36 Neut % (Auto) 60.2 % (42.0-75.0) 06/15/20 04:36 Lymph % (Auto) 27.8 % (21.0-51.0) 06/15/20 04:36 [place] % (Auto) 7.3 % (0.0-13.0) 06/15/20 04:36 Eos % (Auto) 4.0 % (0.9-2.9) H 06/15/20 04:36 Baso % (Auto) 0.7 % (0.2-1.0) 06/15/20 04:36 Neut # (Auto) 5.6 x10^3/uL (2.2-4.8) H 06/15/20 04:36 Lymph # (Auto) 2.6 X10^3/uL (1.3-2.9) 06/15/20 04:36 [place] # (Auto) 0.7 x10^3/uL (0.3-0.8) 06/15/20 04:36 Eos # (Auto) 0.4 x10^3/uL (0.0-0.2) H 06/15/20 04:36 Baso # (Auto) 0.1 X10^3/uL (0.0-0.1) 06/15/20 04:36 Absolute Nucleated RBC 0.6 /100WBC 06/15/20 04:36 Total Counted 100 06/09/20 16:34 Neutrophils % (Manual) 69 % (39-76) 06/09/20 16:34 Band Neutrophils % 5 % (0-10) 06/09/20 16:34 Lymphocytes % (Manual) 18 % (13-43) 06/09/20 16:34 Monocytes % (Manual) 5 % (4-9) 06/09/20 16:34 Eosinophils % (Manual) 3 % (0-6) 06/09/20 16:34 Plt Morphology Comment Normal (NORMAL) 06/15/20 04:36 RBC Morphology Abnormal (NORMAL) 06/15/20 04:36 Dimorphic RBCs Noted 06/11/20 05:25 Polychromasia Slight 06/11/20 05:25 Hypochromasia Slight A 06/15/20 04:36 Poikilocytosis Slight A 06/11/20 05:25 Anisocytosis Slight A 06/15/20 04:36 Sickle Cells Slight A 06/11/20 05:25 Target Cells 1+ A 06/11/20 05:25 PT 15.2 SECONDS (11.8-14.3) 06/09/20 16:25 INR Target Range - 06/09/20 16:25 INR 1.26 (0.8-1.3) 06/09/20 16:25 Sodium 139 mmol/L (136-145) 06/15/20 04:36 Corrected Sodium TNP 06/15/20 04:36 Potassium 3.9 mmol/L (3.5-5.1) 06/15/20 04:36 Chloride 107 mmol/L (98-107) 06/15/20 04:36 Carbon Dioxide 21.5 mmol/L (21-32) 06/15/20 04:36 BUN 11 mg/dL (7-18) 06/15/20 04:36 Creatinine 0.87 mg/dL (0.70-1.30) 06/15/20 04:36 Est GFR (MDRD) Af Amer > 60 (>60) 06/15/20 04:36 Est GFR (MDRD) Non-Af > 60 (>60) 06/15/20 04:36 Glucose 86 mg/dL (65-99) 06/15/20 04:36 Calcium 8.5 mg/dL (8.5-10.1) 06/15/20 04:36 Corrected Calcium 9.3 mg/dL (8.5-10.1) 06/15/20 04:36 Total Bilirubin 5.10 mg/dL (0.2-1.0) H 06/15/20 04:36 AST 236 Units/L (15-37) H 06/15/20 04:36 ALT 208 Units/L (12-78) H 06/15/20 04:36 Alkaline Phosphatase 165 Units/L (46-116) H 06/15/20 04:36 Total Protein 7.4 g/dL (6.4-8.2) 06/15/20 04:36 Albumin 3.0 g/dL (3.4-5.0) L 06/15/20 04:36 Globulin 4.4 g/dL (2.5-4.5) 06/15/20 04:36 Albumin/Globulin Ratio 0.7 Ratio (1.1-2.1) L 06/15/20 04:36 Vancomycin Trough 13.5 ug/mL (15-20) L 06/12/20 22:33 SARS CoV-2 RNA Rapid MAGNOLIA Negative (NEGATIVE) 06/09/20 20:47 Blood Type B POSITIVE 06/09/20 18:24 Antibody Screen Negative 06/09/20 18:24 Crossmatch See Detail 06/09/20 18:24 Plan (1) Sickle cell anemia: Status: Acute Plan: Hgb stabilized (2) Ulcer of leg, chronic, right: Status: Chronic Plan: Continue Santyl . Consider de-escalating to po Cipro only. Planning for D/C next week with nurse to see patient daily do dressings as home will probably not do as he is not home bound. I will see him again on Friday. Nurses instructed on the dressing changes. After D/C and wound is negative cleaner will need full thickness graft using Skin TE system and possibly wound vacuum. Wound vac may be hard to continue due his small leg and the near circumferential nature of the right leg wound.
[2020-06-16] MEDS: ROXICODONE TAB 5 MG PO PRN ×4 (03:17→20:00)
[2020-06-16 05:04] LABS: BASOPHILS % (AUTO) 0.6 % (0.2-1.0); EOSINOPHILS # (AUTO) 0.6 x10^3/uL (0.0-0.2); EOSINOPHILS % (AUTO) 7.1 % (0.9-2.9); HEMATOCRIT 26.5 % (42.0-54.0); HEMOGLOBIN 8.7 g/dL (13.5-18.0); LYMPHOCYTES # (AUTO) 4.5 X10^3/uL (1.3-2.9); LYMPHOCYTES % (AUTO) 53.4 % (21.0-51.0); MEAN CORPUSCULAR HEMOGLOBIN 28.6 pg (27.0-34.0); MEAN CORPUSCULAR HGB CONC 32.9 g/dL (33.0-35.0); MEAN CORPUSCULAR VOLUME 86.9 fL (80.0-100.0); MEAN PLATELET VOLUME 7.7 fL (7.4-11.0); MONOCYTES # (AUTO) 0.8 x10^3/uL (0.3-0.8); NEUTROPHILS # (AUTO) 2.4 x10^3/uL (2.2-4.8); NEUTROPHILS % (AUTO) 28.9 % (42.0-75.0); PLATELET COUNT 651 X10^3/uL (150.0-450.0); RED BLOOD COUNT 3.04 X10^6/uL (4.7-6.0); RED CELL DISTRIBUTION WIDTH 18.2 % (11.6-16.5); WHITE BLOOD COUNT 8.4 X10^3/uL (3.6-10.0)
[2020-06-16 05:17] LABS: ALANINE AMINOTRANSFERASE 135 Units/L (12-78); ALBUMIN 2.9 g/dL (3.4-5.0); ALKALINE PHOSPHATASE 137 Units/L (46-116); ASPARTATE AMINO TRANSFERASE 98 Units/L (15-37); BLOOD UREA NITROGEN 14 mg/dL (7-18); CALCIUM 8.7 mg/dL (8.5-10.1); CARBON DIOXIDE 22.4 mmol/L (21-32); CHLORIDE 108 mmol/L (98-107); COR CA(FOR HYPOALB) 9.6 mg/dL (8.5-10.1); SODIUM 140 mmol/L (136-145); eGFR NON BLACK RACES > 60 (>60)
[2020-06-16] MEDS: ZOSYN VIAL 3.375 GRAMS 3.375 G in NS 100 ML IV + SPIKE MINIBAG* 100 ML IV SCH ×3 (05:42→21:10)
[2020-06-16 05:52] LABS: ANISOCYTOSIS SLIGHT; GIANT PLATELET RARE; PLATELET MORPHOLOGY COMMENT ABNORMAL (NORMAL)
[2020-06-16 05:53] LABS: HYPOCHROMASIA SLIGHT
[2020-06-16] MEDS: LOVENOX INJ 40 MG SYR SC SCH (10:04)
[2020-06-16] MEDS: NS 1000 ML 1,000 ML IV SCH ×3 (10:29→21:09)
--- NOTE | 2020-06-16 11:27 | DR.PROGNOT ---
HOSPITAL PROGRESS NOTE Progress Note for Day of: Progress Note Date: 06/16/20 Chief Complaint Chief Complaint: Wound right leg. See previous notes. Past Medical Family Social History Past Med/Fam/Surg Hx: No changes since H&P Changes in Past Med/Fam/Surg Hx: As above Allergies: Allergies Egg Derived Allergy (Verified 10/12/17 21:04) mayonnaise Allergy (Verified 10/12/17 21:04) morphine Allergy (Verified 10/13/17 05:57) ondansetron [From Zofran] Allergy (Verified 10/13/17 05:57) Review Of Systems ROS: No change since H&P Vital Signs Vital Signs: Temperature 98.6 F Pulse Rate [Left Brachial] 70 Pulse Rate 88 Respiratory Rate 20 Blood Pressure [Right Arm] 108/63 Blood Pressure [Left Arm] 113/58 Blood Pressure 110/58 O2 Sat by Pulse Oximetry 96 Physical Exam Oriented: Normal, Time, Person and Place Eyes: Normal Ear: Normal Nose: Normal Throat: Normal Respiratory: Normal Cardiovascular: Normal : Normal GI:Auscultation: Normal GI:Palpation: Normal GI: Tenderness: Normal Skin: Tender and Wound ( Will continue Santyl to the wounds . ) Musculoskeletal: Normal Psychiatric: Normal Mood Description: Calm, Depressed and Flat Affect: Flat Speech Pattern: Clear and Appropriate Laboratory and Diagnostics Result Diagrams: 06/16/20 04:10 06/16/20 04:10 Labs: 06/09/20 16:34 Blood Blood Culture - Final 06/09/20 16:25 Blood Blood Culture - Final 06/09/20 21:16 Leg - Right Wound Culture - Final Providencia Rettgeri Proteus Mirabilis [facility] WBC 8.4 X10^3/uL (3.6-10.0) 06/16/20 04:10 RBC 3.04 X10^6/uL (4.7-6.0) L 06/16/20 04:10 Hgb 8.7 g/dL (13.5-18.0) L 06/16/20 04:10 Hct 26.5 % (42.0-54.0) L 06/16/20 04:10 MCV 86.9 fL (80.0-100.0) 06/16/20 04:10 MCH 28.6 pg (27.0-34.0) 06/16/20 04:10 MCHC 32.9 g/dL (33.0-35.0) L 06/16/20 04:10 RDW 18.2 % (11.6-16.5) H 06/16/20 04:10 Plt Count 651 X10^3/uL (150.0-450.0) H 06/16/20 04:10 Plt Count Comment Increased (ADEQUATE) 06/16/20 04:10 MPV 7.7 fL (7.4-11.0) 06/16/20 04:10 Neut % (Auto) 28.9 % (42.0-75.0) L 06/16/20 04:10 Lymph % (Auto) 53.4 % (21.0-51.0) H 06/16/20 04:10 [place] % (Auto) 10.0 % (0.0-13.0) 06/16/20 04:10 Eos % (Auto) 7.1 % (0.9-2.9) H 06/16/20 04:10 Baso % (Auto) 0.6 % (0.2-1.0) 06/16/20 04:10 Neut # (Auto) 2.4 x10^3/uL (2.2-4.8) 06/16/20 04:10 Lymph # (Auto) 4.5 X10^3/uL (1.3-2.9) H 06/16/20 04:10 [place] # (Auto) 0.8 x10^3/uL (0.3-0.8) 06/16/20 04:10 Eos # (Auto) 0.6 x10^3/uL (0.0-0.2) H 06/16/20 04:10 Baso # (Auto) 0.0 X10^3/uL (0.0-0.1) 06/16/20 04:10 Absolute Nucleated RBC 0.3 /100WBC 06/16/20 04:10 Total Counted 100 06/09/20 16:34 Neutrophils % (Manual) 69 % (39-76) 06/09/20 16:34 Band Neutrophils % 5 % (0-10) 06/09/20 16:34 Lymphocytes % (Manual) 18 % (13-43) 06/09/20 16:34 Monocytes % (Manual) 5 % (4-9) 06/09/20 16:34 Eosinophils % (Manual) 3 % (0-6) 06/09/20 16:34 Giant Platelets Rare 06/16/20 04:10 Plt Morphology Comment Abnormal (NORMAL) 06/16/20 04:10 RBC Morphology Abnormal (NORMAL) 06/16/20 04:10 Dimorphic RBCs Noted 06/11/20 05:25 Polychromasia Slight 06/11/20 05:25 Hypochromasia Slight A 06/16/20 04:10 Poikilocytosis Slight A 06/11/20 05:25 Anisocytosis Slight A 06/16/20 04:10 Sickle Cells Slight A 06/11/20 05:25 Target Cells 1+ A 06/11/20 05:25 PT 15.2 SECONDS (11.8-14.3) 06/09/20 16:25 INR Target Range - 06/09/20 16:25 INR 1.26 (0.8-1.3) 06/09/20 16:25 Sodium 140 mmol/L (136-145) 06/16/20 04:10 Corrected Sodium TNP 06/16/20 04:10 Potassium 4.0 mmol/L (3.5-5.1) 06/16/20 04:10 Chloride 108 mmol/L (98-107) H 06/16/20 04:10 Carbon Dioxide 22.4 mmol/L (21-32) 06/16/20 04:10 BUN 14 mg/dL (7-18) 06/16/20 04:10 Creatinine 0.80 mg/dL (0.70-1.30) 06/16/20 04:10 Est GFR (MDRD) Af Amer > 60 (>60) 06/16/20 04:10 Est GFR (MDRD) Non-Af > 60 (>60) 06/16/20 04:10 Glucose 91 mg/dL (65-99) 06/16/20 04:10 Calcium 8.7 mg/dL (8.5-10.1) 06/16/20 04:10 Corrected Calcium 9.6 mg/dL (8.5-10.1) 06/16/20 04:10 Total Bilirubin 2.40 mg/dL (0.2-1.0) H 06/16/20 04:10 AST 98 Units/L (15-37) H 06/16/20 04:10 ALT 135 Units/L (12-78) H 06/16/20 04:10 Alkaline Phosphatase 137 Units/L (46-116) H 06/16/20 04:10 Total Protein 7.0 g/dL (6.4-8.2) 06/16/20 04:10 Albumin 2.9 g/dL (3.4-5.0) L 06/16/20 04:10 Globulin 4.1 g/dL (2.5-4.5) 06/16/20 04:10 Albumin/Globulin Ratio 0.7 Ratio (1.1-2.1) L 06/16/20 04:10 Vancomycin Trough 13.5 ug/mL (15-20) L 06/12/20 22:33 SARS CoV-2 RNA Rapid MAGNOLIA Negative (NEGATIVE) 06/09/20 20:47 Blood Type B POSITIVE 06/09/20 18:24 Antibody Screen Negative 06/09/20 18:24 Crossmatch See Detail 06/09/20 18:24 Assessment and Plan 1: Discussed with his attending , Dr. Oates.Will continue Santyl and tentatively plan harvesting full thickness skin graft early in the week and plan preparation of full thinness graft using Skin TE procedure and place Wound vacuum the end of the week. Recommend changing antibiotics to PO Cipro. Problem Patient Problems: Patient Problems (Updated 06/09/20 @ 20:42 by Martínez Nichole) Cellulitis of left leg (Acute) L03.116 Decubitus ulcer of left leg (Acute) L89.899 Signs and symptoms of anemia (Acute) D64.9
--- NOTE | 2020-06-16 13:34 | PCM.PROG ---
Progress Note Progress Note for Day of Date of Exam: 06/16/20 Subjective Subjective: Pt is a 35 year old male past medical history of sickle cell disease, anemia, depression, admitted for symptomatic anemia and s/p debridement of chronic right lower leg wound/ulceration. Pt is reporting increase leg pain this morning, no other acute concerns. Labs/imaging: Wbc 8.4, Hgb 8.7, Platelet 651, Na 140, K 4.0, Creatinine 0.80, Glucose 91. Pt has received a total of 4 units packed red blood cells, hgb stabilized. Bilirubin and liver enzymes trending back down, will likely fluctuate due to sickle cell disease. Treatment course includes: IVF NS@125ml/h, IV Zosyn for wound cultures positive for Proteus mirabilis, Providentia. Increase oxycodone prn for adequate pain control. Wound care with Santyl. General surgery following, see recommendations and plan below. Anticipate switching over to po ciprofloxacin on Friday, continue IV antibiotics over the weekend. Continue to monitor and follow up labs/imaging in the morning. Past Medical Family Social History Past Med/Fam/Surg Hx: No changes since H&P Allergies: Allergies Egg Derived Allergy (Verified 10/12/17 21:04) mayonnaise Allergy (Verified 10/12/17 21:04) morphine Allergy (Verified 10/13/17 05:57) ondansetron [From Zofran] Allergy (Verified 10/13/17 05:57) Review of Systems ROS: No change since H&P Vital Signs and I&O's Vital Signs: Temperature 98.6 F Pulse Rate [Left Brachial] 70 Pulse Rate 88 Respiratory Rate 20 Blood Pressure [Right Arm] 108/63 Blood Pressure [Left Arm] 113/58 Blood Pressure 110/58 O2 Sat by Pulse Oximetry 96 Intake and Output: Intake & Output 06/13/20 06/14/20 06/15/20 06/16/20 23:59 23:59 23:59 23:59 Intake Total 3475 / 3475 2479 / 2479 4087 / 4087 1020 / 1020 Output Total 2575 / 2575 2675 / 2675 2350 / 2350 0 / 0 Balance 900 / 900 -196 / -196 1737 / 1737 1020 / 1020 Physical Exam Oriented: Normal, Time, Person and Place Eyes: Normal Ear: Normal Nose: Normal Throat: Normal Respiratory: Normal Cardiovascular: Normal : Normal Auscultation: Bowel Sounds: Normal Tenderness: Normal Skin: Tender and Wound ( Will continue Santyl to the wounds . ) Musculoskeletal: Normal Psychiatric: Normal Mood Description: Calm, Depressed and Flat Affect: Flat Speech Pattern: Clear and Appropriate Laboratory and Diagnostics Result Diagrams: 06/16/20 04:10 06/16/20 04:10 Labs: 06/09/20 16:34 Blood Blood Culture - Final 06/09/20 16:25 Blood Blood Culture - Final 06/09/20 21:16 Leg - Right Wound Culture - Final Providencia Rettgeri Proteus Mirabil[facility] WBC 8.4 X10^3/uL (3.6-10.0) 06/16/20 04:10 RBC 3.04 X10^6/uL (4.7-6.0) L 06/16/20 04:10 Hgb 8.7 g/dL (13.5-18.0) L 06/16/20 04:10 Hct 26.5 % (42.0-54.0) L 06/16/20 04:10 MCV 86.9 fL (80.0-100.0) 06/16/20 04:10 MCH 28.6 pg (27.0-34.0) 06/16/20 04:10 MCHC 32.9 g/dL (33.0-35.0) L 06/16/20 04:10 RDW 18.2 % (11.6-16.5) H 06/16/20 04:10 Plt Count 651 X10^3/uL (150.0-450.0) H 06/16/20 04:10 Plt Count Comment Increased (ADEQUATE) 06/16/20 04:10 MPV 7.7 fL (7.4-11.0) 06/16/20 04:10 Neut % (Auto) 28.9 % (42.0-75.0) L 06/16/20 04:10 Lymph % (Auto) 53.4 % (21.0-51.0) H 06/16/20 04:10 [place] % (Auto) 10.0 % (0.0-13.0) 06/16/20 04:10 Eos % (Auto) 7.1 % (0.9-2.9) H 06/16/20 04:10 Baso % (Auto) 0.6 % (0.2-1.0) 06/16/20 04:10 Neut # (Auto) 2.4 x10^3/uL (2.2-4.8) 06/16/20 04:10 Lymph # (Auto) 4.5 X10^3/uL (1.3-2.9) H 06/16/20 04:10 [place] # (Auto) 0.8 x10^3/uL (0.3-0.8) 06/16/20 04:10 Eos # (Auto) 0.6 x10^3/uL (0.0-0.2) H 06/16/20 04:10 Baso # (Auto) 0.0 X10^3/uL (0.0-0.1) 06/16/20 04:10 Absolute Nucleated RBC 0.3 /100WBC 06/16/20 04:10 Total Counted 100 06/09/20 16:34 Neutrophils % (Manual) 69 % (39-76) 06/09/20 16:34 Band Neutrophils % 5 % (0-10) 06/09/20 16:34 Lymphocytes % (Manual) 18 % (13-43) 06/09/20 16:34 Monocytes % (Manual) 5 % (4-9) 06/09/20 16:34 Eosinophils % (Manual) 3 % (0-6) 06/09/20 16:34 Giant Platelets Rare 06/16/20 04:10 Plt Morphology Comment Abnormal (NORMAL) 06/16/20 04:10 RBC Morphology Abnormal (NORMAL) 06/16/20 04:10 Dimorphic RBCs Noted 06/11/20 05:25 Polychromasia Slight 06/11/20 05:25 Hypochromasia Slight A 06/16/20 04:10 Poikilocytosis Slight A 06/11/20 05:25 Anisocytosis Slight A 06/16/20 04:10 Sickle Cells Slight A 06/11/20 05:25 Target Cells 1+ A 06/11/20 05:25 PT 15.2 SECONDS (11.8-14.3) 06/09/20 16:25 INR Target Range - 06/09/20 16:25 INR 1.26 (0.8-1.3) 06/09/20 16:25 Sodium 140 mmol/L (136-145) 06/16/20 04:10 Corrected Sodium TNP 06/16/20 04:10 Potassium 4.0 mmol/L (3.5-5.1) 06/16/20 04:10 Chloride 108 mmol/L (98-107) H 06/16/20 04:10 Carbon Dioxide 22.4 mmol/L (21-32) 06/16/20 04:10 BUN 14 mg/dL (7-18) 06/16/20 04:10 Creatinine 0.80 mg/dL (0.70-1.30) 06/16/20 04:10 Est GFR (MDRD) Af Amer > 60 (>60) 06/16/20 04:10 Est GFR (MDRD) Non-Af > 60 (>60) 06/16/20 04:10 Glucose 91 mg/dL (65-99) 06/16/20 04:10 Calcium 8.7 mg/dL (8.5-10.1) 06/16/20 04:10 Corrected Calcium 9.6 mg/dL (8.5-10.1) 06/16/20 04:10 Total Bilirubin 2.40 mg/dL (0.2-1.0) H 06/16/20 04:10 AST 98 Units/L (15-37) H 06/16/20 04:10 ALT 135 Units/L (12-78) H 06/16/20 04:10 Alkaline Phosphatase 137 Units/L (46-116) H 06/16/20 04:10 Total Protein 7.0 g/dL (6.4-8.2) 06/16/20 04:10 Albumin 2.9 g/dL (3.4-5.0) L 06/16/20 04:10 Globulin 4.1 g/dL (2.5-4.5) 06/16/20 04:10 Albumin/Globulin Ratio 0.7 Ratio (1.1-2.1) L 06/16/20 04:10 Vancomycin Trough 13.5 ug/mL (15-20) L 06/12/20 22:33 SARS CoV-2 RNA Rapid MAGNOLIA Negative (NEGATIVE) 06/09/20 20:47 Blood Type B POSITIVE 06/09/20 18:24 Antibody Screen Negative 06/09/20 18:24 Crossmatch See Detail 06/09/20 18:24 Plan (1) Sickle cell anemia: Status: Acute Plan: Hgb stabilized (2) Ulcer of leg, chronic, right: Status: Chronic Plan: 1: Discussed with his attending , Dr. Oates. Will continue Santyl and tentatively plan harvesting full thickness skin graft early in the week and plan preparation of full thinness graft using Skin TE procedure and place Wound vacuum the end of the week. Recommend changing antibiotics to PO Cipro.
[2020-06-17] MEDS: ROXICODONE TAB 5 MG PO PRN ×5 (01:30→19:37)
[2020-06-17] MEDS: ZOSYN VIAL 3.375 GRAMS 3.375 G in NS 100 ML IV + SPIKE MINIBAG* 100 ML IV SCH ×2 (05:37→14:36)
[2020-06-17] MEDS: NS 1000 ML 1,000 ML IV SCH ×3 (05:37→19:41)
[2020-06-17 06:25] LABS: BASOPHILS # (AUTO) 0.2 X10^3/uL (0.0-0.1); BASOPHILS % (AUTO) 2.6 % (0.2-1.0); EOSINOPHILS # (AUTO) 0.7 x10^3/uL (0.0-0.2); EOSINOPHILS % (AUTO) 10.8 % (0.9-2.9); HEMATOCRIT 25.3 % (42.0-54.0); HEMOGLOBIN 8.5 g/dL (13.5-18.0); LYMPHOCYTES # (AUTO) 4.5 X10^3/uL (1.3-2.9); LYMPHOCYTES % (AUTO) 66.5 % (21.0-51.0); MEAN CORPUSCULAR HEMOGLOBIN 28.8 pg (27.0-34.0); MEAN CORPUSCULAR HGB CONC 33.4 g/dL (33.0-35.0); MEAN CORPUSCULAR VOLUME 86.2 fL (80.0-100.0); MEAN PLATELET VOLUME 7.5 fL (7.4-11.0); MONOCYTES # (AUTO) 0.6 x10^3/uL (0.3-0.8); MONOCYTES % (AUTO) 8.3 % (0.0-13.0); NEUTROPHILS # (AUTO) 0.8 x10^3/uL (2.2-4.8); NEUTROPHILS % (AUTO) 11.8 % (42.0-75.0); PLATELET COUNT 617 X10^3/uL (150.0-450.0); RED BLOOD COUNT 2.94 X10^6/uL (4.7-6.0); WHITE BLOOD COUNT 6.8 X10^3/uL (3.6-10.0)
[2020-06-17 06:38] LABS: ALANINE AMINOTRANSFERASE 99 Units/L (12-78); ALBUMIN 2.9 g/dL (3.4-5.0); ALKALINE PHOSPHATASE 116 Units/L (46-116); ASPARTATE AMINO TRANSFERASE 62 Units/L (15-37); BLOOD UREA NITROGEN 11 mg/dL (7-18); CALCIUM 8.8 mg/dL (8.5-10.1); CARBON DIOXIDE 23.4 mmol/L (21-32); CHLORIDE 108 mmol/L (98-107); COR CA(FOR HYPOALB) 9.7 mg/dL (8.5-10.1); CREATININE 0.73 mg/dL (0.70-1.30); SODIUM 141 mmol/L (136-145); TOTAL PROTEIN 6.9 g/dL (6.4-8.2); eGFR NON BLACK RACES > 60 (>60)
[2020-06-17 06:49] LABS: BASOPHILS % (MANUAL) 1 % (0-1); PLATELET MORPHOLOGY COMMENT NORMAL (NORMAL)
[2020-06-17 06:50] LABS: ANISOCYTOSIS SLIGHT; SICKLE CELLS SLIGHT; TARGET CELLS SLIGHT
[2020-06-17] MEDS: LOVENOX INJ 40 MG SYR SC SCH (08:50)
--- NOTE | 2020-06-17 10:19 | PCM.PROG ---
Progress Note - Progress Note for Day of Date of Exam: 06/17/20 - Subjective Subjective: IS A 35 YEAR OLD PATIENT OF WHO WAS ADMITTED FOR TREATMENT OF SYMPTOMATIC ANEMIA, SICKLE CELL CRISIS, AND RIGHT LOWER LEG WOUND/ULCERATION. HE IS STATUS POST DEBRIDEMENT AND GENERAL SURGERY PLANS FOR A SKIN GRAFT AT SOME POINT NEXT WEEK. HEMOGLOBIN WAS INITIALLY 4.6 ON ADMISSION. HE HAS RECEIVED FOUR UNITS OF PRBC SINCE ADMISSION. TODAY, HE IS ALERT AND ORIENTED, LYING IN BED ON MORNING ROUNDS. HE CONTINUES WITH PAIN TO THE RIGHT LEG THIS MORNING. HE HAS NO OTHER COMPLAINTS. ON EXAMINATION, HEART IS REGULAR IN RATE AND RHYTHM. BILATERAL LUNGS ARE CLEAR TO AUSCULTATION. ABDOMEN IS FLAT, SOFT, AND NON-TENDER WITH NORMAL BOWEL SOUNDS NOTED IN ALL QUADRANTS. RIGHT LEG WOUND HAS A DRESSING WRAPPED WITH AN SERA BANDAGE. DRESSINGS ARE DRY AND INTACT. HIS VITALS THIS MORNING ARE: 97.1-03-12-100-100/63. LABS WERE OBTAINED. ABNORMAL LAB VALUES INCLUDE THE FOLLOWING: RBC 2.94, HGB 8.5, HCT 25.3, PLT COUNT 617, CHLORIDE 108, TOTAL BILI 2.20, AST 62, ALT 99, ALBUMIN 2.9. WOUND IS POSITIVE FOR GROWTH OF PROVIDENCIA RETTGERI AND PROTEUS MIRABILIS. BLOOD CULTURES ARE NEG ATIVE. HE IS CURRENTLY RECEIVING NORMAL SALINE AT 125 ML/HR, ZOSYN 3.375G IV TID, LOVENOX 40MG SC DAILY, ROXICODONE 10MG PO Q4H PRN, PHENERGAN 12.5MG IM Q6H PRN, AND SANTYL FOR WOUND CARE. GENERAL SURGERY WILL CONTINUE TO FOLLOW. WE WILL CONTINUE WITH IV ANTIBIOTICS AND CURRENT PLAN OF CARE TODAY. OTHERWISE, WE WILL FOLLOW U PWITH AM LABS AND CONTINUE TO MONITOR. TIME SPENT ON CLINICAL ASSESSMENT, REVIEWING LABS AND IMAGING, DECISION MAKING, AND DOCUMENTATION GREATER THAN 45 MINUTES. - Past Medical Family Social History Past Med/Fam/Surg Hx: No changes since H&P Allergies: Allergies Egg Derived Allergy (Verified 10/12/17 21:04) mayonnaise Allergy (Verified 10/12/17 21:04) morphine Allergy (Verified 10/13/17 05:57) ondansetron [From Zofran] Allergy (Verified 10/13/17 05:57) - Review of Systems ROS: No change since H&P - Vital Signs and I&O's Vital Signs: Temperature 97.8 F Pulse Rate [Left Brachial] 50 Pulse Rate 88 Respiratory Rate 18 Blood Pressure [Right Arm] 100/63 Blood Pressure [Left Arm] 113/58 Blood Pressure 110/58 O2 Sat by Pulse Oximetry 100 Intake and Output: Intake & Output 06/14/20 06/15/20 06/16/20 06/17/20 11:59 11:59 11:59 11:59 Intake Total 3243 / 3243 2134 / 2134 4457 / 4457 2420 / 2420 Output Total 2975 / 2975 2500 / 2500 1325 / 1325 3600 / 3600 Balance 268 / 268 -366 / -366 3132 / 3132 -1180 / -1180 - Physical Exam Oriented: Normal, Time, Person, Place Eyes: Normal Ear: Normal Nose: Normal Throat: Normal Respiratory: Normal Cardiovascular: Normal : Normal Auscultation: Bowel Sounds: Normal Palpation: Normal Tenderness: Normal Skin: Tender, Wound (Will continue Santyl to the wounds .) Musculoskeletal: Normal Psychiatric: Normal Mood Description: Calm, Depressed, Flat Affect: Flat Speech Pattern: Clear, Appropriate - Laboratory and Diagnostics Result Diagrams: 06/17/20 05:46 06/17/20 05:46 Labs: 06/09/20 16:34 Blood Blood Culture - Final 06/09/20 16:25 Blood Blood Culture - Final 06/09/20 21:16 Leg - Right Wound Culture - Final [facility] WBC 6.8 X10^3/uL (3.6-10.0) 06/17/20 05:46 RBC 2.94 X10^6/uL (4.7-6.0) L 06/17/20 05:46 Hgb 8.5 g/dL (13.5-18.0) L 06/17/20 05:46 Hct 25.3 % (42.0-54.0) L 06/17/20 05:46 MCV 86.2 fL (80.0-100.0) 06/17/20 05:46 MCH 28.8 pg (27.0-34.0) 06/17/20 05:46 MCHC 33.4 g/dL (33.0-35.0) 06/17/20 05:46 RDW 18.0 % (11.6-16.5) H 06/17/20 05:46 Plt Count 617 X10^3/uL (150.0-450.0) H 06/17/20 05:46 Plt Count Comment Increased (ADEQUATE) 06/17/20 05:46 MPV 7.5 fL (7.4-11.0) 06/17/20 05:46 Neut % (Auto) 11.8 % (42.0-75.0) L 06/17/20 05:46 Lymph % (Auto) 66.5 % (21.0-51.0) H 06/17/20 05:46 [place] % (Auto) 8.3 % (0.0-13.0) 06/17/20 05:46 Eos % (Auto) 10.8 % (0.9-2.9) H 06/17/20 05:46 Baso % (Auto) 2.6 % (0.2-1.0) H 06/17/20 05:46 Neut # (Auto) 0.8 x10^3/uL (2.2-4.8) L 06/17/20 05:46 Lymph # (Auto) 4.5 X10^3/uL (1.3-2.9) H 06/17/20 05:46 [place] # (Auto) 0.6 x10^3/uL (0.3-0.8) 06/17/20 05:46 Eos # (Auto) 0.7 x10^3/uL (0.0-0.2) H 06/17/20 05:46 Baso # (Auto) 0.2 X10^3/uL (0.0-0.1) H 06/17/20 05:46 Absolute Nucleated RBC 0.4 /100WBC 06/17/20 05:46 Total Counted 100 06/17/20 05:46 Neutrophils % (Manual) 13 % (39-76) L 06/17/20 05:46 Band Neutrophils % 5 % (0-10) 06/09/20 16:34 Lymphocytes % (Manual) 67 % (13-43) H 06/17/20 05:46 Monocytes % (Manual) 9 % (4-9) 06/17/20 05:46 Eosinophils % (Manual) 10 % (0-6) H 06/17/20 05:46 Basophils % (Manual) 1 % (0-1) 06/17/20 05:46 Giant Platelets Rare 06/16/20 04:10 Plt Morphology Comment Normal (NORMAL) 06/17/20 05:46 RBC Morphology Abnormal (NORMAL) 06/17/20 05:46 Dimorphic RBCs Noted 06/11/20 05:25 Polychromasia Slight 06/11/20 05:25 Hypochromasia Slight A 06/16/20 04:10 Poikilocytosis Slight A 06/11/20 05:25 Anisocytosis Slight A 06/17/20 05:46 Sickle Cells Slight A 06/17/20 05:46 Target Cells Slight A 06/17/20 05:46 PT 15.2 SECONDS (11.8-14.3) 06/09/20 16:25 INR Target Range - 06/09/20 16:25 INR 1.26 (0.8-1.3) 06/09/20 16:25 Sodium 141 mmol/L (136-145) 06/17/20 05:46 Corrected Sodium TNP 06/17/20 05:46 Potassium 4.1 mmol/L (3.5-5.1) 06/17/20 05:46 Chloride 108 mmol/L (98-107) H 06/17/20 05:46 Carbon Dioxide 23.4 mmol/L (21-32) 06/17/20 05:46 BUN 11 mg/dL (7-18) 06/17/20 05:46 Creatinine 0.73 mg/dL (0.70-1.30) 06/17/20 05:46 Est GFR (MDRD) Af Amer > 60 (>60) 06/17/20 05:46 Est GFR (MDRD) Non-Af > 60 (>60) 06/17/20 05:46 Glucose 88 mg/dL (65-99) 06/17/20 05:46 Calcium 8.8 mg/dL (8.5-10.1) 06/17/20 05:46 Corrected Calcium 9.7 mg/dL (8.5-10.1) 06/17/20 05:46 Total Bilirubin 2.20 mg/dL (0.2-1.0) H 06/17/20 05:46 AST 62 Units/L (15-37) H 06/17/20 05:46 ALT 99 Units/L (12-78) H 06/17/20 05:46 Alkaline Phosphatase 116 Units/L (46-116) 06/17/20 05:46 Total Protein 6.9 g/dL (6.4-8.2) 06/17/20 05:46 Albumin 2.9 g/dL (3.4-5.0) L 06/17/20 05:46 Globulin 4.0 g/dL (2.5-4.5) 06/17/20 05:46 Albumin/Globulin Ratio 0.7 Ratio (1.1-2.1) L 06/17/20 05:46 Vancomycin Trough 13.5 ug/mL (15-20) L 06/12/20 22:33 SARS CoV-2 RNA Rapid MAGNOLIA Negative (NEGATIVE) 06/09/20 20:47 Blood Type B POSITIVE 06/09/20 18:24 Antibody Screen Negative 06/09/20 18:24 Crossmatch See Detail 06/09/20 18:24 - Plan (1) Sickle cell anemia with crisis Status: Acute Plan: NORMAL SALINE AT 125 ML/HR, ZOSYN 3.375G IV TID, LOVENOX 40MG SC DAILY, ROXICODONE 10MG PO Q4H PRN, PHENERGAN 12.5MG IM Q6H PRN, AND SANTYL FOR WOUND CARE (2) Ulcer of leg, chronic, right Status: Chronic Qualifiers: Non-pressure ulcer stage: unspecified non-pressure ulcer stage Qualified Code(s): L97.919 - Non-pressure chronic ulcer of unspecified part of right lower leg with unspecified severity Plan: Will continue Santyl and tentatively plan harvesting full thickness skin graft early in the week and plan preparation of full thinness graft using Skin TE procedure and place Wound vacuum the end of the week.
[2020-06-17] MEDS: NICOTINE PATCH TD SCH (15:45)
[2020-06-18] MEDS: ROXICODONE TAB 5 MG PO PRN ×6 (00:08→21:18)
[2020-06-18] MEDS: ZOSYN VIAL 3.375 GRAMS 3.375 G in NS 100 ML IV + SPIKE MINIBAG* 100 ML IV SCH ×4 (03:50→21:01)
[2020-06-18] MEDS: NS 1000 ML 1,000 ML IV SCH ×2 (03:51→12:29)
[2020-06-18 05:07] LABS: BASOPHILS % (AUTO) 0.4 % (0.2-1.0); EOSINOPHILS # (AUTO) 0.9 x10^3/uL (0.0-0.2); EOSINOPHILS % (AUTO) 11.4 % (0.9-2.9); HEMATOCRIT 25.6 % (42.0-54.0); HEMOGLOBIN 8.4 g/dL (13.5-18.0); LYMPHOCYTES # (AUTO) 3.8 X10^3/uL (1.3-2.9); LYMPHOCYTES % (AUTO) 49.5 % (21.0-51.0); MEAN CORPUSCULAR HEMOGLOBIN 28.7 pg (27.0-34.0); MEAN CORPUSCULAR VOLUME 86.9 fL (80.0-100.0); MEAN PLATELET VOLUME 7.7 fL (7.4-11.0); MONOCYTES # (AUTO) 0.7 x10^3/uL (0.3-0.8); MONOCYTES % (AUTO) 9.5 % (0.0-13.0); NEUTROPHILS # (AUTO) 2.2 x10^3/uL (2.2-4.8); NEUTROPHILS % (AUTO) 29.2 % (42.0-75.0); PLATELET COUNT 646 X10^3/uL (150.0-450.0); RED BLOOD COUNT 2.94 X10^6/uL (4.7-6.0); RED CELL DISTRIBUTION WIDTH 17.9 % (11.6-16.5); WHITE BLOOD COUNT 7.6 X10^3/uL (3.6-10.0)
[2020-06-18 05:17] LABS: ALANINE AMINOTRANSFERASE 90 Units/L (12-78); ALKALINE PHOSPHATASE 113 Units/L (46-116); ASPARTATE AMINO TRANSFERASE 61 Units/L (15-37); BLOOD UREA NITROGEN 10 mg/dL (7-18); CARBON DIOXIDE 25.5 mmol/L (21-32); CHLORIDE 108 mmol/L (98-107); COR CA(FOR HYPOALB) 9.8 mg/dL (8.5-10.1); CREATININE 0.75 mg/dL (0.70-1.30); SODIUM 142 mmol/L (136-145); TOTAL PROTEIN 7.1 g/dL (6.4-8.2); eGFR NON BLACK RACES > 60 (>60)
[2020-06-18 05:28] LABS: ANISOCYTOSIS SLIGHT; GIANT PLATELET FEW; HYPOCHROMASIA SLIGHT; MICROCYTOSIS SLIGHT; PLATELET MORPHOLOGY COMMENT ABNORMAL (NORMAL)
[2020-06-18 05:29] LABS: SICKLE CELLS SLIGHT; TARGET CELLS SLIGHT
[2020-06-18] MEDS: LOVENOX INJ 40 MG SYR SC SCH (09:56)
[2020-06-18] MEDS: NICOTINE PATCH TD SCH (09:56)
--- NOTE | 2020-06-18 12:03 | DR.PROGNOT ---
Hospital Progress Notes - Progress Note for Day of: Progress Note Date: 06/18/20 - Chief Complaint Chief Complaint: c/o constant pain of the leg ulcer . moderate drainage . mild anemia with normal WBC. normal BUN/Creat. afebrile . - Past Medical Family Social History Past Med/Fam/Surg Hx: No changes since H&P Changes in Past Med/Fam/Surg Hx: As above Allergies: Allergies Egg Derived Allergy (Verified 10/12/17 21:04) mayonnaise Allergy (Verified 10/12/17 21:04) morphine Allergy (Verified 10/13/17 05:57) ondansetron [From Zofran] Allergy (Verified 10/13/17 05:57) - Review Of Systems ROS: No change since H&P - Vital Signs Vital Signs: Temperature 98.0 F Pulse Rate [Left Brachial] 56 Pulse Rate 88 Respiratory Rate 18 Blood Pressure [Right Arm] 102/58 Blood Pressure [Left Arm] 113/58 Blood Pressure 110/58 O2 Sat by Pulse Oximetry 98 - Physical Exam Oriented: Normal, Time, Person, Place Eyes: Normal Ear: Normal Nose: Normal Throat: Normal Respiratory: Normal Cardiovascular: Normal : Normal GI:Auscultation: Normal GI:Palpation: Normal GI: Tenderness: Normal Skin: Tender, Wound (Will continue Santyl to the wounds .) Musculoskeletal: Normal Psychiatric: Normal Mood Description: Calm, Depressed, Flat Affect: Flat Speech Pattern: Clear, Appropriate - Laboratory and Diagnostics Result Diagrams: 06/18/20 04:20 06/18/20 04:20 Labs: 06/09/20 16:34 Blood Blood Culture - Final 06/09/20 16:25 Blood Blood Culture - Final 06/09/20 21:16 Leg - Right Wound Culture - Final [facility]ett[facility] WBC 7.6 X10^3/uL (3.6-10.0) 06/18/20 04:20 RBC 2.94 X10^6/uL (4.7-6.0) L 06/18/20 04:20 Hgb 8.4 g/dL (13.5-18.0) L 06/18/20 04:20 Hct 25.6 % (42.0-54.0) L 06/18/20 04:20 MCV 86.9 fL (80.0-100.0) 06/18/20 04:20 MCH 28.7 pg (27.0-34.0) 06/18/20 04:20 MCHC 33.0 g/dL (33.0-35.0) 06/18/20 04:20 RDW 17.9 % (11.6-16.5) H 06/18/20 04:20 Plt Count 646 X10^3/uL (150.0-450.0) H 06/18/20 04:20 Plt Count Comment Increased (ADEQUATE) 06/18/20 04:20 MPV 7.7 fL (7.4-11.0) 06/18/20 04:20 Neut % (Auto) 29.2 % (42.0-75.0) L 06/18/20 04:20 Lymph % (Auto) 49.5 % (21.0-51.0) 06/18/20 04:20 [place] % (Auto) 9.5 % (0.0-13.0) 06/18/20 04:20 Eos % (Auto) 11.4 % (0.9-2.9) H 06/18/20 04:20 Baso % (Auto) 0.4 % (0.2-1.0) 06/18/20 04:20 Neut # (Auto) 2.2 x10^3/uL (2.2-4.8) 06/18/20 04:20 Lymph # (Auto) 3.8 X10^3/uL (1.3-2.9) H 06/18/20 04:20 [place] # (Auto) 0.7 x10^3/uL (0.3-0.8) 06/18/20 04:20 Eos # (Auto) 0.9 x10^3/uL (0.0-0.2) H 06/18/20 04:20 Baso # (Auto) 0.0 X10^3/uL (0.0-0.1) 06/18/20 04:20 Absolute Nucleated RBC 0.2 /100WBC 06/18/20 04:20 Total Counted 100 06/17/20 05:46 Neutrophils % (Manual) 13 % (39-76) L 06/17/20 05:46 Band Neutrophils % 5 % (0-10) 06/09/20 16:34 Lymphocytes % (Manual) 67 % (13-43) H 06/17/20 05:46 Monocytes % (Manual) 9 % (4-9) 06/17/20 05:46 Eosinophils % (Manual) 10 % (0-6) H 06/17/20 05:46 Basophils % (Manual) 1 % (0-1) 06/17/20 05:46 Giant Platelets Few 06/18/20 04:20 Plt Morphology Comment Abnormal (NORMAL) 06/18/20 04:20 RBC Morphology Abnormal (NORMAL) 06/18/20 04:20 Dimorphic RBCs Noted 06/11/20 05:25 Polychromasia Slight 06/11/20 05:25 Hypochromasia Slight A 06/18/20 04:20 Poikilocytosis Slight A 06/11/20 05:25 Anisocytosis Slight A 06/18/20 04:20 Microcytosis Slight A 06/18/20 04:20 Sickle Cells Slight A 06/18/20 04:20 Target Cells Slight A 06/18/20 04:20 PT 15.2 SECONDS (11.8-14.3) 06/09/20 16:25 INR Target Range - 06/09/20 16:25 INR 1.26 (0.8-1.3) 06/09/20 16:25 Sodium 142 mmol/L (136-145) 06/18/20 04:20 Corrected Sodium TNP 06/18/20 04:20 Potassium 4.1 mmol/L (3.5-5.1) 06/18/20 04:20 Chloride 108 mmol/L (98-107) H 06/18/20 04:20 Carbon Dioxide 25.5 mmol/L (21-32) 06/18/20 04:20 BUN 10 mg/dL (7-18) 06/18/20 04:20 Creatinine 0.75 mg/dL (0.70-1.30) 06/18/20 04:20 Est GFR (MDRD) Af Amer > 60 (>60) 06/18/20 04:20 Est GFR (MDRD) Non-Af > 60 (>60) 06/18/20 04:20 Glucose 90 mg/dL (65-99) 06/18/20 04:20 Calcium 9.0 mg/dL (8.5-10.1) 06/18/20 04:20 Corrected Calcium 9.8 mg/dL (8.5-10.1) 06/18/20 04:20 Total Bilirubin 1.80 mg/dL (0.2-1.0) H 06/18/20 04:20 AST 61 Units/L (15-37) H 06/18/20 04:20 ALT 90 Units/L (12-78) H 06/18/20 04:20 Alkaline Phosphatase 113 Units/L (46-116) 06/18/20 04:20 Total Protein 7.1 g/dL (6.4-8.2) 06/18/20 04:20 Albumin 3.0 g/dL (3.4-5.0) L 06/18/20 04:20 Globulin 4.1 g/dL (2.5-4.5) 06/18/20 04:20 Albumin/Globulin Ratio 0.7 Ratio (1.1-2.1) L 06/18/20 04:20 Vancomycin Trough 13.5 ug/mL (15-20) L 06/12/20 22:33 SARS CoV-2 RNA Rapid MAGNOLIA Negative (NEGATIVE) 06/09/20 20:47 Blood Type B POSITIVE 06/09/20 18:24 Antibody Screen Negative 06/09/20 18:24 Crossmatch See Detail 06/09/20 18:24 - Assessment and Plan 1: chronic infected RT leg ulcer associated with sickle cell anemia . anemia required transfusion . anxiety and depression . same treatment and surgical plan as per Dr Haley . - Problem Patient Problems: Patient Problems Ulcer of leg, chronic, right (Chronic) L97.919 Sickle cell anemia with crisis (Acute) D57.00 Cellulitis of left leg (Acute) L03.116 Decubitus ulcer of left leg (Acute) L89.899 Signs and symptoms of anemia (Acute) D64.9
--- NOTE | 2020-06-18 21:08 | PCM.PROG ---
Progress Note - Progress Note for Day of Date of Exam: 06/18/20 - Subjective Subjective: IS A 35 YEAR OLD PATIENT OF WHO WAS ADMITTED FOR TREATMENT OF SYMPTOMATIC ANEMIA, SICKLE CELL CRISIS, AND RIGHT LOWER LEG WOUND/ULCERATION. HE IS STATUS POST DEBRIDEMENT AND GENERAL SURGERY PLANS FOR A SKIN GRAFT AT SOME POINT NEXT WEEK. HEMOGLOBIN WAS INITIALLY 4.6 ON ADMISSION. HE HAS RECEIVED FOUR UNITS OF PRBC SINCE ADMISSION. TODAY, HE IS ALERT AND ORIENTED, LYING IN BED ON MORNING ROUNDS. HE CONTINUES WITH PAIN TO THE RIGHT LEG THIS MORNING. HE HAS NO OTHER COMPLAINTS. ON EXAMINATION, HEART IS REGULAR IN RATE AND RHYTHM. BILATERAL LUNGS ARE CLEAR TO AUSCULTATION. ABDOMEN IS FLAT, SOFT, AND NON-TENDER WITH NORMAL BOWEL SOUNDS NOTED IN ALL QUADRANTS. RIGHT LEG WOUND HAS A DRESSING WRAPPED WITH AN SERA BANDAGE. DRESSINGS ARE DRY AND INTACT. HIS VITALS THIS MORNING ARE: 98.0-66-18-98%-102/58. LABS WERE OBTAINED. ABNORMAL LAB VALUES INCLUDE THE FOLLOWING: RBC 2.94, HGB 8.4, HCT 25.6, PLT COUNT 646, CHLORIDE 108, TOTAL BILI 1.80, AST 61, ALT 90, ALBUMIN 3.0. WOUND IS POSITIVE FOR GROWTH OF PROVIDENCIA RETTGERI AND PROTEUS MIRABILIS. BLOOD CULTURES ARE NEG ATIVE. HE IS CURRENTLY RECEIVING NORMAL SALINE AT 125 ML/HR, ZOSYN 3.375G IV TID, LOVENOX 40MG SC DAILY, ROXICODONE 10MG PO Q4H PRN, PHENERGAN 12.5MG IM Q6H PRN, AND SANTYL FOR WOUND CARE. GENERAL SURGERY WILL CONTINUE TO FOLLOW. WE WILL CONTINUE WITH IV ANTIBIOTICS AND CURRENT PLAN OF CARE TODAY. OTHERWISE, WE WILL FOLLOW UP WITH AM LABS AND CONTINUE TO MONITOR. TIME SPENT ON CLINICAL ASSESSMENT, REVIEWING LABS AND IMAGING, DECISION MAKING, AND DOCUMENTATION GREATER THAN 45 MINUTES. - Past Medical Family Social History Past Med/Fam/Surg Hx: No changes since H&P Allergies: Allergies Egg Derived Allergy (Verified 10/12/17 21:04) mayonnaise Allergy (Verified 10/12/17 21:04) morphine Allergy (Verified 10/13/17 05:57) ondansetron [From Zofran] Allergy (Verified 10/13/17 05:57) - Review of Systems ROS: No change since H&P - Vital Signs and I&O's Vital Signs: Temperature 98.9 F Pulse Rate [Left Brachial] 76 Pulse Rate 88 Respiratory Rate 18 Blood Pressure [Right Arm] 105/56 Blood Pressure [Left Arm] 113/58 Blood Pressure 110/58 O2 Sat by Pulse Oximetry 100 Intake and Output: Intake & Output 06/16/20 06/17/20 06/18/20 06/19/20 11:59 11:59 11:59 11:59 Intake Total 4457 / 4457 2420 / 2420 3650 / 3650 1370 / 1370 Output Total 1325 / 1325 3600 / 3600 3400 / 3400 1850 / 1850 Balance 3132 / 3132 -1180 / -1180 250 / 250 -480 / -480 - Physical Exam Oriented: Normal, Time, Person, Place Eyes: Normal Ear: Normal Nose: Normal Throat: Normal Respiratory: Normal Cardiovascular: Normal : Normal Auscultation: Bowel Sounds: Normal Tenderness: Normal Skin: Tender, Wound (Will continue Santyl to the wounds .) Musculoskeletal: Normal Psychiatric: Normal Mood Description: Calm, Depressed, Flat Affect: Flat Speech Pattern: Clear, Appropriate - Laboratory and Diagnostics Result Diagrams: 06/18/20 04:20 06/18/20 04:20 Labs: 06/09/20 16:34 Blood Blood Culture - Final 06/09/20 16:25 Blood Blood Culture - Final 06/09/20 21:16 Leg - Right Wound Culture - Final [facility] WBC 7.6 X10^3/uL (3.6-10.0) 06/18/20 04:20 RBC 2.94 X10^6/uL (4.7-6.0) L 06/18/20 04:20 Hgb 8.4 g/dL (13.5-18.0) L 06/18/20 04:20 Hct 25.6 % (42.0-54.0) L 06/18/20 04:20 MCV 86.9 fL (80.0-100.0) 06/18/20 04:20 MCH 28.7 pg (27.0-34.0) 06/18/20 04:20 MCHC 33.0 g/dL (33.0-35.0) 06/18/20 04:20 RDW 17.9 % (11.6-16.5) H 06/18/20 04:20 Plt Count 646 X10^3/uL (150.0-450.0) H 06/18/20 04:20 Plt Count Comment Increased (ADEQUATE) 06/18/20 04:20 MPV 7.7 fL (7.4-11.0) 06/18/20 04:20 Neut % (Auto) 29.2 % (42.0-75.0) L 06/18/20 04:20 Lymph % (Auto) 49.5 % (21.0-51.0) 06/18/20 04:20 [place] % (Auto) 9.5 % (0.0-13.0) 06/18/20 04:20 Eos % (Auto) 11.4 % (0.9-2.9) H 06/18/20 04:20 Baso % (Auto) 0.4 % (0.2-1.0) 06/18/20 04:20 Neut # (Auto) 2.2 x10^3/uL (2.2-4.8) 06/18/20 04:20 Lymph # (Auto) 3.8 X10^3/uL (1.3-2.9) H 06/18/20 04:20 [place] # (Auto) 0.7 x10^3/uL (0.3-0.8) 06/18/20 04:20 Eos # (Auto) 0.9 x10^3/uL (0.0-0.2) H 06/18/20 04:20 Baso # (Auto) 0.0 X10^3/uL (0.0-0.1) 06/18/20 04:20 Absolute Nucleated RBC 0.2 /100WBC 06/18/20 04:20 Total Counted 100 06/17/20 05:46 Neutrophils % (Manual) 13 % (39-76) L 06/17/20 05:46 Band Neutrophils % 5 % (0-10) 06/09/20 16:34 Lymphocytes % (Manual) 67 % (13-43) H 06/17/20 05:46 Monocytes % (Manual) 9 % (4-9) 06/17/20 05:46 Eosinophils % (Manual) 10 % (0-6) H 06/17/20 05:46 Basophils % (Manual) 1 % (0-1) 06/17/20 05:46 Giant Platelets Few 06/18/20 04:20 Plt Morphology Comment Abnormal (NORMAL) 06/18/20 04:20 RBC Morphology Abnormal (NORMAL) 06/18/20 04:20 Dimorphic RBCs Noted 06/11/20 05:25 Polychromasia Slight 06/11/20 05:25 Hypochromasia Slight A 06/18/20 04:20 Poikilocytosis Slight A 06/11/20 05:25 Anisocytosis Slight A 06/18/20 04:20 Microcytosis Slight A 06/18/20 04:20 Sickle Cells Slight A 06/18/20 04:20 Target Cells Slight A 06/18/20 04:20 PT 15.2 SECONDS (11.8-14.3) 06/09/20 16:25 INR Target Range - 06/09/20 16:25 INR 1.26 (0.8-1.3) 06/09/20 16:25 Sodium 142 mmol/L (136-145) 06/18/20 04:20 Corrected Sodium TNP 06/18/20 04:20 Potassium 4.1 mmol/L (3.5-5.1) 06/18/20 04:20 Chloride 108 mmol/L (98-107) H 06/18/20 04:20 Carbon Dioxide 25.5 mmol/L (21-32) 06/18/20 04:20 BUN 10 mg/dL (7-18) 06/18/20 04:20 Creatinine 0.75 mg/dL (0.70-1.30) 06/18/20 04:20 Est GFR (MDRD) Af Amer > 60 (>60) 06/18/20 04:20 Est GFR (MDRD) Non-Af > 60 (>60) 06/18/20 04:20 Glucose 90 mg/dL (65-99) 06/18/20 04:20 Calcium 9.0 mg/dL (8.5-10.1) 06/18/20 04:20 Corrected Calcium 9.8 mg/dL (8.5-10.1) 06/18/20 04:20 Total Bilirubin 1.80 mg/dL (0.2-1.0) H 06/18/20 04:20 AST 61 Units/L (15-37) H 06/18/20 04:20 ALT 90 Units/L (12-78) H 06/18/20 04:20 Alkaline Phosphatase 113 Units/L (46-116) 06/18/20 04:20 Total Protein 7.1 g/dL (6.4-8.2) 06/18/20 04:20 Albumin 3.0 g/dL (3.4-5.0) L 06/18/20 04:20 Globulin 4.1 g/dL (2.5-4.5) 06/18/20 04:20 Albumin/Globulin Ratio 0.7 Ratio (1.1-2.1) L 06/18/20 04:20 Vancomycin Trough 13.5 ug/mL (15-20) L 06/12/20 22:33 SARS CoV-2 RNA Rapid MAGNOLIA Negative (NEGATIVE) 06/09/20 20:47 Blood Type B POSITIVE 06/09/20 18:24 Antibody Screen Negative 06/09/20 18:24 Crossmatch See Detail 06/09/20 18:24 - Plan (1) Sickle cell anemia with crisis Status: Acute Plan: NORMAL SALINE AT 125 ML/HR, ZOSYN 3.375G IV TID, LOVENOX 40MG SC DAILY, ROXICODONE 10MG PO Q4H PRN, PHENERGAN 12.5MG IM Q6H PRN, AND SANTYL FOR WOUND CARE (2) Ulcer of leg, chronic, right Status: Chronic Qualifiers: Non-pressure ulcer stage: unspecified non-pressure ulcer stage Qualified Code(s): L97.919 - Non-pressure chronic ulcer of unspecified part of right lower leg with unspecified severity Plan: Will continue Santyl and tentatively plan harvesting full thickness skin graft early in the week and plan preparation of full thinness graft using Skin TE procedure and place Wound vacuum the end of the week.
[2020-06-19] MEDS: ROXICODONE TAB 5 MG PO PRN ×4 (02:39→19:32)
[2020-06-19 04:50] LABS: BASOPHILS # (AUTO) 0.4 X10^3/uL (0.0-0.1); BASOPHILS % (AUTO) 3.2 % (0.2-1.0); EOSINOPHILS # (AUTO) 0.9 x10^3/uL (0.0-0.2); EOSINOPHILS % (AUTO) 7.9 % (0.9-2.9); HEMATOCRIT 24.6 % (42.0-54.0); LYMPHOCYTES # (AUTO) 4.4 X10^3/uL (1.3-2.9); LYMPHOCYTES % (AUTO) 39.5 % (21.0-51.0); MEAN CORPUSCULAR HEMOGLOBIN 28.3 pg (27.0-34.0); MEAN CORPUSCULAR HGB CONC 32.5 g/dL (33.0-35.0); MEAN PLATELET VOLUME 7.8 fL (7.4-11.0); MONOCYTES # (AUTO) 0.9 x10^3/uL (0.3-0.8); MONOCYTES % (AUTO) 7.9 % (0.0-13.0); NEUTROPHILS # (AUTO) 4.6 x10^3/uL (2.2-4.8); NEUTROPHILS % (AUTO) 41.5 % (42.0-75.0); PLATELET COUNT 606 X10^3/uL (150.0-450.0); RED BLOOD COUNT 2.83 X10^6/uL (4.7-6.0); RED CELL DISTRIBUTION WIDTH 17.8 % (11.6-16.5); WHITE BLOOD COUNT 11.2 X10^3/uL (3.6-10.0)
[2020-06-19] MEDS: ZOSYN VIAL 3.375 GRAMS 3.375 G in NS 100 ML IV + SPIKE MINIBAG* 100 ML IV SCH (05:02)
[2020-06-19] MEDS: NS 1000 ML 1,000 ML IV SCH ×2 (05:02→20:14)
[2020-06-19 05:06] LABS: ALANINE AMINOTRANSFERASE 88 Units/L (12-78); ALBUMIN 2.9 g/dL (3.4-5.0); ALKALINE PHOSPHATASE 113 Units/L (46-116); ASPARTATE AMINO TRANSFERASE 66 Units/L (15-37); BLOOD UREA NITROGEN 14 mg/dL (7-18); CALCIUM 8.8 mg/dL (8.5-10.1); CARBON DIOXIDE 25.3 mmol/L (21-32); CHLORIDE 108 mmol/L (98-107); COR CA(FOR HYPOALB) 9.7 mg/dL (8.5-10.1); CREATININE 0.83 mg/dL (0.70-1.30); SODIUM 142 mmol/L (136-145); TOTAL PROTEIN 6.9 g/dL (6.4-8.2); eGFR NON BLACK RACES > 60 (>60)
[2020-06-19 05:25] LABS: ANISOCYTOSIS SLIGHT; HYPOCHROMASIA SLIGHT; PLATELET MORPHOLOGY COMMENT NORMAL (NORMAL)
[2020-06-19 05:26] LABS: SICKLE CELLS SLIGHT; TARGET CELLS SLIGHT
[2020-06-19] MEDS: NICOTINE PATCH TD SCH (09:27)
[2020-06-19] MEDS: CIPRO TAB 500 MG PO SCH ×2 (09:27→20:15)
[2020-06-19] MEDS: LOVENOX INJ 40 MG SYR SC SCH (09:34)
--- NOTE | 2020-06-19 15:48 | PCM.PROG ---
Progress Note Subjective Subjective: IS A 35 YEAR OLD PATIENT OF WHO WAS ADMITTED FOR TREATMENT OF SYMPTOMATIC ANEMIA, SICKLE CELL CRISIS, AND RIGHT LOWER LEG WOUND/ULCERATION. HE IS STATUS POST DEBRIDEMENT AND GENERAL SURGERY PLANS FOR A SKIN GRAFT AT SOME POINT NEXT WEEK. HEMOGLOBIN WAS INITIALLY 4.6 ON ADMISSION. HE HAS RECEIVED FOUR UNITS OF PRBC SINCE ADMISSION. TODAY, HE IS ALERT AND ORIENTED, LYING IN BED ON MORNING ROUNDS. HE CONTINUES WITH PAIN TO THE RIGHT LEG THIS MORNING. HE HAS NO OTHER COMPLAINTS. ON EXAMINATION, HEART IS REGULAR IN RATE AND RHYTHM. BILATERAL LUNGS ARE CLEAR TO AUSCULTATION. ABDOMEN IS FLAT, SOFT, AND NON-TENDER WITH NORMAL BOWEL SOUNDS NOTED IN ALL QUADRANTS. RIGHT LEG WOUND HAS A DRESSING WRAPPED WITH AN SERA BANDAGE. DRESSINGS ARE DRY AND INTACT. HIS VITALS THIS MORNING ARE: 98.0-66-18-98%-102/58. LABS WERE OBTAINED. ABNORMAL LAB VALUES INCLUDE THE FOLLOWING: RBC 2.94, HGB 8.4, HCT 25.6, PLT COUNT 646, CHLORIDE 108, TOTAL BILI 1.80, AST 61, ALT 90, ALBUMIN 3.0. WOUND IS POSITIVE FOR GROWTH OF PROVIDENCIA RETTGERI AND PROTEUS MIRABILIS. BLOOD CULTURES ARE NEGATIVE. HE IS CURRENTLY RECEIVING NORMAL SALINE AT 125 ML/HR, ZOSYN 3.375G IV TID, LOVENOX 40MG SC DAILY, ROXICODONE 10MG PO Q4H PRN, PHENERGAN 12.5MG IM Q6H PRN, AND SANTYL FOR WOUND CARE. GENERAL SURGERY WILL CONTINUE TO FOLLOW. WE WILL CONTINUE WITH IV ANTIBIOTICS AND CURRENT PLAN OF CARE TODAY. OTHERWISE, WE WILL FOLLOW UP WITH AM LABS AND CONTINUE TO MONITOR. TIME SPENT ON CLINICAL ASSESS MENT, REVIEWING LABS AND IMAGING, DECISION MAKING, AND DOCUMENTATION GREATER THAN 45 MINUTES. 06/19/20 As above .He has done well over the weekend . Plan for harvesting of full thickness skin graft tomorrow for preparation using Skin TE process and will plan placement this Friday. Risks of harvest discussed with the patient. Past Medical Family Social History Past Med/Fam/Surg Hx: No changes since H&P Allergies: Allergies Egg Derived Allergy (Verified 10/12/17 21:04) mayonnaise Allergy (Verified 10/12/17 21:04) morphine Allergy (Verified 10/13/17 05:57) ondansetron [From Zofran] Allergy (Verified 10/13/17 05:57) Review of Systems ROS: No change since H&P Vital Signs and I&O's Vital Signs: Temperature 98.1 F Pulse Rate [Left Brachial] 64 Pulse Rate 88 Respiratory Rate 18 Blood Pressure [Right Arm] 102/59 Blood Pressure [Left Arm] 113/58 Blood Pressure 110/58 O2 Sat by Pulse Oximetry 100 Intake and Output: Intake & Output 06/16/20 06/17/20 06/18/20 06/19/20 23:59 23:59 23:59 23:59 Intake Total 3320 / 3320 2670 / 2670 3370 / 3370 1240 / 1240 Output Total 2625 / 2625 3925 / 3925 2300 / 2300 880 / 880 Balance 695 / 695 -1255 / -1255 1070 / 1070 360 / 360 Physical Exam Oriented: Normal, Time, Person and Place Eyes: Normal Ear: Normal Nose: Normal Throat: Normal Respiratory: Normal Cardiovascular: Normal : Normal Auscultation: Bowel Sounds: Normal Tenderness: Normal Skin: Tender and Wound ( Will continue Santyl to the wounds . ) Musculoskeletal: Normal Psychiatric: Normal Mood Description: Calm, Depressed and Flat Affect: Flat Speech Pattern: Clear and Appropriate Laboratory and Diagnostics Result Diagrams: 06/19/20 04:15 06/19/20 04:15 Labs: 06/09/20 16:34 Blood Blood Culture - Final 06/09/20 16:25 Blood Blood Culture - Final 06/09/20 21:16 Leg - Right Wound Culture - Final [facility] WBC 11.2 X10^3/uL (3.6-10.0) H 06/19/20 04:15 RBC 2.83 X10^6/uL (4.7-6.0) L 06/19/20 04:15 Hgb 8.0 g/dL (13.5-18.0) L 06/19/20 04:15 Hct 24.6 % (42.0-54.0) L 06/19/20 04:15 MCV 87.0 fL (80.0-100.0) 06/19/20 04:15 MCH 28.3 pg (27.0-34.0) 06/19/20 04:15 MCHC 32.5 g/dL (33.0-35.0) L 06/19/20 04:15 RDW 17.8 % (11.6-16.5) H 06/19/20 04:15 Plt Count 606 X10^3/uL (150.0-450.0) H 06/19/20 04:15 Plt Count Comment Increased (ADEQUATE) 06/19/20 04:15 MPV 7.8 fL (7.4-11.0) 06/19/20 04:15 Neut % (Auto) 41.5 % (42.0-75.0) L 06/19/20 04:15 Lymph % (Auto) 39.5 % (21.0-51.0) 06/19/20 04:15 [place] % (Auto) 7.9 % (0.0-13.0) 06/19/20 04:15 Eos % (Auto) 7.9 % (0.9-2.9) H 06/19/20 04:15 Baso % (Auto) 3.2 % (0.2-1.0) H 06/19/20 04:15 Neut # (Auto) 4.6 x10^3/uL (2.2-4.8) 06/19/20 04:15 Lymph # (Auto) 4.4 X10^3/uL (1.3-2.9) H 06/19/20 04:15 [place] # (Auto) 0.9 x10^3/uL (0.3-0.8) H 06/19/20 04:15 Eos # (Auto) 0.9 x10^3/uL (0.0-0.2) H 06/19/20 04:15 Baso # (Auto) 0.4 X10^3/uL (0.0-0.1) H 06/19/20 04:15 Absolute Nucleated RBC 0.0 /100WBC 06/19/20 04:15 Total Counted 100 06/17/20 05:46 Neutrophils % (Manual) 13 % (39-76) L 06/17/20 05:46 Band Neutrophils % 5 % (0-10) 06/09/20 16:34 Lymphocytes % (Manual) 67 % (13-43) H 06/17/20 05:46 Monocytes % (Manual) 9 % (4-9) 06/17/20 05:46 Eosinophils % (Manual) 10 % (0-6) H 06/17/20 05:46 Basophils % (Manual) 1 % (0-1) 06/17/20 05:46 Giant Platelets Few 06/18/20 04:20 Plt Morphology Comment Normal (NORMAL) 06/19/20 04:15 RBC Morphology Abnormal (NORMAL) 06/19/20 04:15 Dimorphic RBCs Noted 06/11/20 05:25 Polychromasia Slight 06/11/20 05:25 Hypochromasia Slight A 06/19/20 04:15 Poikilocytosis Slight A 06/11/20 05:25 Anisocytosis Slight A 06/19/20 04:15 Microcytosis Slight A 06/18/20 04:20 Sickle Cells Slight A 06/19/20 04:15 Target Cells Slight A 06/19/20 04:15 PT 15.2 SECONDS (11.8-14.3) 06/09/20 16:25 INR Target Range - 06/09/20 16:25 INR 1.26 (0.8-1.3) 06/09/20 16:25 Sodium 142 mmol/L (136-145) 06/19/20 04:15 Corrected Sodium TNP 06/19/20 04:15 Potassium 4.1 mmol/L (3.5-5.1) 06/19/20 04:15 Chloride 108 mmol/L (98-107) H 06/19/20 04:15 Carbon Dioxide 25.3 mmol/L (21-32) 06/19/20 04:15 BUN 14 mg/dL (7-18) 06/19/20 04:15 Creatinine 0.83 mg/dL (0.70-1.30) 06/19/20 04:15 Est GFR (MDRD) Af Amer > 60 (>60) 06/19/20 04:15 Est GFR (MDRD) Non-Af > 60 (>60) 06/19/20 04:15 Glucose 91 mg/dL (65-99) 06/19/20 04:15 Calcium 8.8 mg/dL (8.5-10.1) 06/19/20 04:15 Corrected Calcium 9.7 mg/dL (8.5-10.1) 06/19/20 04:15 Total Bilirubin 1.70 mg/dL (0.2-1.0) H 06/19/20 04:15 AST 66 Units/L (15-37) H 06/19/20 04:15 ALT 88 Units/L (12-78) H 06/19/20 04:15 Alkaline Phosphatase 113 Units/L (46-116) 06/19/20 04:15 Total Protein 6.9 g/dL (6.4-8.2) 06/19/20 04:15 Albumin 2.9 g/dL (3.4-5.0) L 06/19/20 04:15 Globulin 4.0 g/dL (2.5-4.5) 06/19/20 04:15 Albumin/Globulin Ratio 0.7 Ratio (1.1-2.1) L 06/19/20 04:15 Vancomycin Trough 13.5 ug/mL (15-20) L 06/12/20 22:33 SARS CoV-2 RNA Rapid MAGNOLIA Negative (NEGATIVE) 06/09/20 20:47 Blood Type B POSITIVE 06/09/20 18:24 Antibody Screen Negative 06/09/20 18:24 Crossmatch See Detail 06/09/20 18:24 Plan (1) Sickle cell anemia with crisis: Status: Acute Plan: NORMAL SALINE AT 125 ML/HR, ZOSYN 3.375G IV TID, LOVENOX 40MG SC DAILY, ROXICODONE 10MG PO Q4H PRN, PHENERGAN 12.5MG IM Q6H PRN, AND SANTYL FOR WOUND CARE (2) Ulcer of leg, chronic, right: Status: Chronic Qualifiers: Non-pressure ulcer stage: unspecified non-pressure ulcer stage Qualified Code(s): L97.919 - Non-pressure chronic ulcer of unspecified part of right lower leg with unspecified severity Plan: For harvesting of full thickness skin graft tomorrow in AM.
[2020-06-20] MEDS: ROXICODONE TAB 5 MG PO PRN ×4 (01:26→20:15)
[2020-06-20] MEDS: NS 1000 ML 1,000 ML IV SCH ×3 (05:00→17:59)
[2020-06-20 05:58] LABS: BASOPHILS % (AUTO) 0.1 % (0.2-1.0); EOSINOPHILS # (AUTO) 0.7 x10^3/uL (0.0-0.2); EOSINOPHILS % (AUTO) 7.8 % (0.9-2.9); HEMATOCRIT 25.5 % (42.0-54.0); HEMOGLOBIN 8.3 g/dL (13.5-18.0); LYMPHOCYTES # (AUTO) 5.8 X10^3/uL (1.3-2.9); LYMPHOCYTES % (AUTO) 62.8 % (21.0-51.0); MEAN CORPUSCULAR HEMOGLOBIN 28.7 pg (27.0-34.0); MEAN CORPUSCULAR HGB CONC 32.7 g/dL (33.0-35.0); MEAN CORPUSCULAR VOLUME 87.6 fL (80.0-100.0); MONOCYTES # (AUTO) 0.8 x10^3/uL (0.3-0.8); MONOCYTES % (AUTO) 8.4 % (0.0-13.0); NEUTROPHILS # (AUTO) 1.9 x10^3/uL (2.2-4.8); NEUTROPHILS % (AUTO) 20.9 % (42.0-75.0); PLATELET COUNT 623 X10^3/uL (150.0-450.0); RED BLOOD COUNT 2.91 X10^6/uL (4.7-6.0); RED CELL DISTRIBUTION WIDTH 18.1 % (11.6-16.5); WHITE BLOOD COUNT 9.2 X10^3/uL (3.6-10.0)
[2020-06-20 06:12] LABS: ALANINE AMINOTRANSFERASE 88 Units/L (12-78); ALBUMIN 3.2 g/dL (3.4-5.0); ALKALINE PHOSPHATASE 126 Units/L (46-116); ASPARTATE AMINO TRANSFERASE 64 Units/L (15-37); BLOOD UREA NITROGEN 12 mg/dL (7-18); CALCIUM 9.6 mg/dL (8.5-10.1); CARBON DIOXIDE 27.7 mmol/L (21-32); CHLORIDE 108 mmol/L (98-107); COR CA(FOR HYPOALB) 10.2 mg/dL (8.5-10.1); CREATININE 0.78 mg/dL (0.70-1.30); SODIUM 143 mmol/L (136-145); TOTAL PROTEIN 7.4 g/dL (6.4-8.2); eGFR NON BLACK RACES > 60 (>60)
[2020-06-20 06:35] LABS: GIANT PLATELET RARE; PLATELET MORPHOLOGY COMMENT ABNORMAL (NORMAL)
[2020-06-20 06:38] LABS: OVALOCYTES SLIGHT; SICKLE CELLS SLIGHT
[2020-06-20 06:39] LABS: ANISOCYTOSIS SLIGHT; TARGET CELLS FEW
[2020-06-20] MEDS ORDERED: BETADINE SOLN ONE (06:59)
[2020-06-20] MEDS ORDERED: LR 1000 ML IV 1,000 ML IV ONE (07:26)
[2020-06-20] MEDS ORDERED: MARCAINE/EPINEPHRINE ONE (07:29)
[2020-06-20] MEDS ORDERED: FENTANYL INJ 100 mcg ONE (07:32)
[2020-06-20] MEDS ORDERED: KETALAR ONE (07:36)
[2020-06-20] MEDS ORDERED: XYLOCAINE 2 % (PLAIN) ONE (07:36)
[2020-06-20] MEDS ORDERED: VERSED ONE (07:36)
[2020-06-20] MEDS ORDERED: DIPRIVAN VIAL ONE (07:36)
[2020-06-20] MEDS: LOVENOX INJ 40 MG SYR SC SCH (08:40)
[2020-06-20] MEDS: CIPRO TAB 500 MG PO SCH ×2 (08:40→20:04)
[2020-06-20] MEDS: NICOTINE PATCH TD SCH (08:40)
--- NOTE | 2020-06-20 09:32 | PCM.PROG ---
Progress Note Progress Note for Day of Date of Exam: 06/19/20 Subjective Subjective: PT IS A 35 YEAR OLD MALE ADMITTED FOR TREATMENT OF SYMPTOMATIC ANEMIA, SICKLE CELL CRISIS, AND RIGHT LOWER LEG WOUND/ULCERATION. HE IS STATUS POST DEBRIDEMENT AND GENERAL SURGERY PLANS FOR A SKIN GRAFT TOMORROW. HEMOGLOBIN STABILIZED. LABS/IMAGING: WBC 11.2, HGB 8.0, PLT 606, NA 142, K 4.1, CREATININE 0.83, GLUCOSE 91. WOUND IS POSITIVE FOR GROWTH OF PROVIDENCIA RETTGERI AND PROTEUS MIRABILIS. BLOOD CULTURES ARE NEGATIVE. HE IS CURRENTLY RECEIVING NORMAL SALINE AT 125 ML/HR, ZOSYN 3.375G IV TID, LOVENOX 40MG SC DAILY, ROXICODONE 10MG PO Q6H PRN, PHENERGAN 12.5MG IM Q6H PRN, AND SANTYL FOR WOUND CARE. GENERAL SURGERY WILL CONTINUE TO FOLLOW. CHANGE ANTIBIOTICS TO CIPROFLOXACIN. OTHERWISE, CONTINUE CURRENT TREATMENT PLAN. MONITOR AND FOLLOW UP LABS/IMAGING IN THE MORNING. Past Medical Family Social History Past Med/Fam/Surg Hx: No changes since H&P Allergies: Allergies Egg Derived Allergy (Verified 10/12/17 21:04) mayonnaise Allergy (Verified 10/12/17 21:04) morphine Allergy (Verified 10/13/17 05:57) ondansetron [From Zofran] Allergy (Verified 10/13/17 05:57) Review of Systems ROS: No change since H&P Vital Signs and I&O's Vital Signs: Temperature 97.9 F Pulse Rate [Left Brachial] 74 Pulse Rate 88 Respiratory Rate 18 Blood Pressure [Right Arm] 103/68 Blood Pressure [Left Arm] 113/58 Blood Pressure 110/58 O2 Sat by Pulse Oximetry 97 Intake and Output: Intake & Output 06/17/20 06/18/20 06/19/20 06/20/20 23:59 23:59 23:59 23:59 Intake Total 2670 / 2670 3370 / 3370 3740 / 3740 1400 / 1400 Output Total 3925 / 3925 2300 / 2300 3465 / 3465 755 / 755 Balance -1255 / -1255 1070 / 1070 275 / 275 645 / 645 Physical Exam Oriented: Normal, Time, Person and Place Eyes: Normal Ear: Normal Nose: Normal Throat: Normal Respiratory: Normal Cardiovascular: Normal : Normal Auscultation: Bowel Sounds: Normal Tenderness: Normal Skin: Tender and Wound ( Will continue Santyl to the wounds . ) Musculoskeletal: Normal Psychiatric: Normal Mood Description: Calm, Depressed and Flat Affect: Flat Speech Pattern: Clear and Appropriate Laboratory and Diagnostics Result Diagrams: 06/20/20 05:19 06/20/20 05:19 Labs: 06/09/20 16:34 Blood Blood Culture - Final 06/09/20 16:25 Blood Blood Culture - Final 06/09/20 21:16 Leg - Right Wound Culture - Final [facility] WBC 9.2 X10^3/uL (3.6-10.0) 06/20/20 05:19 RBC 2.91 X10^6/uL (4.7-6.0) L 06/20/20 05:19 Hgb 8.3 g/dL (13.5-18.0) L 06/20/20 05:19 Hct 25.5 % (42.0-54.0) L 06/20/20 05:19 MCV 87.6 fL (80.0-100.0) 06/20/20 05:19 MCH 28.7 pg (27.0-34.0) 06/20/20 05:19 MCHC 32.7 g/dL (33.0-35.0) L 06/20/20 05:19 RDW 18.1 % (11.6-16.5) H 06/20/20 05:19 Plt Count 623 X10^3/uL (150.0-450.0) H 06/20/20 05:19 Plt Count Comment Increased (ADEQUATE) 06/20/20 05:19 MPV 8.0 fL (7.4-11.0) 06/20/20 05:19 Neut % (Auto) 20.9 % (42.0-75.0) L 06/20/20 05:19 Lymph % (Auto) 62.8 % (21.0-51.0) H 06/20/20 05:19 [place] % (Auto) 8.4 % (0.0-13.0) 06/20/20 05:19 Eos % (Auto) 7.8 % (0.9-2.9) H 06/20/20 05:19 Baso % (Auto) 0.1 % (0.2-1.0) L 06/20/20 05:19 Neut # (Auto) 1.9 x10^3/uL (2.2-4.8) L 06/20/20 05:19 Lymph # (Auto) 5.8 X10^3/uL (1.3-2.9) H 06/20/20 05:19 [place] # (Auto) 0.8 x10^3/uL (0.3-0.8) 06/20/20 05:19 Eos # (Auto) 0.7 x10^3/uL (0.0-0.2) H 06/20/20 05:19 Baso # (Auto) 0.0 X10^3/uL (0.0-0.1) 06/20/20 05:19 Absolute Nucleated RBC 0.2 /100WBC 06/20/20 05:19 Total Counted 100 06/20/20 05:19 Neutrophils % (Manual) 25 % (39-76) L 06/20/20 05:19 Band Neutrophils % 5 % (0-10) 06/09/20 16:34 Lymphocytes % (Manual) 63 % (13-43) H 06/20/20 05:19 Monocytes % (Manual) 4 % (4-9) 06/20/20 05:19 Eosinophils % (Manual) 12 % (0-6) H 06/20/20 05:19 Basophils % (Manual) 1 % (0-1) 06/17/20 05:46 Giant Platelets Rare 06/20/20 05:19 Plt Morphology Comment Abnormal (NORMAL) 06/20/20 05:19 RBC Morphology Abnormal (NORMAL) 06/20/20 05:19 Dimorphic RBCs Noted 06/11/20 05:25 Polychromasia Slight 06/11/20 05:25 Hypochromasia Slight A 06/19/20 04:15 Poikilocytosis Slight A 06/11/20 05:25 Anisocytosis Slight A 06/20/20 05:19 Microcytosis Slight A 06/18/20 04:20 Sickle Cells Slight A 06/20/20 05:19 Target Cells Few 06/20/20 05:19 Ovalocytes Slight A 06/20/20 05:19 PT 15.2 SECONDS (11.8-14.3) 06/09/20 16:25 INR Target Range - 06/09/20 16:25 INR 1.26 (0.8-1.3) 06/09/20 16:25 Sodium 143 mmol/L (136-145) 06/20/20 05:19 Corrected Sodium TNP 06/20/20 05:19 Potassium 4.8 mmol/L (3.5-5.1) 06/20/20 05:19 Chloride 108 mmol/L (98-107) H 06/20/20 05:19 Carbon Dioxide 27.7 mmol/L (21-32) 06/20/20 05:19 BUN 12 mg/dL (7-18) 06/20/20 05:19 Creatinine 0.78 mg/dL (0.70-1.30) 06/20/20 05:19 Est GFR (MDRD) Af Amer > 60 (>60) 06/20/20 05:19 Est GFR (MDRD) Non-Af > 60 (>60) 06/20/20 05:19 Glucose 95 mg/dL (65-99) 06/20/20 05:19 Calcium 9.6 mg/dL (8.5-10.1) 06/20/20 05:19 Corrected Calcium 10.2 mg/dL (8.5-10.1) H 06/20/20 05:19 Total Bilirubin 1.50 mg/dL (0.2-1.0) H 06/20/20 05:19 AST 64 Units/L (15-37) H 06/20/20 05:19 ALT 88 Units/L (12-78) H 06/20/20 05:19 Alkaline Phosphatase 126 Units/L (46-116) H 06/20/20 05:19 Total Protein 7.4 g/dL (6.4-8.2) 06/20/20 05:19 Albumin 3.2 g/dL (3.4-5.0) L 06/20/20 05:19 Globulin 4.2 g/dL (2.5-4.5) 06/20/20 05:19 Albumin/Globulin Ratio 0.8 Ratio (1.1-2.1) L 06/20/20 05:19 Vancomycin Trough 13.5 ug/mL (15-20) L 06/12/20 22:33 SARS CoV-2 RNA Rapid MAGNOLIA Negative (NEGATIVE) 06/09/20 20:47 Blood Type B POSITIVE 06/09/20 18:24 Antibody Screen Negative 06/09/20 18:24 Crossmatch See Detail 06/09/20 18:24 Plan (1) Sickle cell anemia with crisis: Status: Acute Plan: NORMAL SALINE AT 125 ML/HR, ZOSYN 3.375G IV TID, LOVENOX 40MG SC DAILY, ROXICODONE 10MG PO Q4H PRN, PHENERGAN 12.5MG IM Q6H PRN, AND SANTYL FOR WOUND CARE (2) Ulcer of leg, chronic, right: Status: Chronic Qualifiers: Non-pressure ulcer stage: unspecified non-pressure ulcer stage Qualified Code(s): L97.919 - Non-pressure chronic ulcer of unspecified part of right lower leg with unspecified severity Plan: For harvesting of full thickness skin graft tomorrow in AM.
--- NOTE | 2020-06-20 09:49 | PCM.PROG ---
Progress Note Progress Note for Day of Date of Exam: 06/20/20 Subjective Subjective: PT IS A 35 YEAR OLD MALE ADMITTED FOR TREATMENT OF SYMPTOMATIC ANEMIA, SICKLE CELL CRISIS, AND RIGHT LOWER LEG WOUND/ULCERATION. HE IS STATUS POST DEBRIDEMENT AND THIS MORNING HE IS SCHEDULED FOR FULL THICKNESS SKIN GRAFT. NO ACUTE CONCERNS OVERNIGHT. HEMOGLOBIN STABILIZED. LABS/IMAGING: WBC 9.2, HGB 8.3, PLT 623, NA 143, K 4.8, CREATININE 0.78, GLUCOSE 95. WOUND IS POSITIVE FOR GROWTH OF PROVIDENCIA RETTGERI AND PROTEUS MIRABILIS. BLOOD CULTURES ARE NEGATIVE. HE IS CURRENTLY RECEIVING NORMAL SALINE AT 125 ML/HR, CIPROFLOXACIN, LOVENOX 40MG SC DAILY, ROXICODONE 10MG PO Q6H PRN, PHENERGAN 12.5MG IM Q6H PRN, AND SANTYL FOR WOUND CARE. GENERAL SURGERY WILL CONTINUE TO FOLLOW. CONTINUE C URRENT TREATMENT PLAN. MONITOR AND FOLLOW UP LABS/IMAGING IN THE MORNING. Past Medical Family Social History Past Med/Fam/Surg Hx: No changes since H&P Allergies: Allergies Egg Derived Allergy (Verified 10/12/17 21:04) mayonnaise Allergy (Verified 10/12/17 21:04) morphine Allergy (Verified 10/13/17 05:57) ondansetron [From Zofran] Allergy (Verified 10/13/17 05:57) Review of Systems ROS: No change since H&P Vital Signs and I&O's Vital Signs: Temperature 97.9 F Pulse Rate [Left Brachial] 74 Pulse Rate 88 Respiratory Rate 18 Blood Pressure [Right Arm] 103/68 Blood Pressure [Left Arm] 113/58 Blood Pressure 110/58 O2 Sat by Pulse Oximetry 97 Intake and Output: Intake & Output 06/17/20 06/18/20 06/19/20 06/20/20 23:59 23:59 23:59 23:59 Intake Total 2670 / 2670 3370 / 3370 3740 / 3740 1400 / 1400 Output Total 3925 / 3925 2300 / 2300 3465 / 3465 755 / 755 Balance -1255 / -1255 1070 / 1070 275 / 275 645 / 645 Physical Exam Oriented: Normal, Time, Person and Place Eyes: Normal Ear: Normal Nose: Normal Throat: Normal Respiratory: Normal Cardiovascular: Normal : Normal Auscultation: Bowel Sounds: Normal Tenderness: Normal Skin: Tender and Wound ( Will continue Santyl to the wounds . ) Musculoskeletal: Normal Psychiatric: Normal Mood Description: Calm, Depressed and Flat Affect: Flat Speech Pattern: Clear and Appropriate Laboratory and Diagnostics Result Diagrams: 06/20/20 05:19 06/20/20 05:19 Labs: 06/09/20 16:34 Blood Blood Culture - Final 06/09/20 16:25 Blood Blood Culture - Final 06/09/20 21:16 Leg - Right Wound Culture - Final [facility] WBC 9.2 X10^3/uL (3.6-10.0) 06/20/20 05:19 RBC 2.91 X10^6/uL (4.7-6.0) L 06/20/20 05:19 Hgb 8.3 g/dL (13.5-18.0) L 06/20/20 05:19 Hct 25.5 % (42.0-54.0) L 06/20/20 05:19 MCV 87.6 fL (80.0-100.0) 06/20/20 05:19 MCH 28.7 pg (27.0-34.0) 06/20/20 05:19 MCHC 32.7 g/dL (33.0-35.0) L 06/20/20 05:19 RDW 18.1 % (11.6-16.5) H 06/20/20 05:19 Plt Count 623 X10^3/uL (150.0-450.0) H 06/20/20 05:19 Plt Count Comment Increased (ADEQUATE) 06/20/20 05:19 MPV 8.0 fL (7.4-11.0) 06/20/20 05:19 Neut % (Auto) 20.9 % (42.0-75.0) L 06/20/20 05:19 Lymph % (Auto) 62.8 % (21.0-51.0) H 06/20/20 05:19 [place] % (Auto) 8.4 % (0.0-13.0) 06/20/20 05:19 Eos % (Auto) 7.8 % (0.9-2.9) H 06/20/20 05:19 Baso % (Auto) 0.1 % (0.2-1.0) L 06/20/20 05:19 Neut # (Auto) 1.9 x10^3/uL (2.2-4.8) L 06/20/20 05:19 Lymph # (Auto) 5.8 X10^3/uL (1.3-2.9) H 06/20/20 05:19 [place] # (Auto) 0.8 x10^3/uL (0.3-0.8) 06/20/20 05:19 Eos # (Auto) 0.7 x10^3/uL (0.0-0.2) H 06/20/20 05:19 Baso # (Auto) 0.0 X10^3/uL (0.0-0.1) 06/20/20 05:19 Absolute Nucleated RBC 0.2 /100WBC 06/20/20 05:19 Total Counted 100 06/20/20 05:19 Neutrophils % (Manual) 25 % (39-76) L 06/20/20 05:19 Band Neutrophils % 5 % (0-10) 06/09/20 16:34 Lymphocytes % (Manual) 63 % (13-43) H 06/20/20 05:19 Monocytes % (Manual) 4 % (4-9) 06/20/20 05:19 Eosinophils % (Manual) 12 % (0-6) H 06/20/20 05:19 Basophils % (Manual) 1 % (0-1) 06/17/20 05:46 Giant Platelets Rare 06/20/20 05:19 Plt Morphology Comment Abnormal (NORMAL) 06/20/20 05:19 RBC Morphology Abnormal (NORMAL) 06/20/20 05:19 Dimorphic RBCs Noted 06/11/20 05:25 Polychromasia Slight 06/11/20 05:25 Hypochromasia Slight A 06/19/20 04:15 Poikilocytosis Slight A 06/11/20 05:25 Anisocytosis Slight A 06/20/20 05:19 Microcytosis Slight A 06/18/20 04:20 Sickle Cells Slight A 06/20/20 05:19 Target Cells Few 06/20/20 05:19 Ovalocytes Slight A 06/20/20 05:19 PT 15.2 SECONDS (11.8-14.3) 06/09/20 16:25 INR Target Range - 06/09/20 16:25 INR 1.26 (0.8-1.3) 06/09/20 16:25 Sodium 143 mmol/L (136-145) 06/20/20 05:19 Corrected Sodium TNP 06/20/20 05:19 Potassium 4.8 mmol/L (3.5-5.1) 06/20/20 05:19 Chloride 108 mmol/L (98-107) H 06/20/20 05:19 Carbon Dioxide 27.7 mmol/L (21-32) 06/20/20 05:19 BUN 12 mg/dL (7-18) 06/20/20 05:19 Creatinine 0.78 mg/dL (0.70-1.30) 06/20/20 05:19 Est GFR (MDRD) Af Amer > 60 (>60) 06/20/20 05:19 Est GFR (MDRD) Non-Af > 60 (>60) 06/20/20 05:19 Glucose 95 mg/dL (65-99) 06/20/20 05:19 Calcium 9.6 mg/dL (8.5-10.1) 06/20/20 05:19 Corrected Calcium 10.2 mg/dL (8.5-10.1) H 06/20/20 05:19 Total Bilirubin 1.50 mg/dL (0.2-1.0) H 06/20/20 05:19 AST 64 Units/L (15-37) H 06/20/20 05:19 ALT 88 Units/L (12-78) H 06/20/20 05:19 Alkaline Phosphatase 126 Units/L (46-116) H 06/20/20 05:19 Total Protein 7.4 g/dL (6.4-8.2) 06/20/20 05:19 Albumin 3.2 g/dL (3.4-5.0) L 06/20/20 05:19 Globulin 4.2 g/dL (2.5-4.5) 06/20/20 05:19 Albumin/Globulin Ratio 0.8 Ratio (1.1-2.1) L 06/20/20 05:19 Vancomycin Trough 13.5 ug/mL (15-20) L 06/12/20 22:33 SARS CoV-2 RNA Rapid MAGNOLIA Negative (NEGATIVE) 06/09/20 20:47 Blood Type B POSITIVE 06/09/20 18:24 Antibody Screen Negative 06/09/20 18:24 Crossmatch See Detail 06/09/20 18:24 Plan (1) Sickle cell anemia with crisis: Status: Acute Plan: NORMAL SALINE AT 125 ML/HR, ZOSYN 3.375G IV TID, LOVENOX 40MG SC DAILY, ROXICODONE 10MG PO Q4H PRN, PHENERGAN 12.5MG IM Q6H PRN, AND SANTYL FOR WOUND CARE (2) Ulcer of leg, chronic, right: Status: Chronic Qualifiers: Non-pressure ulcer stage: unspecified non-pressure ulcer stage Qualified Code(s): L97.919 - Non-pressure chronic ulcer of unspecified part of right lower leg with unspecified severity Plan: For harvesting of full thickness skin graft tomorrow in AM.
--- NOTE | 2020-06-20 11:29 | DR.OPNOTE ---
OP NOTE Pre-Op Diagnosis: Open wouind right leg nearly circumferential, dressing change right leg Post-Op Diagnosis: same Procedure: Full thickness skin harvest from anterior lower abdominal wall harvested after prepping and draping in sterile fashion and time out for the procedure done. 9x3 cm ellipse of skin transversely removed using #15 knife and electrocautery from the right lower abdomen after injecting with 16 cc of 0.5 % Marcaine . Hemostasis obtained with electrocautery . Wound closed with interrupted 3-0 Vicryl in the subcutaneous layer and skin closed with Mastisol and 1/2 inch steri- strips. Dressing applied Dressing removed from wound right leg with dimensions as above and Santyl applied to all open wounds which are excellent in appearance and covered with non-stick dressing, Kerlix and 6 inch Zay wrap. Anesthesia Comment: MAc/local Findings: Wounds x 2 approximately 20x 13 cm and 8x 4 cm with excellent granulation tissue Specimen/Pathology: none Type of Fluids Used:: Lactated Ringers EBL: 0 Drains/Tubes Placed: None Complications:: none Needle/Sponge Count:: correct Disposition/Condition: Pt. tolerated procedure without difficulty. Extubated in the OR and taken to PACU in stable condition.
[2020-06-20] MEDS ORDERED: ROXICODONE TAB 5 MG PO ONE (15:34)
[2020-06-21] MEDS: NS 1000 ML 1,000 ML IV SCH ×3 (00:14→13:33)
[2020-06-21] MEDS: ROXICODONE TAB 5 MG PO PRN ×6 (00:18→21:41)
[2020-06-21 04:39] LABS: BASOPHILS # (AUTO) 0.1 X10^3/uL (0.0-0.1); BASOPHILS % (AUTO) 0.9 % (0.2-1.0); EOSINOPHILS # (AUTO) 0.8 x10^3/uL (0.0-0.2); EOSINOPHILS % (AUTO) 6.5 % (0.9-2.9); HEMATOCRIT 25.1 % (42.0-54.0); HEMOGLOBIN 8.1 g/dL (13.5-18.0); LYMPHOCYTES % (AUTO) 43.1 % (21.0-51.0); MEAN CORPUSCULAR HEMOGLOBIN 28.1 pg (27.0-34.0); MEAN CORPUSCULAR HGB CONC 32.3 g/dL (33.0-35.0); MEAN PLATELET VOLUME 7.8 fL (7.4-11.0); MONOCYTES # (AUTO) 1.2 x10^3/uL (0.3-0.8); MONOCYTES % (AUTO) 10.1 % (0.0-13.0); NEUTROPHILS # (AUTO) 4.6 x10^3/uL (2.2-4.8); NEUTROPHILS % (AUTO) 39.4 % (42.0-75.0); PLATELET COUNT 599 X10^3/uL (150.0-450.0); RED BLOOD COUNT 2.88 X10^6/uL (4.7-6.0); WHITE BLOOD COUNT 11.7 X10^3/uL (3.6-10.0)
[2020-06-21 04:48] LABS: ALANINE AMINOTRANSFERASE 88 Units/L (12-78); ALKALINE PHOSPHATASE 125 Units/L (46-116); ASPARTATE AMINO TRANSFERASE 60 Units/L (15-37); BLOOD UREA NITROGEN 12 mg/dL (7-18); CALCIUM 8.8 mg/dL (8.5-10.1); CARBON DIOXIDE 28.5 mmol/L (21-32); CHLORIDE 109 mmol/L (98-107); COR CA(FOR HYPOALB) 9.6 mg/dL (8.5-10.1); CREATININE 0.88 mg/dL (0.70-1.30); SODIUM 145 mmol/L (136-145); TOTAL PROTEIN 6.9 g/dL (6.4-8.2); eGFR NON BLACK RACES > 60 (>60)
[2020-06-21 05:08] LABS: GIANT PLATELET FEW; PLATELET MORPHOLOGY COMMENT ABNORMAL (NORMAL)
[2020-06-21 05:09] LABS: ANISOCYTOSIS SLIGHT; HYPOCHROMASIA SLIGHT; MICROCYTOSIS 1+; SICKLE CELLS SLIGHT; TARGET CELLS SLIGHT
--- NOTE | 2020-06-21 08:44 | PCM.PROG ---
Progress Note Progress Note for Day of Date of Exam: 06/21/20 Subjective Subjective: PT IS A 35 YEAR OLD MALE ADMITTED FOR TREATMENT OF SYMPTOMATIC ANEMIA, SICKLE CELL CRISIS, AND RIGHT LOWER LEG WOUND/ULCERATION. HE IS STATUS POST FULL THICKNESS SKIN GRAFT HARVESTING, WITH PLAN FOR PLACEMENT THIS FRIDAY. NO ACUTE CONCERNS OVERNIGHT. PT DID HAVE A BOWEL MOVEMENT LAST NIGHT. HEMOGLOBIN STABILIZED. LABS/IMAGING: WBC 11.7, HGB 8.1, PLT 599, NA 145, K 4.3, CREATININE 0.88, GLUCOSE 97. WOUND IS POSITIVE FOR GROWTH OF PROVIDENCIA RETTGERI AND PROTEUS MIRABILIS. BLOOD CULTURES ARE NEGATIVE. HE IS CURRENTLY RECEIVING NORMAL SALINE AT 125 ML/HR, CIPROFLOXACIN, LOVENOX 40MG SC DAILY, ROXICODONE 10MG PO Q6H PRN, PHENERGAN 12.5MG IM Q6H PRN, AND SANTYL FOR WOUND CARE. GENERAL SURGERY WILL CONTINUE TO FOLLOW. MONITOR AND FOLLOW UP LABS/IMAGING IN THE MORNING. Past Medical Family Social History Past Med/Fam/Surg Hx: No changes since H&P Allergies: Allergies Egg Derived Allergy (Verified 10/12/17 21:04) mayonnaise Allergy (Verified 10/12/17 21:04) morphine Allergy (Verified 10/13/17 05:57) ondansetron [From Zofran] Allergy (Verified 10/13/17 05:57) Review of Systems ROS: No change since H&P Vital Signs and I&O's Vital Signs: Temperature 98.4 F Pulse Rate [Left Brachial] 76 Pulse Rate 88 Respiratory Rate 18 Blood Pressure [Right Arm] 100/55 Blood Pressure [Left Arm] 113/58 Blood Pressure 110/58 O2 Sat by Pulse Oximetry 99 Intake and Output: Intake & Output 06/18/20 06/19/20 06/20/20 06/21/20 23:59 23:59 23:59 23:59 Intake Total 3370 / 3370 3740 / 3740 4020 / 4020 1050 / 1050 Output Total 2300 / 2300 3465 / 3465 2905 / 2905 800 / 800 Balance 1070 / 1070 275 / 275 1115 / 1115 250 / 250 Physical Exam Oriented: Normal, Time, Person and Place Eyes: Normal Ear: Normal Nose: Normal Throat: Normal Respiratory: Normal Cardiovascular: Normal : Normal Auscultation: Bowel Sounds: Normal Tenderness: Normal Skin: Tender and Wound ( Will continue Santyl to the wounds . ) Musculoskeletal: Normal Psychiatric: Normal Mood Description: Calm, Depressed and Flat Affect: Flat Speech Pattern: Clear and Appropriate Laboratory and Diagnostics Result Diagrams: 06/21/20 04:20 06/21/20 04:20 Labs: 06/09/20 16:34 Blood Blood Culture - Final 06/09/20 16:25 Blood Blood Culture - Final 06/09/20 21:16 Leg - Right Wound Culture - Final [facility] WBC 11.7 X10^3/uL (3.6-10.0) H 06/21/20 04:20 RBC 2.88 X10^6/uL (4.7-6.0) L 06/21/20 04:20 Hgb 8.1 g/dL (13.5-18.0) L 06/21/20 04:20 Hct 25.1 % (42.0-54.0) L 06/21/20 04:20 MCV 87.0 fL (80.0-100.0) 06/21/20 04:20 MCH 28.1 pg (27.0-34.0) 06/21/20 04:20 MCHC 32.3 g/dL (33.0-35.0) L 06/21/20 04:20 RDW 18.0 % (11.6-16.5) H 06/21/20 04:20 Plt Count 599 X10^3/uL (150.0-450.0) H 06/21/20 04:20 Plt Count Comment Increased (ADEQUATE) 06/21/20 04:20 MPV 7.8 fL (7.4-11.0) 06/21/20 04:20 Neut % (Auto) 39.4 % (42.0-75.0) L 06/21/20 04:20 Lymph % (Auto) 43.1 % (21.0-51.0) 06/21/20 04:20 [place] % (Auto) 10.1 % (0.0-13.0) 06/21/20 04:20 Eos % (Auto) 6.5 % (0.9-2.9) H 06/21/20 04:20 Baso % (Auto) 0.9 % (0.2-1.0) 06/21/20 04:20 Neut # (Auto) 4.6 x10^3/uL (2.2-4.8) 06/21/20 04:20 Lymph # (Auto) 5.0 X10^3/uL (1.3-2.9) H 06/21/20 04:20 [place] # (Auto) 1.2 x10^3/uL (0.3-0.8) H 06/21/20 04:20 Eos # (Auto) 0.8 x10^3/uL (0.0-0.2) H 06/21/20 04:20 Baso # (Auto) 0.1 X10^3/uL (0.0-0.1) 06/21/20 04:20 Absolute Nucleated RBC 0.0 /100WBC 06/21/20 04:20 Total Counted 100 06/20/20 05:19 Neutrophils % (Manual) 25 % (39-76) L 06/20/20 05:19 Band Neutrophils % 5 % (0-10) 06/09/20 16:34 Lymphocytes % (Manual) 63 % (13-43) H 06/20/20 05:19 Monocytes % (Manual) 4 % (4-9) 06/20/20 05:19 Eosinophils % (Manual) 12 % (0-6) H 06/20/20 05:19 Basophils % (Manual) 1 % (0-1) 06/17/20 05:46 Giant Platelets Few 06/21/20 04:20 Plt Morphology Comment Abnormal (NORMAL) 06/21/20 04:20 RBC Morphology Abnormal (NORMAL) 06/21/20 04:20 Dimorphic RBCs Noted 06/11/20 05:25 Polychromasia Slight 06/11/20 05:25 Hypochromasia Slight A 06/21/20 04:20 Poikilocytosis Slight A 06/11/20 05:25 Anisocytosis Slight A 06/21/20 04:20 Microcytosis 1+ A 06/21/20 04:20 Sickle Cells Slight A 06/21/20 04:20 Target Cells Slight A 06/21/20 04:20 Ovalocytes Slight A 06/20/20 05:19 PT 15.2 SECONDS (11.8-14.3) 06/09/20 16:25 INR Target Range - 06/09/20 16:25 INR 1.26 (0.8-1.3) 06/09/20 16:25 Sodium 145 mmol/L (136-145) 06/21/20 04:20 Corrected Sodium TNP 06/21/20 04:20 Potassium 4.3 mmol/L (3.5-5.1) 06/21/20 04:20 Chloride 109 mmol/L (98-107) H 06/21/20 04:20 Carbon Dioxide 28.5 mmol/L (21-32) 06/21/20 04:20 BUN 12 mg/dL (7-18) 06/21/20 04:20 Creatinine 0.88 mg/dL (0.70-1.30) 06/21/20 04:20 Est GFR (MDRD) Af Amer > 60 (>60) 06/21/20 04:20 Est GFR (MDRD) Non-Af > 60 (>60) 06/21/20 04:20 Glucose 97 mg/dL (65-99) 06/21/20 04:20 Calcium 8.8 mg/dL (8.5-10.1) 06/21/20 04:20 Corrected Calcium 9.6 mg/dL (8.5-10.1) 06/21/20 04:20 Total Bilirubin 1.10 mg/dL (0.2-1.0) H 06/21/20 04:20 AST 60 Units/L (15-37) H 06/21/20 04:20 ALT 88 Units/L (12-78) H 06/21/20 04:20 Alkaline Phosphatase 125 Units/L (46-116) H 06/21/20 04:20 Total Protein 6.9 g/dL (6.4-8.2) 06/21/20 04:20 Albumin 3.0 g/dL (3.4-5.0) L 06/21/20 04:20 Globulin 3.9 g/dL (2.5-4.5) 06/21/20 04:20 Albumin/Globulin Ratio 0.8 Ratio (1.1-2.1) L 06/21/20 04:20 Vancomycin Trough 13.5 ug/mL (15-20) L 06/12/20 22:33 SARS CoV-2 RNA Rapid MAGNOLIA Negative (NEGATIVE) 06/09/20 20:47 Blood Type B POSITIVE 06/09/20 18:24 Antibody Screen Negative 06/09/20 18:24 Crossmatch See Detail 06/09/20 18:24 Plan (1) Sickle cell anemia with crisis: Status: Acute Plan: NORMAL SALINE AT 125 ML/HR, ZOSYN 3.375G IV TID, LOVENOX 40MG SC DAILY, ROXICODONE 10MG PO Q4H PRN, PHENERGAN 12.5MG IM Q6H PRN, AND SANTYL FOR WOUND CARE (2) Ulcer of leg, chronic, right: Status: Chronic Qualifiers: Non-pressure ulcer stage: unspecified non-pressure ulcer stage Qualified Code(s): L97.919 - Non-pressure chronic ulcer of unspecified part of right lower leg with unspecified severity Plan: s/p harvesting of full thickness skin graft
[2020-06-21] MEDS: CIPRO TAB 500 MG PO SCH ×2 (09:32→20:33)
[2020-06-21] MEDS: NICOTINE PATCH TD SCH (09:32)
[2020-06-21] MEDS: LOVENOX INJ 40 MG SYR SC SCH (09:38)
--- NOTE | 2020-06-21 21:39 | PCM.PROG ---
Progress Note Subjective Subjective: PT IS A 35 YEAR OLD MALE ADMITTED FOR TREATMENT OF SYMPTOMATIC ANEMIA, SICKLE CELL CRISIS, AND RIGHT LOWER LEG WOUND/ULCERATION. HE IS STATUS POST FULL THICKNESS SKIN GRAFT HARVESTING, WITH PLAN FOR PLACEMENT THIS FRIDAY. NO ACUTE CONCERNS OVERNIGHT. PT DID HAVE A BOWEL MOVEMENT LAST NIGHT. HEMOGLOBIN STABILIZED. LABS/IMAGING: WBC 11.7, HGB 8.1, PLT 599, NA 145, K 4.3, CREATININE 0.88, GLUCOSE 97. WOUND IS POSITIVE FOR GROWTH OF PROVIDENCIA RETTGERI AND PROTEUS MIRABILIS. BLOOD CULTURES ARE NEGATIVE. HE IS CURRENTLY RECEIVING NORMAL SALINE AT 125 ML/HR, CIPROFLOXACIN, LOVENOX 40MG SC DAILY, ROXICODONE 10MG PO Q6H PRN, PHENERGAN 12.5MG IM Q6H PRN, AND SANTYL FOR WOUND CARE. GENERAL SURGERY WILL CONTINUE TO FOLLOW. MONITOR AND FOLLOW UP LABS/IMAGING IN THE MORNING. S/P HARVESTINNG OF FULL THICKNESS SKIN GRAFT YESTERDAY. C/O SOME INCISIONAL PAIN AT HARVEST SITE RLQ OF ABDOMEN. DRESSING RIGHT LEG WOUND CHANGED BY NURSING STAFF. Past Medical Family Social History Past Med/Fam/Surg Hx: No changes since H&P Allergies: Allergies Egg Derived Allergy (Verified 10/12/17 21:04) mayonnaise Allergy (Verified 10/12/17 21:04) morphine Allergy (Verified 10/13/17 05:57) ondansetron [From Zofran] Allergy (Verified 10/13/17 05:57) Review of Systems ROS: No change since H&P Vital Signs and I&O's Vital Signs: Temperature 98.7 F Pulse Rate [Left Brachial] 86 Pulse Rate 88 Respiratory Rate 14 Blood Pressure [Right Arm] 91/50 Blood Pressure [Left Arm] 113/58 Blood Pressure 110/58 O2 Sat by Pulse Oximetry 100 Intake and Output: Intake & Output 06/18/20 06/19/20 06/20/20 06/21/20 23:59 23:59 23:59 23:59 Intake Total 3370 / 3370 3740 / 3740 4020 / 4020 1290 / 1290 Output Total 2300 / 2300 3465 / 3465 2905 / 2905 1750 / 1750 Balance 1070 / 1070 275 / 275 1115 / 1115 -460 / -460 Physical Exam Oriented: Normal, Time, Person and Place Eyes: Normal Ear: Normal Nose: Normal Throat: Normal Respiratory: Normal Cardiovascular: Normal : Normal Auscultation: Bowel Sounds: Normal Tenderness: Normal Skin: Tender and Wound ( Will continue Santyl to the wounds . ) Musculoskeletal: Normal Psychiatric: Normal Mood Description: Calm, Depressed and Flat Affect: Flat Speech Pattern: Clear and Appropriate Laboratory and Diagnostics Result Diagrams: 06/21/20 04:20 06/21/20 04:20 Labs: 06/09/20 16:34 Blood Blood Culture - Final 06/09/20 16:25 Blood Blood Culture - Final 06/09/20 21:16 Leg - Right Wound Culture - Final [facility] WBC 11.7 X10^3/uL (3.6-10.0) H 06/21/20 04:20 RBC 2.88 X10^6/uL (4.7-6.0) L 06/21/20 04:20 Hgb 8.1 g/dL (13.5-18.0) L 06/21/20 04:20 Hct 25.1 % (42.0-54.0) L 06/21/20 04:20 MCV 87.0 fL (80.0-100.0) 06/21/20 04:20 MCH 28.1 pg (27.0-34.0) 06/21/20 04:20 MCHC 32.3 g/dL (33.0-35.0) L 06/21/20 04:20 RDW 18.0 % (11.6-16.5) H 06/21/20 04:20 Plt Count 599 X10^3/uL (150.0-450.0) H 06/21/20 04:20 Plt Count Comment Increased (ADEQUATE) 06/21/20 04:20 MPV 7.8 fL (7.4-11.0) 06/21/20 04:20 Neut % (Auto) 39.4 % (42.0-75.0) L 06/21/20 04:20 Lymph % (Auto) 43.1 % (21.0-51.0) 06/21/20 04:20 [place] % (Auto) 10.1 % (0.0-13.0) 06/21/20 04:20 Eos % (Auto) 6.5 % (0.9-2.9) H 06/21/20 04:20 Baso % (Auto) 0.9 % (0.2-1.0) 06/21/20 04:20 Neut # (Auto) 4.6 x10^3/uL (2.2-4.8) 06/21/20 04:20 Lymph # (Auto) 5.0 X10^3/uL (1.3-2.9) H 06/21/20 04:20 [place] # (Auto) 1.2 x10^3/uL (0.3-0.8) H 06/21/20 04:20 Eos # (Auto) 0.8 x10^3/uL (0.0-0.2) H 06/21/20 04:20 Baso # (Auto) 0.1 X10^3/uL (0.0-0.1) 06/21/20 04:20 Absolute Nucleated RBC 0.0 /100WBC 06/21/20 04:20 Total Counted 100 06/20/20 05:19 Neutrophils % (Manual) 25 % (39-76) L 06/20/20 05:19 Band Neutrophils % 5 % (0-10) 06/09/20 16:34 Lymphocytes % (Manual) 63 % (13-43) H 06/20/20 05:19 Monocytes % (Manual) 4 % (4-9) 06/20/20 05:19 Eosinophils % (Manual) 12 % (0-6) H 06/20/20 05:19 Basophils % (Manual) 1 % (0-1) 06/17/20 05:46 Giant Platelets Few 06/21/20 04:20 Plt Morphology Comment Abnormal (NORMAL) 06/21/20 04:20 RBC Morphology Abnormal (NORMAL) 06/21/20 04:20 Dimorphic RBCs Noted 06/11/20 05:25 Polychromasia Slight 06/11/20 05:25 Hypochromasia Slight A 06/21/20 04:20 Poikilocytosis Slight A 06/11/20 05:25 Anisocytosis Slight A 06/21/20 04:20 Microcytosis 1+ A 06/21/20 04:20 Sickle Cells Slight A 06/21/20 04:20 Target Cells Slight A 06/21/20 04:20 Ovalocytes Slight A 06/20/20 05:19 PT 15.2 SECONDS (11.8-14.3) 06/09/20 16:25 INR Target Range - 06/09/20 16:25 INR 1.26 (0.8-1.3) 06/09/20 16:25 Sodium 145 mmol/L (136-145) 06/21/20 04:20 Corrected Sodium TNP 06/21/20 04:20 Potassium 4.3 mmol/L (3.5-5.1) 06/21/20 04:20 Chloride 109 mmol/L (98-107) H 06/21/20 04:20 Carbon Dioxide 28.5 mmol/L (21-32) 06/21/20 04:20 BUN 12 mg/dL (7-18) 06/21/20 04:20 Creatinine 0.88 mg/dL (0.70-1.30) 06/21/20 04:20 Est GFR (MDRD) Af Amer > 60 (>60) 06/21/20 04:20 Est GFR (MDRD) Non-Af > 60 (>60) 06/21/20 04:20 Glucose 97 mg/dL (65-99) 06/21/20 04:20 Calcium 8.8 mg/dL (8.5-10.1) 06/21/20 04:20 Corrected Calcium 9.6 mg/dL (8.5-10.1) 06/21/20 04:20 Total Bilirubin 1.10 mg/dL (0.2-1.0) H 06/21/20 04:20 AST 60 Units/L (15-37) H 06/21/20 04:20 ALT 88 Units/L (12-78) H 06/21/20 04:20 Alkaline Phosphatase 125 Units/L (46-116) H 06/21/20 04:20 Total Protein 6.9 g/dL (6.4-8.2) 06/21/20 04:20 Albumin 3.0 g/dL (3.4-5.0) L 06/21/20 04:20 Globulin 3.9 g/dL (2.5-4.5) 06/21/20 04:20 Albumin/Globulin Ratio 0.8 Ratio (1.1-2.1) L 06/21/20 04:20 Vancomycin Trough 13.5 ug/mL (15-20) L 06/12/20 22:33 SARS CoV-2 RNA Rapid MAGNOLIA Negative (NEGATIVE) 06/09/20 20:47 Blood Type B POSITIVE 06/09/20 18:24 Antibody Screen Negative 06/09/20 18:24 Crossmatch See Detail 06/09/20 18:24 Plan (1) Sickle cell anemia with crisis: Status: Acute Plan: NORMAL SALINE AT 125 ML/HR, ZOSYN 3.375G IV TID, LOVENOX 40MG SC DAILY, ROXICODONE 10MG PO Q4H PRN, PHENERGAN 12.5MG IM Q6H PRN, AND SANTYL FOR WOUND CARE (2) Ulcer of leg, chronic, right: Status: Chronic Qualifiers: Non-pressure ulcer stage: unspecified non-pressure ulcer stage Qualified Code(s): L97.919 - Non-pressure chronic ulcer of unspecified part of right lower leg with unspecified severity Plan: s/p harvesting of full thickness skin graft . Plan application of Skin TE and placement wound vacuum on Friday.
[2020-06-22] MEDS ORDERED: NS 1000 ML 1,000 ML ONE ×2 (00:23→20:39)
[2020-06-22] MEDS: ROXICODONE TAB 5 MG PO PRN ×5 (02:14→20:43)
[2020-06-22 06:01] LABS: BASOPHILS # (AUTO) 0.1 X10^3/uL (0.0-0.1); BASOPHILS % (AUTO) 1.4 % (0.2-1.0); EOSINOPHILS # (AUTO) 0.9 x10^3/uL (0.0-0.2); EOSINOPHILS % (AUTO) 9.8 % (0.9-2.9); HEMATOCRIT 22.6 % (42.0-54.0); HEMOGLOBIN 7.5 g/dL (13.5-18.0); LYMPHOCYTES # (AUTO) 4.7 X10^3/uL (1.3-2.9); LYMPHOCYTES % (AUTO) 48.9 % (21.0-51.0); MEAN CORPUSCULAR HEMOGLOBIN 28.8 pg (27.0-34.0); MEAN CORPUSCULAR HGB CONC 33.1 g/dL (33.0-35.0); MEAN CORPUSCULAR VOLUME 86.9 fL (80.0-100.0); MEAN PLATELET VOLUME 8.1 fL (7.4-11.0); MONOCYTES # (AUTO) 0.9 x10^3/uL (0.3-0.8); MONOCYTES % (AUTO) 9.1 % (0.0-13.0); NEUTROPHILS % (AUTO) 30.8 % (42.0-75.0); PLATELET COUNT 579 X10^3/uL (150.0-450.0); RED CELL DISTRIBUTION WIDTH 17.8 % (11.6-16.5); WHITE BLOOD COUNT 9.6 X10^3/uL (3.6-10.0)
[2020-06-22 06:11] LABS: ALANINE AMINOTRANSFERASE 67 Units/L (12-78); ALKALINE PHOSPHATASE 123 Units/L (46-116); ASPARTATE AMINO TRANSFERASE 42 Units/L (15-37); BLOOD UREA NITROGEN 10 mg/dL (7-18); CALCIUM 9.2 mg/dL (8.5-10.1); CARBON DIOXIDE 27.9 mmol/L (21-32); CHLORIDE 109 mmol/L (98-107); SODIUM 144 mmol/L (136-145); TOTAL PROTEIN 6.8 g/dL (6.4-8.2); eGFR NON BLACK RACES > 60 (>60)
[2020-06-22 06:25] LABS: GIANT PLATELET FEW; HYPOCHROMASIA 1+; PLATELET MORPHOLOGY COMMENT ABNORMAL (NORMAL)
[2020-06-22 06:26] LABS: ANISOCYTOSIS SLIGHT; SICKLE CELLS RARE; TARGET CELLS FEW
[2020-06-22] MEDS: NICOTINE PATCH TD SCH (09:31)
[2020-06-22] MEDS: LOVENOX INJ 40 MG SYR SC SCH (09:31)
[2020-06-22] MEDS: CIPRO TAB 500 MG PO SCH ×2 (09:31→20:43)
--- NOTE | 2020-06-22 10:58 | PCM.PROG ---
Progress Note Progress Note for Day of Date of Exam: 06/22/20 Subjective Subjective: PT IS A 35 YEAR OLD MALE ADMITTED FOR TREATMENT OF SYMPTOMATIC ANEMIA, SICKLE CELL CRISIS, AND RIGHT LOWER LEG WOUND/ULCERATION. HE IS STATUS POST FULL THICKNESS SKIN GRAFT HARVESTING, WITH PLAN FOR PLACEMENT TOMORROW. HEMOGLOBIN 7.5 THIS MORNING, WILL ORDER AND TRANSFUSE 2 UNITS OF PACKED RED BLOOD CELLS WHEN AVAILABLE. LABS/IMAGING: WBC 9.6, HGB 7.5, PLT 579, NA 144, K 4.3, CREATININE 0.80, GLUCOSE 88. WOUND IS POSITIVE FOR GROWTH OF PROVIDENCIA RETTGERI AND PROTEUS MIRABILIS. BLOOD CULTURES ARE NEGATIVE. HE IS CURRENTLY RECEIVING NORMAL SALINE AT 125 ML/HR, CIPROFLOXACIN, LOVENOX 40MG SC DAILY, ROXICODONE 10MG PO Q6H PRN, PHENERGAN 12.5MG IM Q6H PRN, AND SANTYL FOR WOUND CARE. GENERAL SURGERY WILL CONTINUE TO FOLLOW. MONITOR AND FOLLOW UP LABS/IMAGING IN THE MORNING. Past Medical Family Social History Past Med/Fam/Surg Hx: No changes since H&P Allergies: Allergies Egg Derived Allergy (Verified 10/12/17 21:04) mayonnaise Allergy (Verified 10/12/17 21:04) morphine Allergy (Verified 10/13/17 05:57) ondansetron [From Zofran] Allergy (Verified 10/13/17 05:57) Review of Systems ROS: No change since H&P Vital Signs and I&O's Vital Signs: Temperature 98.6 F Pulse Rate [Left Brachial] 82 Pulse Rate 88 Respiratory Rate 20 Blood Pressure [Right Arm] 102/57 Blood Pressure [Left Arm] 113/58 Blood Pressure 110/58 O2 Sat by Pulse Oximetry 100 Intake and Output: Intake & Output 06/19/20 06/20/20 06/21/20 06/22/20 23:59 23:59 23:59 23:59 Intake Total 3740 / 3740 4020 / 4020 2770 / 2770 300 / 300 Output Total 3465 / 3465 2905 / 2905 2750 / 2750 550 / 550 Balance 275 / 275 1115 / 1115 20 / 20 -250 / -250 Physical Exam Oriented: Normal, Time, Person and Place Eyes: Normal Ear: Normal Nose: Normal Throat: Normal Respiratory: Normal Cardiovascular: Normal : Normal Auscultation: Bowel Sounds: Normal Tenderness: Normal Skin: Tender and Wound ( Will continue Santyl to the wounds . ) Musculoskeletal: Normal Psychiatric: Normal Mood Description: Calm, Depressed and Flat Affect: Flat Speech Pattern: Clear and Appropriate Laboratory and Diagnostics Result Diagrams: 06/22/20 05:16 06/22/20 05:16 Labs: 06/09/20 16:34 Blood Blood Culture - Final 06/09/20 16:25 Blood Blood Culture - Final 06/09/20 21:16 Leg - Right Wound Culture - Final [facility] WBC 9.6 X10^3/uL (3.6-10.0) 06/22/20 05:16 RBC 2.60 X10^6/uL (4.7-6.0) L 06/22/20 05:16 Hgb 7.5 g/dL (13.5-18.0) L 06/22/20 05:16 Hct 22.6 % (42.0-54.0) L 06/22/20 05:16 MCV 86.9 fL (80.0-100.0) 06/22/20 05:16 MCH 28.8 pg (27.0-34.0) 06/22/20 05:16 MCHC 33.1 g/dL (33.0-35.0) 06/22/20 05:16 RDW 17.8 % (11.6-16.5) H 06/22/20 05:16 Plt Count 579 X10^3/uL (150.0-450.0) H 06/22/20 05:16 Plt Count Comment Increased (ADEQUATE) 06/22/20 05:16 MPV 8.1 fL (7.4-11.0) 06/22/20 05:16 Neut % (Auto) 30.8 % (42.0-75.0) L 06/22/20 05:16 Lymph % (Auto) 48.9 % (21.0-51.0) 06/22/20 05:16 [place] % (Auto) 9.1 % (0.0-13.0) 06/22/20 05:16 Eos % (Auto) 9.8 % (0.9-2.9) H 06/22/20 05:16 Baso % (Auto) 1.4 % (0.2-1.0) H 06/22/20 05:16 Neut # (Auto) 3.0 x10^3/uL (2.2-4.8) 06/22/20 05:16 Lymph # (Auto) 4.7 X10^3/uL (1.3-2.9) H 06/22/20 05:16 [place] # (Auto) 0.9 x10^3/uL (0.3-0.8) H 06/22/20 05:16 Eos # (Auto) 0.9 x10^3/uL (0.0-0.2) H 06/22/20 05:16 Baso # (Auto) 0.1 X10^3/uL (0.0-0.1) 06/22/20 05:16 Absolute Nucleated RBC 0.1 /100WBC 06/22/20 05:16 Total Counted 100 06/20/20 05:19 Neutrophils % (Manual) 25 % (39-76) L 06/20/20 05:19 Band Neutrophils % 5 % (0-10) 06/09/20 16:34 Lymphocytes % (Manual) 63 % (13-43) H 06/20/20 05:19 Monocytes % (Manual) 4 % (4-9) 06/20/20 05:19 Eosinophils % (Manual) 12 % (0-6) H 06/20/20 05:19 Basophils % (Manual) 1 % (0-1) 06/17/20 05:46 Giant Platelets Few 06/22/20 05:16 Plt Morphology Comment Abnormal (NORMAL) 06/22/20 05:16 RBC Morphology Abnormal (NORMAL) 06/22/20 05:16 Dimorphic RBCs Noted 06/11/20 05:25 Polychromasia Slight 06/11/20 05:25 Hypochromasia 1+ A 06/22/20 05:16 Poikilocytosis Slight A 06/11/20 05:25 Anisocytosis Slight A 06/22/20 05:16 Microcytosis 1+ A 06/21/20 04:20 Sickle Cells Rare 06/22/20 05:16 Target Cells Few 06/22/20 05:16 Ovalocytes Slight A 06/20/20 05:19 PT 15.2 SECONDS (11.8-14.3) 06/09/20 16:25 INR Target Range - 06/09/20 16:25 INR 1.26 (0.8-1.3) 06/09/20 16:25 Sodium 144 mmol/L (136-145) 06/22/20 05:16 Corrected Sodium TNP 06/22/20 05:16 Potassium 4.3 mmol/L (3.5-5.1) 06/22/20 05:16 Chloride 109 mmol/L (98-107) H 06/22/20 05:16 Carbon Dioxide 27.9 mmol/L (21-32) 06/22/20 05:16 BUN 10 mg/dL (7-18) 06/22/20 05:16 Creatinine 0.80 mg/dL (0.70-1.30) 06/22/20 05:16 Est GFR (MDRD) Af Amer > 60 (>60) 06/22/20 05:16 Est GFR (MDRD) Non-Af > 60 (>60) 06/22/20 05:16 Glucose 88 mg/dL (65-99) 06/22/20 05:16 Calcium 9.2 mg/dL (8.5-10.1) 06/22/20 05:16 Corrected Calcium 10.0 mg/dL (8.5-10.1) 06/22/20 05:16 Total Bilirubin 1.10 mg/dL (0.2-1.0) H 06/22/20 05:16 AST 42 Units/L (15-37) H 06/22/20 05:16 ALT 67 Units/L (12-78) 06/22/20 05:16 Alkaline Phosphatase 123 Units/L (46-116) H 06/22/20 05:16 Total Protein 6.8 g/dL (6.4-8.2) 06/22/20 05:16 Albumin 3.0 g/dL (3.4-5.0) L 06/22/20 05:16 Globulin 3.8 g/dL (2.5-4.5) 06/22/20 05:16 Albumin/Globulin Ratio 0.8 Ratio (1.1-2.1) L 06/22/20 05:16 Vancomycin Trough 13.5 ug/mL (15-20) L 06/12/20 22:33 SARS CoV-2 RNA Rapid MAGNOLIA Negative (NEGATIVE) 06/09/20 20:47 Blood Type B POSITIVE 06/09/20 18:24 Antibody Screen Negative 06/09/20 18:24 Crossmatch See Detail 06/09/20 18:24 Plan (1) Sickle cell anemia with crisis: Status: Acute Plan: NORMAL SALINE AT 125 ML/HR, CIPROFLOXACIN, LOVENOX 40MG SC DAILY, ROXICODONE 10MG PO Q4H PRN, PHENERGAN 12.5MG IM Q6H PRN, AND SANTYL FOR WOUND CARE (2) Ulcer of leg, chronic, right: Status: Chronic Qualifiers: Non-pressure ulcer stage: unspecified non-pressure ulcer stage Qualified Code(s): L97.919 - Non-pressure chronic ulcer of unspecified part of right lower leg with unspecified severity Plan: s/p harvesting of full thickness skin graft . Plan application of Skin TE and placement wound vacuum on Friday.
--- NOTE | 2020-06-22 17:03 | PCM.PROG ---
Progress Note Subjective Subjective: Continue to do well with stable vital signs. Planning application of Skin TE full thickness graft tomorrow and placement of wound vacuum Past Medical Family Social History Past Med/Fam/Surg Hx: No changes since H&P Allergies: Allergies Egg Derived Allergy (Verified 10/12/17 21:04) mayonnaise Allergy (Verified 10/12/17 21:04) morphine Allergy (Verified 10/13/17 05:57) ondansetron [From Zofran] Allergy (Verified 10/13/17 05:57) Review of Systems ROS: No change since H&P Vital Signs and I&O's Vital Signs: Temperature 98.6 F Pulse Rate [Left Brachial] 72 Pulse Rate 88 Respiratory Rate 20 Blood Pressure [Right Arm] 101/58 Blood Pressure [Left Arm] 113/58 Blood Pressure 110/58 O2 Sat by Pulse Oximetry 100 Intake and Output: Intake & Output 06/19/20 06/20/20 06/21/20 06/22/20 23:59 23:59 23:59 23:59 Intake Total 3740 / 3740 4020 / 4020 2770 / 2770 1300 / 1300 Output Total 3465 / 3465 2905 / 2905 2750 / 2750 550 / 550 Balance 275 / 275 1115 / 1115 750 / 750 Physical Exam Oriented: Normal, Time, Person and Place Eyes: Normal Ear: Normal Nose: Normal Throat: Normal Respiratory: Normal Cardiovascular: Normal : Normal Auscultation: Bowel Sounds: Normal Tenderness: Normal Skin: Tender and Wound ( Will continue Santyl to the wounds . harvest site RLQ abdomen is clean) Musculoskeletal: Normal Psychiatric: Normal Mood Description: Calm, Depressed and Flat Affect: Flat Speech Pattern: Clear and Appropriate Laboratory and Diagnostics Result Diagrams: 06/22/20 05:16 06/22/20 05:16 Labs: 06/09/20 16:34 Blood Blood Culture - Final 06/09/20 16:25 Blood Blood Culture - Final 06/09/20 21:16 Leg - Right Wound Culture - Final Providencia Rettgeri [facility] WBC 9.6 X10^3/uL (3.6-10.0) 06/22/20 05:16 RBC 2.60 X10^6/uL (4.7-6.0) L 06/22/20 05:16 Hgb 7.5 g/dL (13.5-18.0) L 06/22/20 05:16 Hct 22.6 % (42.0-54.0) L 06/22/20 05:16 MCV 86.9 fL (80.0-100.0) 06/22/20 05:16 MCH 28.8 pg (27.0-34.0) 06/22/20 05:16 MCHC 33.1 g/dL (33.0-35.0) 06/22/20 05:16 RDW 17.8 % (11.6-16.5) H 06/22/20 05:16 Plt Count 579 X10^3/uL (150.0-450.0) H 06/22/20 05:16 Plt Count Comment Increased (ADEQUATE) 06/22/20 05:16 MPV 8.1 fL (7.4-11.0) 06/22/20 05:16 Neut % (Auto) 30.8 % (42.0-75.0) L 06/22/20 05:16 Lymph % (Auto) 48.9 % (21.0-51.0) 06/22/20 05:16 [place] % (Auto) 9.1 % (0.0-13.0) 06/22/20 05:16 Eos % (Auto) 9.8 % (0.9-2.9) H 06/22/20 05:16 Baso % (Auto) 1.4 % (0.2-1.0) H 06/22/20 05:16 Neut # (Auto) 3.0 x10^3/uL (2.2-4.8) 06/22/20 05:16 Lymph # (Auto) 4.7 X10^3/uL (1.3-2.9) H 06/22/20 05:16 [place] # (Auto) 0.9 x10^3/uL (0.3-0.8) H 06/22/20 05:16 Eos # (Auto) 0.9 x10^3/uL (0.0-0.2) H 06/22/20 05:16 Baso # (Auto) 0.1 X10^3/uL (0.0-0.1) 06/22/20 05:16 Absolute Nucleated RBC 0.1 /100WBC 06/22/20 05:16 Total Counted 100 06/20/20 05:19 Neutrophils % (Manual) 25 % (39-76) L 06/20/20 05:19 Band Neutrophils % 5 % (0-10) 06/09/20 16:34 Lymphocytes % (Manual) 63 % (13-43) H 06/20/20 05:19 Monocytes % (Manual) 4 % (4-9) 06/20/20 05:19 Eosinophils % (Manual) 12 % (0-6) H 06/20/20 05:19 Basophils % (Manual) 1 % (0-1) 06/17/20 05:46 Giant Platelets Few 06/22/20 05:16 Plt Morphology Comment Abnormal (NORMAL) 06/22/20 05:16 RBC Morphology Abnormal (NORMAL) 06/22/20 05:16 Dimorphic RBCs Noted 06/11/20 05:25 Polychromasia Slight 06/11/20 05:25 Hypochromasia 1+ A 06/22/20 05:16 Poikilocytosis Slight A 06/11/20 05:25 Anisocytosis Slight A 06/22/20 05:16 Microcytosis 1+ A 06/21/20 04:20 Sickle Cells Rare 06/22/20 05:16 Target Cells Few 06/22/20 05:16 Ovalocytes Slight A 06/20/20 05:19 PT 15.2 SECONDS (11.8-14.3) 06/09/20 16:25 INR Target Range - 06/09/20 16:25 INR 1.26 (0.8-1.3) 06/09/20 16:25 Sodium 144 mmol/L (136-145) 06/22/20 05:16 Corrected Sodium TNP 06/22/20 05:16 Potassium 4.3 mmol/L (3.5-5.1) 06/22/20 05:16 Chloride 109 mmol/L (98-107) H 06/22/20 05:16 Carbon Dioxide 27.9 mmol/L (21-32) 06/22/20 05:16 BUN 10 mg/dL (7-18) 06/22/20 05:16 Creatinine 0.80 mg/dL (0.70-1.30) 06/22/20 05:16 Est GFR (MDRD) Af Amer > 60 (>60) 06/22/20 05:16 Est GFR (MDRD) Non-Af > 60 (>60) 06/22/20 05:16 Glucose 88 mg/dL (65-99) 06/22/20 05:16 Calcium 9.2 mg/dL (8.5-10.1) 06/22/20 05:16 Corrected Calcium 10.0 mg/dL (8.5-10.1) 06/22/20 05:16 Total Bilirubin 1.10 mg/dL (0.2-1.0) H 06/22/20 05:16 AST 42 Units/L (15-37) H 06/22/20 05:16 ALT 67 Units/L (12-78) 06/22/20 05:16 Alkaline Phosphatase 123 Units/L (46-116) H 06/22/20 05:16 Total Protein 6.8 g/dL (6.4-8.2) 06/22/20 05:16 Albumin 3.0 g/dL (3.4-5.0) L 06/22/20 05:16 Globulin 3.8 g/dL (2.5-4.5) 06/22/20 05:16 Albumin/Globulin Ratio 0.8 Ratio (1.1-2.1) L 06/22/20 05:16 Vancomycin Trough 13.5 ug/mL (15-20) L 06/12/20 22:33 SARS CoV-2 RNA Rapid MAGNOLIA Negative (NEGATIVE) 06/09/20 20:47 Blood Type B POSITIVE 06/22/20 11:44 Antibody Screen Negative 06/22/20 11:44 Crossmatch See Detail 06/22/20 11:44 Plan (1) Sickle cell anemia with crisis: Status: Acute Plan: NORMAL SALINE AT 125 ML/HR, CIPROFLOXACIN, LOVENOX 40MG SC DAILY, ROXICODONE 10MG PO Q4H PRN, PHENERGAN 12.5MG IM Q6H PRN, AND SANTYL FOR WOUND CARE (2) Ulcer of leg, chronic, right: Status: Chronic Qualifiers: Non-pressure ulcer stage: unspecified non-pressure ulcer stage Qualified Code(s): L97.919 - Non-pressure chronic ulcer of unspecified part of right lower leg with unspecified severity Plan: s/p harvesting of full thickness skin graft . Plan application of Skin TE and placement wound vacuum on Friday.
[2020-06-23] MEDS: ROXICODONE TAB 5 MG PO PRN ×6 (01:09→23:31)
[2020-06-23 05:35] LABS: BASOPHILS # (AUTO) 0.3 X10^3/uL (0.0-0.1); BASOPHILS % (AUTO) 2.9 % (0.2-1.0); EOSINOPHILS # (AUTO) 1.2 x10^3/uL (0.0-0.2); EOSINOPHILS % (AUTO) 13.2 % (0.9-2.9); HEMATOCRIT 21.8 % (42.0-54.0); HEMOGLOBIN 7.1 g/dL (13.5-18.0); LYMPHOCYTES # (AUTO) 4.8 X10^3/uL (1.3-2.9); LYMPHOCYTES % (AUTO) 52.4 % (21.0-51.0); MEAN CORPUSCULAR HEMOGLOBIN 28.4 pg (27.0-34.0); MEAN CORPUSCULAR HGB CONC 32.6 g/dL (33.0-35.0); MEAN PLATELET VOLUME 8.1 fL (7.4-11.0); MONOCYTES # (AUTO) 0.7 x10^3/uL (0.3-0.8); NEUTROPHILS # (AUTO) 2.2 x10^3/uL (2.2-4.8); NEUTROPHILS % (AUTO) 23.5 % (42.0-75.0); PLATELET COUNT 616 X10^3/uL (150.0-450.0); RED CELL DISTRIBUTION WIDTH 17.6 % (11.6-16.5); WHITE BLOOD COUNT 9.2 X10^3/uL (3.6-10.0)
[2020-06-23 05:50] LABS: ALANINE AMINOTRANSFERASE 59 Units/L (12-78); ALKALINE PHOSPHATASE 120 Units/L (46-116); ASPARTATE AMINO TRANSFERASE 37 Units/L (15-37); BLOOD UREA NITROGEN 9 mg/dL (7-18); CALCIUM 8.9 mg/dL (8.5-10.1); CARBON DIOXIDE 28.4 mmol/L (21-32); CHLORIDE 106 mmol/L (98-107); COR CA(FOR HYPOALB) 9.7 mg/dL (8.5-10.1); CREATININE 0.76 mg/dL (0.70-1.30); SODIUM 141 mmol/L (136-145); TOTAL PROTEIN 6.8 g/dL (6.4-8.2); eGFR NON BLACK RACES > 60 (>60)
[2020-06-23 06:15] LABS: PLATELET MORPHOLOGY COMMENT ABNORMAL (NORMAL)
[2020-06-23 06:16] LABS: ANISOCYTOSIS SLIGHT; GIANT PLATELET FEW; HYPOCHROMASIA 1+; OVALOCYTES PRESENT; SICKLE CELLS RARE; TARGET CELLS PRESENT
[2020-06-23] MEDS ORDERED: BETADINE SOLN ONE (07:01)
[2020-06-23] MEDS ORDERED: FENTANYL INJ 100 mcg ONE (07:16)
[2020-06-23] MEDS ORDERED: NS 1000 ML 1,000 ML ONE ×2 (07:16→20:08)
[2020-06-23] MEDS ORDERED: KETALAR ONE (07:36)
[2020-06-23] MEDS ORDERED: VERSED ONE (07:36)
[2020-06-23] MEDS ORDERED: DIPRIVAN VIAL ONE (07:36)
[2020-06-23] MEDS ORDERED: XYLOCAINE 2 % (PLAIN) ONE (07:36)
--- NOTE | 2020-06-23 08:47 | OR.IMMED ---
IMMEDIATE POST-OP NOTE Immediate Post-Op Note Pre-Op Diagnosis: wound right leg Post-Op Diagnosis: same Procedure: apply Skin TE graft and place wound vacuum right leg Findings: as above Specimens Removed: 0 Estimated Blood Loss: 25cc Complications: 0 Condition: Stable Final Diagnosis: wound right leg
[2020-06-23] MEDS: NICOTINE PATCH TD SCH (09:00)
[2020-06-23] MEDS: LOVENOX INJ 40 MG SYR SC SCH (09:02)
[2020-06-23] MEDS: CIPRO TAB 500 MG PO SCH ×2 (09:02→20:35)
--- NOTE | 2020-06-23 12:44 | DR.OPNOTE ---
OP NOTE Pre-Op Diagnosis: open wound og circumferemntoil of the right leg Post-Op Diagnosis: same Procedure: Excisional debridement right LE wound approximately 35x15 0.3 cm , place SkinTE full thickness graft and placement of wound vacuum. Patient taken to the OR and placed in supine position and given IV sedation and the right leg below the knee prepped with Chlorprep and draped in sterile fashion. Time out for the procedure obtained . The wound of right leg measuring [id number] cm with great granulation tissue and had bacterial film removed with back of a knife handle. Silastic sheeting was cut to fit the wound. Thin layer of the full thickness Skin TE preparation was applied to the wound and the Silastic sheet placed over it , secured with jesús and small slits placed in the Silastic sheeting . Black foam in multiples pieces applied over the wound and the corresponding Silastic sheeting . All this covered with Adhesive sheeting . Small piece of adhesive sheet removed down to the black foam and the circular tract pad placed over the exposed black foam and placed on suct ion to 150 mm Hg with no leak noted . Patietn taken to PACU and then to the floor. Anesthesia Comment: Local /MAC Findings: As above , marked improvement of wound after initial excisional debridement in the OR and daily dressing changes with Santyl. Measurements as above. Specimen/Pathology: none Type of Fluids Used:: Lactated Ringers Total Amount of Fluid Infused:: See anethesia record Urine output: none, no EBL: < 10 cc Drains/Tubes Comment: Placed wound vacuum Complications:: none Needle/Sponge Count:: correct Disposition/Condition: Pt. tolerated procedure without difficulty. Taken to PACU in stable condition.
--- NOTE | 2020-06-23 13:08 | PCM.PROG ---
Progress Note Progress Note for Day of Date of Exam: 06/23/20 Subjective Subjective: PT IS A 35 YEAR OLD MALE ADMITTED FOR TREATMENT OF SYMPTOMATIC ANEMIA, SICKLE CELL CRISIS, AND RIGHT LOWER LEG WOUND/ULCERATION. HE IS STATUS POST FULL THICKNESS SKIN GRAFT HARVESTING, WITH PLAN FOR PLACEMENT THIS MORNING. HEMOGLOBIN 7.1 THIS MORNING, WILL ORDER AND TRANSFUSE 2 UNITS OF PACKED RED BLOOD CELLS WHEN AVAILABLE. LABS/IMAGING: WBC 9.2, HGB 7.1, PLT 616, NA 141, K 4.2, CREATININE 0.76, GLUCOSE 82. WOUND IS POSITIVE FOR GROWTH OF PROVIDENCIA RETTGERI AND PROTEUS MIRABILIS. BLOOD CULTURES ARE NEGATIVE. HE IS CURRENTLY RECEIVING NORMAL SALINE AT 125 ML/HR, CIPROFLOXACIN, LOVENOX 40MG SC DAILY, ROXICODONE 10MG PO Q6H PRN, PHENERGAN 12.5MG IM Q6H PRN, AND SANTYL FOR WOUND CARE. GENERAL SURGERY WILL CONTINUE TO FOLLOW. MONITOR AND FOLLOW UP LABS/IMAGING IN THE MORNING. Past Medical Family Social History Past Med/Fam/Surg Hx: No changes since H&P Allergies: Allergies Egg Derived Allergy (Verified 10/12/17 21:04) mayonnaise Allergy (Verified 10/12/17 21:04) morphine Allergy (Verified 10/13/17 05:57) ondansetron [From Zofran] Allergy (Verified 10/13/17 05:57) Review of Systems ROS: No change since H&P Vital Signs and I&O's Vital Signs: Temperature 97.9 F Pulse Rate [Left Brachial] 62 Pulse Rate 88 Respiratory Rate 18 Blood Pressure [Right Arm] 98/56 Blood Pressure [Left Arm] 113/58 Blood Pressure 110/58 O2 Sat by Pulse Oximetry 100 Intake and Output: Intake & Output 06/20/20 06/21/20 06/22/20 06/23/20 23:59 23:59 23:59 23:59 Intake Total 4020 / 4020 2770 / 2770 2660 / 2660 800 / 800 Output Total 2905 / 2905 2750 / 2750 2750 / 2750 1000 / 1000 Balance 1115 / 1115 20 / 20 -90 / -90 -200 / -200 Physical Exam Oriented: Normal, Time, Person and Place Eyes: Normal Ear: Normal Nose: Normal Throat: Normal Respiratory: Normal Cardiovascular: Normal : Normal Auscultation: Bowel Sounds: Normal Tenderness: Normal Skin: Tender and Wound ( Will continue Santyl to the wounds . harvest site RLQ abdomen is clean) Musculoskeletal: Normal Psychiatric: Normal Mood Description: Calm, Depressed and Flat Affect: Flat Speech Pattern: Clear and Appropriate Laboratory and Diagnostics Result Diagrams: 06/23/20 05:00 06/23/20 05:00 Labs: 06/09/20 16:34 Blood Blood Culture - Final 06/09/20 16:25 Blood Blood Culture - Final 06/09/20 21:16 Leg - Right Wound Culture - Final Providencia Rettgeri Proteus Mirabilis Laboratory WBC 9.2 X10^3/uL (3.6-10.0) 06/23/20 05:00 RBC 2.50 X10^6/uL (4.7-6.0) L 06/23/20 05:00 Hgb 7.1 g/dL (13.5-18.0) L 06/23/20 05:00 Hct 21.8 % (42.0-54.0) L 06/23/20 05:00 MCV 87.0 fL (80.0-100.0) 06/23/20 05:00 MCH 28.4 pg (27.0-34.0) 06/23/20 05:00 MCHC 32.6 g/dL (33.0-35.0) L 06/23/20 05:00 RDW 17.6 % (11.6-16.5) H 06/23/20 05:00 Plt Count 616 X10^3/uL (150.0-450.0) H 06/23/20 05:00 Plt Count Comment Increased (ADEQUATE) 06/23/20 05:00 MPV 8.1 fL (7.4-11.0) 06/23/20 05:00 Neut % (Auto) 23.5 % (42.0-75.0) L 06/23/20 05:00 Lymph % (Auto) 52.4 % (21.0-51.0) H 06/23/20 05:00 [place] % (Auto) 8.0 % (0.0-13.0) 06/23/20 05:00 Eos % (Auto) 13.2 % (0.9-2.9) H 06/23/20 05:00 Baso % (Auto) 2.9 % (0.2-1.0) H 06/23/20 05:00 Neut # (Auto) 2.2 x10^3/uL (2.2-4.8) 06/23/20 05:00 Lymph # (Auto) 4.8 X10^3/uL (1.3-2.9) H 06/23/20 05:00 [place] # (Auto) 0.7 x10^3/uL (0.3-0.8) 06/23/20 05:00 Eos # (Auto) 1.2 x10^3/uL (0.0-0.2) H 06/23/20 05:00 Baso # (Auto) 0.3 X10^3/uL (0.0-0.1) H 06/23/20 05:00 Absolute Nucleated RBC 0.1 /100WBC 06/23/20 05:00 Total Counted 100 06/20/20 05:19 Neutrophils % (Manual) 25 % (39-76) L 06/20/20 05:19 Band Neutrophils % 5 % (0-10) 06/09/20 16:34 Lymphocytes % (Manual) 63 % (13-43) H 06/20/20 05:19 Monocytes % (Manual) 4 % (4-9) 06/20/20 05:19 Eosinophils % (Manual) 12 % (0-6) H 06/20/20 05:19 Basophils % (Manual) 1 % (0-1) 06/17/20 05:46 Giant Platelets Few 06/23/20 05:00 Plt Morphology Comment Abnormal (NORMAL) 06/23/20 05:00 RBC Morphology Abnormal (NORMAL) 06/23/20 05:00 Dimorphic RBCs Noted 06/11/20 05:25 Polychromasia Slight 06/11/20 05:25 Hypochromasia 1+ A 06/23/20 05:00 Poikilocytosis Slight A 06/11/20 05:25 Anisocytosis Slight A 06/23/20 05:00 Microcytosis 1+ A 06/21/20 04:20 Sickle Cells Rare 06/23/20 05:00 Target Cells Present 06/23/20 05:00 Ovalocytes Present 06/23/20 05:00 PT 15.2 SECONDS (11.8-14.3) 06/09/20 16:25 INR Target Range - 06/09/20 16:25 INR 1.26 (0.8-1.3) 06/09/20 16:25 Sodium 141 mmol/L (136-145) 06/23/20 05:00 Corrected Sodium TNP 06/23/20 05:00 Potassium 4.2 mmol/L (3.5-5.1) 06/23/20 05:00 Chloride 106 mmol/L (98-107) 06/23/20 05:00 Carbon Dioxide 28.4 mmol/L (21-32) 06/23/20 05:00 BUN 9 mg/dL (7-18) 06/23/20 05:00 Creatinine 0.76 mg/dL (0.70-1.30) 06/23/20 05:00 Est GFR (MDRD) Af Amer > 60 (>60) 06/23/20 05:00 Est GFR (MDRD) Non-Af > 60 (>60) 06/23/20 05:00 Glucose 82 mg/dL (65-99) 06/23/20 05:00 Calcium 8.9 mg/dL (8.5-10.1) 06/23/20 05:00 Corrected Calcium 9.7 mg/dL (8.5-10.1) 06/23/20 05:00 Total Bilirubin 1.20 mg/dL (0.2-1.0) H 06/23/20 05:00 AST 37 Units/L (15-37) 06/23/20 05:00 ALT 59 Units/L (12-78) 06/23/20 05:00 Alkaline Phosphatase 120 Units/L (46-116) H 06/23/20 05:00 Total Protein 6.8 g/dL (6.4-8.2) 06/23/20 05:00 Albumin 3.0 g/dL (3.4-5.0) L 06/23/20 05:00 Globulin 3.8 g/dL (2.5-4.5) 06/23/20 05:00 Albumin/Globulin Ratio 0.8 Ratio (1.1-2.1) L 06/23/20 05:00 Vancomycin Trough 13.5 ug/mL (15-20) L 06/12/20 22:33 SARS CoV-2 RNA Rapid MAGNOLIA Negative (NEGATIVE) 06/09/20 20:47 Blood Type B POSITIVE 06/22/20 11:44 Antibody Screen Negative 06/22/20 11:44 Crossmatch See Detail 06/22/20 11:44 Plan (1) Sickle cell anemia with crisis: Status: Acute Plan: NORMAL SALINE AT 125 ML/HR, CIPROFLOXACIN, LOVENOX 40MG SC DAILY, ROXICODONE 10MG PO Q4H PRN, PHENERGAN 12.5MG IM Q6H PRN, AND SANTYL FOR WOUND CARE (2) Ulcer of leg, chronic, right: Status: Chronic Qualifiers: Non-pressure ulcer stage: unspecified non-pressure ulcer stage Qualified Code(s): L97.919 - Non-pressure chronic ulcer of unspecified part of right lower leg with unspecified severity Plan: s/p harvesting of full thickness skin graft . Plan application of Skin TE and placement wound vacuum today.
[2020-06-23] MEDS ORDERED: NS 250 ML IV 250 ML IV ONE (23:46)
[2020-06-24] MEDS: ROXICODONE TAB 5 MG PO PRN ×4 (03:40→19:38)
[2020-06-24 05:06] LABS: ALANINE AMINOTRANSFERASE 50 Units/L (12-78); ALBUMIN 3.1 g/dL (3.4-5.0); ALKALINE PHOSPHATASE 122 Units/L (46-116); ASPARTATE AMINO TRANSFERASE 32 Units/L (15-37); BLOOD UREA NITROGEN 7 mg/dL (7-18); CALCIUM 8.8 mg/dL (8.5-10.1); CARBON DIOXIDE 26.2 mmol/L (21-32); CHLORIDE 106 mmol/L (98-107); COR CA(FOR HYPOALB) 9.5 mg/dL (8.5-10.1); CREATININE 0.75 mg/dL (0.70-1.30); SODIUM 142 mmol/L (136-145); TOTAL PROTEIN 6.9 g/dL (6.4-8.2); eGFR NON BLACK RACES > 60 (>60)
[2020-06-24 05:43] LABS: BASOPHILS # (AUTO) 0.3 X10^3/uL (0.0-0.1); BASOPHILS % (AUTO) 2.9 % (0.2-1.0); EOSINOPHILS # (AUTO) 1.4 x10^3/uL (0.0-0.2); EOSINOPHILS % (AUTO) 14.3 % (0.9-2.9); HEMATOCRIT 28.4 % (42.0-54.0); LYMPHOCYTES # (AUTO) 4.2 X10^3/uL (1.3-2.9); LYMPHOCYTES % (AUTO) 44.4 % (21.0-51.0); MEAN CORPUSCULAR HEMOGLOBIN 27.5 pg (27.0-34.0); MEAN CORPUSCULAR HGB CONC 32.2 g/dL (33.0-35.0); MEAN CORPUSCULAR VOLUME 85.6 fL (80.0-100.0); MEAN PLATELET VOLUME 7.5 fL (7.4-11.0); MONOCYTES # (AUTO) 0.8 x10^3/uL (0.3-0.8); NEUTROPHILS # (AUTO) 2.9 x10^3/uL (2.2-4.8); NEUTROPHILS % (AUTO) 30.4 % (42.0-75.0); PLATELET COUNT 600 X10^3/uL (150.0-450.0); RED BLOOD COUNT 3.32 X10^6/uL (4.7-6.0); RED CELL DISTRIBUTION WIDTH 17.3 % (11.6-16.5); WHITE BLOOD COUNT 9.5 X10^3/uL (3.6-10.0)
[2020-06-24 05:44] LABS: ANISOCYTOSIS 1+; GIANT PLATELET RARE; HEMOGLOBIN 9.1 g/dL (13.5-18.0); HYPOCHROMASIA SLIGHT; PLATELET MORPHOLOGY COMMENT ABNORMAL (NORMAL)
[2020-06-24 05:45] LABS: TARGET CELLS PRESENT
[2020-06-24] MEDS: CIPRO TAB 500 MG PO SCH ×2 (08:47→20:44)
[2020-06-24] MEDS: LOVENOX INJ 40 MG SYR SC SCH ×2 (08:47→08:54)
[2020-06-24] MEDS: NICOTINE PATCH TD SCH (08:48)
[2020-06-24] MEDS: TORADOL 30 MG VIAL IVP PRN ×2 (14:22→21:15)
[2020-06-24] MEDS ORDERED: NS 1000 ML 1,000 ML ONE (14:30)
--- NOTE | 2020-06-24 15:29 | PCM.PROG ---
Progress Note Subjective Subjective: PT IS A 35 YEAR OLD MALE ADMITTED FOR TREATMENT OF SYMPTOMATIC ANEMIA, SICKLE CELL CRISIS, AND RIGHT LOWER LEG WOUND/ULCERATION. HE IS STATUS POST FULL THICKNESS SKIN GRAFT HARVESTING, WITH PLAN FOR PLACEMENT THIS MORNING. HEMOGLOBIN 7.1 THIS MORNING, WILL ORDER AND TRANSFUSE 2 UNITS OF PACKED RED BLOOD CELLS WHEN AVAILABLE. LABS/IMAGING: WBC 9.2, HGB 7.1, PLT 616, NA 141, K 4.2, CREATININE 0.76, GLUCOSE 82. WOUND IS POSITIVE FOR GROWTH OF PROVIDENCIA RETTGERI AND PROTEUS MIRABILIS. BLOOD CULTURES ARE NEGATIVE. HE IS CURRENTLY RECEIVING NORMAL SALINE AT 125 ML/HR, CIPROFLOXACIN, LOVENOX 40MG SC DAILY, ROXICODONE 10MG PO Q6H PRN, PHENERGAN 12.5MG IM Q6H PRN, AND SANTYL FOR WOUND C ARE. GENERAL SURGERY WILL CONTINUE TO FOLLOW. MONITOR AND FOLLOW UP LABS/IMAGING IN THE MORNING. 06/24/2020 POD #1 after applying Skin TE full thickness graft and application of wound vacuum. Wound vacuum in place with no air leak. Past Medical Family Social History Past Med/Fam/Surg Hx: No changes since H&P Allergies: Allergies Egg Derived Allergy (Verified 10/12/17 21:04) mayonnaise Allergy (Verified 10/12/17 21:04) morphine Allergy (Verified 10/13/17 05:57) ondansetron [From Zofran] Allergy (Verified 10/13/17 05:57) Review of Systems ROS: No change since H&P Vital Signs and I&O's Vital Signs: Temperature 98.8 F Pulse Rate [Left Brachial] 62 Pulse Rate 88 Respiratory Rate 24 Blood Pressure [Right Arm] 115/64 Blood Pressure [Left Arm] 113/58 Blood Pressure 110/58 O2 Sat by Pulse Oximetry 100 Intake and Output: Intake & Output 06/21/20 06/22/20 06/23/20 06/24/20 23:59 23:59 23:59 23:59 Intake Total 2770 / 2770 2660 / 2660 2390 / 2390 1470 / 1470 Output Total 2750 / 2750 2750 / 2750 1725 / 1725 780 / 780 Balance 20 / 20 -90 / -90 665 / 665 690 / 690 Physical Exam Oriented: Normal, Time, Person and Place Eyes: Normal Ear: Normal Nose: Normal Throat: Normal Respiratory: Normal Cardiovascular: Normal : Normal Auscultation: Bowel Sounds: Normal Tenderness: Normal Skin: Tender and Wound ( Will continue Santyl to the wounds . harvest site RLQ abdomen is clean) Musculoskeletal: Normal Psychiatric: Normal Mood Description: Calm, Depressed and Flat Affect: Flat Speech Pattern: Clear and Appropriate Laboratory and Diagnostics Result Diagrams: 06/24/20 05:21 06/24/20 03:58 Labs: 06/09/20 16:34 Blood Blood Culture - Final 06/09/20 16:25 Blood Blood Culture - Final 06/09/20 21:16 Leg - Right Wound Culture - Final Providencia Rettgeri Proteus Mirabilis Laboratory WBC 9.5 X10^3/uL (3.6-10.0) 06/24/20 05:21 RBC 3.32 X10^6/uL (4.7-6.0) L 06/24/20 05:21 Hgb 9.1 g/dL (13.5-18.0) L D 06/24/20 05:21 Hct 28.4 % (42.0-54.0) L 06/24/20 05:21 MCV 85.6 fL (80.0-100.0) 06/24/20 05:21 MCH 27.5 pg (27.0-34.0) 06/24/20 05:21 MCHC 32.2 g/dL (33.0-35.0) L 06/24/20 05:21 RDW 17.3 % (11.6-16.5) H 06/24/20 05:21 Plt Count 600 X10^3/uL (150.0-450.0) H 06/24/20 05:21 Plt Count Comment Increased (ADEQUATE) 06/24/20 05:21 MPV 7.5 fL (7.4-11.0) 06/24/20 05:21 Neut % (Auto) 30.4 % (42.0-75.0) L 06/24/20 05:21 Lymph % (Auto) 44.4 % (21.0-51.0) 06/24/20 05:21 [place] % (Auto) 8.0 % (0.0-13.0) 06/24/20 05:21 Eos % (Auto) 14.3 % (0.9-2.9) H 06/24/20 05:21 Baso % (Auto) 2.9 % (0.2-1.0) H 06/24/20 05:21 Neut # (Auto) 2.9 x10^3/uL (2.2-4.8) 06/24/20 05:21 Lymph # (Auto) 4.2 X10^3/uL (1.3-2.9) H 06/24/20 05:21 [place] # (Auto) 0.8 x10^3/uL (0.3-0.8) 06/24/20 05:21 Eos # (Auto) 1.4 x10^3/uL (0.0-0.2) H 06/24/20 05:21 Baso # (Auto) 0.3 X10^3/uL (0.0-0.1) H 06/24/20 05:21 Absolute Nucleated RBC 0.1 /100WBC 06/24/20 05:21 Total Counted 100 06/20/20 05:19 Neutrophils % (Manual) 25 % (39-76) L 06/20/20 05:19 Band Neutrophils % 5 % (0-10) 06/09/20 16:34 Lymphocytes % (Manual) 63 % (13-43) H 06/20/20 05:19 Monocytes % (Manual) 4 % (4-9) 06/20/20 05:19 Eosinophils % (Manual) 12 % (0-6) H 06/20/20 05:19 Basophils % (Manual) 1 % (0-1) 06/17/20 05:46 Giant Platelets Rare 06/24/20 05:21 Plt Morphology Comment Abnormal (NORMAL) 06/24/20 05:21 RBC Morphology Abnormal (NORMAL) 06/24/20 05:21 Dimorphic RBCs Noted 06/11/20 05:25 Polychromasia Slight 06/11/20 05:25 Hypochromasia Slight A 06/24/20 05:21 Poikilocytosis Slight A 06/11/20 05:25 Anisocytosis 1+ A 06/24/20 05:21 Microcytosis 1+ A 06/21/20 04:20 Sickle Cells Rare 06/23/20 05:00 Target Cells Present 06/24/20 05:21 Ovalocytes Present 06/23/20 05:00 PT 15.2 SECONDS (11.8-14.3) 06/09/20 16:25 INR Target Range - 06/09/20 16:25 INR 1.26 (0.8-1.3) 06/09/20 16:25 Sodium 142 mmol/L (136-145) 06/24/20 03:58 Corrected Sodium TNP 06/24/20 03:58 Potassium 4.8 mmol/L (3.5-5.1) 06/24/20 03:58 Chloride 106 mmol/L (98-107) 06/24/20 03:58 Carbon Dioxide 26.2 mmol/L (21-32) 06/24/20 03:58 BUN 7 mg/dL (7-18) 06/24/20 03:58 Creatinine 0.75 mg/dL (0.70-1.30) 06/24/20 03:58 Est GFR (MDRD) Af Amer > 60 (>60) 06/24/20 03:58 Est GFR (MDRD) Non-Af > 60 (>60) 06/24/20 03:58 Glucose 88 mg/dL (65-99) 06/24/20 03:58 Calcium 8.8 mg/dL (8.5-10.1) 06/24/20 03:58 Corrected Calcium 9.5 mg/dL (8.5-10.1) 06/24/20 03:58 Total Bilirubin 1.50 mg/dL (0.2-1.0) H 06/24/20 03:58 AST 32 Units/L (15-37) 06/24/20 03:58 ALT 50 Units/L (12-78) 06/24/20 03:58 Alkaline Phosphatase 122 Units/L (46-116) H 06/24/20 03:58 Total Protein 6.9 g/dL (6.4-8.2) 06/24/20 03:58 Albumin 3.1 g/dL (3.4-5.0) L 06/24/20 03:58 Globulin 3.8 g/dL (2.5-4.5) 06/24/20 03:58 Albumin/Globulin Ratio 0.8 Ratio (1.1-2.1) L 06/24/20 03:58 Vancomycin Trough 13.5 ug/mL (15-20) L 06/12/20 22:33 SARS CoV-2 RNA Rapid MAGNOLIA Negative (NEGATIVE) 06/09/20 20:47 Blood Type B POSITIVE 06/22/20 11:44 Antibody Screen Negative 06/22/20 11:44 Crossmatch See Detail 06/22/20 11:44 Plan (1) Sickle cell anemia with crisis: Status: Acute Plan: NORMAL SALINE AT 125 ML/HR, CIPROFLOXACIN, LOVENOX 40MG SC DAILY, ROXICODONE 10MG PO Q4H PRN, PHENERGAN 12.5MG IM Q6H PRN, AND SANTYL FOR WOUND CARE (2) Ulcer of leg, chronic, right: Status: Chronic Qualifiers: Non-pressure ulcer stage: unspecified non-pressure ulcer stage Qualified Code(s): L97.919 - Non-pressure chronic ulcer of unspecified part of right lower leg with unspecified severity Plan: Continue wound vacuum for total of 7 days.
[2020-06-24] MEDS: NS 1000 ML 1,000 ML IV SCH ×3 (15:54→23:06)
[2020-06-24] MEDS: MILK OF MAGNESIA PO SCH (21:11)
[2020-06-25] MEDS: ROXICODONE TAB 5 MG PO PRN ×4 (00:38→20:49)
[2020-06-25] MEDS: TORADOL 30 MG VIAL IVP PRN ×3 (04:13→18:55)
[2020-06-25 05:17] LABS: BASOPHILS # (AUTO) 0.2 X10^3/uL (0.0-0.1); BASOPHILS % (AUTO) 2.4 % (0.2-1.0); EOSINOPHILS # (AUTO) 1.6 x10^3/uL (0.0-0.2); EOSINOPHILS % (AUTO) 15.6 % (0.9-2.9); HEMATOCRIT 26.3 % (42.0-54.0); HEMOGLOBIN 8.7 g/dL (13.5-18.0); LYMPHOCYTES # (AUTO) 4.7 X10^3/uL (1.3-2.9); MEAN CORPUSCULAR HEMOGLOBIN 28.3 pg (27.0-34.0); MEAN CORPUSCULAR HGB CONC 32.9 g/dL (33.0-35.0); MEAN PLATELET VOLUME 8.6 fL (7.4-11.0); MONOCYTES # (AUTO) 0.8 x10^3/uL (0.3-0.8); MONOCYTES % (AUTO) 7.9 % (0.0-13.0); NEUTROPHILS # (AUTO) 2.9 x10^3/uL (2.2-4.8); NEUTROPHILS % (AUTO) 28.1 % (42.0-75.0); PLATELET COUNT 564 X10^3/uL (150.0-450.0); RED BLOOD COUNT 3.06 X10^6/uL (4.7-6.0); RED CELL DISTRIBUTION WIDTH 17.4 % (11.6-16.5); WHITE BLOOD COUNT 10.3 X10^3/uL (3.6-10.0)
[2020-06-25 05:22] LABS: ALANINE AMINOTRANSFERASE 39 Units/L (12-78); ALBUMIN 2.8 g/dL (3.4-5.0); ALKALINE PHOSPHATASE 110 Units/L (46-116); ASPARTATE AMINO TRANSFERASE 22 Units/L (15-37); BLOOD UREA NITROGEN 13 mg/dL (7-18); CALCIUM 8.7 mg/dL (8.5-10.1); CARBON DIOXIDE 25.4 mmol/L (21-32); CHLORIDE 108 mmol/L (98-107); COR CA(FOR HYPOALB) 9.7 mg/dL (8.5-10.1); CREATININE 0.84 mg/dL (0.70-1.30); SODIUM 143 mmol/L (136-145); TOTAL PROTEIN 6.3 g/dL (6.4-8.2); eGFR NON BLACK RACES > 60 (>60)
[2020-06-25 05:48] LABS: ANISOCYTOSIS 1+; GIANT PLATELET RARE; HYPOCHROMASIA SLIGHT; PLATELET MORPHOLOGY COMMENT ABNORMAL (NORMAL); TARGET CELLS PRESENT
[2020-06-25] MEDS: NS 1000 ML 1,000 ML IV SCH ×4 (05:59→21:57)
[2020-06-25] MEDS: CIPRO TAB 500 MG PO SCH ×2 (08:03→20:45)
[2020-06-25] MEDS: NICOTINE PATCH TD SCH (08:04)
[2020-06-25] MEDS: LOVENOX INJ 40 MG SYR SC SCH (08:09)
[2020-06-25] MEDS: MILK OF MAGNESIA PO SCH (21:11)
[2020-06-26] MEDS: ROXICODONE TAB 5 MG PO PRN ×4 (00:29→22:00)
[2020-06-26] MEDS: TORADOL 30 MG VIAL IVP PRN ×3 (03:30→19:36)
[2020-06-26 05:17] LABS: BASOPHILS # (AUTO) 0.1 X10^3/uL (0.0-0.1); BASOPHILS % (AUTO) 0.8 % (0.2-1.0); EOSINOPHILS # (AUTO) 1.8 x10^3/uL (0.0-0.2); EOSINOPHILS % (AUTO) 15.7 % (0.9-2.9); HEMATOCRIT 25.2 % (42.0-54.0); LYMPHOCYTES # (AUTO) 5.3 X10^3/uL (1.3-2.9); LYMPHOCYTES % (AUTO) 45.4 % (21.0-51.0); MEAN CORPUSCULAR HEMOGLOBIN 27.7 pg (27.0-34.0); MEAN CORPUSCULAR HGB CONC 31.8 g/dL (33.0-35.0); MEAN PLATELET VOLUME 8.6 fL (7.4-11.0); MONOCYTES # (AUTO) 0.9 x10^3/uL (0.3-0.8); NEUTROPHILS # (AUTO) 3.5 x10^3/uL (2.2-4.8); NEUTROPHILS % (AUTO) 30.1 % (42.0-75.0); PLATELET COUNT 538 X10^3/uL (150.0-450.0); RED CELL DISTRIBUTION WIDTH 16.9 % (11.6-16.5); WHITE BLOOD COUNT 11.8 X10^3/uL (3.6-10.0)
[2020-06-26 05:25] LABS: ALANINE AMINOTRANSFERASE 35 Units/L (12-78); ALBUMIN 2.8 g/dL (3.4-5.0); ALKALINE PHOSPHATASE 108 Units/L (46-116); ASPARTATE AMINO TRANSFERASE 23 Units/L (15-37); BLOOD UREA NITROGEN 12 mg/dL (7-18); CALCIUM 8.6 mg/dL (8.5-10.1); CARBON DIOXIDE 23.4 mmol/L (21-32); CHLORIDE 111 mmol/L (98-107); COR CA(FOR HYPOALB) 9.6 mg/dL (8.5-10.1); CREATININE 0.77 mg/dL (0.70-1.30); SODIUM 145 mmol/L (136-145); TOTAL PROTEIN 6.3 g/dL (6.4-8.2); eGFR NON BLACK RACES > 60 (>60)
[2020-06-26 05:35] LABS: ANISOCYTOSIS SLIGHT; GIANT PLATELET RARE; HYPOCHROMASIA SLIGHT; PLATELET MORPHOLOGY COMMENT ABNORMAL (NORMAL); TARGET CELLS PRESENT
[2020-06-26] MEDS: CIPRO TAB 500 MG PO SCH ×2 (08:09→20:25)
[2020-06-26] MEDS: NICOTINE PATCH TD SCH (08:09)
[2020-06-26] MEDS: LOVENOX INJ 40 MG SYR SC SCH (08:14)
--- NOTE | 2020-06-26 11:00 | PCM.PROG ---
Progress Note Progress Note for Day of Date of Exam: 06/26/20 Subjective Subjective: Pt is a 35 year old male admitted for symptomatic anemia due to sickle cell crisis and right lower leg wound/ulceration. He is status post full thickness skin graft, recovering well with wound vacuum in place. Plan to continue wound vacuum for total 7 days. Labs/imaging: Wbc 11.8, Hgb 8.0, Plt 538, Na 145, K 4.0, Creatinine 0.77, Glucose 89. Wound culture positive for Providencia rettgeri and Proteus mirabilis. He is currently receiving antibiotics Ciprofloxacin, Lovenox 40mg sc daily, Roxicodone 10mg PO Q6H prn, IV toradol prn for breakthrough pain, Phenergan 12.5MG IM Q6H prn. General surgery will continue to follow. Monitor and follow up labs/imaging in the morning. Past Medical Family Social History Past Med/Fam/Surg Hx: No changes since H&P Allergies: Allergies Egg Derived Allergy (Verified 10/12/17 21:04) mayonnaise Allergy (Verified 10/12/17 21:04) morphine Allergy (Verified 10/13/17 05:57) ondansetron [From Zofran] Allergy (Verified 10/13/17 05:57) Review of Systems ROS: No change since H&P Vital Signs and I&O's Vital Signs: Temperature 98.6 F Pulse Rate [Left Brachial] 62 Pulse Rate 88 Respiratory Rate 20 Blood Pressure [Right Arm] 111/68 Blood Pressure [Left Arm] 113/58 Blood Pressure 106/81 O2 Sat by Pulse Oximetry 100 Intake and Output: Intake & Output 06/23/20 06/24/20 06/25/20 06/26/20 23:59 23:59 23:59 23:59 Intake Total 2390 / 2390 3685 / 3685 3566 / 3566 1789 / 1789 Output Total 1725 / 1725 2530 / 2530 2019 / 2019 420 / 420 Balance 665 / 665 1155 / 1155 1546 / 1546 1369 / 1369 Physical Exam Oriented: Normal, Time, Person and Place Eyes: Normal Ear: Normal Nose: Normal Throat: Normal Respiratory: Normal Cardiovascular: Normal : Normal Auscultation: Bowel Sounds: Normal Tenderness: Normal Skin: Wound ( Wound vac in place.) Musculoskeletal: Normal Psychiatric: Normal Mood Description: Calm, Depressed and Flat Affect: Flat Speech Pattern: Clear and Appropriate Laboratory and Diagnostics Result Diagrams: 06/26/20 04:05 06/26/20 04:05 Labs: 06/09/20 16:34 Blood Blood Culture - Final 06/09/20 16:25 Blood Blood Culture - Final 06/09/20 21:16 Leg - Right Wound Culture - Final Providencia Rettgeri Proteus Mirabilis Laboratory WBC 11.8 X10^3/uL (3.6-10.0) H 06/26/20 04:05 RBC 2.90 X10^6/uL (4.7-6.0) L 06/26/20 04:05 Hgb 8.0 g/dL (13.5-18.0) L 06/26/20 04:05 Hct 25.2 % (42.0-54.0) L 06/26/20 04:05 MCV 87.0 fL (80.0-100.0) 06/26/20 04:05 MCH 27.7 pg (27.0-34.0) 06/26/20 04:05 MCHC 31.8 g/dL (33.0-35.0) L 06/26/20 04:05 RDW 16.9 % (11.6-16.5) H 06/26/20 04:05 Plt Count 538 X10^3/uL (150.0-450.0) H 06/26/20 04:05 Plt Count Comment Increased (ADEQUATE) 06/26/20 04:05 MPV 8.6 fL (7.4-11.0) 06/26/20 04:05 Neut % (Auto) 30.1 % (42.0-75.0) L 06/26/20 04:05 Lymph % (Auto) 45.4 % (21.0-51.0) 06/26/20 04:05 [place] % (Auto) 8.0 % (0.0-13.0) 06/26/20 04:05 Eos % (Auto) 15.7 % (0.9-2.9) H 06/26/20 04:05 Baso % (Auto) 0.8 % (0.2-1.0) 06/26/20 04:05 Neut # (Auto) 3.5 x10^3/uL (2.2-4.8) 06/26/20 04:05 Lymph # (Auto) 5.3 X10^3/uL (1.3-2.9) H 06/26/20 04:05 [place] # (Auto) 0.9 x10^3/uL (0.3-0.8) H 06/26/20 04:05 Eos # (Auto) 1.8 x10^3/uL (0.0-0.2) H 06/26/20 04:05 Baso # (Auto) 0.1 X10^3/uL (0.0-0.1) 06/26/20 04:05 Absolute Nucleated RBC 0.1 /100WBC 06/26/20 04:05 Total Counted 100 06/20/20 05:19 Neutrophils % (Manual) 25 % (39-76) L 06/20/20 05:19 Band Neutrophils % 5 % (0-10) 06/09/20 16:34 Lymphocytes % (Manual) 63 % (13-43) H 06/20/20 05:19 Monocytes % (Manual) 4 % (4-9) 06/20/20 05:19 Eosinophils % (Manual) 12 % (0-6) H 06/20/20 05:19 Basophils % (Manual) 1 % (0-1) 06/17/20 05:46 Giant Platelets Rare 06/26/20 04:05 Plt Morphology Comment Abnormal (NORMAL) 06/26/20 04:05 RBC Morphology Abnormal (NORMAL) 06/26/20 04:05 Dimorphic RBCs Noted 06/11/20 05:25 Polychromasia Slight 06/11/20 05:25 Hypochromasia Slight A 06/26/20 04:05 Poikilocytosis Slight A 06/11/20 05:25 Anisocytosis Slight A 06/26/20 04:05 Microcytosis 1+ A 06/21/20 04:20 Sickle Cells Rare 06/23/20 05:00 Target Cells Present 06/26/20 04:05 Ovalocytes Present 06/23/20 05:00 PT 15.2 SECONDS (11.8-14.3) 06/09/20 16:25 INR Target Range - 06/09/20 16:25 INR 1.26 (0.8-1.3) 06/09/20 16:25 Sodium 145 mmol/L (136-145) 06/26/20 04:05 Corrected Sodium TNP 06/26/20 04:05 Potassium 4.0 mmol/L (3.5-5.1) 06/26/20 04:05 Chloride 111 mmol/L (98-107) H 06/26/20 04:05 Carbon Dioxide 23.4 mmol/L (21-32) 06/26/20 04:05 BUN 12 mg/dL (7-18) 06/26/20 04:05 Creatinine 0.77 mg/dL (0.70-1.30) 06/26/20 04:05 Est GFR (MDRD) Af Amer > 60 (>60) 06/26/20 04:05 Est GFR (MDRD) Non-Af > 60 (>60) 06/26/20 04:05 Glucose 89 mg/dL (65-99) 06/26/20 04:05 Calcium 8.6 mg/dL (8.5-10.1) 06/26/20 04:05 Corrected Calcium 9.6 mg/dL (8.5-10.1) 06/26/20 04:05 Total Bilirubin 1.20 mg/dL (0.2-1.0) H 06/26/20 04:05 AST 23 Units/L (15-37) 06/26/20 04:05 ALT 35 Units/L (12-78) 06/26/20 04:05 Alkaline Phosphatase 108 Units/L (46-116) 06/26/20 04:05 Total Protein 6.3 g/dL (6.4-8.2) L 06/26/20 04:05 Albumin 2.8 g/dL (3.4-5.0) L 06/26/20 04:05 Globulin 3.5 g/dL (2.5-4.5) 06/26/20 04:05 Albumin/Globulin Ratio 0.8 Ratio (1.1-2.1) L 06/26/20 04:05 Vancomycin Trough 13.5 ug/mL (15-20) L 06/12/20 22:33 SARS CoV-2 RNA Rapid MAGNOLIA Negative (NEGATIVE) 06/09/20 20:47 Blood Type B POSITIVE 06/22/20 11:44 Antibody Screen Negative 06/22/20 11:44 Crossmatch See Detail 06/22/20 11:44 Plan (1) Sickle cell anemia with crisis: Status: Acute Plan: NORMAL SALINE AT 125 ML/HR, CIPROFLOXACIN, LOVENOX 40MG SC DAILY, ROXICODONE 10MG PO Q4H PRN, PHENERGAN 12.5MG IM Q6H PRN, AND SANTYL FOR WOUND CARE (2) Ulcer of leg, chronic, right: Status: Chronic Qualifiers: Non-pressure ulcer stage: unspecified non-pressure ulcer stage Qualified Code(s): L97.919 - Non-pressure chronic ulcer of unspecified part of right lower leg with unspecified severity Plan: Continue wound vacuum for total of 7 days.
--- NOTE | 2020-06-26 16:31 | PCM.PROG ---
Progress Note Subjective Subjective: Pt is a 35 year old male admitted for symptomatic anemia due to sickle cell crisis and right lower leg wound/ulceration. He is status post full thickness skin graft, recovering well with wound vacuum in place. Plan to continue wound vacuum for total 7 days. Labs/imaging: Wbc 11.8, Hgb 8.0, Plt 538, Na 145, K 4.0, Creatinine 0.77, Glucose 89. Wound culture positive for Providencia rettgeri and Proteus mirabilis. He is currently receiving antibiotics Ciprofloxacin, Lovenox 40mg sc daily, Roxicodone 10mg PO Q6H prn, IV toradol prn for breakthrough pain, Phenergan 12.5MG IM Q6H prn. General surgery will continue to follow. Monitor and follow up labs/imaging in the morning. Past Medical Family Social History Past Med/Fam/Surg Hx: No changes since H&P Allergies: Allergies Egg Derived Allergy (Verified 10/12/17 21:04) mayonnaise Allergy (Verified 10/12/17 21:04) morphine Allergy (Verified 10/13/17 05:57) ondansetron [From Zofran] Allergy (Verified 10/13/17 05:57) Review of Systems ROS: No change since H&P Vital Signs and I&O's Vital Signs: Temperature 98.7 F Pulse Rate [Left Brachial] 55 Pulse Rate 88 Respiratory Rate 18 Blood Pressure [Right Arm] 125/69 Blood Pressure [Left Arm] 113/58 Blood Pressure 106/81 O2 Sat by Pulse Oximetry 98 Intake and Output: Intake & Output 06/23/20 06/24/20 06/25/20 06/26/20 23:59 23:59 23:59 23:59 Intake Total 2390 / 2390 3685 / 3685 3566 / 3566 1799 / 1799 Output Total 1725 / 1725 2530 / 2530 2019 / 2019 420 / 420 Balance 665 / 665 1155 / 1155 1546 / 1546 1379 / 1379 Physical Exam Oriented: Normal, Time, Person and Place Eyes: Normal Ear: Normal Nose: Normal Throat: Normal Respiratory: Normal Cardiovascular: Normal : Normal Auscultation: Bowel Sounds: Normal Tenderness: Normal Skin: Wound ( Wound vac in place.) Musculoskeletal: Normal Psychiatric: Normal Mood Description: Calm, Depressed and Flat Affect: Flat Speech Pattern: Clear and Appropriate Laboratory and Diagnostics Result Diagrams: 06/26/20 04:05 06/26/20 04:05 Labs: 06/09/20 16:34 Blood Blood Culture - Final 06/09/20 16:25 Blood Blood Culture - Final 06/09/20 21:16 Leg - Right Wound Culture - Final Providencia Rettgeri Proteus Mirabilis Laboratory WBC 11.8 X10^3/uL (3.6-10.0) H 06/26/20 04:05 RBC 2.90 X10^6/uL (4.7-6.0) L 06/26/20 04:05 Hgb 8.0 g/dL (13.5-18.0) L 06/26/20 04:05 Hct 25.2 % (42.0-54.0) L 06/26/20 04:05 MCV 87.0 fL (80.0-100.0) 06/26/20 04:05 MCH 27.7 pg (27.0-34.0) 06/26/20 04:05 MCHC 31.8 g/dL (33.0-35.0) L 06/26/20 04:05 RDW 16.9 % (11.6-16.5) H 06/26/20 04:05 Plt Count 538 X10^3/uL (150.0-450.0) H 06/26/20 04:05 Plt Count Comment Increased (ADEQUATE) 06/26/20 04:05 MPV 8.6 fL (7.4-11.0) 06/26/20 04:05 Neut % (Auto) 30.1 % (42.0-75.0) L 06/26/20 04:05 Lymph % (Auto) 45.4 % (21.0-51.0) 06/26/20 04:05 [place] % (Auto) 8.0 % (0.0-13.0) 06/26/20 04:05 Eos % (Auto) 15.7 % (0.9-2.9) H 06/26/20 04:05 Baso % (Auto) 0.8 % (0.2-1.0) 06/26/20 04:05 Neut # (Auto) 3.5 x10^3/uL (2.2-4.8) 06/26/20 04:05 Lymph # (Auto) 5.3 X10^3/uL (1.3-2.9) H 06/26/20 04:05 [place] # (Auto) 0.9 x10^3/uL (0.3-0.8) H 06/26/20 04:05 Eos # (Auto) 1.8 x10^3/uL (0.0-0.2) H 06/26/20 04:05 Baso # (Auto) 0.1 X10^3/uL (0.0-0.1) 06/26/20 04:05 Absolute Nucleated RBC 0.1 /100WBC 06/26/20 04:05 Total Counted 100 06/20/20 05:19 Neutrophils % (Manual) 25 % (39-76) L 06/20/20 05:19 Band Neutrophils % 5 % (0-10) 06/09/20 16:34 Lymphocytes % (Manual) 63 % (13-43) H 06/20/20 05:19 Monocytes % (Manual) 4 % (4-9) 06/20/20 05:19 Eosinophils % (Manual) 12 % (0-6) H 06/20/20 05:19 Basophils % (Manual) 1 % (0-1) 06/17/20 05:46 Giant Platelets Rare 06/26/20 04:05 Plt Morphology Comment Abnormal (NORMAL) 06/26/20 04:05 RBC Morphology Abnormal (NORMAL) 06/26/20 04:05 Dimorphic RBCs Noted 06/11/20 05:25 Polychromasia Slight 06/11/20 05:25 Hypochromasia Slight A 06/26/20 04:05 Poikilocytosis Slight A 06/11/20 05:25 Anisocytosis Slight A 06/26/20 04:05 Microcytosis 1+ A 06/21/20 04:20 Sickle Cells Rare 06/23/20 05:00 Target Cells Present 06/26/20 04:05 Ovalocytes Present 06/23/20 05:00 PT 15.2 SECONDS (11.8-14.3) 06/09/20 16:25 INR Target Range - 06/09/20 16:25 INR 1.26 (0.8-1.3) 06/09/20 16:25 Sodium 145 mmol/L (136-145) 06/26/20 04:05 Corrected Sodium TNP 06/26/20 04:05 Potassium 4.0 mmol/L (3.5-5.1) 06/26/20 04:05 Chloride 111 mmol/L (98-107) H 06/26/20 04:05 Carbon Dioxide 23.4 mmol/L (21-32) 06/26/20 04:05 BUN 12 mg/dL (7-18) 06/26/20 04:05 Creatinine 0.77 mg/dL (0.70-1.30) 06/26/20 04:05 Est GFR (MDRD) Af Amer > 60 (>60) 06/26/20 04:05 Est GFR (MDRD) Non-Af > 60 (>60) 06/26/20 04:05 Glucose 89 mg/dL (65-99) 06/26/20 04:05 Calcium 8.6 mg/dL (8.5-10.1) 06/26/20 04:05 Corrected Calcium 9.6 mg/dL (8.5-10.1) 06/26/20 04:05 Total Bilirubin 1.20 mg/dL (0.2-1.0) H 06/26/20 04:05 AST 23 Units/L (15-37) 06/26/20 04:05 ALT 35 Units/L (12-78) 06/26/20 04:05 Alkaline Phosphatase 108 Units/L (46-116) 06/26/20 04:05 Total Protein 6.3 g/dL (6.4-8.2) L 06/26/20 04:05 Albumin 2.8 g/dL (3.4-5.0) L 06/26/20 04:05 Globulin 3.5 g/dL (2.5-4.5) 06/26/20 04:05 Albumin/Globulin Ratio 0.8 Ratio (1.1-2.1) L 06/26/20 04:05 Vancomycin Trough 13.5 ug/mL (15-20) L 06/12/20 22:33 SARS CoV-2 RNA Rapid MAGNOLIA Negative (NEGATIVE) 06/09/20 20:47 Blood Type B POSITIVE 06/22/20 11:44 Antibody Screen Negative 06/22/20 11:44 Crossmatch See Detail 06/22/20 11:44 Plan (1) Sickle cell anemia with crisis: Status: Acute Plan: NORMAL SALINE AT 125 ML/HR, CIPROFLOXACIN, LOVENOX 40MG SC DAILY, ROXICODONE 10MG PO Q4H PRN, PHENERGAN 12.5MG IM Q6H PRN, AND SANTYL FOR WOUND CARE (2) Ulcer of leg, chronic, right: Status: Chronic Qualifiers: Non-pressure ulcer stage: unspecified non-pressure ulcer stage Qualified Code(s): L97.919 - Non-pressure chronic ulcer of unspecified part of right lower leg with unspecified severity Plan: Continue wound vacuum for total of 7 days.
[2020-06-26] MEDS: MILK OF MAGNESIA PO SCH (20:25)
[2020-06-27 04:48] LABS: BASOPHILS # (AUTO) 0.1 X10^3/uL (0.0-0.1); BASOPHILS % (AUTO) 1.3 % (0.2-1.0); EOSINOPHILS # (AUTO) 1.7 x10^3/uL (0.0-0.2); EOSINOPHILS % (AUTO) 15.6 % (0.9-2.9); HEMOGLOBIN 8.8 g/dL (13.5-18.0); LYMPHOCYTES # (AUTO) 4.7 X10^3/uL (1.3-2.9); LYMPHOCYTES % (AUTO) 44.9 % (21.0-51.0); MEAN CORPUSCULAR HEMOGLOBIN 28.3 pg (27.0-34.0); MEAN CORPUSCULAR HGB CONC 32.7 g/dL (33.0-35.0); MEAN CORPUSCULAR VOLUME 86.6 fL (80.0-100.0); MONOCYTES # (AUTO) 0.7 x10^3/uL (0.3-0.8); MONOCYTES % (AUTO) 6.4 % (0.0-13.0); NEUTROPHILS # (AUTO) 3.4 x10^3/uL (2.2-4.8); NEUTROPHILS % (AUTO) 31.8 % (42.0-75.0); PLATELET COUNT 549 X10^3/uL (150.0-450.0); RED BLOOD COUNT 3.12 X10^6/uL (4.7-6.0); WHITE BLOOD COUNT 10.6 X10^3/uL (3.6-10.0)
[2020-06-27 05:02] LABS: ALANINE AMINOTRANSFERASE 33 Units/L (12-78); ALBUMIN 2.9 g/dL (3.4-5.0); ALKALINE PHOSPHATASE 113 Units/L (46-116); ASPARTATE AMINO TRANSFERASE 22 Units/L (15-37); BLOOD UREA NITROGEN 11 mg/dL (7-18); CALCIUM 8.6 mg/dL (8.5-10.1); CARBON DIOXIDE 24.2 mmol/L (21-32); CHLORIDE 109 mmol/L (98-107); COR CA(FOR HYPOALB) 9.5 mg/dL (8.5-10.1); CREATININE 0.73 mg/dL (0.70-1.30); SODIUM 144 mmol/L (136-145); TOTAL PROTEIN 6.5 g/dL (6.4-8.2); eGFR NON BLACK RACES > 60 (>60)
[2020-06-27 05:39] LABS: ANISOCYTOSIS SLIGHT; GIANT PLATELET RARE; HYPOCHROMASIA SLIGHT; PLATELET MORPHOLOGY COMMENT ABNORMAL (NORMAL); TARGET CELLS PRESENT
[2020-06-27] MEDS: TORADOL 30 MG VIAL IVP PRN ×2 (06:29→16:38)
[2020-06-27] MEDS: NICOTINE PATCH TD SCH (08:44)
[2020-06-27] MEDS: CIPRO TAB 500 MG PO SCH ×2 (08:44→20:40)
[2020-06-27] MEDS: LOVENOX INJ 40 MG SYR SC SCH (08:47)
[2020-06-27] MEDS: ROXICODONE TAB 5 MG PO PRN ×2 (12:30→20:39)
[2020-06-27] MEDS: MILK OF MAGNESIA PO SCH (20:40)
--- NOTE | 2020-06-27 21:54 | PCM.PROG ---
Progress Note Progress Note for Day of Date of Exam: 06/27/20 Subjective Subjective: Pt is a 35 year old male admitted for symptomatic anemia due to sickle cell crisis and right lower leg wound/ulceration. He is status post full thickness skin graft, recovering well with wound vacuum in place. Plan to continue wound vacuum for total 7 days. Labs/imaging: Wbc 11.8, Hgb 8.0, Plt 538, Na 145, K 4.0, Creatinine 0.77, Glucose 89. Wound culture positive for Providencia rettgeri and Proteus mirabilis. He is currently receiving antibiotics Ciprofloxacin, Lovenox 40mg sc daily, Roxicodone 10mg PO Q6H prn, IV toradol prn for breakthrough pain, Phenergan 12.5MG IM Q6H prn. General surgery will continue to follow. Monitor and follow up labs/imaging in the morning. 06/27/2020 S/P excisional debridement of the right leg and placement of wound vacuum after application of full thickness skin graft using Skin TE process. Wound vacuum without significant drainage and there is no air leak. Donor site is clean. Past Medical Family Social History Past Med/Fam/Surg Hx: No changes since H&P Allergies: Allergies Egg Derived Allergy (Verified 10/12/17 21:04) mayonnaise Allergy (Verified 10/12/17 21:04) morphine Allergy (Verified 10/13/17 05:57) ondansetron [From Zofran] Allergy (Verified 10/13/17 05:57) Review of Systems ROS: No change since H&P Vital Signs and I&O's Vital Signs: Temperature 98.1 F Pulse Rate [Left Brachial] 71 Pulse Rate 88 Respiratory Rate 14 Blood Pressure [Right Arm] 106/61 Blood Pressure [Left Arm] 113/58 Blood Pressure 106/81 O2 Sat by Pulse Oximetry 98 Intake and Output: Intake & Output 06/24/20 06/25/20 06/26/20 06/27/20 23:59 23:59 23:59 23:59 Intake Total 3685 / 3685 3566 / 3566 3569 / 3569 1380 / 1380 Output Total 2530 / 2530 2019 / 2019 2770 / 2770 2059 / 2059 Balance 1155 / 1155 1546 / 1546 799 / 799 -680 / -680 Physical Exam Oriented: Normal, Time, Person and Place Eyes: Normal Ear: Normal Nose: Normal Throat: Normal Respiratory: Normal Cardiovascular: Normal : Normal Auscultation: Bowel Sounds: Normal Tenderness: Normal Skin: Wound ( Wound vac in place.No air leak) Musculoskeletal: Normal Psychiatric: Normal Mood Description: Calm, Depressed and Flat Affect: Flat Speech Pattern: Clear and Appropriate Laboratory and Diagnostics Result Diagrams: 06/27/20 04:33 06/27/20 04:33 Labs: 06/09/20 16:34 Blood Blood Culture - Final 06/09/20 16:25 Blood Blood Culture - Final 06/09/20 21:16 Leg - Right Wound Culture - Final Providencia Rettgeri Proteus Mirabilis Laboratory WBC 10.6 X10^3/uL (3.6-10.0) H 06/27/20 04:33 RBC 3.12 X10^6/uL (4.7-6.0) L 06/27/20 04:33 Hgb 8.8 g/dL (13.5-18.0) L 06/27/20 04:33 Hct 27.0 % (42.0-54.0) L 06/27/20 04:33 MCV 86.6 fL (80.0-100.0) 06/27/20 04:33 MCH 28.3 pg (27.0-34.0) 06/27/20 04:33 MCHC 32.7 g/dL (33.0-35.0) L 06/27/20 04:33 RDW 17.0 % (11.6-16.5) H 06/27/20 04:33 Plt Count 549 X10^3/uL (150.0-450.0) H 06/27/20 04:33 Plt Count Comment Increased (ADEQUATE) 06/27/20 04:33 MPV 8.0 fL (7.4-11.0) 06/27/20 04:33 Neut % (Auto) 31.8 % (42.0-75.0) L 06/27/20 04:33 Lymph % (Auto) 44.9 % (21.0-51.0) 06/27/20 04:33 [place] % (Auto) 6.4 % (0.0-13.0) 06/27/20 04:33 Eos % (Auto) 15.6 % (0.9-2.9) H 06/27/20 04:33 Baso % (Auto) 1.3 % (0.2-1.0) H 06/27/20 04:33 Neut # (Auto) 3.4 x10^3/uL (2.2-4.8) 06/27/20 04:33 Lymph # (Auto) 4.7 X10^3/uL (1.3-2.9) H 06/27/20 04:33 [place] # (Auto) 0.7 x10^3/uL (0.3-0.8) 06/27/20 04:33 Eos # (Auto) 1.7 x10^3/uL (0.0-0.2) H 06/27/20 04:33 Baso # (Auto) 0.1 X10^3/uL (0.0-0.1) 06/27/20 04:33 Absolute Nucleated RBC 0.1 /100WBC 06/27/20 04:33 Total Counted 100 06/20/20 05:19 Neutrophils % (Manual) 25 % (39-76) L 06/20/20 05:19 Band Neutrophils % 5 % (0-10) 06/09/20 16:34 Lymphocytes % (Manual) 63 % (13-43) H 06/20/20 05:19 Monocytes % (Manual) 4 % (4-9) 06/20/20 05:19 Eosinophils % (Manual) 12 % (0-6) H 06/20/20 05:19 Basophils % (Manual) 1 % (0-1) 06/17/20 05:46 Giant Platelets Rare 06/27/20 04:33 Plt Morphology Comment Abnormal (NORMAL) 06/27/20 04:33 RBC Morphology Abnormal (NORMAL) 06/27/20 04:33 Dimorphic RBCs Noted 06/11/20 05:25 Polychromasia Slight 06/11/20 05:25 Hypochromasia Slight A 06/27/20 04:33 Poikilocytosis Slight A 06/11/20 05:25 Anisocytosis Slight A 06/27/20 04:33 Microcytosis 1+ A 06/21/20 04:20 Sickle Cells Rare 06/23/20 05:00 Target Cells Present 06/27/20 04:33 Ovalocytes Present 06/23/20 05:00 PT 15.2 SECONDS (11.8-14.3) 06/09/20 16:25 INR Target Range - 06/09/20 16:25 INR 1.26 (0.8-1.3) 06/09/20 16:25 Sodium 144 mmol/L (136-145) 06/27/20 04:33 Corrected Sodium TNP 06/27/20 04:33 Potassium 4.0 mmol/L (3.5-5.1) 06/27/20 04:33 Chloride 109 mmol/L (98-107) H 06/27/20 04:33 Carbon Dioxide 24.2 mmol/L (21-32) 06/27/20 04:33 BUN 11 mg/dL (7-18) 06/27/20 04:33 Creatinine 0.73 mg/dL (0.70-1.30) 06/27/20 04:33 Est GFR (MDRD) Af Amer > 60 (>60) 06/27/20 04:33 Est GFR (MDRD) Non-Af > 60 (>60) 06/27/20 04:33 Glucose 80 mg/dL (65-99) 06/27/20 04:33 Calcium 8.6 mg/dL (8.5-10.1) 06/27/20 04:33 Corrected Calcium 9.5 mg/dL (8.5-10.1) 06/27/20 04:33 Total Bilirubin 1.20 mg/dL (0.2-1.0) H 06/27/20 04:33 AST 22 Units/L (15-37) 06/27/20 04:33 ALT 33 Units/L (12-78) 06/27/20 04:33 Alkaline Phosphatase 113 Units/L (46-116) 06/27/20 04:33 Total Protein 6.5 g/dL (6.4-8.2) 06/27/20 04:33 Albumin 2.9 g/dL (3.4-5.0) L 06/27/20 04:33 Globulin 3.6 g/dL (2.5-4.5) 06/27/20 04:33 Albumin/Globulin Ratio 0.8 Ratio (1.1-2.1) L 06/27/20 04:33 Vancomycin Trough 13.5 ug/mL (15-20) L 06/12/20 22:33 SARS CoV-2 RNA Rapid MAGNOLIA Negative (NEGATIVE) 06/09/20 20:47 Blood Type B POSITIVE 06/22/20 11:44 Antibody Screen Negative 06/22/20 11:44 Crossmatch See Detail 06/22/20 11:44 Plan (1) Sickle cell anemia with crisis: Status: Acute Plan: NORMAL SALINE AT 125 ML/HR, CIPROFLOXACIN, LOVENOX 40MG SC DAILY, ROXICODONE 10MG PO Q4H PRN, PHENERGAN 12.5MG IM Q6H PRN, AND SANTYL FOR WOUND CARE (2) Ulcer of leg, chronic, right: Status: Chronic Qualifiers: Non-pressure ulcer stage: unspecified non-pressure ulcer stage Qualified Code(s): L97.919 - Non-pressure chronic ulcer of unspecified part of right lower leg with unspecified severity Plan: Continue wound vacuum for total of 7 days. Will remove wound vacuum in the OR on and start non stick dressings and can probably be discharged home at that time.
[2020-06-28] MEDS: TORADOL 30 MG VIAL IVP PRN ×3 (00:58→20:59)
[2020-06-28] MEDS: ROXICODONE TAB 5 MG PO PRN ×4 (03:38→23:45)
[2020-06-28 05:23] LABS: BASOPHILS # (AUTO) 0.2 X10^3/uL (0.0-0.1); BASOPHILS % (AUTO) 1.5 % (0.2-1.0); EOSINOPHILS # (AUTO) 1.3 x10^3/uL (0.0-0.2); EOSINOPHILS % (AUTO) 9.9 % (0.9-2.9); HEMATOCRIT 27.1 % (42.0-54.0); HEMOGLOBIN 8.9 g/dL (13.5-18.0); LYMPHOCYTES # (AUTO) 5.7 X10^3/uL (1.3-2.9); LYMPHOCYTES % (AUTO) 42.6 % (21.0-51.0); MEAN CORPUSCULAR HEMOGLOBIN 28.5 pg (27.0-34.0); MEAN CORPUSCULAR VOLUME 86.3 fL (80.0-100.0); MEAN PLATELET VOLUME 8.8 fL (7.4-11.0); MONOCYTES % (AUTO) 7.2 % (0.0-13.0); NEUTROPHILS # (AUTO) 5.2 x10^3/uL (2.2-4.8); NEUTROPHILS % (AUTO) 38.8 % (42.0-75.0); PLATELET COUNT 554 X10^3/uL (150.0-450.0); RED BLOOD COUNT 3.14 X10^6/uL (4.7-6.0); RED CELL DISTRIBUTION WIDTH 16.8 % (11.6-16.5); WHITE BLOOD COUNT 13.4 X10^3/uL (3.6-10.0)
[2020-06-28 05:55] LABS: ANISOCYTOSIS SLIGHT; GIANT PLATELET RARE; HYPOCHROMASIA SLIGHT; PLATELET MORPHOLOGY COMMENT ABNORMAL (NORMAL); TARGET CELLS PRESENT
[2020-06-28 06:04] LABS: ALANINE AMINOTRANSFERASE 30 Units/L (12-78); ALKALINE PHOSPHATASE 117 Units/L (46-116); ASPARTATE AMINO TRANSFERASE 21 Units/L (15-37); BLOOD UREA NITROGEN 11 mg/dL (7-18); CALCIUM 8.8 mg/dL (8.5-10.1); CARBON DIOXIDE 25.1 mmol/L (21-32); CHLORIDE 108 mmol/L (98-107); COR CA(FOR HYPOALB) 9.6 mg/dL (8.5-10.1); CREATININE 0.91 mg/dL (0.70-1.30); SODIUM 142 mmol/L (136-145); TOTAL PROTEIN 6.6 g/dL (6.4-8.2); eGFR NON BLACK RACES > 60 (>60)
[2020-06-28] MEDS: NICOTINE PATCH TD SCH (08:47)
[2020-06-28] MEDS: CIPRO TAB 500 MG PO SCH ×2 (08:48→21:01)
[2020-06-28] MEDS: LOVENOX INJ 40 MG SYR SC SCH (09:39)
--- NOTE | 2020-06-28 09:41 | PCM.PROG ---
Progress Note Progress Note for Day of Date of Exam: 06/27/20 Subjective Subjective: Pt is a 35 year old male admitted for symptomatic anemia due to sickle cell crisis and right lower leg wound/ulceration. He is status post full thickness skin graft with wound vacuum in place. No concerns this morning. Plan to continue wound vacuum for total 7 days. Labs/imaging: Wbc 10.6, Hgb 8.8, Plt 549, Na 144, K 4.0, Creatinine 0.73, Glucose 80. Wound culture positive for Providencia rettgeri and Proteus mirabilis. Treatment course includes antibiotics Ciprofloxacin, Lovenox 40mg sc daily, Roxicodone 10mg PO Q6H prn, IV toradol prn for breakthrough pain, Phenergan 12.5MG IM Q6H prn. General surgery will continue to follow. Monitor and follow up labs/imaging in the morning. Past Medical Family Social History Past Med/Fam/Surg Hx: No changes since H&P Allergies: Allergies Egg Derived Allergy (Verified 10/12/17 21:04) mayonnaise Allergy (Verified 10/12/17 21:04) morphine Allergy (Verified 10/13/17 05:57) ondansetron [From Zofran] Allergy (Verified 10/13/17 05:57) Review of Systems ROS: No change since H&P Vital Signs and I&O's Vital Signs: Temperature 97.9 F Pulse Rate [Left Brachial] 63 Pulse Rate 88 Respiratory Rate 18 Blood Pressure [Right Arm] 120/70 Blood Pressure [Left Arm] 120/68 Blood Pressure 106/81 O2 Sat by Pulse Oximetry 100 Intake and Output: Intake & Output 06/25/20 06/26/20 06/27/20 06/28/20 23:59 23:59 23:59 23:59 Intake Total 3566 / 3566 3569 / 3569 1580 / 1580 140 / 140 Output Total 2019 2770 / 2770 2540 / 2540 350 / 350 Balance 1546 / 1546 799 / 799 -960 / -960 -210 / -210 Physical Exam Oriented: Normal, Time, Person and Place Eyes: Normal Ear: Normal Nose: Normal Throat: Normal Respiratory: Normal Cardiovascular: Normal : Normal Auscultation: Bowel Sounds: Normal Tenderness: Normal Skin: Wound ( Wound vac in place.No air leak) Musculoskeletal: Normal Psychiatric: Normal Mood Description: Calm, Depressed and Flat Affect: Flat Speech Pattern: Clear and Appropriate Laboratory and Diagnostics Result Diagrams: 06/28/20 04:06 06/28/20 04:06 Labs: 06/09/20 16:34 Blood Blood Culture - Final 06/09/20 16:25 Blood Blood Culture - Final 06/09/20 21:16 Leg - Right Wound Culture - Final Providencia Rettgeri Proteus Mirabilis Laboratory WBC 13.4 X10^3/uL (3.6-10.0) H 06/28/20 04:06 RBC 3.14 X10^6/uL (4.7-6.0) L 06/28/20 04:06 Hgb 8.9 g/dL (13.5-18.0) L 06/28/20 04:06 Hct 27.1 % (42.0-54.0) L 06/28/20 04:06 MCV 86.3 fL (80.0-100.0) 06/28/20 04:06 MCH 28.5 pg (27.0-34.0) 06/28/20 04:06 MCHC 33.0 g/dL (33.0-35.0) 06/28/20 04:06 RDW 16.8 % (11.6-16.5) H 06/28/20 04:06 Plt Count 554 X10^3/uL (150.0-450.0) H 06/28/20 04:06 Plt Count Comment Increased (ADEQUATE) 06/28/20 04:06 MPV 8.8 fL (7.4-11.0) 06/28/20 04:06 Neut % (Auto) 38.8 % (42.0-75.0) L 06/28/20 04:06 Lymph % (Auto) 42.6 % (21.0-51.0) 06/28/20 04:06 [place] % (Auto) 7.2 % (0.0-13.0) 06/28/20 04:06 Eos % (Auto) 9.9 % (0.9-2.9) H 06/28/20 04:06 Baso % (Auto) 1.5 % (0.2-1.0) H 06/28/20 04:06 Neut # (Auto) 5.2 x10^3/uL (2.2-4.8) H 06/28/20 04:06 Lymph # (Auto) 5.7 X10^3/uL (1.3-2.9) H 06/28/20 04:06 [place] # (Auto) 1.0 x10^3/uL (0.3-0.8) H 06/28/20 04:06 Eos # (Auto) 1.3 x10^3/uL (0.0-0.2) H 06/28/20 04:06 Baso # (Auto) 0.2 X10^3/uL (0.0-0.1) H 06/28/20 04:06 Absolute Nucleated RBC 0.1 /100WBC 06/28/20 04:06 Total Counted 100 06/20/20 05:19 Neutrophils % (Manual) 25 % (39-76) L 06/20/20 05:19 Band Neutrophils % 5 % (0-10) 06/09/20 16:34 Lymphocytes % (Manual) 63 % (13-43) H 06/20/20 05:19 Monocytes % (Manual) 4 % (4-9) 06/20/20 05:19 Eosinophils % (Manual) 12 % (0-6) H 06/20/20 05:19 Basophils % (Manual) 1 % (0-1) 06/17/20 05:46 Giant Platelets Rare 06/28/20 04:06 Plt Morphology Comment Abnormal (NORMAL) 06/28/20 04:06 RBC Morphology Abnormal (NORMAL) 06/28/20 04:06 Dimorphic RBCs Noted 06/11/20 05:25 Polychromasia Slight 06/11/20 05:25 Hypochromasia Slight A 06/28/20 04:06 Poikilocytosis Slight A 06/11/20 05:25 Anisocytosis Slight A 06/28/20 04:06 Microcytosis 1+ A 06/21/20 04:20 Sickle Cells Rare 06/23/20 05:00 Target Cells Present 06/28/20 04:06 Ovalocytes Present 06/23/20 05:00 PT 15.2 SECONDS (11.8-14.3) 06/09/20 16:25 INR Target Range - 06/09/20 16:25 INR 1.26 (0.8-1.3) 06/09/20 16:25 Sodium 142 mmol/L (136-145) 06/28/20 04:06 Corrected Sodium TNP 06/28/20 04:06 Potassium 3.9 mmol/L (3.5-5.1) 06/28/20 04:06 Chloride 108 mmol/L (98-107) H 06/28/20 04:06 Carbon Dioxide 25.1 mmol/L (21-32) 06/28/20 04:06 BUN 11 mg/dL (7-18) 06/28/20 04:06 Creatinine 0.91 mg/dL (0.70-1.30) 06/28/20 04:06 Est GFR (MDRD) Af Amer > 60 (>60) 06/28/20 04:06 Est GFR (MDRD) Non-Af > 60 (>60) 06/28/20 04:06 Glucose 98 mg/dL (65-99) 06/28/20 04:06 Calcium 8.8 mg/dL (8.5-10.1) 06/28/20 04:06 Corrected Calcium 9.6 mg/dL (8.5-10.1) 06/28/20 04:06 Total Bilirubin 1.10 mg/dL (0.2-1.0) H 06/28/20 04:06 AST 21 Units/L (15-37) 06/28/20 04:06 ALT 30 Units/L (12-78) 06/28/20 04:06 Alkaline Phosphatase 117 Units/L (46-116) H 06/28/20 04:06 Total Protein 6.6 g/dL (6.4-8.2) 06/28/20 04:06 Albumin 3.0 g/dL (3.4-5.0) L 06/28/20 04:06 Globulin 3.6 g/dL (2.5-4.5) 06/28/20 04:06 Albumin/Globulin Ratio 0.8 Ratio (1.1-2.1) L 06/28/20 04:06 Vancomycin Trough 13.5 ug/mL (15-20) L 06/12/20 22:33 SARS CoV-2 RNA Rapid MAGNOLIA Negative (NEGATIVE) 06/09/20 20:47 Blood Type B POSITIVE 06/22/20 11:44 Antibody Screen Negative 06/22/20 11:44 Crossmatch See Detail 06/22/20 11:44 Plan (1) Sickle cell anemia with crisis: Status: Acute Plan: NORMAL SALINE AT 125 ML/HR, CIPROFLOXACIN, LOVENOX 40MG SC DAILY, ROXICODONE 10MG PO Q4H PRN, PHENERGAN 12.5MG IM Q6H PRN, AND SANTYL FOR WOUND CARE (2) Ulcer of leg, chronic, right: Status: Chronic Qualifiers: Non-pressure ulcer stage: unspecified non-pressure ulcer stage Qualified Code(s): L97.919 - Non-pressure chronic ulcer of unspecified part of right lower leg with unspecified severity Plan: Continue wound vacuum for total of 7 days. Will remove wound vacuum in the OR on and start non stick dressings and can probably be discharged home at that time.
--- NOTE | 2020-06-28 09:43 | PCM.PROG ---
Progress Note Progress Note for Day of Date of Exam: 06/28/20 Subjective Subjective: Pt is a 35 year old male admitted for symptomatic anemia due to sickle cell crisis and right lower leg wound/ulceration. He is status post full thickness skin graft with wound vacuum in place. No acute events overnight. Plan for wound vacuum removal tomorrow. Labs/imaging: Wbc 13.4, Hgb 8.9, Plt 554, Na 142, K 3.9, Creatinine 0.91, Glucose 98. Wound culture positive for Providencia rettgeri and Proteus mirabilis. Treatment course includes antibiotics Ciprofloxacin, Lovenox 40mg sc daily, Roxicodone 10mg PO Q6H prn, IV toradol prn for breakthrough pain, Phenergan 12.5MG IM Q6H prn. General surgery will continue to follow. Monitor and follow up labs/imaging in the morning. 06/27/2020 S/P excisional debridement of the right leg and placement of wound vacuum after application of full thickness skin graft using Skin TE process. Wound vacuum without significant drainage and there is no air leak. Donor site is clean. Past Medical Family Social History Past Med/Fam/Surg Hx: No changes since H&P Allergies: Allergies Egg Derived Allergy (Verified 10/12/17 21:04) mayonnaise Allergy (Verified 10/12/17 21:04) morphine Allergy (Verified 10/13/17 05:57) ondansetron [From Zofran] Allergy (Verified 10/13/17 05:57) Review of Systems ROS: No change since H&P Vital Signs and I&O's Vital Signs: Temperature 97.9 F Pulse Rate [Left Brachial] 63 Pulse Rate 88 Respiratory Rate 18 Blood Pressure [Right Arm] 120/70 Blood Pressure [Left Arm] 120/68 Blood Pressure 106/81 O2 Sat by Pulse Oximetry 100 Intake and Output: Intake & Output 06/25/20 06/26/20 06/27/20 06/28/20 23:59 23:59 23:59 23:59 Intake Total 3566 / 3566 3569 / 3569 1580 / 1580 140 / 140 Output Total 2019 2770 / 2770 2540 / 2540 350 / 350 Balance 1546 / 1546 799 / 799 -960 / -960 -210 / -210 Physical Exam Oriented: Normal, Time, Person and Place Eyes: Normal Ear: Normal Nose: Normal Throat: Normal Respiratory: Normal Cardiovascular: Normal : Normal Auscultation: Bowel Sounds: Normal Tenderness: Normal Skin: Wound ( Wound vac in place.No air leak) Musculoskeletal: Normal Psychiatric: Normal Mood Description: Calm, Depressed and Flat Affect: Flat Speech Pattern: Clear and Appropriate Laboratory and Diagnostics Result Diagrams: 06/28/20 04:06 06/28/20 04:06 Labs: 06/09/20 16:34 Blood Blood Culture - Final 06/09/20 16:25 Blood Blood Culture - Final 06/09/20 21:16 Leg - Right Wound Culture - Final Providencia Rettgeri Proteus Mirabilis Laboratory WBC 13.4 X10^3/uL (3.6-10.0) H 06/28/20 04:06 RBC 3.14 X10^6/uL (4.7-6.0) L 06/28/20 04:06 Hgb 8.9 g/dL (13.5-18.0) L 06/28/20 04:06 Hct 27.1 % (42.0-54.0) L 06/28/20 04:06 MCV 86.3 fL (80.0-100.0) 06/28/20 04:06 MCH 28.5 pg (27.0-34.0) 06/28/20 04:06 MCHC 33.0 g/dL (33.0-35.0) 06/28/20 04:06 RDW 16.8 % (11.6-16.5) H 06/28/20 04:06 Plt Count 554 X10^3/uL (150.0-450.0) H 06/28/20 04:06 Plt Count Comment Increased (ADEQUATE) 06/28/20 04:06 MPV 8.8 fL (7.4-11.0) 06/28/20 04:06 Neut % (Auto) 38.8 % (42.0-75.0) L 06/28/20 04:06 Lymph % (Auto) 42.6 % (21.0-51.0) 06/28/20 04:06 [place] % (Auto) 7.2 % (0.0-13.0) 06/28/20 04:06 Eos % (Auto) 9.9 % (0.9-2.9) H 06/28/20 04:06 Baso % (Auto) 1.5 % (0.2-1.0) H 06/28/20 04:06 Neut # (Auto) 5.2 x10^3/uL (2.2-4.8) H 06/28/20 04:06 Lymph # (Auto) 5.7 X10^3/uL (1.3-2.9) H 06/28/20 04:06 [place] # (Auto) 1.0 x10^3/uL (0.3-0.8) H 06/28/20 04:06 Eos # (Auto) 1.3 x10^3/uL (0.0-0.2) H 06/28/20 04:06 Baso # (Auto) 0.2 X10^3/uL (0.0-0.1) H 06/28/20 04:06 Absolute Nucleated RBC 0.1 /100WBC 06/28/20 04:06 Total Counted 100 06/20/20 05:19 Neutrophils % (Manual) 25 % (39-76) L 06/20/20 05:19 Band Neutrophils % 5 % (0-10) 06/09/20 16:34 Lymphocytes % (Manual) 63 % (13-43) H 06/20/20 05:19 Monocytes % (Manual) 4 % (4-9) 06/20/20 05:19 Eosinophils % (Manual) 12 % (0-6) H 06/20/20 05:19 Basophils % (Manual) 1 % (0-1) 06/17/20 05:46 Giant Platelets Rare 06/28/20 04:06 Plt Morphology Comment Abnormal (NORMAL) 06/28/20 04:06 RBC Morphology Abnormal (NORMAL) 06/28/20 04:06 Dimorphic RBCs Noted 06/11/20 05:25 Polychromasia Slight 06/11/20 05:25 Hypochromasia Slight A 06/28/20 04:06 Poikilocytosis Slight A 06/11/20 05:25 Anisocytosis Slight A 06/28/20 04:06 Microcytosis 1+ A 06/21/20 04:20 Sickle Cells Rare 06/23/20 05:00 Target Cells Present 06/28/20 04:06 Ovalocytes Present 06/23/20 05:00 PT 15.2 SECONDS (11.8-14.3) 06/09/20 16:25 INR Target Range - 06/09/20 16:25 INR 1.26 (0.8-1.3) 06/09/20 16:25 Sodium 142 mmol/L (136-145) 06/28/20 04:06 Corrected Sodium TNP 06/28/20 04:06 Potassium 3.9 mmol/L (3.5-5.1) 06/28/20 04:06 Chloride 108 mmol/L (98-107) H 06/28/20 04:06 Carbon Dioxide 25.1 mmol/L (21-32) 06/28/20 04:06 BUN 11 mg/dL (7-18) 06/28/20 04:06 Creatinine 0.91 mg/dL (0.70-1.30) 06/28/20 04:06 Est GFR (MDRD) Af Amer > 60 (>60) 06/28/20 04:06 Est GFR (MDRD) Non-Af > 60 (>60) 06/28/20 04:06 Glucose 98 mg/dL (65-99) 06/28/20 04:06 Calcium 8.8 mg/dL (8.5-10.1) 06/28/20 04:06 Corrected Calcium 9.6 mg/dL (8.5-10.1) 06/28/20 04:06 Total Bilirubin 1.10 mg/dL (0.2-1.0) H 06/28/20 04:06 AST 21 Units/L (15-37) 06/28/20 04:06 ALT 30 Units/L (12-78) 06/28/20 04:06 Alkaline Phosphatase 117 Units/L (46-116) H 06/28/20 04:06 Total Protein 6.6 g/dL (6.4-8.2) 06/28/20 04:06 Albumin 3.0 g/dL (3.4-5.0) L 06/28/20 04:06 Globulin 3.6 g/dL (2.5-4.5) 06/28/20 04:06 Albumin/Globulin Ratio 0.8 Ratio (1.1-2.1) L 06/28/20 04:06 Vancomycin Trough 13.5 ug/mL (15-20) L 06/12/20 22:33 SARS CoV-2 RNA Rapid MAGNOLIA Negative (NEGATIVE) 06/09/20 20:47 Blood Type B POSITIVE 06/22/20 11:44 Antibody Screen Negative 06/22/20 11:44 Crossmatch See Detail 06/22/20 11:44 Plan (1) Sickle cell anemia with crisis: Status: Acute Plan: NORMAL SALINE AT 125 ML/HR, CIPROFLOXACIN, LOVENOX 40MG SC DAILY, ROXICODONE 10MG PO Q4H PRN, PHENERGAN 12.5MG IM Q6H PRN, AND SANTYL FOR WOUND CARE (2) Ulcer of leg, chronic, right: Status: Chronic Qualifiers: Non-pressure ulcer stage: unspecified non-pressure ulcer stage Qualified Code(s): L97.919 - Non-pressure chronic ulcer of unspecified part of right lower leg with unspecified severity Plan: Continue wound vacuum for total of 7 days. Will remove wound vacuum in the OR on and start non stick dressings and can probably be discharged home at that time.
--- NOTE | 2020-06-28 16:01 | PCM.PROG ---
Progress Note Subjective Subjective: Pt is a 35 year old male admitted for symptomatic anemia due to sickle cell crisis and right lower leg wound/ulceration. He is status post full thickness skin graft with wound vacuum in place. No acute events overnight. Plan for wound vacuum removal tomorrow. Labs/imaging: Wbc 13.4, Hgb 8.9, Plt 554, Na 142, K 3.9, Creatinine 0.91, Glucose 98. Wound culture positive for Providencia rettgeri and Proteus mirabilis. Treatment course includes antibiotics Ciprofloxacin, Lovenox 40mg sc daily, Roxicodone 10mg PO Q6H prn, IV toradol prn for breakthrough pain, Phenergan 12.5MG IM Q6H prn. General surgery will continue to follow. Monitor and follow up labs/imaging in the morning. 06/27/2020 S/P excisional debridement of the right leg and placement of wound vacuum after application of full thickness skin graft using Skin TE process. Wound vacuum without significant drainage and there is no air leak. Donor site is clean 06/28/2020 Wound vacuum without leak. Doing well Past Medical Family Social History Past Med/Fam/Surg Hx: No changes since H&P Allergies: Allergies Egg Derived Allergy (Verified 10/12/17 21:04) mayonnaise Allergy (Verified 10/12/17 21:04) morphine Allergy (Verified 10/13/17 05:57) ondansetron [From Zofran] Allergy (Verified 10/13/17 05:57) Review of Systems ROS: No change since H&P Vital Signs and I&O's Vital Signs: Temperature 99.3 F Pulse Rate [Left Brachial] 83 Pulse Rate 88 Respiratory Rate 16 Blood Pressure [Right Arm] 115/62 Blood Pressure [Left Arm] 120/68 Blood Pressure 106/81 O2 Sat by Pulse Oximetry 97 Intake and Output: Intake & Output 06/25/20 06/26/20 06/27/20 06/28/20 23:59 23:59 23:59 23:59 Intake Total 3566 / 3566 3569 / 3569 1580 / 1580 140 / 140 Output Total 2019 2770 / 2770 2540 / 2540 350 / 350 Balance 1546 / 1546 799 / 799 -960 / -960 -210 / -210 Physical Exam Oriented: Normal, Time, Person and Place Eyes: Normal Ear: Normal Nose: Normal Throat: Normal Respiratory: Normal Cardiovascular: Normal : Normal Auscultation: Bowel Sounds: Normal Tenderness: Normal Skin: Wound ( Wound vac in place.No air leak) Musculoskeletal: Normal Psychiatric: Normal Mood Description: Calm, Depressed and Flat Affect: Flat Speech Pattern: Clear and Appropriate Laboratory and Diagnostics Result Diagrams: 06/28/20 04:06 06/28/20 04:06 Labs: 06/09/20 16:34 Blood Blood Culture - Final 06/09/20 16:25 Blood Blood Culture - Final 06/09/20 21:16 Leg - Right Wound Culture - Final Providencia Rettgeri Proteus Mirabilis Laboratory WBC 13.4 X10^3/uL (3.6-10.0) H 06/28/20 04:06 RBC 3.14 X10^6/uL (4.7-6.0) L 06/28/20 04:06 Hgb 8.9 g/dL (13.5-18.0) L 06/28/20 04:06 Hct 27.1 % (42.0-54.0) L 06/28/20 04:06 MCV 86.3 fL (80.0-100.0) 06/28/20 04:06 MCH 28.5 pg (27.0-34.0) 06/28/20 04:06 MCHC 33.0 g/dL (33.0-35.0) 06/28/20 04:06 RDW 16.8 % (11.6-16.5) H 06/28/20 04:06 Plt Count 554 X10^3/uL (150.0-450.0) H 06/28/20 04:06 Plt Count Comment Increased (ADEQUATE) 06/28/20 04:06 MPV 8.8 fL (7.4-11.0) 06/28/20 04:06 Neut % (Auto) 38.8 % (42.0-75.0) L 06/28/20 04:06 Lymph % (Auto) 42.6 % (21.0-51.0) 06/28/20 04:06 [place] % (Auto) 7.2 % (0.0-13.0) 06/28/20 04:06 Eos % (Auto) 9.9 % (0.9-2.9) H 06/28/20 04:06 Baso % (Auto) 1.5 % (0.2-1.0) H 06/28/20 04:06 Neut # (Auto) 5.2 x10^3/uL (2.2-4.8) H 06/28/20 04:06 Lymph # (Auto) 5.7 X10^3/uL (1.3-2.9) H 06/28/20 04:06 [place] # (Auto) 1.0 x10^3/uL (0.3-0.8) H 06/28/20 04:06 Eos # (Auto) 1.3 x10^3/uL (0.0-0.2) H 06/28/20 04:06 Baso # (Auto) 0.2 X10^3/uL (0.0-0.1) H 06/28/20 04:06 Absolute Nucleated RBC 0.1 /100WBC 06/28/20 04:06 Total Counted 100 06/20/20 05:19 Neutrophils % (Manual) 25 % (39-76) L 06/20/20 05:19 Band Neutrophils % 5 % (0-10) 06/09/20 16:34 Lymphocytes % (Manual) 63 % (13-43) H 06/20/20 05:19 Monocytes % (Manual) 4 % (4-9) 06/20/20 05:19 Eosinophils % (Manual) 12 % (0-6) H 06/20/20 05:19 Basophils % (Manual) 1 % (0-1) 06/17/20 05:46 Giant Platelets Rare 06/28/20 04:06 Plt Morphology Comment Abnormal (NORMAL) 06/28/20 04:06 RBC Morphology Abnormal (NORMAL) 06/28/20 04:06 Dimorphic RBCs Noted 06/11/20 05:25 Polychromasia Slight 06/11/20 05:25 Hypochromasia Slight A 06/28/20 04:06 Poikilocytosis Slight A 06/11/20 05:25 Anisocytosis Slight A 06/28/20 04:06 Microcytosis 1+ A 06/21/20 04:20 Sickle Cells Rare 06/23/20 05:00 Target Cells Present 06/28/20 04:06 Ovalocytes Present 06/23/20 05:00 PT 15.2 SECONDS (11.8-14.3) 06/09/20 16:25 INR Target Range - 06/09/20 16:25 INR 1.26 (0.8-1.3) 06/09/20 16:25 Sodium 142 mmol/L (136-145) 06/28/20 04:06 Corrected Sodium TNP 06/28/20 04:06 Potassium 3.9 mmol/L (3.5-5.1) 06/28/20 04:06 Chloride 108 mmol/L (98-107) H 06/28/20 04:06 Carbon Dioxide 25.1 mmol/L (21-32) 06/28/20 04:06 BUN 11 mg/dL (7-18) 06/28/20 04:06 Creatinine 0.91 mg/dL (0.70-1.30) 06/28/20 04:06 Est GFR (MDRD) Af Amer > 60 (>60) 06/28/20 04:06 Est GFR (MDRD) Non-Af > 60 (>60) 06/28/20 04:06 Glucose 98 mg/dL (65-99) 06/28/20 04:06 Calcium 8.8 mg/dL (8.5-10.1) 06/28/20 04:06 Corrected Calcium 9.6 mg/dL (8.5-10.1) 06/28/20 04:06 Total Bilirubin 1.10 mg/dL (0.2-1.0) H 06/28/20 04:06 AST 21 Units/L (15-37) 06/28/20 04:06 ALT 30 Units/L (12-78) 06/28/20 04:06 Alkaline Phosphatase 117 Units/L (46-116) H 06/28/20 04:06 Total Protein 6.6 g/dL (6.4-8.2) 06/28/20 04:06 Albumin 3.0 g/dL (3.4-5.0) L 06/28/20 04:06 Globulin 3.6 g/dL (2.5-4.5) 06/28/20 04:06 Albumin/Globulin Ratio 0.8 Ratio (1.1-2.1) L 06/28/20 04:06 Vancomycin Trough 13.5 ug/mL (15-20) L 06/12/20 22:33 SARS CoV-2 RNA Rapid MAGNOLIA Negative (NEGATIVE) 06/09/20 20:47 Blood Type B POSITIVE 06/22/20 11:44 Antibody Screen Negative 06/22/20 11:44 Crossmatch See Detail 06/22/20 11:44 Plan (1) Sickle cell anemia with crisis: Status: Acute Plan: NORMAL SALINE AT 125 ML/HR, CIPROFLOXACIN, LOVENOX 40MG SC DAILY, ROXICODONE 10MG PO Q4H PRN, PHENERGAN 12.5MG IM Q6H PRN, AND SANTYL FOR WOUND CARE (2) Ulcer of leg, chronic, right: Status: Chronic Qualifiers: Non-pressure ulcer stage: unspecified non-pressure ulcer stage Qualified Code(s): L97.919 - Non-pressure chronic ulcer of unspecified part of right lower leg with unspecified severity Plan: Remove wound vacuum in AM and place dressing . He may be discharged. I will see him of Friday to change the dressing.
--- NOTE | 2020-06-28 17:55 | RAD ---
Chest AP portableIndication: Preoperative surgery for decubitus ulcer.COMPARISONAugust [email or web address] heart size is prominent. There is no pneumothorax or effusion. No dense consolidation seen. Port-A-Cath tip is over the SVC.IMPRESSIONProminent heart size without other acute chest process.Electronically signed by: JAYY CATALAN (Jun 28, 2020 17:53:05)
[2020-06-28] MEDS: MILK OF MAGNESIA PO SCH (21:01)
[2020-06-29] MEDS: TORADOL 30 MG VIAL IVP PRN (04:43)
[2020-06-29 05:04] LABS: BASOPHILS # (AUTO) 0.2 X10^3/uL (0.0-0.1); EOSINOPHILS # (AUTO) 1.5 x10^3/uL (0.0-0.2); EOSINOPHILS % (AUTO) 11.9 % (0.9-2.9); HEMATOCRIT 26.2 % (42.0-54.0); HEMOGLOBIN 8.3 g/dL (13.5-18.0); LYMPHOCYTES # (AUTO) 5.5 X10^3/uL (1.3-2.9); LYMPHOCYTES % (AUTO) 44.4 % (21.0-51.0); MEAN CORPUSCULAR HEMOGLOBIN 27.4 pg (27.0-34.0); MEAN CORPUSCULAR HGB CONC 31.7 g/dL (33.0-35.0); MEAN CORPUSCULAR VOLUME 86.5 fL (80.0-100.0); MEAN PLATELET VOLUME 8.5 fL (7.4-11.0); MONOCYTES # (AUTO) 0.8 x10^3/uL (0.3-0.8); MONOCYTES % (AUTO) 6.3 % (0.0-13.0); NEUTROPHILS # (AUTO) 4.4 x10^3/uL (2.2-4.8); NEUTROPHILS % (AUTO) 35.4 % (42.0-75.0); PLATELET COUNT 550 X10^3/uL (150.0-450.0); RED BLOOD COUNT 3.03 X10^6/uL (4.7-6.0); RED CELL DISTRIBUTION WIDTH 16.4 % (11.6-16.5); WHITE BLOOD COUNT 12.4 X10^3/uL (3.6-10.0)
[2020-06-29 05:15] LABS: ALANINE AMINOTRANSFERASE 29 Units/L (12-78); ALBUMIN 2.9 g/dL (3.4-5.0); ALKALINE PHOSPHATASE 109 Units/L (46-116); ASPARTATE AMINO TRANSFERASE 20 Units/L (15-37); BLOOD UREA NITROGEN 10 mg/dL (7-18); CALCIUM 8.6 mg/dL (8.5-10.1); CARBON DIOXIDE 26.7 mmol/L (21-32); CHLORIDE 110 mmol/L (98-107); COR CA(FOR HYPOALB) 9.5 mg/dL (8.5-10.1); CREATININE 0.87 mg/dL (0.70-1.30); SODIUM 145 mmol/L (136-145); TOTAL PROTEIN 6.4 g/dL (6.4-8.2); eGFR NON BLACK RACES > 60 (>60)
[2020-06-29 05:31] LABS: ANISOCYTOSIS SLIGHT; GIANT PLATELET RARE; HYPOCHROMASIA SLIGHT; PLATELET MORPHOLOGY COMMENT ABNORMAL (NORMAL); TARGET CELLS PRESENT
[2020-06-29] MEDS ORDERED: FENTANYL INJ 100 mcg ONE (07:01)
[2020-06-29] MEDS ORDERED: KETALAR ONE (07:01)
[2020-06-29] MEDS ORDERED: LR 1000 ML IV 1,000 ML IV ONE (07:20)
[2020-06-29] MEDS ORDERED: VERSED ONE (08:06)
[2020-06-29] MEDS ORDERED: DIPRIVAN VIAL ONE (08:06)
--- NOTE | 2020-06-29 09:09 | OR.IMMED ---
IMMEDIATE POST-OP NOTE Immediate Post-Op Note Pre-Op Diagnosis: wound right leg Post-Op Diagnosis: same Procedure: remove wound vacuum right leg over full thickness skin graft and redress right leg wound with silver based wound dressing. Surgeon/Supervisor Fertilizer: Tera Findings: as above , wound right leg below knee in 35 x 20 x 0.3 cm with good granulation tissue. Specimens Removed: none Estimated Blood Loss: none Drains: NONE Complications: none Progress Notes: To floor , discharge home soon Final Diagnosis: wound right leg
[2020-06-29] MEDS: CIPRO TAB 500 MG PO SCH (09:29)
[2020-06-29] MEDS: LOVENOX INJ 40 MG SYR SC SCH (09:29)
[2020-06-29] MEDS: NICOTINE PATCH TD SCH (09:29)
[2020-06-29] MEDS: ROXICODONE TAB 5 MG PO PRN (09:32)
--- NOTE | 2020-06-29 09:48 | W.DIS.FURT ---
Summary of Discharge Discharge Summary of Date Date of Exam: 06/29/20 Admission Date Date of Admission: 06/09/20 Admission Diagnosis Patient Problems (Updated 06/17/20 @ 10:22 by Anastacio Younger) Ulcer of leg, chronic, right (Chronic) L97.919 Sickle cell anemia with crisis (Acute) D57.00 Cellulitis of left leg (Acute) L03.116 Decubitus ulcer of left leg (Acute) L89.899 Signs and symptoms of anemia (Acute) D64.9 Hospital Course: Pt is a 35 year old male admitted for symptomatic anemia due to sickle cell crisis and right lower leg wound/ulceration. He received packed red blood cells transfusion and hemoglobin stabilized. For his right leg wound/ulceration, wound culture positive for Providencia rettgeri and Proteus mirabilis. He was treated with antibiotics Vancomycin and Zosyn that was changed over to po Ciprofloxacin, pt completed course. General sugery was consulted-Dr Haley. Pt is now status post excisional debridement and had full thickness skin graft with wound vacuum. Wound vacuum was removed before discharge and dressings placed. Labs/imaging: Wbc 12.4, Hgb 8.3, Plt 550, Na 145, K 4.0, Creatinine 0.87, Glucose 89. Pt was discharged in stable condition. Instructed to follow up with pcp and general surgery in clinic on Friday for dressing change. Vital Signs: Vital Signs (72 hours) 06/26/20 11:13 06/26/20 11:43 06/26/20 12:00 Temperature 98.5 F Pulse Rate [Left Brachial] 64 Respiratory Rate 20 20 18 Blood Pressure [Left Arm] Blood Pressure [Right Arm] 105/53 O2 Sat by Pulse Oximetry 100 06/26/20 13:40 06/26/20 14:40 06/26/20 16:00 Temperature 98.7 F Pulse Rate [Left Brachial] 55 L Respiratory Rate 17 20 18 Blood Pressure [Left Arm] Blood Pressure [Right Arm] 125/69 O2 Sat by Pulse Oximetry 98 06/26/20 19:36 06/26/20 20:00 06/26/20 20:06 Temperature 99.2 F Pulse Rate [Left Brachial] 90 Respiratory Rate 18 18 18 Blood Pressure [Left Arm] Blood Pressure [Right Arm] 122/70 O2 Sat by Pulse Oximetry 100 06/26/20 22:00 06/26/20 23:00 06/27/20 00:00 Temperature 98.2 F Pulse Rate [Left Brachial] 51 L Respiratory Rate 20 20 17 Blood Pressure [Left Arm] Blood Pressure [Right Arm] 103/55 O2 Sat by Pulse Oximetry 100 06/27/20 04:00 06/27/20 06:29 06/27/20 06:59 Temperature 98.7 F Pulse Rate [Left Brachial] 53 L Respiratory Rate 18 20 17 Blood Pressure [Left Arm] Blood Pressure [Right Arm] 116/54 O2 Sat by Pulse Oximetry 100 06/27/20 07:52 06/27/20 11:28 06/27/20 12:30 Temperature 98.7 F 98.4 F Pulse Rate [Left Brachial] 49 L 77 Respiratory Rate 18 18 18 Blood Pressure [Left Arm] Blood Pressure [Right Arm] 129/67 114/71 O2 Sat by Pulse Oximetry 98 100 06/27/20 13:30 06/27/20 15:50 06/27/20 16:38 Temperature 98.8 F Pulse Rate [Left Brachial] 55 L Respiratory Rate 17 21 19 Blood Pressure [Left Arm] Blood Pressure [Right Arm] 113/69 O2 Sat by Pulse Oximetry 100 06/27/20 17:08 06/27/20 20:00 06/27/20 20:39 Temperature 98.1 F Pulse Rate [Left Brachial] 71 Respiratory Rate 19 20 14 Blood Pressure [Left Arm] Blood Pressure [Right Arm] 106/61 O2 Sat by Pulse Oximetry 98 06/27/20 21:39 06/28/20 00:00 06/28/20 00:58 Temperature 98.3 F Pulse Rate [Left Brachial] 67 Respiratory Rate 14 18 14 Blood Pressure [Left Arm] Blood Pressure [Right Arm] 111/68 O2 Sat by Pulse Oximetry 97 06/28/20 01:28 06/28/20 03:38 06/28/20 04:00 Temperature 98.7 F Pulse Rate [Left Brachial] 63 Respiratory Rate 14 14 18 Blood Pressure [Left Arm] 120/68 Blood Pressure [Right Arm] O2 Sat by Pulse Oximetry 98 06/28/20 08:00 06/28/20 08:48 06/28/20 09:48 Temperature 97.9 F Pulse Rate [Left Brachial] 63 Respiratory Rate 18 18 18 Blood Pressure [Left Arm] Blood Pressure [Right Arm] 120/70 O2 Sat by Pulse Oximetry 100 06/28/20 11:41 06/28/20 12:00 06/28/20 12:11 Temperature 99.3 F Pulse Rate [Left Brachial] 83 Respiratory Rate 18 18 16 Blood Pressure [Left Arm] Blood Pressure [Right Arm] 115/62 O2 Sat by Pulse Oximetry 97 06/28/20 16:00 06/28/20 17:03 06/28/20 18:03 Temperature 98.0 F Pulse Rate [Left Brachial] 62 Respiratory Rate 18 19 19 Blood Pressure [Left Arm] Blood Pressure [Right Arm] 96/55 O2 Sat by Pulse Oximetry 99 06/28/20 20:00 06/28/20 20:59 06/28/20 21:29 Temperature 98.2 F Pulse Rate [Left Brachial] 67 Respiratory Rate 18 12 14 Blood Pressure [Left Arm] 116/59 Blood Pressure [Right Arm] O2 Sat by Pulse Oximetry 99 06/28/20 23:45 06/29/20 00:00 06/29/20 00:45 Temperature 98.2 F Pulse Rate [Left Brachial] 90 Respiratory Rate 12 18 12 Blood Pressure [Left Arm] 111/63 Blood Pressure [Right Arm] O2 Sat by Pulse Oximetry 100 06/29/20 04:00 06/29/20 04:43 06/29/20 09:32 Temperature 98.6 F Pulse Rate [Left Brachial] 57 L Respiratory Rate 18 12 12 Blood Pressure [Left Arm] 123/70 Blood Pressure [Right Arm] O2 Sat by Pulse Oximetry 99 Labs: Laboratory Last Values WBC 12.4 X10^3/uL (3.6-10.0) H 06/29/20 04:25 RBC 3.03 X10^6/uL (4.7-6.0) L 06/29/20 04:25 Hgb 8.3 g/dL (13.5-18.0) L 06/29/20 04:25 Hct 26.2 % (42.0-54.0) L 06/29/20 04:25 MCV 86.5 fL (80.0-100.0) 06/29/20 04:25 MCH 27.4 pg (27.0-34.0) 06/29/20 04:25 MCHC 31.7 g/dL (33.0-35.0) L 06/29/20 04:25 RDW 16.4 % (11.6-16.5) 06/29/20 04:25 Plt Count 550 X10^3/uL (150.0-450.0) H 06/29/20 04:25 Plt Count Comment Increased (ADEQUATE) 06/29/20 04:25 MPV 8.5 fL (7.4-11.0) 06/29/20 04:25 Neut % (Auto) 35.4 % (42.0-75.0) L 06/29/20 04:25 Lymph % (Auto) 44.4 % (21.0-51.0) 06/29/20 04:25 [place] % (Auto) 6.3 % (0.0-13.0) 06/29/20 04:25 Eos % (Auto) 11.9 % (0.9-2.9) H 06/29/20 04:25 Baso % (Auto) 2.0 % (0.2-1.0) H 06/29/20 04:25 Neut # (Auto) 4.4 x10^3/uL (2.2-4.8) 06/29/20 04:25 Lymph # (Auto) 5.5 X10^3/uL (1.3-2.9) H 06/29/20 04:25 [place] # (Auto) 0.8 x10^3/uL (0.3-0.8) 06/29/20 04:25 Eos # (Auto) 1.5 x10^3/uL (0.0-0.2) H 06/29/20 04:25 Baso # (Auto) 0.2 X10^3/uL (0.0-0.1) H 06/29/20 04:25 Absolute Nucleated RBC 0.1 /100WBC 06/29/20 04:25 Total Counted 100 06/20/20 05:19 Neutrophils % (Manual) 25 % (39-76) L 06/20/20 05:19 Band Neutrophils % 5 % (0-10) 06/09/20 16:34 Lymphocytes % (Manual) 63 % (13-43) H 06/20/20 05:19 Monocytes % (Manual) 4 % (4-9) 06/20/20 05:19 Eosinophils % (Manual) 12 % (0-6) H 06/20/20 05:19 Basophils % (Manual) 1 % (0-1) 06/17/20 05:46 Giant Platelets Rare 06/29/20 04:25 Plt Morphology Comment Abnormal (NORMAL) 06/29/20 04:25 RBC Morphology Abnormal (NORMAL) 06/29/20 04:25 Dimorphic RBCs Noted 06/11/20 05:25 Polychromasia Slight 06/11/20 05:25 Hypochromasia Slight A 06/29/20 04:25 Poikilocytosis Slight A 06/11/20 05:25 Anisocytosis Slight A 06/29/20 04:25 Microcytosis 1+ A 06/21/20 04:20 Sickle Cells Rare 06/23/20 05:00 Target Cells Present 06/29/20 04:25 Ovalocytes Present 06/23/20 05:00 PT 15.2 SECONDS (11.8-14.3) 06/09/20 16:25 INR Target Range - 06/09/20 16:25 INR 1.26 (0.8-1.3) 06/09/20 16:25 Sodium 145 mmol/L (136-145) 06/29/20 04:25 Corrected Sodium TNP 06/29/20 04:25 Potassium 4.0 mmol/L (3.5-5.1) 06/29/20 04:25 Chloride 110 mmol/L (98-107) H 06/29/20 04:25 Carbon Dioxide 26.7 mmol/L (21-32) 06/29/20 04:25 BUN 10 mg/dL (7-18) 06/29/20 04:25 Creatinine 0.87 mg/dL (0.70-1.30) 06/29/20 04:25 Est GFR (MDRD) Af Amer > 60 (>60) 06/29/20 04:25 Est GFR (MDRD) Non-Af > 60 (>60) 06/29/20 04:25 Glucose 89 mg/dL (65-99) 06/29/20 04:25 Calcium 8.6 mg/dL (8.5-10.1) 06/29/20 04:25 Corrected Calcium 9.5 mg/dL (8.5-10.1) 06/29/20 04:25 Total Bilirubin 1.10 mg/dL (0.2-1.0) H 06/29/20 04:25 AST 20 Units/L (15-37) 06/29/20 04:25 ALT 29 Units/L (12-78) 06/29/20 04:25 Alkaline Phosphatase 109 Units/L (46-116) 06/29/20 04:25 Total Protein 6.4 g/dL (6.4-8.2) 06/29/20 04:25 Albumin 2.9 g/dL (3.4-5.0) L 06/29/20 04:25 Globulin 3.5 g/dL (2.5-4.5) 06/29/20 04:25 Albumin/Globulin Ratio 0.8 Ratio (1.1-2.1) L 06/29/20 04:25 Vancomycin Trough 13.5 ug/mL (15-20) L 06/12/20 22:33 SARS CoV-2 RNA Rapid MAGNOLIA Negative (NEGATIVE) 06/09/20 20:47 Blood Type B POSITIVE 06/22/20 11:44 Antibody Screen Negative 06/22/20 11:44 Crossmatch See Detail 06/22/20 11:44 Reason For Visit: CELLULITIS RIGHT LEG, DECUBITUS RIGHT LEG, Discharge Date Discharge Date: 06/29/20 Discharge Diagnosis All Active Problems (Updated 06/17/20 @ 10:22 by Anastacio Younger) GERD (gastroesophageal reflux disease) (Chronic) Ulcer of leg, chronic, right (Chronic) PUD (peptic ulcer disease) (Chronic) Sickle cell disease (Chronic) Cellulitis and abscess of leg (Acute) Chronic ulcer of left calf with fat layer exposed (Chronic) Chronic ulcer of right calf with fat layer exposed (Acute) Ulcer of lower extremity with necrosis of muscle (Acute) Sickle cell anemia (Acute) Wound exudate odor absent (Acute) Cellulitis of leg without foot, right (Acute) Sickle cell anemia with crisis (Acute) Anemia (Acute) Protein calorie malnutrition (Acute) Adult failure to thrive (Acute) RUQ pain (Acute) Non-healing wound (Acute) Cellulitis (Acute) Anemia (Acute) Cellulitis of left leg (Acute) Decubitus ulcer of left leg (Acute) Signs and symptoms of anemia (Acute) Plan of Treatment: Continue with present treatment and follow up plan. Pt is to keep follow up appointment as instructed and take medications as ordered. Discharge Medications Discharge Medications: Egg Derived Allergy (Verified 10/12/17 21:04) mayonnaise Allergy (Verified 10/12/17 21:04) morphine Allergy (Verified 10/13/17 05:57) ondansetron [From Zofran] Allergy (Verified 10/13/17 05:57) New Prescriptions oxycodone 10 mg PO TID PRN 15 Days #45 tab MDD 3 tablets 06/29/20 [Rx] Follow up and Referral Follow Up: 07/03/20 Discharge Disposition Assessment: Stable no acute distress noted at time of discharge. Discharge Disposition: Home Discharge Condition: Stable Discharge Plan Discharge Plan Hospital Course: Pt is a 35 year old male admitted for symptomatic anemia due to sickle cell crisis and right lower leg wound/ulceration. He received packed red blood cells transfusion and hemoglobin stabilized. For his right leg wound/ulceration, wound culture positive for Providencia rettgeri and Proteus mirabilis. He was treated with antibiotics Vancomycin and Zosyn that was changed over to po Ciprofloxacin, pt completed course. General sugery was consulted-Dr Haley. Pt is now status post excisional debridement and had full thickness skin graft with wound vacuum. Wound vacuum was removed before discharge and dressings placed. Labs/imaging: Wbc 12.4, Hgb 8.3, Plt 550, Na 145, K 4.0, Creatinine 0.87, Glucose 89. Pt was discharged in stable condition. Instructed to follow up with pcp and general surgery in clinic on Friday for dressing change. Patient Disposition: HOME, SELF-CARE Condition: Stable Health Concerns: Post Hospitalization: new medications and changes needed to prevent readmission or further decline. Pt educated and given instructions on all concerns. Care Plan Goals: Problem: Pain/Alteration in Comfort Goal: Improve/ Resolve Pain; Achieve Pain Tolerance Instructions: Take pain medications as prescribed. Contact your primary care provider if your pain is unrelieved or worsens. Follow up with primary care provider as directed. Plan of Treatment: Continue with present treatment and follow up plan. Pt is to keep follow up appointment as instructed and take medications as ordered. Assessment: Stable no acute distress noted at time of discharge. Prescriptions: New oxycodone 10 mg tablet 10 mg PO TID MDD 3 tablets PRN (Reason: Pain, Moderate) 15 Days Qty: 45 RF: 0 No Action NK RF: 0 Follow ups/Referrals Follow ups/Referrals: [facility] [Other] - 06/29/20 9:36 am Vikas Oates [STAFF PHYSICIAN] - 07/03/20 11:20 am () Shiva Haley [STAFF PHYSICIAN] - 07/03/20 11:30 am Instructions Instructions: Blood Transfusion, Adult, [id number], Anemia, Fatigue, Wound Infection, How to Change Your Dressing, [id number], Steps to Quit Smoking, [id number], Pain Scale Information, Adult, Health Risks of Smoking, Pain Relief Before and After Surgery, Skin Grafting, Adult, Care After, Stitches, [place], or Adhesive Wound Closure, [id number], Blood Transfusion, Adult, Care After, [id number]-[id number], Tobacco Use Disorder, Preventing Problems After Surgery, Steps to Quit Smoking, Preventing Constipation After Surgery Activity Restrictions/Additional Instructions: Leave dressing in place. Dr. Haley will see you on Friday07-03-20 at 11:20 for follow up visit for wound check/dressing check. Take pain medication as directed. Your name is currently on the waiting list for [facility] a staff member from this agency will contact you for evaluation for services next week via phone. Stand Alone Forms: Excuse From Work or School, Precautions for COVID19, Patient Portal, Social Distancing
[2020-06-29 11:43] VITALS: BP 113/76
== END 2020-06-29 12:10 | disposition home or self-care (01) | DRG 803 ==
LOC: ER 14:59 → MED/SURG 20:47
PROVIDERS: ADMIT Family Medicine; ATTEND Family Medicine
PROC: [UNRECOGNIZED PROCEDURE] (2020-06-20 07:35)
DX: E11.622 Type 2 diabetes mellitus with other skin ulcer; D57.818 Other sickle-cell disorders with crisis with other specified complication; B96.89 Other specified bacterial agents as the cause of diseases classified elsewhere; L03.116 Cellulitis of left lower limb; L97.812 Non-pressure chronic ulcer of other part of right lower leg with fat layer exposed; B96.4 Proteus (mirabilis) (morganii) as the cause of diseases classified elsewhere; D64.9 Anemia, unspecified; Z20.822 Contact with and (suspected) exposure to COVID-19; S81.801A Unspecified open wound, right lower leg, initial encounter; Z72.0 Tobacco use; R26.89 Other abnormalities of gait and mobility

== ENCOUNTER 2022-07-28 13:03 | Inpatient (IN) ==
[~2022-07-28 13:03] MED LIST: KETAMINE HCL ONE; STERILE WATER IRRIGATION IR ONE
[2022-07-28 13:16] VITALS: BMI 20.9
--- NOTE | 2022-07-28 14:01 | DR.EXTPAIN ---
HPI Time seen Time Seen by Provider: 07/28/22 14:00 PCP Primary Care Physician: Иван Complaint/Symptoms Chief Complaint Doctor Comments: Patient states that he has sickle cell disease.he also states that he had a lesion on his distal Rt tib-fib 6-7 yrs ago that became an ulcerated lesion that spread and extended throughout his entire tib-fib. Patient presents today because of increased pain in his Rt leg for 2 days.The last time he ate was 2 days ago. Patient denies:fever,n,v,weakness.He has had green d/c leaking through the dressing on the leg.Patient has a h/o peripheral vascular disease.He has a h/o of psuedomonas infection in his extremi ties. Patient is noncompliant with f/u at wound care clinic and at Pcp appointments Chief Complaint:: Patient states that he has an infection in his right leg. The leg is currently covered with an maile bandage, and green discharge is noted to have leaked through. There is a very potent odor coming from the area. The patient states that he is a sickle cell patient and has had multiple surgeries done on that leg. The last surgery done on it was roughly a year ago. Source History Provided: Patient Mode of arrival Mode of Arrival: Ambulatory Timing Onset of Chief Complaint: 07/26/22 PMH PMH Past Medical History: Yes Past Medical History: Anemia, Depression, GERD and PUD Past Surgical History: Yes Surgical History: Other Past Surgical History Comment: Skin graft right leg, several surgeries to a "wound" on his right leg. Family History History of Family Medical Conditions: Yes Family Medical History: Diabetes Mellitus and Hypertension Social History Does patient currently use any type of tobacco product: No Have you used tobacco products in the last 12 months: No Type of Tobacco Use: None Does any household member use tobacco: No Alcohol Use: None Do you use any recreational Drugs:: No Lives With: Family Lives Where: Home Infectious screening In the last 2 months have you had wt loss of >10#?: NO Have you had fever, night sweats or hemotysis?: No Have you traveled outside the country in the last 6 months?: No Isolation: Standard ROS Review of Systems Constitutional: negative Fever Eyes: No Symptoms Reported ENTM: No Symptoms Reported Respiratoy: No Symptoms Reported Cardiovascular: No Symptoms Reported Gastrointestinal/Abdominal: No Symptoms Reported Genitourinary: No Symptoms Reported Neurological: No Symptoms Reported Musculoskeletal: No Symptoms Reported, Right (Lower extremity + malodorous lesions Rt tib/fib, + dusky appearing Rt foot) and Foot (+ dusky appearing Rt foot) Integumentary: No Symptoms Reported, Change in Color (Tissue appears dark red and is malodorous Rt Leg) and Lesions (ulcerated malodorous lesions Rt foot) Hematologic/Lymphatic: No Symptoms Reported Endocrine: No Symptoms Reported Psychiatric: No Symptoms Reported All Other Systems: Reviewed and Negative PE Vital Signs Vitals: Temperature 99.2 F Pulse Rate 80 Respiratory Rate 18 Blood Pressure 113/76 Blood Pressure 100/57 O2 Sat by Pulse Oximetry 95 General Limitations: No Limitations General Appearance: Alert and In No Apparent Distress Head Head Exam: Normal Inspection Eyes Eye exam: Normal Appearance ENT ENT Exam: Normal Exam Neck Neck Exam: Normal Inspection Chest Chest Inspection: Normal Inspection Respiratory Respiratory Exam: Normal Lung Sounds Bilat Respiratory Exam: Bilateral: Clear to Auscultation Cardiovascular Cardiovascular Exam: Regular Rate and Normal Rhythm Abdominal Exam Abdominal Exam: Normal Inspection, Normal Bowel Sounds and Soft Extremities Extremities Exam: Tenderness (Rt tib-fib) Lower Extremities Hip/Pelvis Exam: Erythema (and ulcerated lesion Rt Tib-fib,malodorous/dusk appearing Rt foot) Lower Leg Exam: Erythema (ulcerated/erythematous lesions Rtib-fib,malodorous/ dusky appearing) Back Back Exam: Normal Inspection Neurological Neurological Exam: Alert, Oriented X3 and CN II-XII Intact Psychiatric Psychiatric Exam: Normal Affect and Normal Mood Skin Skin Exam: Warm, Dry, Intact and Normal Color MDM Differential Diagnosis Differential Diagnosis: Fracture and Other (osteomyelitis Rt leg,wet gangrene Rt leg) COURSE Treatment Treatment: 14:50 Dr Haley evaluated the patient in the ED.He will be taking the patient to the OR. 14:55 Vancomycin 1500mg iv is ordered for possible mrsa 16:40 Dr Haley rurned to the ED. OR team is evaluating patient.Patient has a retic ct 7.32 Patient has been accepted to [facility] by Dr Singh. he will be given Cefepime 2g iv q8 to treat pseudimonas infection. After OR evaluation patient willbe admitted to Dr Singh's service ROR Labs Reviewed Laboratory Results Reviewed?: Yes Result Diagrams: 07/28/22 14:51 07/28/22 14:51 Laboratory: WBC 12.4 X10^3/uL (3.6-10.0) H 07/28/22 14:51 RBC 1.77 X10^6/uL (4.7-6.0) L 07/28/22 14:51 Hgb 5.5 g/dL (13.5-18.0) L* 07/28/22 14:51 Hct 15.0 % (42.0-54.0) L* 07/28/22 14:51 MCV 84.8 fL (80.0-100.0) 07/28/22 14:51 MCH 31.0 pg (27.0-34.0) 07/28/22 14:51 MCHC 36.6 g/dL (33.0-35.0) H 07/28/22 14:51 RDW 18.9 % (11.6-16.5) H 07/28/22 14:51 Plt Count 612 X10^3/uL (150.0-450.0) H 07/28/22 14:51 MPV 7.3 fL (7.4-11.0) L 07/28/22 14:51 Neut % (Auto) 54.2 % (42.0-75.0) 07/28/22 14:51 Lymph % (Auto) 31.0 % (21.0-51.0) 07/28/22 14:51 [place] % (Auto) 12.6 % (0.0-13.0) 07/28/22 14:51 Eos % (Auto) 1.9 % (0.9-2.9) 07/28/22 14:51 Baso % (Auto) 0.3 % (0.2-1.0) 07/28/22 14:51 Neut # (Auto) 6.7 x10^3/uL (2.2-4.8) H 07/28/22 14:51 Lymph # (Auto) 3.9 X10^3/uL (1.3-2.9) H 07/28/22 14:51 [place] # (Auto) 1.6 x10^3/uL (0.3-0.8) H 07/28/22 14:51 Eos # (Auto) 0.2 x10^3/uL (0.0-0.2) 07/28/22 14:51 Baso # (Auto) 0.0 X10^3/uL (0.0-0.1) 07/28/22 14:51 Absolute Nucleated RBC 0.8 /100WBC 07/28/22 14:51 Absolute Retic 0.1294 10^6/uL 07/28/22 14:51 Percent Retic 7.32 % (0.8-2.2) H 07/28/22 14:51 Sodium 141 mmol/L (136-145) 07/28/22 14:51 Corrected Sodium TNP 07/28/22 14:51 Potassium 4.0 mmol/L (3.5-5.1) 07/28/22 14:51 Chloride 109 mmol/L (98-107) H 07/28/22 14:51 Carbon Dioxide 20.8 mmol/L (21-32) L 07/28/22 14:51 BUN 14 mg/dL (7-18) 07/28/22 14:51 Creatinine 0.95 mg/dL (0.70-1.30) 07/28/22 14:51 Est GFR (MDRD) Af Amer > 60 (>60) 07/28/22 14:51 Est GFR (MDRD) Non-Af > 60 (>60) 07/28/22 14:51 Glucose 86 mg/dL (65-99) 07/28/22 14:51 Lactic Acid 0.5 mmol/L (0.4-2.0) 07/28/22 14:51 Calcium 8.1 mg/dL (8.5-10.1) L 07/28/22 14:51 Corrected Calcium TNP 07/28/22 14:51 Total Bilirubin 3.70 mg/dL (0.2-1.0) H 07/28/22 14:51 AST 24 Units/L (15-37) 07/28/22 14:51 ALT 12 Units/L (12-78) 07/28/22 14:51 Alkaline Phosphatase 90 Units/L (46-116) 07/28/22 14:51 Total Protein 7.6 g/dL (6.4-8.2) 07/28/22 14:51 Albumin 3.7 g/dL (3.4-5.0) 07/28/22 14:51 Globulin 3.9 g/dL (2.5-4.5) 07/28/22 14:51 Albumin/Globulin Ratio 0.9 Ratio (1.1-2.1) L 07/28/22 14:51 Blood Type B POSITIVE 07/28/22 16:01 Antibody Screen Negative 07/28/22 16:01 Crossmatch See Detail 07/28/22 16:01 XRAY XRAY Interpreted by: Radiologist X-ray Results: HISTORY Patient states that he has an infection in his right leg. The leg is currently covered with an maile bandage, and green discharge is noted to have leaked through. There is a very potent odor coming from the area. STUDY LOWER LEG, TIB/FIB RIGHT COMPARISON None TECHNIQUE Four view right tibia and fibula. FINDINGS Bones are osteopenic. There is external material at the lower leg limiting evaluation. No definite cortical destruction or periosteal reaction. No acute fracture of the tibia or fibular shaft the knee and ankle joints appear anatomic. IMPRESSION No convincing radiographic evidence of osteomyelitis, although external material limits evaluation. Consider MRI with and without contrast for further evaluation as clinically warranted. Electronically signed by: Joe Ba (July 28, 2022 15:35:24) Opioid Opioid Risk Tool Age (Pablo box if 16-45): Yes History of Preadolescent Sexual Abuse: No Psychological Disease: Depression Total: 1 Total Score Risk Category: Low Risk Copyright: Trevin JOHNSON predicting aberrant behaviors Discharge Plan Diagnosis Discharge Problem: Sickle cell anemia, Sickle cell crisis, Cellulitis and abscess of leg Discharge Plan Patient Disposition: ADMITTED INPATIENT Condition: Stable
[2022-07-28] MEDS ORDERED: VANCOMYCIN IV *PREMIX 1.5 G/300 ML BAG 1.5 G/300 ML PIGGYBACK IV ONE ×2 (15:08)
[2022-07-28 15:26] LABS: EOSINOPHILS # (AUTO) 0.2 x10^3/uL (0.0-0.2); EOSINOPHILS % (AUTO) 1.9 % (0.9-2.9); MEAN CORPUSCULAR HGB CONC 36.6 g/dL (33.0-35.0)
[2022-07-28 15:31] LABS: ALANINE AMINOTRANSFERASE 12 Units/L (12-78); ALBUMIN 3.7 g/dL (3.4-5.0); ALKALINE PHOSPHATASE 90 Units/L (46-116); ASPARTATE AMINO TRANSFERASE 24 Units/L (15-37); BASOPHILS % (AUTO) 0.3 % (0.2-1.0); BLOOD UREA NITROGEN 14 mg/dL (7-18); CALCIUM 8.1 mg/dL (8.5-10.1); CARBON DIOXIDE 20.8 mmol/L (21-32); CHLORIDE 109 mmol/L (98-107); CREATININE 0.95 mg/dL (0.70-1.30); GLUCOSE 86 mg/dL (65-99); LYMPHOCYTES # (AUTO) 3.9 X10^3/uL (1.3-2.9); MEAN CORPUSCULAR VOLUME 84.8 fL (80.0-100.0); MEAN PLATELET VOLUME 7.3 fL (7.4-11.0); MONOCYTES # (AUTO) 1.6 x10^3/uL (0.3-0.8); MONOCYTES % (AUTO) 12.6 % (0.0-13.0); NEUTROPHILS # (AUTO) 6.7 x10^3/uL (2.2-4.8); NEUTROPHILS % (AUTO) 54.2 % (42.0-75.0); PLATELET COUNT 612 X10^3/uL (150.0-450.0); RED BLOOD COUNT 1.77 X10^6/uL (4.7-6.0); RED CELL DISTRIBUTION WIDTH 18.9 % (11.6-16.5); RETICULOCYTE % 7.32 % (0.8-2.2); SODIUM 141 mmol/L (136-145); WHITE BLOOD COUNT 12.4 X10^3/uL (3.6-10.0); eGFR NON BLACK RACES > 60 (>60)
[2022-07-28 15:33] LABS: HEMOGLOBIN 5.5 g/dL (13.5-18.0)
[2022-07-28 15:35] LABS: LACTIC ACID 0.5 mmol/L (0.4-2.0)
--- NOTE | 2022-07-28 15:36 | RAD ---
HISTORYPatient states that he has an infection in his right leg. The leg is currently covered with an maile bandage, and green discharge is noted to have leaked through. There is a very potent odor coming from the area.STUDYLOWER LEG, TIB/FIB RIGHTCOMPARISONNoneTECHNIQUEFour view right tibia and fibula.FINDINGSBones are osteopenic. There is external material at the lower leg limiting evaluation. No definite cortical destruction or periosteal reaction. No acute fracture of the tibia or fibular shaft the knee and ankle joints appear anatomic.IMPRESSIONNo convincing radiographic evidence of osteomyelitis, although external material limits evaluation. Consider MRI with and without contrast for further evaluation as clinically warranted.Electronically signed by: Joe Ba (July 28, 2022 15:35:24)
[2022-07-28 15:37] LABS: TOTAL PROTEIN 7.6 g/dL (6.4-8.2)
[2022-07-28] MEDS ORDERED: VERSED ONE (15:48)
[2022-07-28] MEDS ORDERED: FENTANYL VIAL INJ 100 mcg ONE (15:49)
[2022-07-28] MEDS ORDERED: BETADINE SOLN ONE (15:50)
[2022-07-28] MEDS ORDERED: MARCAINE/EPINEPHRINE ONE (15:50)
[2022-07-28] MEDS ORDERED: NS 1,000 ML IV 0 ML ONE (16:06)
[2022-07-28] MEDS ORDERED: ANCEF VIAL 1 GRAM ONE (16:18)
[2022-07-28] MEDS ORDERED: NS 100 ML IV 100 ML ONE (16:18)
[2022-07-28] MEDS ORDERED: NS 1,000 ML IV 1,000 ML ONE (16:31)
[2022-07-28] MEDS ORDERED: DILAUDID INJ ONE (16:36)
[2022-07-28] MEDS ORDERED: DIPRIVAN VIAL 0 ML ONE (16:36)
[2022-07-28] MEDS ORDERED: SANTYL ONE (16:39)
[2022-07-28] MEDS: MAXIPIME VIAL 2 GRAMS 2 G in NS 100 ML IV 100 ML IV SCH ×2 (17:29→23:25)
[2022-07-28] MEDS: NS 1,000 ML IV 1,000 ML IV SCH (17:29)
--- NOTE | 2022-07-28 17:55 | DR.CONSULT ---
CONSULT Consultation for Day of: Date: 07/28/22 Chief Complaint Chief Complaint: Sickle cell patient with wound to right leg below knee with dressing over 1 months old with foul smell and purulent drainage and dressing cannot be removed without sever pain. Allergies Allergies Allergy/AdvReac Type Severity Reaction Status Date / Time Egg Derived Allergy Verified 10/12/17 21:04 mayonnaise Allergy Verified 10/12/17 21:04 morphine Allergy Verified 10/13/17 05:57 ondansetron [From Zofran] Allergy Verified 10/13/17 05:57 Whole Egg (Diagnostic) Allergy Unknown Vomiting Uncoded 11/20/11 14:50 History of Present Illness History of Present Illness: as above Past Medical History Past Medical History: Anemia, Depression, GERD and PUD Additional Medical History: Sickle Cell Disease Past Surgical History Surgical History: Other Additional Surgical History: Skin Graft (R) Leg Wound Family History Family Medical History: Diabetes Mellitus and Hypertension Social History Does patient currently use any type of tobacco product: No Have you used tobacco products in the last 12 months: No Type of Tobacco Use: None Does any household member use tobacco: No Alcohol Use: None Medications Home Medications: Egg Derived Allergy (Verified 10/12/17 21:04) mayonnaise Allergy (Verified 10/12/17 21:04) morphine Allergy (Verified 10/13/17 05:57) ondansetron [From Zofran] Allergy (Verified 10/13/17 05:57) Whole Egg (Diagnostic) Allergy (Unknown, Uncoded 11/20/11 14:50) Vomiting Review of Systems Constitutional: See HPI Eyes: No Symptoms Reported ENT: No Symptoms Reported Respiratory: No Symptoms Reported Cardiovascular: Other (gives history of fast heart beat ) Gastrointestinal: No Symptoms Reported Genitourinary: No Symptoms Reported Musculoskeletal: No Symptoms Reported Skin: No Symptoms Reported Neurological: No Symptoms Reported Physical Exam Vital Signs: Temperature 99.2 F Pulse Rate 80 Respiratory Rate 20 Respiratory Rate 18 Blood Pressure 100/57 O2 Sat by Pulse Oximetry 95 Oriented: Normal, Time, Person, Place and Other (patient very thin in acute pain.) Eyes: Normal Ear: Normal Nose: Normal Throat: Normal Respiratory: Clear Throughout Cardiovascular: Normal : Normal Auscultation: Bowel Sounds: Normal Palpation: Normal Tenderness: Normal Skin: Other (Wound of right leg below knee with severly adhered dressing with foul drainage and smell. ) Musculoskeletal: Normal Psychiatric: Normal Mood Description: Anxious Affect: Normal Speech Pattern: Clear Plan (1) Sickle cell anemia: Status: Acute Narrative Support Text: Dr Keiry Singh will admit and care for this patient's sickle cell disease. (2) Wound infection: Status: Acute Narrative Support Text: Will take to OR for anesthesia to remove current adhered dressing and provide excisional debridment to the right leg wound under anesthesia.
--- NOTE | 2022-07-28 18:01 | OR.IMMED ---
IMMEDIATE POST-OP NOTE Immediate Post-Op Note Pre-Op Diagnosis: Infected wound right leg below knee with adhered old dressin g Post-Op Diagnosis: same Procedure: Removal of adhered dressing right leg under anesthesia with excisional debridement and application of Santyl dressing Description of Procedure: see operative summary Surgeon/Screw Machine Set Up Operator Tool: Tera Findings: Near circumferential wound into the muscle below the knee , 15 x 10 cm x 0.8cm approximately. Estimated Blood Loss: minimal Complications: none Progress Notes: patient admitted for blood transfusion, control of sickle cell pain, IV antibiotics and dressing changes . I will be consulting on the wound
[2022-07-29] MEDS: NS 1,000 ML IV 1,000 ML IV SCH ×2 (01:46→18:40)
[2022-07-29] MEDS: NORCO 7.5/325 MG TAB PO PRN (02:18)
[2022-07-29 05:01] LABS: ALANINE AMINOTRANSFERASE 10 Units/L (12-78); ALBUMIN 2.9 g/dL (3.4-5.0); ALKALINE PHOSPHATASE 73 Units/L (46-116); ASPARTATE AMINO TRANSFERASE 19 Units/L (15-37); BLOOD UREA NITROGEN 11 mg/dL (7-18); CALCIUM 7.6 mg/dL (8.5-10.1); CARBON DIOXIDE 21.9 mmol/L (21-32); CHLORIDE 114 mmol/L (98-107); COR CA(FOR HYPOALB) 8.5 mg/dL (8.5-10.1); COR NA(FOR HYPERGLY) 146 mmol/L (136-145); CREATININE 0.84 mg/dL (0.70-1.30); GLUCOSE 120 mg/dL (65-99); SODIUM 146 mmol/L (136-145); TOTAL PROTEIN 6.5 g/dL (6.4-8.2); eGFR NON BLACK RACES > 60 (>60)
[2022-07-29 05:05] LABS: BASOPHILS % (AUTO) 0.3 % (0.2-1.0); EOSINOPHILS # (AUTO) 0.3 x10^3/uL (0.0-0.2); EOSINOPHILS % (AUTO) 2.5 % (0.9-2.9); LYMPHOCYTES # (AUTO) 3.8 X10^3/uL (1.3-2.9); LYMPHOCYTES % (AUTO) 29.2 % (21.0-51.0); MEAN CORPUSCULAR HEMOGLOBIN 30.5 pg (27.0-34.0); MEAN CORPUSCULAR HGB CONC 36.7 g/dL (33.0-35.0); MEAN CORPUSCULAR VOLUME 83.1 fL (80.0-100.0); MEAN PLATELET VOLUME 7.3 fL (7.4-11.0); MONOCYTES # (AUTO) 1.7 x10^3/uL (0.3-0.8); MONOCYTES % (AUTO) 13.5 % (0.0-13.0); NEUTROPHILS # (AUTO) 7.1 x10^3/uL (2.2-4.8); NEUTROPHILS % (AUTO) 54.5 % (42.0-75.0); PLATELET COUNT 433 X10^3/uL (150.0-450.0); RED BLOOD COUNT 1.33 X10^6/uL (4.7-6.0); RED CELL DISTRIBUTION WIDTH 19.2 % (11.6-16.5); WHITE BLOOD COUNT 12.9 X10^3/uL (3.6-10.0)
[2022-07-29 05:10] LABS: HEMATOCRIT 11.1 % (42.0-54.0); HEMOGLOBIN 4.1 g/dL (13.5-18.0)
[2022-07-29] MEDS: MAXIPIME VIAL 2 GRAMS 2 G in NS 100 ML IV 100 ML IV SCH ×3 (05:45→21:10)
[2022-07-29] MEDS ORDERED: BENADRYL INJ 50 MG VIAL IVP ONE (07:04)
[2022-07-29] MEDS ORDERED: TYLENOL 325 MG TAB PO ONE (07:04)
[2022-07-29] MEDS ORDERED: NS 250 ML IV 250 ML IV ONE (07:38)
[2022-07-29] MEDS: MOTRIN TAB 800 MG PO SCH ×2 (13:46→21:12)
[2022-07-29] MEDS: HYDREA PO SCH ×2 (13:50→21:11)
--- NOTE | 2022-07-29 15:27 | DR.OPNOTE ---
OP NOTE Pre-Op Diagnosis: wounds right leg with grossly adherent dressing. Post-Op Diagnosis: same Procedure Date Date Of Procedure: 07/28/22 Procedure: PROCEDURE: EXCISIONAL DEBRIDEMENT OF RIGHT LEG WOUND BELOW THE KNEE WITH OLD ADHERED WOUND NARRATIVE : Patient was taken to the operative suite and placed in the supine position. He was given intravenous sedation supervised by myself. Time out for the procedure obtained . Curved Lopez scissors were used to remove the grossly adherent dressing to the old wound of the right leg . When this was removed the wound measured approximately 15 cm long x 10 cm wide covering near circumferential the right calf. There were multiple areas of purulent drainage. The wound extended into the subcutaneous tissue and the muscle. 0.5% Marcaine was injected into the wound . Using the back of the knife handle excisional debridement of all of this wound was performed and then the wound dressed with Santyl, 4x4 s, 6 inch Kerlix and 6 inch Zay wrap. Patient was taken back to his room in good condition. There were palpable distal pulses of right foot. Type of Anesthesia: Local (0.5% Marcaine) Findings: severely adhered old dressing to the right leg below knee with wound into the subcutaneous tissue and muscle of the leg below the knee approximately 15x10x 0.8 cm Type of Fluids Used:: Lactated Ringers EBL: minimmal Complications:: none Needle/Sponge Count:: correct Disposition/Condition: Pt. tolerated procedure without difficulty. Patietn taken to floor in stable condition.
[2022-07-29 15:45] LABS: HEMATOCRIT 18.6 % (42.0-54.0); HEMOGLOBIN 6.9 g/dL (13.5-18.0)
--- NOTE | 2022-07-29 23:47 | NOTE.SOAP ---
Soap Note Note for Day of Date of Exam: 07/29/22 Subjective Data Subjective Data: Sickle cell crisis and wound right leg, extensive Objective Data Temperature: 99.1 F Pulse Rate: 73 Respiratory Rate: 17 Blood Pressure: 103/58 O2 Sat by Pulse Oximetry: 95 Objective Data: Hgb 6.9 after blood. Dressing intact right leg with no drainage noted. Assessment Assessment: Sickle cell and right leg wound Plan Plan: Continue IV antibiotics . Nurses to begin daily dressing changes right leg
[2022-07-30] MEDS: NS 1,000 ML IV 1,000 ML IV SCH ×3 (02:00→18:10)
[2022-07-30] MEDS: MOTRIN TAB 800 MG PO SCH ×3 (05:13→21:10)
[2022-07-30] MEDS: MAXIPIME VIAL 2 GRAMS 2 G in NS 100 ML IV 100 ML IV SCH ×3 (05:13→21:09)
[2022-07-30 05:29] LABS: BASOPHILS # (AUTO) 0.1 X10^3/uL (0.0-0.1); BASOPHILS % (AUTO) 0.7 % (0.2-1.0); EOSINOPHILS # (AUTO) 0.4 x10^3/uL (0.0-0.2); EOSINOPHILS % (AUTO) 2.9 % (0.9-2.9); LYMPHOCYTES # (AUTO) 4.4 X10^3/uL (1.3-2.9); LYMPHOCYTES % (AUTO) 32.9 % (21.0-51.0); MEAN CORPUSCULAR HEMOGLOBIN 30.7 pg (27.0-34.0); MEAN CORPUSCULAR HGB CONC 36.8 g/dL (33.0-35.0); MEAN CORPUSCULAR VOLUME 83.3 fL (80.0-100.0); MEAN PLATELET VOLUME 7.2 fL (7.4-11.0); MONOCYTES # (AUTO) 1.8 x10^3/uL (0.3-0.8); MONOCYTES % (AUTO) 13.7 % (0.0-13.0); NEUTROPHILS # (AUTO) 6.6 x10^3/uL (2.2-4.8); NEUTROPHILS % (AUTO) 49.8 % (42.0-75.0); PLATELET COUNT 503 X10^3/uL (150.0-450.0); RED BLOOD COUNT 2.29 X10^6/uL (4.7-6.0); RED CELL DISTRIBUTION WIDTH 17.8 % (11.6-16.5); WHITE BLOOD COUNT 13.3 X10^3/uL (3.6-10.0)
[2022-07-30 05:39] LABS: ALANINE AMINOTRANSFERASE 14 Units/L (12-78); ALBUMIN 2.8 g/dL (3.4-5.0); ALKALINE PHOSPHATASE 74 Units/L (46-116); ASPARTATE AMINO TRANSFERASE 30 Units/L (15-37); BLOOD UREA NITROGEN 11 mg/dL (7-18); CALCIUM 7.9 mg/dL (8.5-10.1); CARBON DIOXIDE 22.2 mmol/L (21-32); CHLORIDE 113 mmol/L (98-107); COR CA(FOR HYPOALB) 8.9 mg/dL (8.5-10.1); CREATININE 0.81 mg/dL (0.70-1.30); GLUCOSE 88 mg/dL (65-99); POTASSIUM 4.2 mmol/L (3.5-5.1); SODIUM 143 mmol/L (136-145); TOTAL PROTEIN 6.5 g/dL (6.4-8.2); eGFR NON BLACK RACES > 60 (>60)
[2022-07-30] MEDS ORDERED: NS 250 ML IV 250 ML IV ONE (06:56)
[2022-07-30] MEDS: NORCO 7.5/325 MG TAB PO PRN (08:56)
[2022-07-30] MEDS: HYDREA PO SCH ×2 (09:03→21:10)
[2022-07-30 12:21] LABS: HEMATOCRIT 23.2 % (42.0-54.0); HEMOGLOBIN 8.3 g/dL (13.5-18.0)
--- NOTE | 2022-07-30 23:11 | NOTE.SOAP ---
Soap Note Note for Day of Date of Exam: 07/30/22 Subjective Data Subjective Data: Pain under control . Dressing changes done by nurses. Objective Data Temperature: 98.7 F Pulse Rate: 79 Respiratory Rate: 18 Blood Pressure: 121/65 O2 Sat by Pulse Oximetry: 92 Objective Data: Desssing right leg intact . Hgb=8.3 Assessment Assessment: Sickle cell crisis, Wound to right leg as previously described Plan Plan: Discharge tomorrow. F/u in General surgery clinic
[2022-07-31] MEDS: NS 1,000 ML IV 1,000 ML IV SCH ×2 (01:00→03:18)
[2022-07-31] MEDS: NORCO 7.5/325 MG TAB PO PRN (02:43)
[2022-07-31] MEDS: MAXIPIME VIAL 2 GRAMS 2 G in NS 100 ML IV 100 ML IV SCH (05:25)
[2022-07-31] MEDS: MOTRIN TAB 800 MG PO SCH (05:26)
[2022-07-31 05:33] LABS: BASOPHILS # (AUTO) 0.2 X10^3/uL (0.0-0.1); BASOPHILS % (AUTO) 0.9 % (0.2-1.0); EOSINOPHILS # (AUTO) 0.7 x10^3/uL (0.0-0.2); EOSINOPHILS % (AUTO) 3.9 % (0.9-2.9); HEMOGLOBIN 8.2 g/dL (13.5-18.0); LYMPHOCYTES # (AUTO) 4.6 X10^3/uL (1.3-2.9); MEAN CORPUSCULAR HEMOGLOBIN 30.3 pg (27.0-34.0); MEAN CORPUSCULAR HGB CONC 35.8 g/dL (33.0-35.0); MEAN CORPUSCULAR VOLUME 84.8 fL (80.0-100.0); MEAN PLATELET VOLUME 7.6 fL (7.4-11.0); MONOCYTES # (AUTO) 1.2 x10^3/uL (0.3-0.8); MONOCYTES % (AUTO) 6.7 % (0.0-13.0); NEUTROPHILS % (AUTO) 62.5 % (42.0-75.0); PLATELET COUNT 497 X10^3/uL (150.0-450.0); RED BLOOD COUNT 2.71 X10^6/uL (4.7-6.0); RED CELL DISTRIBUTION WIDTH 17.7 % (11.6-16.5); WHITE BLOOD COUNT 17.6 X10^3/uL (3.6-10.0)
[2022-07-31 05:47] LABS: ALANINE AMINOTRANSFERASE 19 Units/L (12-78); ALBUMIN 2.8 g/dL (3.4-5.0); ALKALINE PHOSPHATASE 79 Units/L (46-116); ASPARTATE AMINO TRANSFERASE 32 Units/L (15-37); BLOOD UREA NITROGEN 13 mg/dL (7-18); CALCIUM 8.1 mg/dL (8.5-10.1); CARBON DIOXIDE 21.6 mmol/L (21-32); CHLORIDE 113 mmol/L (98-107); COR CA(FOR HYPOALB) 9.1 mg/dL (8.5-10.1); CREATININE 1.02 mg/dL (0.70-1.30); GLUCOSE 107 mg/dL (65-99); POTASSIUM 4.6 mmol/L (3.5-5.1); SODIUM 143 mmol/L (136-145); TOTAL PROTEIN 6.5 g/dL (6.4-8.2); eGFR NON BLACK RACES > 60 (>60)
[2022-07-31] MEDS: HYDREA PO SCH (08:24)
[2022-07-31 10:27] VITALS: BP 120/68; PULSE 60; TEMP 98; O2SAT 96
== END 2022-07-31 12:50 | disposition home or self-care (01) | DRG 982 ==
LOC: ER 13:03 → MED/SURG 16:25
PROVIDERS: ADMIT Obstetrics & Gynecology Obstetrics; ATTEND Obstetrics & Gynecology Obstetrics
DX: Y92.9 Unspecified place or not applicable; L03.115 Cellulitis of right lower limb; X58.XXXA Exposure to other specified factors, initial encounter; D57.818 Other sickle-cell disorders with crisis with other specified complication; Z86.19 Personal history of other infectious and parasitic diseases; B95.4 Other streptococcus as the cause of diseases classified elsewhere; I10 Essential (primary) hypertension; Z87.11 Personal history of peptic ulcer disease; K21.9 Gastro-esophageal reflux disease without esophagitis; S81.801A Unspecified open wound, right lower leg, initial encounter; M79.661 Pain in right lower leg; E11.65 Type 2 diabetes mellitus with hyperglycemia

== ENCOUNTER 2023-01-14 08:03 | Inpatient (IN) ==
[2023-01-14] MEDS ORDERED: NS 250 ML IV 250 ML IV ONE (11:24)
[2023-01-14] MEDS ORDERED: STERILE WATER IRRIGATION IR ONE (11:26)
[2023-01-14] MEDS ORDERED: HYDROGEN PEROXIDE 3% ONE (11:26)
[2023-01-14 11:33] LABS: ALANINE AMINOTRANSFERASE 20 Units/L (12-78); ALBUMIN 3.2 g/dL (3.4-5.0); ALKALINE PHOSPHATASE 112 Units/L (46-116); ASPARTATE AMINO TRANSFERASE 30 Units/L (15-37); BLOOD UREA NITROGEN 21 mg/dL (7-18); CALCIUM 8.5 mg/dL (8.5-10.1); CARBON DIOXIDE 19.4 mmol/L (21-32); CHLORIDE 106 mmol/L (98-107); COR CA(FOR HYPOALB) 9.1 mg/dL (8.5-10.1); COR NA(FOR HYPERGLY) 138 mmol/L (136-145); CREATININE 1.22 mg/dL (0.70-1.30); GLUCOSE 118 mg/dL (65-99); SODIUM 138 mmol/L (136-145); TOTAL PROTEIN 8.7 g/dL (6.4-8.2); eGFR NON BLACK RACES > 60 (>60)
[2023-01-14] MEDS: PERCOCET TAB 5/325 MG PO PRN (11:35)
[2023-01-14 11:40] LABS: BASOPHILS # (AUTO) 0.2 X10^3/uL (0.0-0.1); BASOPHILS % (AUTO) 0.5 % (0.2-1.0); EOSINOPHILS # (AUTO) 0.3 x10^3/uL (0.0-0.2); EOSINOPHILS % (AUTO) 0.9 % (0.9-2.9); LYMPHOCYTES # (AUTO) 4.5 X10^3/uL (1.3-2.9); LYMPHOCYTES % (AUTO) 13.6 % (21.0-51.0); MEAN CORPUSCULAR HEMOGLOBIN 31.9 pg (27.0-34.0); MEAN CORPUSCULAR HGB CONC 33.3 g/dL (33.0-35.0); MEAN CORPUSCULAR VOLUME 95.6 fL (80.0-100.0); MEAN PLATELET VOLUME 7.1 fL (7.4-11.0); MONOCYTES # (AUTO) 1.9 x10^3/uL (0.3-0.8); MONOCYTES % (AUTO) 5.8 % (0.0-13.0); NEUTROPHILS # (AUTO) 26.3 x10^3/uL (2.2-4.8); NEUTROPHILS % (AUTO) 79.2 % (42.0-75.0); PLATELET COUNT 873 X10^3/uL (150.0-450.0); RED BLOOD COUNT 1.77 X10^6/uL (4.7-6.0)
[2023-01-14] MEDS: VANCOMYCIN IV *PREMIX 1 G/200 ML BAG 1 G/200 ML PIGGYBACK IV SCH ×2 (11:50→22:36)
[2023-01-14 11:53] LABS: HEMOGLOBIN 5.6 g/dL (13.5-18.0); WHITE BLOOD COUNT 33.2 X10^3/uL (3.6-10.0)
[2023-01-14 11:54] LABS: HEMATOCRIT 16.9 % (42.0-54.0)
[2023-01-14] MEDS: NS 250 ML IV 250 ML IV SCH ×4 (11:56→22:36)
[2023-01-14 12:01] LABS: ANISOCYTOSIS 1+; PLATELET MORPHOLOGY COMMENT NORMAL (NORMAL); POIKILOCYTOSIS 1+; SICKLE CELLS 2+; TARGET CELLS 1+
[2023-01-14] MEDS: DILAUDID INJ IVP PRN ×2 (13:50→20:10)
[2023-01-14] MEDS ORDERED: HIBICLENS WASH ONE (14:01)
[2023-01-14 14:52] VITALS: BMI 18.7
[2023-01-15] MEDS: NS 250 ML IV 250 ML IV SCH ×8 (00:46→23:44)
[2023-01-15] MEDS: DILAUDID INJ IVP PRN ×3 (02:19→17:49)
[2023-01-15] MEDS ORDERED: NS 250 ML IV 250 ML IV ONE (02:55)
[2023-01-15 06:28] LABS: MEAN CORPUSCULAR VOLUME 92.8 fL (80.0-100.0)
[2023-01-15 06:31] LABS: BASOPHILS # (AUTO) 0.1 X10^3/uL (0.0-0.1); BASOPHILS % (AUTO) 0.6 % (0.2-1.0); EOSINOPHILS # (AUTO) 0.5 x10^3/uL (0.0-0.2); EOSINOPHILS % (AUTO) 2.3 % (0.9-2.9); LYMPHOCYTES # (AUTO) 8.2 X10^3/uL (1.3-2.9); LYMPHOCYTES % (AUTO) 35.6 % (21.0-51.0); MEAN CORPUSCULAR HEMOGLOBIN 32.8 pg (27.0-34.0); MEAN CORPUSCULAR HGB CONC 35.3 g/dL (33.0-35.0); MEAN PLATELET VOLUME 7.4 fL (7.4-11.0); MONOCYTES # (AUTO) 1.9 x10^3/uL (0.3-0.8); MONOCYTES % (AUTO) 8.1 % (0.0-13.0); NEUTROPHILS # (AUTO) 12.3 x10^3/uL (2.2-4.8); NEUTROPHILS % (AUTO) 53.4 % (42.0-75.0); PLATELET COUNT 716 X10^3/uL (150.0-450.0); RED BLOOD COUNT 1.85 X10^6/uL (4.7-6.0); RED CELL DISTRIBUTION WIDTH 19.7 % (11.6-16.5); WHITE BLOOD COUNT 23.1 X10^3/uL (3.6-10.0)
[2023-01-15 06:37] LABS: HEMATOCRIT 17.2 % (42.0-54.0); HEMOGLOBIN 6.1 g/dL (13.5-18.0)
[2023-01-15 06:41] LABS: ALANINE AMINOTRANSFERASE 20 Units/L (12-78); ALBUMIN 2.8 g/dL (3.4-5.0); ALKALINE PHOSPHATASE 110 Units/L (46-116); ASPARTATE AMINO TRANSFERASE 42 Units/L (15-37); BLOOD UREA NITROGEN 16 mg/dL (7-18); CALCIUM 7.9 mg/dL (8.5-10.1); CARBON DIOXIDE 22.8 mmol/L (21-32); CHLORIDE 104 mmol/L (98-107); COR CA(FOR HYPOALB) 8.9 mg/dL (8.5-10.1); CREATININE 1.08 mg/dL (0.70-1.30); GLUCOSE 98 mg/dL (65-99); POTASSIUM 4.3 mmol/L (3.5-5.1); SODIUM 135 mmol/L (136-145); TOTAL PROTEIN 7.8 g/dL (6.4-8.2); eGFR NON BLACK RACES > 60 (>60)
[2023-01-15 06:58] LABS: BAND NEUTROPHILS % 3 % (0-10)
[2023-01-15 06:59] LABS: PLATELET MORPHOLOGY COMMENT NORMAL (NORMAL)
[2023-01-15 07:00] LABS: ANISOCYTOSIS SLIGHT; POIKILOCYTOSIS 1+; SICKLE CELLS 1+; TARGET CELLS 1+
--- NOTE | 2023-01-15 08:41 | DR.CONSULT ---
CONSULT Consultation for Day of: Date: 01/14/23 Chief Complaint Chief Complaint: Right leg ulcers Dizziness, lightheaded Allergies Allergies Allergy/AdvReac Type Severity Reaction Status Date / Time Egg Derived Allergy Verified 11/21/22 09:45 mayonnaise Allergy Verified 11/21/22 09:45 morphine Allergy Verified 11/21/22 09:45 ondansetron [From Zofran] Allergy Verified 11/21/22 09:45 Whole Egg (Diagnostic) Allergy Unknown Vomiting Uncoded 11/20/11 14:50 History of Present Illness History of Present Illness: Pt is a 37-year-old male with known history of sickle cell anemia and chronic ulcers of the right lower extremity presenting with worsening ulcers on the right leg. Medicine consulted for anemia. He also reports some lightheadedness and dizziness. He was found to be severely anemic on admission. Labs/imaging: WBC 33, hemoglobin 5.6, platelets 873, sodium 138, potassium 4, creatinine 1.22, glucose 118. We will keep patient n.p.o. as s urgery plans to do debridement tomorrow. Ordered 2 units packed red blood cells to be transfused for symptomatic anemia. Patient is currently receiving IV antibiotics vancomycin. We will continue closely monitor vitals. Continue to with current treatment plan. Follow-up labs in the morning. Past Medical History Past Medical History: Anemia, Depression, GERD and PUD Additional Medical History: Sickle Cell Disease Past Surgical History Surgical History: Other Additional Surgical History: Skin Graft (R) Leg Wound Family History Family Medical History: Diabetes Mellitus and Hypertension Social History Does patient currently use any type of tobacco product: Yes Have you used tobacco products in the last 12 months: Yes Type of Tobacco Use: Cigarettes Alcohol Use: None Drug Use: None Medications Home Medications: Egg Derived Allergy (Verified 11/21/22 09:45) mayonnaise Allergy (Verified 11/21/22 09:45) morphine Allergy (Verified 11/21/22 09:45) ondansetron [From Zofran] Allergy (Verified 11/21/22 09:45) Whole Egg (Diagnostic) Allergy (Unknown, Uncoded 11/20/11 14:50) Vomiting Review of Systems Constitutional: Weakness Eyes: No Symptoms Reported ENT: No Symptoms Reported Respiratory: No Symptoms Reported Cardiovascular: No Symptoms Reported Gastrointestinal: No Symptoms Reported Genitourinary: No Symptoms Reported Musculoskeletal: Leg Pain (right leg) Skin: No Symptoms Reported Neurological: No Symptoms Reported Physical Exam Vital Signs: Vital Signs Temperature 98.5 F Pulse Rate [Left Brachial] 96 Respiratory Rate 16 Respiratory Rate 18 Respiratory Rate 20 Respiratory Rate 20 Blood Pressure [Right Arm] 90/50 O2 Sat by Pulse Oximetry 97 Oriented: Normal Eyes: Normal Ear: Normal Nose: Normal Respiratory: Clear Throughout Cardiovascular: Normal Auscultation: Bowel Sounds: Normal Palpation: Normal Tenderness: Normal Skin: Wound (right lower extremity ulcers) Musculoskeletal: Leg (right leg ulcers) Psychiatric: Normal Speech Pattern: Clear Plan (1) Sickle cell anemia: Status: Acute (2) Sickle cell crisis: Status: Acute (3) Ulcer of leg, chronic, right: Status: Chronic Qualifiers: Non-pressure ulcer stage: unspecified non-pressure ulcer stage Qualified Code(s): L97.919 - Non-pressure chronic ulcer of unspecified part of right lower leg with unspecified severity
[2023-01-15] MEDS: VANCOMYCIN IV *PREMIX 1 G/200 ML BAG 1 G/200 ML PIGGYBACK IV SCH ×2 (09:02→21:30)
[2023-01-15] MEDS ORDERED: BETADINE SOLN ONE (09:48)
[2023-01-15] MEDS ORDERED: NS 100 ML IV 100 ML ONE (10:17)
[2023-01-15] MEDS ORDERED: LR 1,000 ML IV 1,000 ML IV ONE (10:17)
[2023-01-15] MEDS ORDERED: ANCEF VIAL 1 GRAM ONE (10:17)
[2023-01-15] MEDS ORDERED: DIPRIVAN VIAL 20 ML ONE (10:31)
[2023-01-15] MEDS ORDERED: ZOFRAN INJ 4 MG VIAL ONE (10:32)
[2023-01-15] MEDS ORDERED: VERSED ONE (10:32)
[2023-01-15] MEDS ORDERED: FENTANYL VIAL INJ 100 mcg ONE (10:33)
[2023-01-15] MEDS ORDERED: PEPCID 20 MG VIAL ONE (10:34)
[2023-01-15] MEDS ORDERED: KETAMINE 50 MG/5 ML-NACL SYRNG ONE (10:34)
[2023-01-15] MEDS ORDERED: XYLOCAINE 2 % (PLAIN) ONE (11:07)
[2023-01-15] MEDS ORDERED: ULTANE GAS IN ONE (11:07)
[2023-01-15] MEDS ORDERED: POLYMYXIN B SULFATE ONE (11:10)
[2023-01-15] MEDS ORDERED: NEO-SYNEPHRINE INJ ONE (11:19)
[2023-01-15] MEDS ORDERED: DILAUDID INJ ONE (11:34)
[2023-01-15] MEDS ORDERED: BARHEMSYS INJ IVP PRN (12:08)
[2023-01-15] MEDS ORDERED: BENADRYL INJ 50 MG VIAL IVP PRN (12:08)
[2023-01-15] MEDS ORDERED: DILAUDID INJ IVP PRN (12:08)
[2023-01-15] MEDS ORDERED: HESPAN IV IN NS 500 ML IV ONE (12:19)
[2023-01-15 12:39] LABS: BASOPHILS # (AUTO) 0.1 X10^3/uL (0.0-0.1); MONOCYTES # (AUTO) 1.3 x10^3/uL (0.3-0.8)
[2023-01-15 12:43] LABS: BASOPHILS % (AUTO) 0.7 % (0.2-1.0); EOSINOPHILS # (AUTO) 0.4 x10^3/uL (0.0-0.2); EOSINOPHILS % (AUTO) 2.3 % (0.9-2.9); LYMPHOCYTES # (AUTO) 5.8 X10^3/uL (1.3-2.9); LYMPHOCYTES % (AUTO) 30.1 % (21.0-51.0); MEAN CORPUSCULAR HEMOGLOBIN 31.7 pg (27.0-34.0); MEAN CORPUSCULAR HGB CONC 34.4 g/dL (33.0-35.0); MEAN CORPUSCULAR VOLUME 92.1 fL (80.0-100.0); MEAN PLATELET VOLUME 7.2 fL (7.4-11.0); MONOCYTES % (AUTO) 6.7 % (0.0-13.0); NEUTROPHILS # (AUTO) 11.6 x10^3/uL (2.2-4.8); NEUTROPHILS % (AUTO) 60.2 % (42.0-75.0); PLATELET COUNT 628 X10^3/uL (150.0-450.0); RED BLOOD COUNT 2.06 X10^6/uL (4.7-6.0); WHITE BLOOD COUNT 19.3 X10^3/uL (3.6-10.0)
[2023-01-15 12:49] LABS: HEMOGLOBIN 6.5 g/dL (13.5-18.0)
[2023-01-15 12:50] LABS: HEMATOCRIT 18.9 % (42.0-54.0)
[2023-01-15 13:07] LABS: ANISOCYTOSIS SLIGHT; PLATELET MORPHOLOGY COMMENT NORMAL (NORMAL); SICKLE CELLS PRESENT; TARGET CELLS PRESENT
[2023-01-15 13:08] LABS: POIKILOCYTOSIS 1+
[2023-01-15 14:54] LABS: HEMATOCRIT 18.3 % (42.0-54.0); HEMOGLOBIN 6.3 g/dL (13.5-18.0)
--- NOTE | 2023-01-15 14:55 | PCM.PROG ---
Progress Note Progress Note for Day of Date of Exam: 01/15/23 Subjective Subjective: Pt is a 37-year-old male with known history of sickle cell anemia and chronic ulcers of the right lower extremity presenting with worsening ulcers on the right leg. Medicine consulted for symptomatic anemia. This morning he is resting comfortably in bed. No acute events overnight. Labs/imaging: WBC 19, hemoglobin 6.5, platelets 628, sodium 135, potassium 4.3, creatinine 1.08, glucose 98. We will keep patient n.p.o. as surgery plans to do debridement today. Will order another 2 units packed red blood cells to be transfused for symptomatic anemia. Patient is currently receiving IV antibiotics vancomycin. Otherwise, continue with current treatment plan. Continue to closely monitor and follow up labs. Past Medical Family Social History Allergies: Allergies Egg Derived Allergy (Verified 11/21/22 09:45) mayonnaise Allergy (Verified 11/21/22 09:45) morphine Allergy (Verified 11/21/22 09:45) ondansetron [From Zofran] Allergy (Verified 11/21/22 09:45) Whole Egg (Diagnostic) Allergy (Unknown, Uncoded 11/20/11 14:50) Vomiting Review of Systems ROS changes noted: see HPI Vital Signs and I&O's Vital Signs: Vital Signs Temperature 98.3 F Temperature 98.2 F Temperature 99.7 F Temperature 99.1 F Pulse Rate [Left Brachial] 94 Pulse Rate [Left Brachial] 106 Pulse Rate 92 Pulse Rate 90 Pulse Rate 90 Pulse Rate 88 Pulse Rate 96 Pulse Rate 92 Pulse Rate 95 Pulse Rate 97 Pulse Rate 102 Pulse Rate 90 Respiratory Rate 18 Respiratory Rate 18 Respiratory Rate 18 Respiratory Rate 18 Respiratory Rate 18 Respiratory Rate 18 Respiratory Rate 18 Respiratory Rate 20 Respiratory Rate 20 Respiratory Rate 19 Respiratory Rate 18 Respiratory Rate 18 Respiratory Rate 16 Respiratory Rate 16 Blood Pressure [Right Arm] 89/55 Blood Pressure [Right Arm] 89/51 Blood Pressure 90/54 Blood Pressure 87/51 Blood Pressure 90/53 Blood Pressure 85/52 Blood Pressure 85/52 Blood Pressure 88/55 Blood Pressure 98/53 Blood Pressure 94/51 Blood Pressure 90/54 Blood Pressure 88/56 O2 Sat by Pulse Oximetry 99 O2 Sat by Pulse Oximetry 99 O2 Sat by Pulse Oximetry 98 O2 Sat by Pulse Oximetry 100 O2 Sat by Pulse Oximetry 99 O2 Sat by Pulse Oximetry 99 O2 Sat by Pulse Oximetry 99 O2 Sat by Pulse Oximetry 95 O2 Sat by Pulse Oximetry 97 O2 Sat by Pulse Oximetry 98 O2 Sat by Pulse Oximetry 95 O2 Sat by Pulse Oximetry 99 Intake and Output: Intake & Output 01/12/23 01/13/23 01/14/23 01/15/23 23:59 23:59 23:59 23:59 Intake Total 2031 / 2032 2683 / 2683 Output Total 950 / 950 1610 / 1610 Balance 1082 / 1082 1073 / 1073 Physical Exam Oriented: Normal Eyes: Normal Ear: Normal Nose: Normal Respiratory: Normal Cardiovascular: Normal Auscultation: Bowel Sounds: Normal Tenderness: Normal Skin: Wound (right lower extremity ulcers) Musculoskeletal: Leg (right leg ulcers) Psychiatric: Normal Mood Description: Calm Speech Pattern: Clear Laboratory and Diagnostics 01/15/23 12:33 01/15/23 06:20 Labs: 01/14/23 11:15 Leg - Right Wound Gram Stain - Final 01/14/23 11:15 Leg - Right Wound Culture - Preliminary Laboratory WBC 19.3 X10^3/uL (3.6-10.0) H 01/15/23 12:33 RBC 2.06 X10^6/uL (4.7-6.0) L 01/15/23 12:33 Hgb 6.5 g/dL (13.5-18.0) L* 01/15/23 12:33 Hct 18.9 % (42.0-54.0) L* 01/15/23 12:33 MCV 92.1 fL (80.0-100.0) 01/15/23 12:33 MCH 31.7 pg (27.0-34.0) 01/15/23 12:33 MCHC 34.4 g/dL (33.0-35.0) 01/15/23 12:33 RDW 18.0 % (11.6-16.5) H 01/15/23 12:33 Plt Count 628 X10^3/uL (150.0-450.0) H 01/15/23 12:33 Plt Count Comment Increased (ADEQUATE) 01/15/23 12:33 MPV 7.2 fL (7.4-11.0) L 01/15/23 12:33 Neut % (Auto) 60.2 % (42.0-75.0) 01/15/23 12:33 Lymph % (Auto) 30.1 % (21.0-51.0) 01/15/23 12:33 [place] % (Auto) 6.7 % (0.0-13.0) 01/15/23 12:33 Eos % (Auto) 2.3 % (0.9-2.9) 01/15/23 12:33 Baso % (Auto) 0.7 % (0.2-1.0) 01/15/23 12:33 Neut # (Auto) 11.6 x10^3/uL (2.2-4.8) H 01/15/23 12:33 Lymph # (Auto) 5.8 X10^3/uL (1.3-2.9) H 01/15/23 12:33 [place] # (Auto) 1.3 x10^3/uL (0.3-0.8) H 01/15/23 12:33 Eos # (Auto) 0.4 x10^3/uL (0.0-0.2) H 01/15/23 12:33 Baso # (Auto) 0.1 X10^3/uL (0.0-0.1) 01/15/23 12:33 Absolute Nucleated RBC 0.8 /100WBC 01/15/23 12:33 Total Counted 100 01/15/23 06:20 Neutrophils % (Manual) 58 % (39-76) 01/15/23 06:20 Band Neutrophils % 3 % (0-10) 01/15/23 06:20 Lymphocytes % (Manual) 34 % (13-43) 01/15/23 06:20 Monocytes % (Manual) 5 % (4-9) 01/15/23 06:20 Nucleated RBCs 2 01/15/23 06:20 Plt Morphology Comment Normal (NORMAL) 01/15/23 12:33 RBC Morphology Abnormal (NORMAL) 01/15/23 12:33 Dimorphic RBCs Slight 01/15/23 06:20 Poikilocytosis 1+ A 01/15/23 12:33 Anisocytosis Slight A 01/15/23 12:33 Sickle Cells Present 01/15/23 12:33 Target Cells Present 01/15/23 12:33 Sodium 135 mmol/L (136-145) L 01/15/23 06:20 Corrected Sodium TNP 01/15/23 06:20 Potassium 4.3 mmol/L (3.5-5.1) 01/15/23 06:20 Chloride 104 mmol/L (98-107) 01/15/23 06:20 Carbon Dioxide 22.8 mmol/L (21-32) 01/15/23 06:20 BUN 16 mg/dL (7-18) 01/15/23 06:20 Creatinine 1.08 mg/dL (0.70-1.30) 01/15/23 06:20 Est GFR (MDRD) Af Amer > 60 (>60) 01/15/23 06:20 Est GFR (MDRD) Non-Af > 60 (>60) 01/15/23 06:20 Glucose 98 mg/dL (65-99) 01/15/23 06:20 POC Glucose (mg/dL) 98 mg/dL (65-99) 01/15/23 12:25 Lactic Acid 0.6 mmol/L (0.4-2.0) 01/15/23 07:02 Calcium 7.9 mg/dL (8.5-10.1) L 01/15/23 06:20 Corrected Calcium 8.9 mg/dL (8.5-10.1) 01/15/23 06:20 Total Bilirubin 1.50 mg/dL (0.2-1.0) H 01/15/23 06:20 AST 42 Units/L (15-37) H 01/15/23 06:20 ALT 20 Units/L (12-78) 01/15/23 06:20 Alkaline Phosphatase 110 Units/L (46-116) 01/15/23 06:20 Total Protein 7.8 g/dL (6.4-8.2) 01/15/23 06:20 Albumin 2.8 g/dL (3.4-5.0) L 01/15/23 06:20 Globulin 5.0 g/dL (2.5-4.5) H 01/15/23 06:20 Albumin/Globulin Ratio 0.6 Ratio (1.1-2.1) L 01/15/23 06:20 Blood Type B POSITIVE 01/14/23 13:05 Antibody Screen Negative 01/14/23 13:05 Crossmatch See Detail 01/14/23 13:05 Plan (1) Sickle cell anemia: Status: Acute (2) Sickle cell crisis: Status: Acute (3) Ulcer of leg, chronic, right: Status: Chronic Qualifiers: Non-pressure ulcer stage: unspecified non-pressure ulcer stage Qu alified Code(s): L97.919 - Non-pressure chronic ulcer of unspecified part of right lower leg with unspecified severity
[2023-01-15] MEDS: D5 1/2 NS 1,000 ML 1,000 ML IV SCH (17:55)
[2023-01-15] MEDS ORDERED: PHARMACY COMMENT IV NR (20:30)
[2023-01-15] MEDS: PERCOCET TAB 5/325 MG PO PRN (21:40)
[2023-01-16] MEDS: NS 250 ML IV 250 ML IV SCH ×6 (01:26→22:55)
[2023-01-16] MEDS: D5 1/2 NS 1,000 ML 1,000 ML IV SCH ×3 (01:26→19:46)
[2023-01-16] MEDS ORDERED: NS 250 ML IV 250 ML IV ONE (01:43)
[2023-01-16] MEDS: DILAUDID INJ IVP PRN ×4 (01:51→21:41)
[2023-01-16] MEDS: VANCOMYCIN IV *PREMIX 1 G/200 ML BAG 1 G/200 ML PIGGYBACK IV SCH (05:12)
[2023-01-16 05:52] LABS: BASOPHILS # (AUTO) 0.1 X10^3/uL (0.0-0.1); EOSINOPHILS # (AUTO) 0.7 x10^3/uL (0.0-0.2); EOSINOPHILS % (AUTO) 4.9 % (0.9-2.9); HEMATOCRIT 24.5 % (42.0-54.0); LYMPHOCYTES # (AUTO) 5.4 X10^3/uL (1.3-2.9); LYMPHOCYTES % (AUTO) 37.8 % (21.0-51.0); MEAN CORPUSCULAR HGB CONC 34.6 g/dL (33.0-35.0); MEAN CORPUSCULAR VOLUME 86.7 fL (80.0-100.0); MEAN PLATELET VOLUME 7.2 fL (7.4-11.0); MONOCYTES # (AUTO) 1.4 x10^3/uL (0.3-0.8); NEUTROPHILS # (AUTO) 6.6 x10^3/uL (2.2-4.8); NEUTROPHILS % (AUTO) 46.3 % (42.0-75.0); PLATELET COUNT 574 X10^3/uL (150.0-450.0); RED BLOOD COUNT 2.82 X10^6/uL (4.7-6.0); RED CELL DISTRIBUTION WIDTH 22.5 % (11.6-16.5); WHITE BLOOD COUNT 14.2 X10^3/uL (3.6-10.0)
[2023-01-16 06:09] LABS: HEMOGLOBIN 8.5 g/dL (13.5-18.0)
[2023-01-16 06:11] LABS: ALANINE AMINOTRANSFERASE 24 Units/L (12-78); ALBUMIN 2.1 g/dL (3.4-5.0); ALKALINE PHOSPHATASE 86 Units/L (46-116); ASPARTATE AMINO TRANSFERASE 34 Units/L (15-37); BLOOD UREA NITROGEN 8 mg/dL (7-18); CARBON DIOXIDE 23.3 mmol/L (21-32); CHLORIDE 105 mmol/L (98-107); COR CA(FOR HYPOALB) 8.5 mg/dL (8.5-10.1); CREATININE 0.82 mg/dL (0.70-1.30); GLUCOSE 107 mg/dL (65-99); POTASSIUM 3.9 mmol/L (3.5-5.1); SODIUM 137 mmol/L (136-145); TOTAL PROTEIN 6.2 g/dL (6.4-8.2); eGFR NON BLACK RACES > 60 (>60)
[2023-01-16 06:12] LABS: ANISOCYTOSIS 2+; HYPOCHROMASIA SLIGHT
[2023-01-16 06:13] LABS: PLATELET MORPHOLOGY COMMENT NORMAL (NORMAL); POIKILOCYTOSIS 1+; SCHISTOCYTES SLIGHT; SICKLE CELLS SLIGHT; TARGET CELLS 1+
[2023-01-16] MEDS: PERCOCET TAB 5/325 MG PO PRN ×2 (06:47→19:26)
[2023-01-16] MEDS: LEVAQUIN PREMIX IV 500 MG 500 MG/100 ML BAG IV SCH (15:43)
[2023-01-16] MEDS ORDERED: PHARMACY COMMENT IV ONE (21:30)
[2023-01-17] MEDS: D5 1/2 NS 1,000 ML 1,000 ML IV SCH ×3 (01:05→10:46)
[2023-01-17] MEDS: NS 250 ML IV 250 ML IV SCH ×4 (02:16→11:57)
[2023-01-17] MEDS: DILAUDID INJ IVP PRN ×3 (03:17→11:59)
[2023-01-17 06:12] LABS: BASOPHILS # (AUTO) 0.1 X10^3/uL (0.0-0.1); BASOPHILS % (AUTO) 0.6 % (0.2-1.0); EOSINOPHILS # (AUTO) 0.6 x10^3/uL (0.0-0.2); EOSINOPHILS % (AUTO) 4.3 % (0.9-2.9); HEMATOCRIT 24.9 % (42.0-54.0); HEMOGLOBIN 8.7 g/dL (13.5-18.0); LYMPHOCYTES # (AUTO) 4.3 X10^3/uL (1.3-2.9); LYMPHOCYTES % (AUTO) 33.8 % (21.0-51.0); MEAN CORPUSCULAR HEMOGLOBIN 30.2 pg (27.0-34.0); MEAN CORPUSCULAR HGB CONC 34.8 g/dL (33.0-35.0); MEAN CORPUSCULAR VOLUME 86.8 fL (80.0-100.0); MEAN PLATELET VOLUME 7.6 fL (7.4-11.0); MONOCYTES # (AUTO) 0.8 x10^3/uL (0.3-0.8); MONOCYTES % (AUTO) 6.5 % (0.0-13.0); NEUTROPHILS # (AUTO) 7.1 x10^3/uL (2.2-4.8); NEUTROPHILS % (AUTO) 54.8 % (42.0-75.0); PLATELET COUNT 531 X10^3/uL (150.0-450.0); RED BLOOD COUNT 2.87 X10^6/uL (4.7-6.0); RED CELL DISTRIBUTION WIDTH 23.4 % (11.6-16.5); WHITE BLOOD COUNT 12.9 X10^3/uL (3.6-10.0)
[2023-01-17 06:15] LABS: ALANINE AMINOTRANSFERASE 26 Units/L (12-78); ALBUMIN 2.1 g/dL (3.4-5.0); ALKALINE PHOSPHATASE 92 Units/L (46-116); ASPARTATE AMINO TRANSFERASE 32 Units/L (15-37); BLOOD UREA NITROGEN 11 mg/dL (7-18); CALCIUM 7.6 mg/dL (8.5-10.1); CARBON DIOXIDE 20.5 mmol/L (21-32); CHLORIDE 106 mmol/L (98-107); COR CA(FOR HYPOALB) 9.1 mg/dL (8.5-10.1); COR NA(FOR HYPERGLY) 136 mmol/L (136-145); CREATININE 0.88 mg/dL (0.70-1.30); GLUCOSE 135 mg/dL (65-99); SODIUM 135 mmol/L (136-145); TOTAL PROTEIN 6.3 g/dL (6.4-8.2); eGFR NON BLACK RACES > 60 (>60)
[2023-01-17 07:20] LABS: ANISOCYTOSIS 2+; OVALOCYTES SLIGHT; PLATELET MORPHOLOGY COMMENT NORMAL (NORMAL); TARGET CELLS 1+
[2023-01-17 08:21] VITALS: RESP 18
[2023-01-17] MEDS: LEVAQUIN PREMIX IV 500 MG 500 MG/100 ML BAG IV SCH (08:21)
[2023-01-17 09:25] VITALS: TEMP 98.5; O2SAT 99
--- NOTE | 2023-01-17 10:28 | PCM.PROG ---
Progress Note Progress Note for Day of Date of Exam: 01/16/23 Subjective Subjective: Pt is a 37-year-old male with known history of sickle cell anemia and chronic ulcers of the right lower extremity presenting with worsening ulcers on the right leg. Medicine consulted for symptomatic anemia. This morning he is resting comfortably in bed. No acute events overnight. He is status post debridement on leg. Labs/imaging: WBC 14, hemoglobin 8.5, platelets 574, sodium 137, potassium 3.9, creatinine 0.82, glucose 107. He has received a total of 4 units packed red blood cells. Hemoglobin appears to have stabilized. Patient is currently receiving IV antibiotics vancomycin. Otherwise, continue with current treatment plan. Continue to closely monitor and follow up labs. Past Medical Family Social History Allergies: Allergies Egg Derived Allergy (Verified 11/21/22 09:45) mayonnaise Allergy (Verified 11/21/22 09:45) morphine Allergy (Verified 11/21/22 09:45) ondansetron [From Zofran] Allergy (Verified 11/21/22 09:45) Whole Egg (Diagnostic) Allergy (Unknown, Uncoded 11/20/11 14:50) Vomiting Review of Systems ROS changes noted: see HPI Vital Signs and I&O's Vital Signs: Vital Signs Temperature 98.5 F Temperature 98.9 F Pulse Rate [Left Brachial] 53 Pulse Rate [Left Brachial] 62 Respiratory Rate 18 Respiratory Rate 18 Respiratory Rate 20 Respiratory Rate 18 Respiratory Rate 18 Blood Pressure [Right Arm] 119/81 Blood Pressure [Right Arm] 119/75 O2 Sat by Pulse Oximetry 99 O2 Sat by Pulse Oximetry 93 Intake and Output: Intake & Output 01/14/23 01/15/23 01/16/23 01/17/23 23:59 23:59 23:59 23:59 Intake Total 2031 3308 / 3308 4051 / 4051 1297 / 1297 Output Total 950 / 950 2510 / 2510 1550 / 1550 1300 / 1300 Balance 1082 / 1082 798 / 798 2501 / 2501 -3 / -3 Physical Exam Oriented: Normal Eyes: Normal Ear: Normal Nose: Normal Respiratory: Normal Cardiovascular: Normal Auscultation: Bowel Sounds: Normal Tenderness: Normal Skin: Wound (right lower extremity ulcers) Musculoskeletal: Leg (right leg ulcers) Psychiatric: Normal Mood Description: Calm Speech Pattern: Clear and Appropriate Laboratory and Diagnostics 11/17/23 05:30 01/17/23 05:30 Labs: 01/15/23 07:34 Blood Blood Culture - Preliminary 01/15/23 07:42 Blood Blood Culture - Preliminary 01/15/23 11:30 Leg - Right Wound Gram Stain - Final 01/15/23 11:30 Leg - Right Wound Culture - Preliminary Proteus Mirabilis 01/14/23 11:15 Leg - Right Wound Gram Stain - Final 01/14/23 11:15 Leg - Right Wound Culture - Preliminary Laboratory WBC 12.9 X10^3/uL (3.6-10.0) H 01/17/23 05:30 RBC 2.87 X10^6/uL (4.7-6.0) L 01/17/23 05:30 Hgb 8.7 g/dL (13.5-18.0) L 01/17/23 05:30 Hct 24.9 % (42.0-54.0) L 01/17/23 05:30 MCV 86.8 fL (80.0-100.0) 01/17/23 05:30 MCH 30.2 pg (27.0-34.0) 01/17/23 05:30 MCHC 34.8 g/dL (33.0-35.0) 01/17/23 05:30 RDW 23.4 % (11.6-16.5) H 01/17/23 05:30 Plt Count 531 X10^3/uL (150.0-450.0) H 01/17/23 05:30 Plt Count Comment Increased (ADEQUATE) 01/17/23 05:30 MPV 7.6 fL (7.4-11.0) 01/17/23 05:30 Neut % (Auto) 54.8 % (42.0-75.0) 01/17/23 05:30 Lymph % (Auto) 33.8 % (21.0-51.0) 01/17/23 05:30 [place] % (Auto) 6.5 % (0.0-13.0) 01/17/23 05:30 Eos % (Auto) 4.3 % (0.9-2.9) H 01/17/23 05:30 Baso % (Auto) 0.6 % (0.2-1.0) 01/17/23 05:30 Neut # (Auto) 7.1 x10^3/uL (2.2-4.8) H 01/17/23 05:30 Lymph # (Auto) 4.3 X10^3/uL (1.3-2.9) H 01/17/23 05:30 [place] # (Auto) 0.8 x10^3/uL (0.3-0.8) 01/17/23 05:30 Eos # (Auto) 0.6 x10^3/uL (0.0-0.2) H 01/17/23 05:30 Baso # (Auto) 0.1 X10^3/uL (0.0-0.1) 01/17/23 05:30 Absolute Nucleated RBC 1.4 /100WBC 01/17/23 05:30 Total Counted 100 01/15/23 06:20 Neutrophils % (Manual) 58 % (39-76) 01/15/23 06:20 Band Neutrophils % 3 % (0-10) 01/15/23 06:20 Lymphocytes % (Manual) 34 % (13-43) 01/15/23 06:20 Monocytes % (Manual) 5 % (4-9) 01/15/23 06:20 Nucleated RBCs 2 01/15/23 06:20 Plt Morphology Comment Normal (NORMAL) 01/17/23 05:30 RBC Morphology Abnormal (NORMAL) 01/17/23 05:30 Dimorphic RBCs 1+ 01/16/23 05:35 Hypochromasia Slight A 01/16/23 05:35 Poikilocytosis 1+ A 01/16/23 05:35 Anisocytosis 2+ A 01/17/23 05:30 Sickle Cells Slight A 01/16/23 05:35 Target Cells 1+ A 01/17/23 05:30 Ovalocytes Slight A 01/17/23 05:30 Schistocytes Slight A 01/16/23 05:35 Sodium 135 mmol/L (136-145) L 01/17/23 05:30 Corrected Sodium 136 mmol/L (136-145) 01/17/23 05:30 Potassium 4.0 mmol/L (3.5-5.1) 01/17/23 05:30 Chloride 106 mmol/L (98-107) 01/17/23 05:30 Carbon Dioxide 20.5 mmol/L (21-32) L 01/17/23 05:30 BUN 11 mg/dL (7-18) 01/17/23 05:30 Creatinine 0.88 mg/dL (0.70-1.30) 01/17/23 05:30 Est GFR (MDRD) Af Amer > 60 (>60) 01/17/23 05:30 Est GFR (MDRD) Non-Af > 60 (>60) 01/17/23 05:30 Glucose 135 mg/dL (65-99) H 01/17/23 05:30 POC Glucose (mg/dL) 98 mg/dL (65-99) 01/15/23 12:25 Lactic Acid 0.6 mmol/L (0.4-2.0) 01/15/23 07:02 Calcium 7.6 mg/dL (8.5-10.1) L 01/17/23 05:30 Corrected Calcium 9.1 mg/dL (8.5-10.1) 01/17/23 05:30 Total Bilirubin 1.60 mg/dL (0.2-1.0) H 01/17/23 05:30 AST 32 Units/L (15-37) 01/17/23 05:30 ALT 26 Units/L (12-78) 01/17/23 05:30 Alkaline Phosphatase 92 Units/L (46-116) 01/17/23 05:30 Total Protein 6.3 g/dL (6.4-8.2) L 01/17/23 05:30 Albumin 2.1 g/dL (3.4-5.0) L 01/17/23 05:30 Globulin 4.2 g/dL (2.5-4.5) 01/17/23 05:30 Albumin/Globulin Ratio 0.5 Ratio (1.1-2.1) L 01/17/23 05:30 Random Vancomycin 4.3 ug/mL 01/15/23 20:25 Blood Type B POSITIVE 01/14/23 13:05 Antibody Screen Negative 01/14/23 13:05 Crossmatch See Detail 01/14/23 13:05 Plan (1) Sickle cell anemia: Status: Acute (2) Sickle cell crisis: Status: Acute (3) Ulcer of leg, chronic, right: Status: Chronic Qualifiers: Non-pressure ulcer stage: unspecified non-pressure ulcer stage Qualified Code(s): L97.919 - Non-pressure chronic ulcer of unspecified part of right lower leg with unspecified severity
[2023-01-17 11:44] VITALS: BP 125/79; PULSE 58
--- NOTE | 2023-01-20 10:41 | PCM.PROG ---
Progress Note Progress Note for Day of Date of Exam: 01/17/23 Subjective Subjective: Pt is a 37-year-old male with known history of sickle cell anemia and chronic ulcers of the right lower extremity presenting with worsening ulcers on the right leg. Medicine consulted for symptomatic anemia. This morning is sitting up in bed. No acute events overnight. He is status post debridement on leg. Labs/imaging: WBC 12.9, hemoglobin 8.7, platelets 531, sodium 135, potassium 4.0, creatinine 0.88, glucose 135. He has received a total of 4 units packed red blood cells. Hemoglobin appears to have stabilized. Patient is currently receiving IV antibiotics vancomycin. Will sign off, pt is medically stable. Past Medical Family Social History Allergies: Allergies Egg Derived Allergy (Verified 11/21/22 09:45) mayonnaise Allergy (Verified 11/21/22 09:45) morphine Allergy (Verified 11/21/22 09:45) ondansetron [From Zofran] Allergy (Verified 11/21/22 09:45) Whole Egg (Diagnostic) Allergy (Unknown, Uncoded 11/20/11 14:50) Vomiting Review of Systems ROS changes noted: see HPI Vital Signs and I&O's Intake and Output: Intake & Output 01/17/23 01/18/23 01/19/23 01/20/23 23:59 23:59 23:59 23:59 Intake Total 1297 / 1297 Output Total 1300 / 1300 Balance -3 / -3 Physical Exam Oriented: Normal Eyes: Normal Ear: Normal Nose: Normal Respiratory: Normal Cardiovascular: Normal Auscultation: Bowel Sounds: Normal Tenderness: Normal Skin: Wound (right lower extremity ulcers) Musculoskeletal: Leg (right leg ulcers) Psychiatric: Normal Mood Description: Calm Speech Pattern: Clear and Appropriate Laboratory and Diagnostics 01/17/23 05:30 01/17/23 05:30 Labs: 01/15/23 11:30 Leg - Right Wound Gram Stain - Final 01/15/23 11:30 Leg - Right Wound Culture - Final Proteus Mirabilis 01/14/23 11:15 Leg - Right Wound Gram Stain - Final 01/14/23 11:15 Leg - Right Wound Culture - Final Morganella Morganii 01/15/23 07:34 Blood Blood Culture - Preliminary 01/15/23 07:42 Blood Blood Culture - Preliminary Laboratory WBC 12.9 X10^3/uL (3.6-10.0) H 01/17/23 05:30 RBC 2.87 X10^6/uL (4.7-6.0) L 01/17/23 05:30 Hgb 8.7 g/dL (13.5-18.0) L 01/17/23 05:30 Hct 24.9 % (42.0-54.0) L 01/17/23 05:30 MCV 86.8 fL (80.0-100.0) 01/17/23 05:30 MCH 30.2 pg (27.0-34.0) 01/17/23 05:30 MCHC 34.8 g/dL (33.0-35.0) 01/17/23 05:30 RDW 23.4 % (11.6-16.5) H 01/17/23 05:30 Plt Count 531 X10^3/uL (150.0-450.0) H 01/17/23 05:30 Plt Count Comment Increased (ADEQUATE) 01/17/23 05:30 MPV 7.6 fL (7.4-11.0) 01/17/23 05:30 Neut % (Auto) 54.8 % (42.0-75.0) 01/17/23 05:30 Lymph % (Auto) 33.8 % (21.0-51.0) 01/17/23 05:30 [place] % (Auto) 6.5 % (0.0-13.0) 01/17/23 05:30 Eos % (Auto) 4.3 % (0.9-2.9) H 01/17/23 05:30 Baso % (Auto) 0.6 % (0.2-1.0) 01/17/23 05:30 Neut # (Auto) 7.1 x10^3/uL (2.2-4.8) H 01/17/23 05:30 Lymph # (Auto) 4.3 X10^3/uL (1.3-2.9) H 01/17/23 05:30 [place] # (Auto) 0.8 x10^3/uL (0.3-0.8) 01/17/23 05:30 Eos # (Auto) 0.6 x10^3/uL (0.0-0.2) H 01/17/23 05:30 Baso # (Auto) 0.1 X10^3/uL (0.0-0.1) 01/17/23 05:30 Absolute Nucleated RBC 1.4 /100WBC 01/17/23 05:30 Total Counted 100 01/15/23 06:20 Neutrophils % (Manual) 58 % (39-76) 01/15/23 06:20 Band Neutrophils % 3 % (0-10) 01/15/23 06:20 Lymphocytes % (Manual) 34 % (13-43) 01/15/23 06:20 Monocytes % (Manual) 5 % (4-9) 01/15/23 06:20 Nucleated RBCs 2 01/15/23 06:20 Plt Morphology Comment Normal (NORMAL) 01/17/23 05:30 RBC Morphology Abnormal (NORMAL) 01/17/23 05:30 Dimorphic RBCs 1+ 01/16/23 05:35 Hypochromasia Slight A 01/16/23 05:35 Poikilocytosis 1+ A 01/16/23 05:35 Anisocytosis 2+ A 01/17/23 05:30 Sickle Cells Slight A 01/16/23 05:35 Target Cells 1+ A 01/17/23 05:30 Ovalocytes Slight A 01/17/23 05:30 Schistocytes Slight A 01/16/23 05:35 Sodium 135 mmol/L (136-145) L 01/17/23 05:30 Corrected Sodium 136 mmol/L (136-145) 01/17/23 05:30 Potassium 4.0 mmol/L (3.5-5.1) 01/17/23 05:30 Chloride 106 mmol/L (98-107) 01/17/23 05:30 Carbon Dioxide 20.5 mmol/L (21-32) L 01/17/23 05:30 BUN 11 mg/dL (7-18) 01/17/23 05:30 Creatinine 0.88 mg/dL (0.70-1.30) 01/17/23 05:30 Est GFR (MDRD) Af Amer > 60 (>60) 01/17/23 05:30 Est GFR (MDRD) Non-Af > 60 (>60) 01/17/23 05:30 Glucose 135 mg/dL (65-99) H 01/17/23 05:30 POC Glucose (mg/dL) 98 mg/dL (65-99) 01/15/23 12:25 Lactic Acid 0.6 mmol/L (0.4-2.0) 01/15/23 07:02 Calcium 7.6 mg/dL (8.5-10.1) L 01/17/23 05:30 Corrected Calcium 9.1 mg/dL (8.5-10.1) 01/17/23 05:30 Total Bilirubin 1.60 mg/dL (0.2-1.0) H 01/17/23 05:30 AST 32 Units/L (15-37) 01/17/23 05:30 ALT 26 Units/L (12-78) 01/17/23 05:30 Alkaline Phosphatase 92 Units/L (46-116) 01/17/23 05:30 Total Protein 6.3 g/dL (6.4-8.2) L 01/17/23 05:30 Albumin 2.1 g/dL (3.4-5.0) L 01/17/23 05:30 Globulin 4.2 g/dL (2.5-4.5) 01/17/23 05:30 Albumin/Globulin Ratio 0.5 Ratio (1.1-2.1) L 01/17/23 05:30 Random Vancomycin 4.3 ug/mL 01/15/23 20:25 Blood Type B POSITIVE 01/14/23 13:05 Antibody Screen Negative 01/14/23 13:05 Crossmatch See Detail 01/14/23 13:05 Plan (1) Sickle cell anemia: Status: Acute (2) Sickle cell crisis: Status: Acute (3) Ulcer of leg, chronic, right: Status: Chronic Qualifiers: Non-pressure ulcer stage: unspecified non-pressure ulcer stage Qualified Code(s): L97.919 - Non-pressure chronic ulcer of unspecified part of right lower leg with unspecified severity
== END 2023-01-17 14:40 | disposition home or self-care (01) | DRG 803 ==
LOC: MED/SURG → OBSVTOIN 10:03
PROVIDERS: ADMIT Surgery; ATTEND Surgery

== ENCOUNTER 2023-06-24 12:21 | Inpatient (IN) ==
[2023-06-24] MEDS: D5 1/2 NS 1,000 ML 1,000 ML IV SCH (15:13)
[2023-06-24 15:28] LABS: BASOPHILS # (AUTO) 0.1 X10^3/uL (0.0-0.1); EOSINOPHILS # (AUTO) 0.4 x10^3/uL (0.0-0.2); EOSINOPHILS % (AUTO) 2.5 % (0.9-2.9); MONOCYTES # (AUTO) 1.2 x10^3/uL (0.3-0.8); MONOCYTES % (AUTO) 8.2 % (0.0-13.0); RED CELL DISTRIBUTION WIDTH 27.1 % (11.6-16.5)
[2023-06-24 15:37] LABS: BASOPHILS % (AUTO) 0.8 % (0.2-1.0); LYMPHOCYTES # (AUTO) 3.1 X10^3/uL (1.3-2.9); LYMPHOCYTES % (AUTO) 21.8 % (21.0-51.0); MEAN CORPUSCULAR HGB CONC 34.7 g/dL (33.0-35.0); MEAN CORPUSCULAR VOLUME 100.7 fL (80.0-100.0); MEAN PLATELET VOLUME 7.5 fL (7.4-11.0); NEUTROPHILS # (AUTO) 9.6 x10^3/uL (2.2-4.8); NEUTROPHILS % (AUTO) 66.7 % (42.0-75.0); PLATELET COUNT 492 X10^3/uL (150.0-450.0); RED BLOOD COUNT 1.63 X10^6/uL (4.7-6.0); WHITE BLOOD COUNT 14.4 X10^3/uL (3.6-10.0)
[2023-06-24 15:42] LABS: HEMATOCRIT 16.4 % (42.0-54.0); HEMOGLOBIN 5.7 g/dL (13.5-18.0)
[2023-06-24] MEDS: VANCOMYCIN IV *PREMIX 1 G/200 ML BAG 1 G/200 ML PIGGYBACK IV SCH (15:44)
[2023-06-24 15:48] LABS: ALANINE AMINOTRANSFERASE 36 Units/L (12-78); ALBUMIN 3.1 g/dL (3.4-5.0); ALKALINE PHOSPHATASE 101 Units/L (46-116); ASPARTATE AMINO TRANSFERASE 39 Units/L (15-37); BLOOD UREA NITROGEN 10 mg/dL (7-18); CALCIUM 8.1 mg/dL (8.5-10.1); CARBON DIOXIDE 24.5 mmol/L (21-32); CHLORIDE 108 mmol/L (98-107); COR CA(FOR HYPOALB) 8.8 mg/dL (8.5-10.1); CREATININE 0.95 mg/dL (0.70-1.30); GLUCOSE 94 mg/dL (65-99); POTASSIUM 3.8 mmol/L (3.5-5.1); SODIUM 141 mmol/L (136-145); TOTAL PROTEIN 6.9 g/dL (6.4-8.2); eGFR NON BLACK RACES > 60 (>60)
[2023-06-24] MEDS: FORTAZ or TAZICEF VIAL INJ 1 G in NS 100 ML IV 100 ML IV SCH (16:14)
[2023-06-24 16:31] LABS: PLATELET MORPHOLOGY COMMENT NORMAL (NORMAL)
[2023-06-24 16:32] LABS: ANISOCYTOSIS 3+
[2023-06-24 16:33] LABS: SICKLE CELLS PRESENT
[2023-06-24 16:35] LABS: POIKILOCYTOSIS 2+; TARGET CELLS PRESENT
[2023-06-24] MEDS: PERCOCET TAB 5/325 MG PO PRN (20:21)
[2023-06-25] MEDS: HIBICLENS WASH EXT ONE (05:03)
[2023-06-25 06:14] LABS: BASOPHILS # (AUTO) 0.1 X10^3/uL (0.0-0.1); BASOPHILS % (AUTO) 0.6 % (0.2-1.0); EOSINOPHILS # (AUTO) 0.4 x10^3/uL (0.0-0.2); EOSINOPHILS % (AUTO) 3.1 % (0.9-2.9); LYMPHOCYTES # (AUTO) 4.2 X10^3/uL (1.3-2.9); LYMPHOCYTES % (AUTO) 29.1 % (21.0-51.0); MEAN CORPUSCULAR HEMOGLOBIN 35.7 pg (27.0-34.0); MEAN CORPUSCULAR HGB CONC 34.3 g/dL (33.0-35.0); MEAN PLATELET VOLUME 7.6 fL (7.4-11.0); MONOCYTES # (AUTO) 1.3 x10^3/uL (0.3-0.8); MONOCYTES % (AUTO) 9.4 % (0.0-13.0); NEUTROPHILS # (AUTO) 8.3 x10^3/uL (2.2-4.8); NEUTROPHILS % (AUTO) 57.8 % (42.0-75.0); PLATELET COUNT 425 X10^3/uL (150.0-450.0); RED BLOOD COUNT 1.51 X10^6/uL (4.7-6.0); RED CELL DISTRIBUTION WIDTH 28.3 % (11.6-16.5)
[2023-06-25 06:22] LABS: WHITE BLOOD COUNT 14.3 X10^3/uL (3.6-10.0)
[2023-06-25 06:23] LABS: HEMATOCRIT 15.7 % (42.0-54.0); HEMOGLOBIN 5.4 g/dL (13.5-18.0)
[2023-06-25 06:25] LABS: ALANINE AMINOTRANSFERASE 33 Units/L (12-78); ALBUMIN 2.8 g/dL (3.4-5.0); ALKALINE PHOSPHATASE 98 Units/L (46-116); ASPARTATE AMINO TRANSFERASE 41 Units/L (15-37); BLOOD UREA NITROGEN 10 mg/dL (7-18); CALCIUM 7.8 mg/dL (8.5-10.1); CARBON DIOXIDE 21.1 mmol/L (21-32); CHLORIDE 114 mmol/L (98-107); COR CA(FOR HYPOALB) 8.8 mg/dL (8.5-10.1); CREATININE 1.17 mg/dL (0.70-1.30); GLUCOSE 98 mg/dL (65-99); POTASSIUM 4.2 mmol/L (3.5-5.1); SODIUM 145 mmol/L (136-145); TOTAL PROTEIN 6.3 g/dL (6.4-8.2); eGFR NON BLACK RACES > 60 (>60)
[2023-06-25 06:48] LABS: PLATELET MORPHOLOGY COMMENT NORMAL (NORMAL)
[2023-06-25 06:49] LABS: ANISOCYTOSIS 3+; POIKILOCYTOSIS 2+; SICKLE CELLS SLIGHT; TARGET CELLS SLIGHT
[2023-06-25] MEDS: LR 1,000 ML IV 1,000 ML IV ONE (08:00)
[2023-06-25] MEDS: NS 100 ML IV 100 ML ONE (08:22)
[2023-06-25] MEDS: ANCEF VIAL 1 GRAM ONE (08:22)
[2023-06-25] MEDS: FENTANYL VIAL INJ 100 mcg ONE (08:32)
[2023-06-25] MEDS: BETADINE SOLN ONE ×2 (08:32→08:54)
[2023-06-25] MEDS: VERSED ONE (08:32)
[2023-06-25] MEDS: DIPRIVAN VIAL 20 ML ONE (08:32)
[2023-06-25] MEDS: POLYMYXIN B SULFATE ONE (08:52)
--- NOTE | 2023-06-25 10:15 | DR.PROGNOT ---
HOSPITAL PROGRESS NOTE Progress Note for Day of: Progress Note Date: 06/25/23 Chief Complaint Chief Complaint: Patient is status post excisional debridement of right leg ulcers in the operating room. Which was done earlier on without any complications. Patient is severely anemic and planning to have blood transfusion today, patient has unusual antibodies. Right leg ulcers were debrided cleaned and wrapped again with Xeroform ABD and Irvin. Patient severely anemic and having transfusion later on today. Past Medical Family Social History Past Med/Fam/Surg Hx: No changes since H&P Allergies: Allergies Egg Derived Allergy (Verified 06/24/23 11:13) mayonnaise Allergy (Verified 06/24/23 11:13) morphine Allergy (Verified 06/24/23 11:13) ondansetron [From Zofran] Allergy (Verified 06/24/23 11:13) Review Of Systems ROS: No change since H&P Vital Signs Vital Signs: Vital Signs Temperature 97.5 F Temperature 97.9 F Temperature 98.6 F Pulse Rate [Brachial] 86 Pulse Rate [Brachial] 78 Pulse Rate [Brachial] 91 Respiratory Rate 17 Respiratory Rate 17 Respiratory Rate 17 Respiratory Rate 20 Respiratory Rate 20 Blood Pressure [Right Arm] 98/59 Blood Pressure [Right Arm] 99/57 Blood Pressure [Right Arm] 100/56 O2 Sat by Pulse Oximetry 93 O2 Sat by Pulse Oximetry 90 O2 Sat by Pulse Oximetry 92 Physical Exam Oriented: Normal, Time and Place Throat: Normal Respiratory: Normal Cardiovascular: Normal GI:Auscultation: Normal GI:Palpation: Normal Skin: Other (CompressionMultiple infected skin ulcers right lower extremity all fashion.) Speech Pattern: Clear and Appropriate Laboratory and Diagnostics 06/25/23 05:50 06/25/23 05:50 Labs: Laboratory WBC 14.3 X10^3/uL (3.6-10.0) H 06/25/23 05:50 RBC 1.51 X10^6/uL (4.7-6.0) L 06/25/23 05:50 Hgb 5.4 g/dL (13.5-18.0) L* 06/25/23 05:50 Hct 15.7 % (42.0-54.0) L* 06/25/23 05:50 MCV 104.0 fL (80.0-100.0) H 06/25/23 05:50 MCH 35.7 pg (27.0-34.0) H 06/25/23 05:50 MCHC 34.3 g/dL (33.0-35.0) 06/25/23 05:50 RDW 28.3 % (11.6-16.5) H 06/25/23 05:50 Plt Count 425 X10^3/uL (150.0-450.0) 06/25/23 05:50 Plt Count Comment Adequate (ADEQUATE) 06/25/23 05:50 MPV 7.6 fL (7.4-11.0) 06/25/23 05:50 Neut % (Auto) 57.8 % (42.0-75.0) 06/25/23 05:50 Lymph % (Auto) 29.1 % (21.0-51.0) 06/25/23 05:50 [place] % (Auto) 9.4 % (0.0-13.0) 06/25/23 05:50 Eos % (Auto) 3.1 % (0.9-2.9) H 06/25/23 05:50 Baso % (Auto) 0.6 % (0.2-1.0) 06/25/23 05:50 Neut # (Auto) 8.3 x10^3/uL (2.2-4.8) H 06/25/23 05:50 Lymph # (Auto) 4.2 X10^3/uL (1.3-2.9) H 06/25/23 05:50 [place] # (Auto) 1.3 x10^3/uL (0.3-0.8) H 06/25/23 05:50 Eos # (Auto) 0.4 x10^3/uL (0.0-0.2) H 06/25/23 05:50 Baso # (Auto) 0.1 X10^3/uL (0.0-0.1) 06/25/23 05:50 Absolute Nucleated RBC 7.9 /100WBC 06/25/23 05:50 Plt Morphology Comment Normal (NORMAL) 06/25/23 05:50 RBC Morphology Abnormal (NORMAL) 06/25/23 05:50 Dimorphic RBCs Present 06/25/23 05:50 Poikilocytosis 2+ A 06/25/23 05:50 Anisocytosis 3+ A 06/25/23 05:50 Sickle Cells Slight A 06/25/23 05:50 Target Cells Slight A 06/25/23 05:50 Acanthocytes (Spur) Composite Technician 06/25/23 05:50 Sodium 145 mmol/L (136-145) 06/25/23 05:50 Corrected Sodium TNP 06/25/23 05:50 Potassium 4.2 mmol/L (3.5-5.1) 06/25/23 05:50 Chloride 114 mmol/L (98-107) H 06/25/23 05:50 Carbon Dioxide 21.1 mmol/L (21-32) 06/25/23 05:50 BUN 10 mg/dL (7-18) 06/25/23 05:50 Creatinine 1.17 mg/dL (0.70-1.30) 06/25/23 05:50 Est GFR (MDRD) Af Amer > 60 (>60) 06/25/23 05:50 Est GFR (MDRD) Non-Af > 60 (>60) 06/25/23 05:50 Glucose 98 mg/dL (65-99) 06/25/23 05:50 Calcium 7.8 mg/dL (8.5-10.1) L 06/25/23 05:50 Corrected Calcium 8.8 mg/dL (8.5-10.1) 06/25/23 05:50 Magnesium 2.1 mg/dL (2.0-2.9) 06/25/23 05:50 Total Bilirubin 2.70 mg/dL (0.2-1.0) H 06/25/23 05:50 AST 41 Units/L (15-37) H 06/25/23 05:50 ALT 33 Units/L (12-78) 06/25/23 05:50 Alkaline Phosphatase 98 Units/L (46-116) 06/25/23 05:50 Total Protein 6.3 g/dL (6.4-8.2) L 06/25/23 05:50 Albumin 2.8 g/dL (3.4-5.0) L 06/25/23 05:50 Globulin 3.5 g/dL (2.5-4.5) 06/25/23 05:50 Albumin/Globulin Ratio 0.8 Ratio (1.1-2.1) L 06/25/23 05:50 Blood Type B POSITIVE 06/24/23 16:37 Antibody Screen Negative 06/24/23 16:37 Crossmatch See Detail 06/24/23 16:37 Assessment and Plan 1: Infected right leg ulcers with sickle cell anemia. Status post excisional debridement in the operating room. 2: Severe anemia secondary to sickle cell. For transfusion of 2 units of packed cells today. 4: Chronic anemia secondary to sickle cell anemia.
[2023-06-25] MEDS: DILAUDID INJ IVP PRN (11:45)
[2023-06-25 15:07] LABS: CREATININE 0.96 mg/dL (0.70-1.30); VANCOMYCIN,TROUGH 17.4 ug/mL (15-20)
[2023-06-25] MEDS: PHARMACY COMMENT IV ONE (16:05)
[2023-06-25 18:35] LABS: HEMOGLOBIN 8.3 g/dL (13.5-18.0)
[2023-06-26 05:56] LABS: BASOPHILS # (AUTO) 0.1 X10^3/uL (0.0-0.1); BASOPHILS % (AUTO) 1.2 % (0.2-1.0); EOSINOPHILS # (AUTO) 0.5 x10^3/uL (0.0-0.2); EOSINOPHILS % (AUTO) 5.1 % (0.9-2.9); HEMATOCRIT 20.5 % (42.0-54.0); LYMPHOCYTES # (AUTO) 2.5 X10^3/uL (1.3-2.9); LYMPHOCYTES % (AUTO) 24.2 % (21.0-51.0); MEAN CORPUSCULAR HEMOGLOBIN 32.7 pg (27.0-34.0); MEAN CORPUSCULAR HGB CONC 34.3 g/dL (33.0-35.0); MEAN CORPUSCULAR VOLUME 95.4 fL (80.0-100.0); MEAN PLATELET VOLUME 7.8 fL (7.4-11.0); MONOCYTES # (AUTO) 1.4 x10^3/uL (0.3-0.8); MONOCYTES % (AUTO) 13.5 % (0.0-13.0); NEUTROPHILS # (AUTO) 5.8 x10^3/uL (2.2-4.8); PLATELET COUNT 374 X10^3/uL (150.0-450.0); RED BLOOD COUNT 2.15 X10^6/uL (4.7-6.0); RED CELL DISTRIBUTION WIDTH 23.8 % (11.6-16.5)
[2023-06-26 06:31] LABS: WHITE BLOOD COUNT 10.3 X10^3/uL (3.6-10.0)
[2023-06-26 06:32] LABS: ANISOCYTOSIS 2+; PLATELET MORPHOLOGY COMMENT NORMAL (NORMAL); POIKILOCYTOSIS 1+
[2023-06-26 06:33] LABS: SICKLE CELLS SLIGHT; TARGET CELLS SLIGHT
[2023-06-26 08:17] VITALS: BP 102/66; PULSE 68; TEMP 97.9; O2SAT 92
[2023-06-26 09:06] VITALS: RESP 18
[2023-06-26] MEDS ORDERED: COLACE CAP 100 MG PO PRN (09:22)
== END 2023-06-26 14:40 | disposition home health service (06) | DRG 572 ==
LOC: EDBD → MED/SURG 14:16
PROVIDERS: ADMIT Surgery; ATTEND Surgery

== ENCOUNTER 2024-08-10 11:53 | Inpatient (IN) ==
[2024-08-10 12:05] VITALS: BMI 20.7
--- NOTE | 2024-08-10 12:26 | DR.DIZZY ---
HPI Time seen Time Seen by Provider: 08/10/24 12:10 PCP Primary Care Physician: Donya Palacios Complaint Chief Complaint Doctor Comments: 39 yo M, hx sickle cell anemia, sent in by PCP for low hemoglobin. Pt c/o weakness, dyspnea & R leg pain. States he has a chronic wound on his R lower leg that has been getting worse lately, and causing increased pain. Chief Complaint:: Patient states he seen his pcp on 08/04/24 and they done blood work and called him yesterday and stated his hgb was 5. Patient states he has been feeling sob, fatigue more than normal. COVID-19 Coronavirus risk:travel/contact w/high risk person: No Has patient experienced Coronavirus symptoms: No Source History Provided: Patient Mode of Arrival Mode of Arrival: Ambulatory Timing Onset of Chief Complaint: 08/04/24 Context Stroke Symptoms: None PMH PMH Past Medical History: Yes Past Medical History: Anemia, Depression, GERD and PUD Past Medical History Comment: sickle cell Past Surgical History: Yes Surgical History: Other Past Surgical History Comment: right leg Family History History of Family Medical Conditions: Yes Family Medical History: Diabetes Mellitus and Hypertension Social History Does patient currently use any type of tobacco product: Yes Have you used tobacco products in the last 12 months: Yes Type of Tobacco Use: Cigarettes Does any household member use tobacco: Yes Alcohol Use: None Do you use any recreational Drugs:: No Lives With: Alone Lives Where: Home Travel Risk Coronavirus risk:travel/contact w/high risk person: No Has patient experienced Coronavirus symptoms: No Infectious screening In the last 2 months have you had wt loss of >10#?: NO Have you had fever, night sweats or hemotysis?: No Have you traveled outside the country in the last 6 months?: No Isolation: Standard ROS Review of Systems Respiratoy: Short of Breath Cardiovascular: negative Chest Pain Musculoskeletal: Other (R leg pain/wound) PE Vital Signs Vitals: Vital Signs Temperature 97.5 F Pulse Rate 85 Pulse Rate 93 Respiratory Rate 16 Respiratory Rate 16 Respiratory Rate 16 Respiratory Rate 16 Blood Pressure 94/53 Blood Pressure 105/57 O2 Sat by Pulse Oximetry 95 O2 Sat by Pulse Oximetry 96 ROR Labs Reviewed Laboratory Results Reviewed?: Yes 08/10/24 12:21 08/10/24 12:21 Laboratory: WBC 16.1 X10^3/uL (3.6-10.0) H 08/10/24 12:21 RBC 1.88 X10^6/uL (4.7-6.0) L 08/10/24 12:21 Hgb 6.5 g/dL (13.5-18.0) L* 08/10/24 12:21 Hct 18.2 % (42.0-54.0) L* 08/10/24 12:21 MCV 96.8 fL (80.0-100.0) 08/10/24 12:21 MCH 34.6 pg (27.0-34.0) H 08/10/24 12:21 MCHC 35.7 g/dL (33.0-35.0) H 08/10/24 12:21 RDW 22.5 % (11.6-16.5) H 08/10/24 12:21 Plt Count 418 X10^3/uL (150.0-450.0) 08/10/24 12:21 Plt Count Comment Adequate (ADEQUATE) 08/10/24 12:21 MPV 8.1 fL (7.4-11.0) 08/10/24 12:21 Neut % (Auto) 67.9 % (42.0-75.0) 08/10/24 12:21 Lymph % (Auto) 22.8 % (21.0-51.0) 08/10/24 12:21 [place] % (Auto) 5.7 % (0.0-13.0) 08/10/24 12:21 Eos % (Auto) 2.6 % (0.9-2.9) 08/10/24 12:21 Baso % (Auto) 1.0 % (0.2-1.0) 08/10/24 12:21 Neut # (Auto) 10.9 x10^3/uL (2.2-4.8) H 08/10/24 12:21 Lymph # (Auto) 3.7 X10^3/uL (1.3-2.9) H 08/10/24 12:21 [place] # (Auto) 0.9 x10^3/uL (0.3-0.8) H 08/10/24 12:21 Eos # (Auto) 0.4 x10^3/uL (0.0-0.2) H 08/10/24 12:21 Baso # (Auto) 0.2 X10^3/uL (0.0-0.1) H 08/10/24 12:21 Absolute Nucleated RBC 1.8 /100WBC 08/10/24 12:21 Total Counted 100 08/10/24 12:21 Neutrophils % (Manual) 58 % (39-76) 08/10/24 12:21 Lymphocytes % (Manual) 33 % (13-43) 08/10/24 12:21 Monocytes % (Manual) 3 % (4-9) L 08/10/24 12:21 Eosinophils % (Manual) 6 % (0-6) 08/10/24 12:21 Plt Morphology Comment Normal (NORMAL) 08/10/24 12:21 RBC Morphology Abnormal (NORMAL) 08/10/24 12:21 Poikilocytosis 1+ A 08/10/24 12:21 Anisocytosis 2+ A 08/10/24 12:21 Sickle Cells 1+ A 08/10/24 12:21 Target Cells Slight A 08/10/24 12:21 Absolute Retic 0.4035 10^6/uL 08/10/24 12:21 Percent Retic 21.49 % (0.8-2.2) H 08/10/24 12:21 Sodium 137 mmol/L (136-145) 08/10/24 12:21 Corrected Sodium 139 mmol/L (136-145) 08/10/24 12:21 Potassium 3.8 mmol/L (3.5-5.1) 08/10/24 12:21 Chloride 105 mmol/L (98-107) 08/10/24 12:21 Carbon Dioxide 27.5 mmol/L (21-32) 08/10/24 12:21 BUN 11 mg/dL (7-18) 08/10/24 12:21 Creatinine 0.86 mg/dL (0.70-1.30) 08/10/24 12:21 Est GFR (MDRD) Af Amer > 60 (>60) 08/10/24 12:21 Est GFR (MDRD) Non-Af > 60 (>60) 08/10/24 12:21 Glucose 176 mg/dL (65-99) H 08/10/24 12:21 Calcium 8.3 mg/dL (8.5-10.1) L 08/10/24 12:21 Opioid Opioid Risk Tool Age (Pablo box if 16-45): Yes History of Preadolescent Sexual Abuse: No Psychological Disease: Depression Total: 1 Total Score Risk Category: Low Risk Copyright: Trevin JOHNSON predicting aberrant behaviors Discharge Plan Diagnosis Discharge Problem: Sickle cell crisis, Microcytic anemia, Leg wound, right Discharge Plan Patient Disposition: ADMITTED INPATIENT Condition: Stable Prescriptions: No Action [facility] Health Concerns: Post Hospitalization: new medications and changes needed to prevent readmission or further decline. Pt educated and given instructions on all concerns. Plan of Treatment: Continue with present treatment and follow up plan. Pt is to keep follow up appointment as instructed and take medications as ordered. Orders to Discharge Patient Discharge Orders: Transfer (Routine); Ordered 08/10/24 Ordered By: Dima Marvin Follow ups/Referrals Follow ups/Referrals: Donya Palacios [Primary Care Provider, Unknown] - 3 days Instructions Stand Alone Forms: Find Help Web Site, Post Hospital Follow Up Care Print Language: MONGOL[place] ADDITIONAL NOTES Additional Notes Additional Notes: Admitted to Dr Oates
[2024-08-10 12:38] LABS: EOSINOPHILS # (AUTO) 0.4 x10^3/uL (0.0-0.2)
[2024-08-10] MEDS: NS 1,000 ML IV 1,000 ML IV ONE (12:39)
[2024-08-10] MEDS: TORADOL 15 MG VIAL IVP ONE (12:39)
[2024-08-10 12:42] LABS: BASOPHILS # (AUTO) 0.2 X10^3/uL (0.0-0.1); EOSINOPHILS % (AUTO) 2.6 % (0.9-2.9); LYMPHOCYTES # (AUTO) 3.7 X10^3/uL (1.3-2.9); LYMPHOCYTES % (AUTO) 22.8 % (21.0-51.0); MEAN CORPUSCULAR HEMOGLOBIN 34.6 pg (27.0-34.0); MEAN CORPUSCULAR HGB CONC 35.7 g/dL (33.0-35.0); MEAN CORPUSCULAR VOLUME 96.8 fL (80.0-100.0); MEAN PLATELET VOLUME 8.1 fL (7.4-11.0); MONOCYTES # (AUTO) 0.9 x10^3/uL (0.3-0.8); MONOCYTES % (AUTO) 5.7 % (0.0-13.0); NEUTROPHILS # (AUTO) 10.9 x10^3/uL (2.2-4.8); NEUTROPHILS % (AUTO) 67.9 % (42.0-75.0); PLATELET COUNT 418 X10^3/uL (150.0-450.0); RED BLOOD COUNT 1.88 X10^6/uL (4.7-6.0); RED CELL DISTRIBUTION WIDTH 22.5 % (11.6-16.5); RETICULOCYTE % 21.49 % (0.8-2.2); WHITE BLOOD COUNT 16.1 X10^3/uL (3.6-10.0)
[2024-08-10 12:46] LABS: HEMATOCRIT 18.2 % (42.0-54.0); HEMOGLOBIN 6.5 g/dL (13.5-18.0)
[2024-08-10 12:49] LABS: BLOOD UREA NITROGEN 11 mg/dL (7-18); CALCIUM 8.3 mg/dL (8.5-10.1); CARBON DIOXIDE 27.5 mmol/L (21-32); CHLORIDE 105 mmol/L (98-107); COR NA(FOR HYPERGLY) 139 mmol/L (136-145); CREATININE 0.86 mg/dL (0.70-1.30); GLUCOSE 176 mg/dL (65-99); POTASSIUM 3.8 mmol/L (3.5-5.1); SODIUM 137 mmol/L (136-145); eGFR NON BLACK RACES > 60 (>60)
[2024-08-10 13:00] LABS: ANISOCYTOSIS 2+; PLATELET MORPHOLOGY COMMENT NORMAL (NORMAL); POIKILOCYTOSIS 1+; TARGET CELLS SLIGHT
[2024-08-10 13:01] LABS: SICKLE CELLS 1+
[2024-08-10] MEDS ORDERED: MORPHINE SULFATE INJ 4 MG ONE (13:23)
[2024-08-10] MEDS ORDERED: COMPAZINE INJ ONE (13:23)
[2024-08-10] MEDS: MORPHINE SULFATE INJ 4 MG IVP ONE (13:32)
[2024-08-10] MEDS: COMPAZINE INJ IVP ONE (13:33)
[2024-08-10] MEDS: ZOSYN VIAL 3.375 GRAMS 3.375 G in NS 100 ML IV 100 ML IV SCH (13:34)
[2024-08-10] MEDS ORDERED: NS 1,000 ML IV 1,000 ML ONE (13:42)
[2024-08-10] MEDS: NS 1,000 ML IV 1,000 ML IV SCH (13:45)
[2024-08-10] MEDS: VANCOMYCIN IV *PREMIX 1 G/200 ML BAG 1 G/200 ML PIGGYBACK IV ONE (14:05)
[2024-08-10] MEDS ORDERED: COMPAZINE INJ IVP PRN (15:17)
[2024-08-10] MEDS: NS 500 ML IV 500 ML IV ONE (16:10)
[2024-08-10] MEDS: MORPHINE SULFATE INJ 4 MG IVP PRN (21:12)
[2024-08-10] MEDS: NS 250 ML IV 25 ML IV PRN (21:50)
[2024-08-11 05:33] LABS: EOSINOPHILS # (AUTO) 0.6 x10^3/uL (0.0-0.2); LYMPHOCYTES # (AUTO) 5.1 X10^3/uL (1.3-2.9)
[2024-08-11 05:40] LABS: ALANINE AMINOTRANSFERASE 40 Units/L (12-78); ALBUMIN 3.2 g/dL (3.4-5.0); ALKALINE PHOSPHATASE 97 Units/L (46-116); ASPARTATE AMINO TRANSFERASE 39 Units/L (15-37); BLOOD UREA NITROGEN 11 mg/dL (7-18); CARBON DIOXIDE 27.4 mmol/L (21-32); CHLORIDE 109 mmol/L (98-107); COR CA(FOR HYPOALB) 8.6 mg/dL (8.5-10.1); CREATININE 0.89 mg/dL (0.70-1.30); GLUCOSE 89 mg/dL (65-99); MAGNESIUM 2.3 mg/dL (2.0-2.9); POTASSIUM 4.6 mmol/L (3.5-5.1); SODIUM 140 mmol/L (136-145); TOTAL PROTEIN 7.4 g/dL (6.4-8.2); eGFR NON BLACK RACES > 60 (>60)
[2024-08-11 05:44] LABS: BASOPHILS # (AUTO) 0.2 X10^3/uL (0.0-0.1); BASOPHILS % (AUTO) 1.6 % (0.2-1.0); EOSINOPHILS % (AUTO) 5.2 % (0.9-2.9); LYMPHOCYTES % (AUTO) 41.7 % (21.0-51.0); MEAN CORPUSCULAR HEMOGLOBIN 34.4 pg (27.0-34.0); MEAN CORPUSCULAR HGB CONC 35.7 g/dL (33.0-35.0); MEAN CORPUSCULAR VOLUME 96.4 fL (80.0-100.0); MEAN PLATELET VOLUME 8.5 fL (7.4-11.0); MONOCYTES # (AUTO) 1.1 x10^3/uL (0.3-0.8); MONOCYTES % (AUTO) 8.8 % (0.0-13.0); NEUTROPHILS # (AUTO) 5.2 x10^3/uL (2.2-4.8); NEUTROPHILS % (AUTO) 42.7 % (42.0-75.0); PLATELET COUNT 381 X10^3/uL (150.0-450.0); RED BLOOD COUNT 1.72 X10^6/uL (4.7-6.0); RED CELL DISTRIBUTION WIDTH 21.9 % (11.6-16.5); WHITE BLOOD COUNT 12.2 X10^3/uL (3.6-10.0)
[2024-08-11 06:01] LABS: HEMATOCRIT 16.5 % (42.0-54.0); HEMOGLOBIN 5.9 g/dL (13.5-18.0)
[2024-08-11 06:20] LABS: PLATELET MORPHOLOGY COMMENT NORMAL (NORMAL); POIKILOCYTOSIS 1+
[2024-08-11 06:21] LABS: ANISOCYTOSIS 1+; SCHISTOCYTES SLIGHT; SICKLE CELLS 1+; TARGET CELLS SLIGHT
[2024-08-11] MEDS ORDERED: NS 500 ML IV 500 ML IV ONE ×2 (09:49→12:33)
--- NOTE | 2024-08-11 10:30 | DR.H&P ---
H&P History & Physical for Day of: H&P Date: 08/11/24 Chief Complaint Chief Complaint: abnormal labs, weakness History of Present Illness History of Present Illness: Mr. Arndt is a 39-year-old male with a past medical history of sickle cell disease, anemia, depression and chronic right leg wound presented with generalized weakness. He had labs done outpatient and was notified that his hemoglobin is low. In the ER, hemoglobin was 6.5. His blood pressure was also noted to be low, systolic in the 80s to 90s. He was started on hydration and blood products were ordered. He was also started on Zosyn for his chronic right lower extremity infection. This morning, he still feels the same. He is waiting on blood products. Dr. Haley has been consulted for right lower extremity wound. Denies any active bleeding. Labs/imaging reviewed: - WBC 12.2 hemoglobin 5.9 platelet 381 potassium 4.6 creatinine 0.89 Plan: Admit to MedSurg, transfuse 2 units PRBCs. Monitor H&H as per protocol. Continue hydration. Follow surgery recommendations. Continue wound care as per nursing. Replace electrolytes as per protocol. Monitor blood pressure. Monitoring labs and imaging. Past Medical History Past Medical History: Anemia, Depression, GERD and PUD Additional Medical History: Sickle Cell Disease Past Surgical History Surgical History: Other Additional Surgical History: Skin Graft (R) Leg Wound Family History Family Medical History: Diabetes Mellitus and Hypertension Social History Does patient currently use any type of tobacco product: Yes Have you used tobacco products in the last 12 months: Yes Type of Tobacco Use: Cigarettes Does any household member use tobacco: Yes Alcohol Use: None Drug Use: None Medications Home Medications: Home Medications Medication Instructions Recorded Confirmed Type NK 08/10/24 08/10/24 History Allergies Allergies Allergy/AdvReac Type Severity Reaction Status Date / Time Egg Derived Allergy Verified 08/10/24 12:00 mayonnaise Allergy Verified 08/10/24 12:00 ondansetron (From Zofran) Allergy Verified 08/10/24 12:00 Labs 08/11/24 05:00 08/11/24 05:00 Labs: Laboratory WBC 12.2 X10^3/uL (3.6-10.0) H 08/11/24 05:00 RBC 1.72 X10^6/uL (4.7-6.0) L 08/11/24 05:00 Hgb 5.9 g/dL (13.5-18.0) L* 08/11/24 05:00 Hct 16.5 % (42.0-54.0) L* 08/11/24 05:00 MCV 96.4 fL (80.0-100.0) 08/11/24 05:00 MCH 34.4 pg (27.0-34.0) H 08/11/24 05:00 MCHC 35.7 g/dL (33.0-35.0) H 08/11/24 05:00 RDW 21.9 % (11.6-16.5) H 08/11/24 05:00 Plt Count 381 X10^3/uL (150.0-450.0) 08/11/24 05:00 Plt Count Comment Adequate (ADEQUATE) 08/11/24 05:00 MPV 8.5 fL (7.4-11.0) 08/11/24 05:00 Neut % (Auto) 42.7 % (42.0-75.0) 08/11/24 05:00 Lymph % (Auto) 41.7 % (21.0-51.0) 08/11/24 05:00 [place] % (Auto) 8.8 % (0.0-13.0) 08/11/24 05:00 Eos % (Auto) 5.2 % (0.9-2.9) H 08/11/24 05:00 Baso % (Auto) 1.6 % (0.2-1.0) H 08/11/24 05:00 Neut # (Auto) 5.2 x10^3/uL (2.2-4.8) H 08/11/24 05:00 Lymph # (Auto) 5.1 X10^3/uL (1.3-2.9) H 08/11/24 05:00 [place] # (Auto) 1.1 x10^3/uL (0.3-0.8) H 08/11/24 05:00 Eos # (Auto) 0.6 x10^3/uL (0.0-0.2) H 08/11/24 05:00 Baso # (Auto) 0.2 X10^3/uL (0.0-0.1) H 08/11/24 05:00 Absolute Nucleated RBC 2.3 /100WBC 08/11/24 05:00 Total Counted Cancelled 08/11/24 05:00 Neutrophils % (Manual) Cancelled 08/11/24 05:00 Band Neutrophils % Cancelled 08/11/24 05:00 Lymphocytes % (Manual) Cancelled 08/11/24 05:00 Monocytes % (Manual) Cancelled 08/11/24 05:00 Eosinophils % (Manual) Cancelled 08/11/24 05:00 Basophils % (Manual) Cancelled 08/11/24 05:00 Metamyelocytes % Cancelled 08/11/24 05:00 Myelocytes % Cancelled 08/11/24 05:00 Promyelocytes % Cancelled 08/11/24 05:00 Nucleated RBCs Cancelled 08/11/24 05:00 Atypical Lymphocytes Cancelled 08/11/24 05:00 Blast Cells Cancelled 08/11/24 05:00 Smudge Cells Cancelled 08/11/24 05:00 Toxic Granulation Cancelled 08/11/24 05:00 Dohle Bodies Cancelled 08/11/24 05:00 Beverley Rods Cancelled 08/11/24 05:00 Plt Clumps, EDTA Cancelled 08/11/24 05:00 Giant Platelets Cancelled 08/11/24 05:00 Plt Morphology Comment Normal (NORMAL) 08/11/24 05:00 RBC Morphology Abnormal (NORMAL) 08/11/24 05:00 Dimorphic RBCs Cancelled 08/11/24 05:00 Polychromasia Cancelled 08/11/24 05:00 Hypochromasia Cancelled 08/11/24 05:00 Poikilocytosis 1+ A 08/11/24 05:00 Basophilic Stippling Cancelled 08/11/24 05:00 Anisocytosis 1+ A 08/11/24 05:00 Microcytosis Cancelled 08/11/24 05:00 Macrocytosis Cancelled 08/11/24 05:00 Spherocytes Cancelled 08/11/24 05:00 Pappenheimer Bodies Cancelled 08/11/24 05:00 Sickle Cells 1+ A 08/11/24 05:00 Target Cells Slight A 08/11/24 05:00 Tear Drop Cells Cancelled 08/11/24 05:00 Ovalocytes Cancelled 08/11/24 05:00 Stomatocytes Cancelled 08/11/24 05:00 Helmet Cells Cancelled 08/11/24 05:00 [place] Bodies Cancelled 08/11/24 05:00 [place] Rings Cancelled 08/11/24 05:00 [place] Cells Cancelled 08/11/24 05:00 Crenated Cell Cancelled 08/11/24 05:00 Acanthocytes (Spur) Cancelled 08/11/24 05:00 [place] Cancelled 08/11/24 05:00 Schistocytes Slight A 08/11/24 05:00 Absolute Retic 0.4035 10^6/uL 08/10/24 12:21 Percent Retic 21.49 % (0.8-2.2) H 08/10/24 12:21 Sodium 140 mmol/L (136-145) 08/11/24 05:00 Corrected Sodium TNP 08/11/24 05:00 Potassium 4.6 mmol/L (3.5-5.1) 08/11/24 05:00 Chloride 109 mmol/L (98-107) H 08/11/24 05:00 Carbon Dioxide 27.4 mmol/L (21-32) 08/11/24 05:00 BUN 11 mg/dL (7-18) 08/11/24 05:00 Creatinine 0.89 mg/dL (0.70-1.30) 08/11/24 05:00 Est GFR (MDRD) Af Amer > 60 (>60) 08/11/24 05:00 Est GFR (MDRD) Non-Af > 60 (>60) 08/11/24 05:00 Glucose 89 mg/dL (65-99) 08/11/24 05:00 Calcium 8.0 mg/dL (8.5-10.1) L 08/11/24 05:00 Corrected Calcium 8.6 mg/dL (8.5-10.1) 08/11/24 05:00 Magnesium 2.3 mg/dL (2.0-2.9) 08/11/24 05:00 Total Bilirubin 2.50 mg/dL (0.2-1.0) H 08/11/24 05:00 AST 39 Units/L (15-37) H 08/11/24 05:00 ALT 40 Units/L (12-78) 08/11/24 05:00 Alkaline Phosphatase 97 Units/L (46-116) 08/11/24 05:00 Total Protein 7.4 g/dL (6.4-8.2) 08/11/24 05:00 Albumin 3.2 g/dL (3.4-5.0) L 08/11/24 05:00 Globulin 4.2 g/dL (2.5-4.5) 08/11/24 05:00 Albumin/Globulin Ratio 0.8 Ratio (1.1-2.1) L 08/11/24 05:00 Blood Type B POSITIVE 08/10/24 12:21 Antibody Screen Negative 08/10/24 12:21 Crossmatch See Detail 08/10/24 12:21 Review of Systems Constitutional: Weakness Eyes: No Symptoms Reported ENT: No Symptoms Reported Respiratory: Shortness of Breath Cardiovascular: No Symptoms Reported Gastrointestinal: No Symptoms Reported Genitourinary: No Symptoms Reported Musculoskeletal: Leg Pain Skin: Wound Neurological: No Symptoms Reported Physical Exam Vital Signs: Vital Signs Temperature 98.1 F Temperature 98 F Pulse Rate [Left Brachial] 66 Pulse Rate [Left Brachial] 62 Respiratory Rate 20 Respiratory Rate 19 Respiratory Rate 17 Respiratory Rate 17 Respiratory Rate 17 Blood Pressure [Right Arm] 91/53 Blood Pressure [Right Arm] 95/55 Blood Pressure [Left Arm] 99/58 O2 Sat by Pulse Oximetry 99 O2 Sat by Pulse Oximetry 100 Oriented: Normal Eyes: Normal Throat: Normal Respiratory: Clear Throughout Cardiovascular: Normal Auscultation: Bowel Sounds: Normal Palpation: Normal Tenderness: Normal Skin: Wound and Other (chronic LE wound, graft noted, no drainage ) Musculoskeletal: Right and Leg Psychiatric: Normal Mood Description: Calm Affect: Normal Speech Pattern: Clear and Appropriate Assessment/Plan (1) Sickle cell crisis: Status: Acute (2) Microcytic anemia: Status: Acute (3) Leg wound, right: Qualifiers: Encounter type: sequela Qualified Code(s): S81.801S - Unspecified open wound, right lower leg, sequela Status: Chronic (4) Sickle cell anemia: Status: Chronic (5) Chronic ulcer of right leg: Status: None Review H&P Reviewed: Yes Patient was examined?: Yes
[2024-08-11] MEDS: NS 1,000 ML IV 1,000 ML IV SCH (11:08)
[2024-08-11 16:52] LABS: HEMATOCRIT 26.1 % (42.0-54.0); HEMOGLOBIN 9.1 g/dL (13.5-18.0)
[2024-08-12 05:29] LABS: BASOPHILS # (AUTO) 0.1 X10^3/uL (0.0-0.1); BASOPHILS % (AUTO) 0.8 % (0.2-1.0); EOSINOPHILS # (AUTO) 0.7 x10^3/uL (0.0-0.2); EOSINOPHILS % (AUTO) 7.2 % (0.9-2.9); HEMATOCRIT 22.1 % (42.0-54.0); HEMOGLOBIN 7.9 g/dL (13.5-18.0); LYMPHOCYTES # (AUTO) 4.7 X10^3/uL (1.3-2.9); LYMPHOCYTES % (AUTO) 45.9 % (21.0-51.0); MEAN CORPUSCULAR HGB CONC 35.7 g/dL (33.0-35.0); MEAN CORPUSCULAR VOLUME 89.7 fL (80.0-100.0); MEAN PLATELET VOLUME 8.3 fL (7.4-11.0); MONOCYTES # (AUTO) 1.1 x10^3/uL (0.3-0.8); MONOCYTES % (AUTO) 10.4 % (0.0-13.0); NEUTROPHILS # (AUTO) 3.7 x10^3/uL (2.2-4.8); NEUTROPHILS % (AUTO) 35.7 % (42.0-75.0); PLATELET COUNT 383 X10^3/uL (150.0-450.0); RED BLOOD COUNT 2.46 X10^6/uL (4.7-6.0); RED CELL DISTRIBUTION WIDTH 23.4 % (11.6-16.5); WHITE BLOOD COUNT 10.3 X10^3/uL (3.6-10.0)
[2024-08-12 05:39] LABS: ALANINE AMINOTRANSFERASE 37 Units/L (12-78); ALBUMIN 3.3 g/dL (3.4-5.0); ALKALINE PHOSPHATASE 93 Units/L (46-116); ASPARTATE AMINO TRANSFERASE 37 Units/L (15-37); BLOOD UREA NITROGEN 14 mg/dL (7-18); CALCIUM 8.6 mg/dL (8.5-10.1); CARBON DIOXIDE 28.6 mmol/L (21-32); CHLORIDE 108 mmol/L (98-107); COR CA(FOR HYPOALB) 9.2 mg/dL (8.5-10.1); CREATININE 0.83 mg/dL (0.70-1.30); GLUCOSE 84 mg/dL (65-99); POTASSIUM 4.8 mmol/L (3.5-5.1); SODIUM 141 mmol/L (136-145); TOTAL PROTEIN 7.4 g/dL (6.4-8.2); eGFR NON BLACK RACES > 60 (>60)
[2024-08-12 05:41] LABS: ANISOCYTOSIS 2+; OVALOCYTES PRESENT; PLATELET MORPHOLOGY COMMENT NORMAL (NORMAL); POIKILOCYTOSIS PRESENT; SCHISTOCYTES PRESENT; SICKLE CELLS PRESENT; TARGET CELLS PRESENT
[2024-08-12 07:39] VITALS: O2SAT 98
--- NOTE | 2024-08-12 08:15 | DR.CONSULT ---
CONSULT Consultation for Day of: Date: 08/11/24 Chief Complaint Chief Complaint: Nonhealing wound right ankle Allergies Allergies Allergy/AdvReac Type Severity Reaction Status Date / Time Egg Derived Allergy Verified 08/10/24 12:00 mayonnaise Allergy Verified 08/10/24 12:00 ondansetron (From Zofran) Allergy Verified 08/10/24 12:00 History of Present Illness History of Present Illness: 39-year-old male with sickle cell disease who has a chronic wound of several years of the right ankle. Admitted with sickle cell crisis and low hemoglobin. Patient started on antibiotics by the medicine service. Patient continues to smoke cigarettes Past Medical History Past Medical History: Anemia, Depression, GERD and PUD Additional Medical History: Sickle Cell Disease Past Surgical History Surgical History: Other Additional Surgical History: Skin Graft (R) Leg Wound Family History Family Medical History: Diabetes Mellitus and Hypertension Social History Does patient currently use any type of tobacco product: Yes Have you used tobacco products in the last 12 months: Yes Type of Tobacco Use: Cigarettes Does any household member use tobacco: Yes Alcohol Use: None Drug Use: None Medications Home Medications: Egg Derived Allergy (Verified 08/10/24 12:00) mayonnaise Allergy (Verified 08/10/24 12:00) ondansetron (From Zofran) Allergy (Verified 08/10/24 12:00) CONTINUE taking the following medications NK 08/10/24 [History] Review of Systems Constitutional: See HPI Eyes: No Symptoms Reported ENT: No Symptoms Reported Respiratory: No Symptoms Reported Cardiovascular: No Symptoms Reported Gastrointestinal: No Symptoms Reported Genitourinary: No Symptoms Reported Musculoskeletal: No Symptoms Reported Skin: No Symptoms Reported Neurological: No Symptoms Reported Physical Exam Vital Signs: Vital Signs Temperature 98.3 F Temperature 97.7 F Pulse Rate [Left Brachial] 56 Pulse Rate [Left Brachial] 55 Respiratory Rate 19 Respiratory Rate 20 Respiratory Rate 20 Respiratory Rate 18 Respiratory Rate 18 Respiratory Rate 18 Blood Pressure [Right Arm] 135/72 Blood Pressure [Right Arm] 126/75 O2 Sat by Pulse Oximetry 98 O2 Sat by Pulse Oximetry 99 Oriented: Normal, Time, Person and Place Eyes: Normal Ear: Normal Nose: Normal Throat: Normal Respiratory: Clear Throughout : Normal Auscultation: Bowel Sounds: Normal Palpation: Normal Tenderness: Normal Skin: Wound (Chronic wound to the lateral right ankle measuring 5 x 1.5 x 0.7 cm with exudate. Also with chronic skin changes of the medial right ankle no significant drainage or cellulitis appearance) Musculoskeletal: Normal Psychiatric: Normal Mood Description: Calm Affect: Normal Speech Pattern: Clear Plan (1) Sickle cell crisis: Status: Acute Plan: Blood and hydration as per medicine service (2) Microcytic anemia: Status: Acute (3) Leg wound, right: Status: Chronic Qualifiers: Encounter type: sequela Qualified Code(s): S81.801S - Unspecified open wound, right lower leg, sequela Plan: Patient with chronic wound. Recommend Santyl to the wound. I do not think antibiotics is of any help in this chronic situation. (4) Sickle cell anemia: Status: Chronic (5) Chronic ulcer of right leg: Status: None
--- NOTE | 2024-08-12 09:44 | W.DIS.FURT ---
Summary of Discharge Discharge Summary of Date Date of Exam: 08/12/24 Admission Date Date of Admission: 08/10/24 Admission Diagnosis Patient Problems (Updated 08/11/24 @ 10:29 by Kate Berrios MD) Leg wound, right (Chronic) S81.801A Microcytic anemia (Acute) D50.9 Sickle cell crisis (Acute) D57.00 Hospital Course: Patient is a 39-year-old male with a past medical history of sickle cell and chronic right lower extremity ulcer. He was admitted for sickle cell crisis/symptomatic anemia. He was transfused 2 units packed red blood cells and hemoglobin responded appropriately. He is back to his baseline. Wound care was provided for his right lower extremity ulcer. Symptoms significant proved. Patient discharged in stable condition. He is instructed follow-up with general surgery Dr. Santana for chronic lower leg ulcer and pcp in 1 week. Vital Signs: Vital Signs (72 hours) 08/10/24 12:00 08/10/24 12:39 08/10/24 13:32 Temperature 97.5 F L Pulse Rate 93 H Pulse Rate [Left Brachial] Respiratory Rate 16 16 16 Blood Pressure 105/57 Blood Pressure [Left Arm] Blood Pressure [Right Arm] O2 Sat by Pulse Oximetry 96 Oxygen Delivery Method Room Air Oxygen Flow Rate FIO2% 08/10/24 13:49 08/10/24 13:54 08/10/24 16:00 Temperature 97.7 F Pulse Rate 85 Pulse Rate [Left Brachial] 64 Respiratory Rate 16 19 Blood Pressure 94/53 Blood Pressure [Left Arm] Blood Pressure [Right Arm] 88/45 O2 Sat by Pulse Oximetry 95 Oxygen Delivery Method Room Air Room Air Room Air Oxygen Flow Rate FIO2% 08/10/24 16:55 08/10/24 17:40 08/10/24 19:00 Temperature Pulse Rate Pulse Rate [Left Brachial] Respiratory Rate Blood Pressure Blood Pressure [Left Arm] Blood Pressure [Right Arm] 108/58 O2 Sat by Pulse Oximetry Oxygen Delivery Method Nasal Cannula Nasal Cannula Oxygen Flow Rate 2 2 FIO2% 28 08/10/24 20:00 08/10/24 21:00 08/10/24 21:12 Temperature 98.1 F Pulse Rate Pulse Rate [Left Brachial] 62 Respiratory Rate 18 19 Blood Pressure Blood Pressure [Left Arm] 101/62 Blood Pressure [Right Arm] O2 Sat by Pulse Oximetry 98 Oxygen Delivery Method Nasal Cannula Nasal Cannula Oxygen Flow Rate 2 2 FIO2% 28 08/10/24 21:42 08/11/24 00:00 08/11/24 00:52 Temperature 98.2 F Pulse Rate Pulse Rate [Left Brachial] 64 Respiratory Rate 20 18 18 Blood Pressure Blood Pressure [Left Arm] 99/58 Blood Pressure [Right Arm] O2 Sat by Pulse Oximetry 97 Oxygen Delivery Method Nasal Cannula Oxygen Flow Rate 2 FIO2% 08/11/24 01:22 08/11/24 03:55 08/11/24 04:56 Temperature 98 F Pulse Rate Pulse Rate [Left Brachial] 62 Respiratory Rate 18 17 17 Blood Pressure Blood Pressure [Left Arm] 99/58 Blood Pressure [Right Arm] O2 Sat by Pulse Oximetry 100 Oxygen Delivery Method Nasal Cannula Oxygen Flow Rate 2 FIO2% 08/11/24 05:26 08/11/24 07:00 08/11/24 07:40 Temperature 98.1 F Pulse Rate Pulse Rate [Left Brachial] 66 Respiratory Rate 17 19 Blood Pressure Blood Pressure [Left Arm] Blood Pressure [Right Arm] 95/55 O2 Sat by Pulse Oximetry 99 Oxygen Delivery Method Nasal Cannula Nasal Cannula Oxygen Flow Rate 2 2 FIO2% 08/11/24 08:39 08/11/24 09:43 08/11/24 09:54 Temperature Pulse Rate Pulse Rate [Left Brachial] Respiratory Rate 20 Blood Pressure Blood Pressure [Left Arm] Blood Pressure [Right Arm] 91/53 O2 Sat by Pulse Oximetry Oxygen Delivery Method Nasal Cannula Oxygen Flow Rate 2 FIO2% 28 08/11/24 10:24 08/11/24 15:26 08/11/24 15:29 Temperature Pulse Rate Pulse Rate [Left Brachial] 66 Respiratory Rate 17 20 18 Blood Pressure Blood Pressure [Left Arm] Blood Pressure [Right Arm] 119/70 O2 Sat by Pulse Oximetry 100 Oxygen Delivery Method Nasal Cannula Oxygen Flow Rate 2 FIO2% 08/11/24 15:59 08/11/24 19:00 08/11/24 20:00 Temperature 97.9 F Pulse Rate Pulse Rate [Left Brachial] 59 L Respiratory Rate 17 18 Blood Pressure Blood Pressure [Left Arm] Blood Pressure [Right Arm] 101/58 O2 Sat by Pulse Oximetry 96 Oxygen Delivery Method Nasal Cannula Nasal Cannula Oxygen Flow Rate 2 2 FIO2% 08/11/24 20:09 08/11/24 20:22 08/11/24 20:52 Temperature Pulse Rate Pulse Rate [Left Brachial] Respiratory Rate 17 18 Blood Pressure Blood Pressure [Left Arm] Blood Pressure [Right Arm] O2 Sat by Pulse Oximetry Oxygen Delivery Method Nasal Cannula Oxygen Flow Rate 2 FIO2% 28 08/12/24 00:00 08/12/24 01:17 08/12/24 01:47 Temperature 97.6 F Pulse Rate Pulse Rate [Left Brachial] 58 L Respiratory Rate 18 18 18 Blood Pressure Blood Pressure [Left Arm] Blood Pressure [Right Arm] 112/63 O2 Sat by Pulse Oximetry 99 Oxygen Delivery Method Nasal Cannula Oxygen Flow Rate 2 FIO2% 08/12/24 04:00 08/12/24 05:18 08/12/24 05:48 Temperature 97.7 F Pulse Rate Pulse Rate [Left Brachial] 55 L Respiratory Rate 18 20 20 Blood Pressure Blood Pressure [Left Arm] Blood Pressure [Right Arm] 126/75 O2 Sat by Pulse Oximetry 99 Oxygen Delivery Method Nasal Cannula Oxygen Flow Rate 2 FIO2% 08/12/24 07:00 08/12/24 07:39 08/12/24 08:25 Temperature 98.3 F Pulse Rate Pulse Rate [Left Brachial] 56 L Respiratory Rate 19 Blood Pressure Blood Pressure [Left Arm] Blood Pressure [Right Arm] 135/72 O2 Sat by Pulse Oximetry 98 Oxygen Delivery Method Nasal Cannula Nasal Cannula Nasal Cannula Oxygen Flow Rate 2 2 2 FIO2% 28 Labs: Laboratory Last Values WBC 10.3 X10^3/uL (3.6-10.0) H 08/12/24 05:10 RBC 2.46 X10^6/uL (4.7-6.0) L 08/12/24 05:10 Hgb 7.9 g/dL (13.5-18.0) L 08/12/24 05:10 Hct 22.1 % (42.0-54.0) L 08/12/24 05:10 MCV 89.7 fL (80.0-100.0) 08/12/24 05:10 MCH 32.0 pg (27.0-34.0) 08/12/24 05:10 MCHC 35.7 g/dL (33.0-35.0) H 08/12/24 05:10 RDW 23.4 % (11.6-16.5) H 08/12/24 05:10 Plt Count 383 X10^3/uL (150.0-450.0) 08/12/24 05:10 Plt Count Comment Adequate (ADEQUATE) 08/12/24 05:10 MPV 8.3 fL (7.4-11.0) 08/12/24 05:10 Neut % (Auto) 35.7 % (42.0-75.0) L 08/12/24 05:10 Lymph % (Auto) 45.9 % (21.0-51.0) 08/12/24 05:10 Ada % (Auto) 10.4 % (0.0-13.0) 08/12/24 05:10 Eos % (Auto) 7.2 % (0.9-2.9) H 08/12/24 05:10 Baso % (Auto) 0.8 % (0.2-1.0) 08/12/24 05:10 Neut # (Auto) 3.7 x10^3/uL (2.2-4.8) 08/12/24 05:10 Lymph # (Auto) 4.7 X10^3/uL (1.3-2.9) H 08/12/24 05:10 Ada # (Auto) 1.1 x10^3/uL (0.3-0.8) H 08/12/24 05:10 Eos # (Auto) 0.7 x10^3/uL (0.0-0.2) H 08/12/24 05:10 Baso # (Auto) 0.1 X10^3/uL (0.0-0.1) 08/12/24 05:10 Absolute Nucleated RBC 1.8 /100WBC 08/12/24 05:10 Total Counted Cancelled 08/11/24 05:00 Neutrophils % (Manual) Cancelled 08/11/24 05:00 Band Neutrophils % Cancelled 08/11/24 05:00 Lymphocytes % (Manual) Cancelled 08/11/24 05:00 Monocytes % (Manual) Cancelled 08/11/24 05:00 Eosinophils % (Manual) Cancelled 08/11/24 05:00 Basophils % (Manual) Cancelled 08/11/24 05:00 Metamyelocytes % Cancelled 08/11/24 05:00 Myelocytes % Cancelled 08/11/24 05:00 Promyelocytes % Cancelled 08/11/24 05:00 Nucleated RBCs Cancelled 08/11/24 05:00 Atypical Lymphocytes Cancelled 08/11/24 05:00 Blast Cells Cancelled 08/11/24 05:00 Smudge Cells Cancelled 08/11/24 05:00 Toxic Granulation Cancelled 08/11/24 05:00 Dohle Bodies Cancelled 08/11/24 05:00 Beverley Rods Cancelled 08/11/24 05:00 Plt Clumps, EDTA Cancelled 08/11/24 05:00 Giant Platelets Cancelled 08/11/24 05:00 Plt Morphology Comment Normal (NORMAL) 08/12/24 05:10 RBC Morphology Abnormal (NORMAL) 08/12/24 05:10 Dimorphic RBCs Cancelled 08/11/24 05:00 Polychromasia Cancelled 08/11/24 05:00 Hypochromasia Cancelled 08/11/24 05:00 Poikilocytosis Present 08/12/24 05:10 Basophilic Stippling Cancelled 08/11/24 05:00 Anisocytosis 2+ A 08/12/24 05:10 Microcytosis Cancelled 08/11/24 05:00 Macrocytosis Cancelled 08/11/24 05:00 Spherocytes Cancelled 08/11/24 05:00 Pappenheimer Bodies Cancelled 08/11/24 05:00 Sickle Cells Present 08/12/24 05:10 Target Cells Present 08/12/24 05:10 Tear Drop Cells Cancelled 08/11/24 05:00 Ovalocytes Present 08/12/24 05:10 Stomatocytes Cancelled 08/11/24 05:00 Helmet Cells Cancelled 08/11/24 05:00 Freeman-Wyatt Bodies Cancelled 08/11/24 05:00 [place] Rings Cancelled 08/11/24 05:00 Paulina Cells Cancelled 08/11/24 05:00 Crenated Cell Cancelled 08/11/24 05:00 Acanthocytes (Spur) Cancelled 08/11/24 05:00 Rouleaux Cancelled 08/11/24 05:00 Schistocytes Present 08/12/24 05:10 Absolute Retic 0.4035 10^6/uL 08/10/24 12:21 Percent Retic 21.49 % (0.8-2.2) H 08/10/24 12:21 Sodium 141 mmol/L (136-145) 08/12/24 05:10 Corrected Sodium TNP 08/12/24 05:10 Potassium 4.8 mmol/L (3.5-5.1) 08/12/24 05:10 Chloride 108 mmol/L (98-107) H 08/12/24 05:10 Carbon Dioxide 28.6 mmol/L (21-32) 08/12/24 05:10 BUN 14 mg/dL (7-18) 08/12/24 05:10 Creatinine 0.83 mg/dL (0.70-1.30) 08/12/24 05:10 Est GFR (MDRD) Af Amer > 60 (>60) 08/12/24 05:10 Est GFR (MDRD) Non-Af > 60 (>60) 08/12/24 05:10 Glucose 84 mg/dL (65-99) 08/12/24 05:10 Calcium 8.6 mg/dL (8.5-10.1) 08/12/24 05:10 Corrected Calcium 9.2 mg/dL (8.5-10.1) 08/12/24 05:10 Magnesium 2.3 mg/dL (2.0-2.9) 08/11/24 05:00 Total Bilirubin 2.10 mg/dL (0.2-1.0) H 08/12/24 05:10 AST 37 Units/L (15-37) 08/12/24 05:10 ALT 37 Units/L (12-78) 08/12/24 05:10 Alkaline Phosphatase 93 Units/L (46-116) 08/12/24 05:10 Total Protein 7.4 g/dL (6.4-8.2) 08/12/24 05:10 Albumin 3.3 g/dL (3.4-5.0) L 08/12/24 05:10 Globulin 4.1 g/dL (2.5-4.5) 08/12/24 05:10 Albumin/Globulin Ratio 0.8 Ratio (1.1-2.1) L 08/12/24 05:10 Blood Type B POSITIVE 08/10/24 12:21 Antibody Screen Negative 08/10/24 12:21 Crossmatch See Detail 08/10/24 12:21 Reason For Visit: SICKLE CELL ANEMIA, R LEG WOUND Discharge Date Discharge Date: 08/12/24 Discharge Diagnosis All Active Problems (Updated 08/11/24 @ 10:29 by Kate Berrios MD) Leg wound, right (Chronic) Microcytic anemia (Acute) Sickle cell crisis (Acute) Sickle cell anemia (Chronic) Ulcer (Acute) Sickle cell anemia (Acute) GERD (gastroesophageal reflux disease) (Chronic) PUD (peptic ulcer disease) (Chronic) Sickle cell disease (Chronic) Cellulitis and abscess of leg (Acute) Ulcer of lower extremity with necrosis of muscle (Acute) Wound exudate odor absent (Acute) Cellulitis of leg without foot, right (Acute) Sickle cell anemia with crisis (Acute) Anemia (Acute) Protein calorie malnutrition (Acute) Adult failure to thrive (Acute) Non-healing wound (Acute) Cellulitis of left leg (Acute) Decubitus ulcer of left leg (Acute) Signs and symptoms of anemia (Acute) Plan of Treatment: Continue with present treatment and follow up plan. Pt is to keep follow up appointment as instructed and take medications as ordered. Discharge Medications Discharge Medications: Egg Derived Allergy (Verified 08/10/24 12:00) mayonnaise Allergy (Verified 08/10/24 12:00) ondansetron (From Zofran) Allergy (Verified 08/10/24 12:00) New Prescriptions tramadol 50 mg tablet 50 mg PO BID PRN 30 days #60 tabs 08/12/24 [Rx] Discharge Disposition Assessment: No distress noted. Discharge Plan Discharge Plan Hospital Course: Patient is a 39-year-old male with a past medical history of sickle cell and chronic right lower extremity ulcer. He was admitted for sickle cell crisis/symptomatic anemia. He was transfused 2 units packed red blood cells and hemoglobin responded appropriately. He is back to his baseline. Wound care was provided for his right lower extremity ulcer. Symptoms significant proved. Patient discharged in stable condition. He is instructed follow-up with general surgery Dr. Santana for chronic lower leg ulcer and pcp in 1 week. Patient Disposition: 01 HOME, SELF-CARE Condition: Stable Health Concerns: Post Hospitalization: new medications and changes needed to prevent readmission or further decline. Pt educated and given instructions on all concerns. Care Plan Goals: Problem: Fluid Volume Deficit Goal: Maintain/Improved Adequate hydration. Instructions: Follow provided instructions. Follow up with primary physician as directed. Contact primary care physician or report to the closest Emergency Room if condition worsens. Plan of Treatment: Continue with present treatment and follow up plan. Pt is to keep follow up appointment as instructed and take medications as ordered. Assessment: No distress noted. Prescriptions: New tramadol 50 mg tablet 50 mg PO BID MDD 2 PRN30 Days Qty: 60 0RF Follow ups/Referrals Follow ups/Referrals: MEGHANN WAHL [STAFF PHYSICIAN, MEDICAL] - 08/19/24 2:20 pm Donya Palacios [Primary Care Provider, Unknown] - 3 days Instructions Instructions: Anemia, Wound Infection Activity Restrictions/Additional Instructions: Continue wound care with Silvadene cream, Xerform and wrap with Kerlix. Dr. Oates will e-scribe pain medication. Stand Alone Forms: Find Help Web Site, Post Hospital Follow Up Care Print Language: SERBIAN
[2024-08-12 11:20] VITALS: BP 118/65; PULSE 59; RESP 19; TEMP 98.2
[2024-08-12] MEDS: SANTYL TOP SCH (13:44)
== END 2024-08-12 14:10 | disposition home or self-care (01) | DRG 812 ==
LOC: MED/SURG 11:53 → ER 11:53 → OBSVTOIN 13:49 → MED/SURG 14:06
PROVIDERS: ADMIT Family Medicine; ATTEND Family Medicine
DX: R53.1 Weakness; X58.XXXS Exposure to other specified factors, sequela; K21.9 Gastro-esophageal reflux disease without esophagitis; S81.801S Unspecified open wound, right lower leg, sequela; R74.01 Elevation of levels of liver transaminase levels; Y92.9 Unspecified place or not applicable; R06.02 Shortness of breath; D57.09 Hb-SS disease with crisis with other specified complication; Z72.0 Tobacco use; D50.8 Other iron deficiency anemias; E80.6 Other disorders of bilirubin metabolism; L97.318 Non-pressure chronic ulcer of right ankle with other specified severity; M79.661 Pain in right lower leg; F32.89 Other specified depressive episodes

== ENCOUNTER 2024-12-17 13:19 | Inpatient (IN) ==
[2024-12-17 13:56] LABS: MEAN PLATELET VOLUME 7.5 fL (7.4-11.0); RED CELL DISTRIBUTION WIDTH 22.1 % (11.6-16.5)
[2024-12-17 14:05] LABS: COR NA(FOR HYPERGLY) 137 mmol/L (136-145); CREATININE 0.83 mg/dL (0.70-1.30); eGFR NON BLACK RACES > 60 (>60)
[2024-12-17] MEDS ORDERED: NS 1,000 ML IV 1,000 ML ONE (14:07)
[2024-12-17] MEDS ORDERED: DILAUDID INJ ONE (14:07)
--- NOTE | 2024-12-17 14:08 | DR.EXTPAIN ---
HPI Time seen Time Seen by Provider: 12/17/24 14:06 PCP Primary Care Physician: Anahi Palacios Complaint/Symptoms Chief Complaint Doctor Comments: Patient states he has sickle cell disease and he is having increased low back pain leg pain is been going on more a last for about a week.Also developed some swelling of his right lower leg and ankle and foot. This morning.Patient was sent over by his primary care providerSthor Palacios after he had a hemoglobin of 6.2. Chief Complaint:: Patient states his MD sent him here because his Hgb 6.2 and generalized pain x 1 week. He saw his PCP yesterday and had lab work drawn. He states the pain has become worse over the past couple of days COVID-19 Coronavirus risk:travel/contact w/high risk person: No Has patient experienced Coronavirus symptoms: No Source History Provided: Patient Mode of arrival Mode of Arrival: Ambulatory Timing Onset of Chief Complaint: 12/16/24 PMH PMH Past Medical History: Yes Past Medical History: Anemia, Depression, GERD and PUD Past Surgical History: Yes Surgical History: Other Past Surgical History Comment: sickle cell disease Family History History of Family Medical Conditions: Yes Family Medical History: Diabetes Mellitus and Hypertension Social History Does patient currently use any type of tobacco product: Yes Have you used tobacco products in the last 12 months: Yes Type of Tobacco Use: Cigarettes Does any household member use tobacco: No Alcohol Use: None Do you use any recreational Drugs:: No Lives With: Alone Lives Where: Home Travel Risk Coronavirus risk:travel/contact w/high risk person: No Has patient experienced Coronavirus symptoms: No Infectious screening In the last 2 months have you had wt loss of >10#?: NO Have you had fever, night sweats or hemotysis?: No Have you traveled outside the country in the last 6 months?: No Isolation: Standard ROS Review of Systems Constitutional: Other (back pain and bilateral lower leg pain and hgb of 6.2 with ssd.) Eyes: No Symptoms Reported ENTM: No Symptoms Reported; negative See HPI, Ear Pain, Ear Discharge, Pulling on Ears, Hearing Loss, Nose Pain, Nose Discharge, Epistaxis, Nose Congestion, Mouth Pain, Mouth Swelling, Loose Teeth, Drooling, Throat Pain, Throat Swelling, Ear Foreign Body or Tooth/Dental Pain Respiratoy: No Symptoms Reported Cardiovascular: No Symptoms Reported Gastrointestinal/Abdominal: No Symptoms Reported Genitourinary: No Symptoms Reported Neurological: No Symptoms Reported Musculoskeletal: Back Pain, Joint Swelling, Leg (bilateral leg pain) and Other (pain and edema of r foot and lower leg) PE Vital Signs Vitals: Vital Signs Temperature 98.1 F Pulse Rate 64 Pulse Rate 71 Pulse Rate 71 Pulse Rate 84 Pulse Rate 72 Pulse Rate 62 Pulse Rate 61 Pulse Rate 79 Pulse Rate 63 Pulse Rate 70 Pulse Rate 61 Pulse Rate 70 Pulse Rate 87 Respiratory Rate 16 Respiratory Rate 16 Blood Pressure 109/55 Blood Pressure 116/58 Blood Pressure 102/55 Blood Pressure 102/55 Blood Pressure 102/55 Blood Pressure 114/75 Blood Pressure 114/75 Blood Pressure 114/75 Blood Pressure 114/75 Blood Pressure 106/61 Blood Pressure 103/56 O2 Sat by Pulse Oximetry 99 O2 Sat by Pulse Oximetry 98 O2 Sat by Pulse Oximetry 99 O2 Sat by Pulse Oximetry 99 O2 Sat by Pulse Oximetry 100 O2 Sat by Pulse Oximetry 99 O2 Sat by Pulse Oximetry 100 O2 Sat by Pulse Oximetry 100 O2 Sat by Pulse Oximetry 100 O2 Sat by Pulse Oximetry 100 O2 Sat by Pulse Oximetry 98 O2 Sat by Pulse Oximetry 99 O2 Sat by Pulse Oximetry 94 General Limitations: Physical Limitation (due to pain and swelling in r lower leg and foot and bilateral leg pain) General Appearance: In Distress (severe distress) Head Head Exam: Normal Inspection, Atraumatic and Normocephalic Eyes Eye exam: Normal Appearance, PERRL and EOMI ENT ENT Exam: Normal Exam, Normal Oropharynx and Normal External Ear Exam Neck Neck Exam: Normal Inspection, Full ROM and Trachea Midline Chest Chest Inspection: Normal Inspection and Symmetric Chest Wall Rise Respiratory Respiratory Exam: Normal Lung Sounds Bilat Cardiovascular Cardiovascular Exam: Regular Rate Abdominal Exam Abdominal Exam: Normal Inspection Extremities Extremities Exam: Tenderness, Edema, Joint Swelling and Other (cellulitis r lower leg) Upper Extremities Shoulder Exam: Normal Inspection Lower Extremities Hip/Pelvis Exam: Normal Inspection Upper Leg Exam: Normal Inspection Knee Exam: Normal Inspection Lower Leg Exam: Tenderness, Swelling and Other (ulcer and cellulitis of rll) Ankle Exam: Tenderness and Swelling (r ankle) Foot/Toe Exam: Tenderness (r foot) and Swelling Gait Exam: Antalgic Back Back Exam: Normal Inspection Neurological Neurological Exam: Alert, Oriented X3 and CN II-XII Intact Psychiatric Psychiatric Exam: Agitated Skin Skin Exam: Warm, Dry, Erythema and Other (cellulitis of rll with pungent exudate) MDM Differential Diagnosis Differential Diagnosis: Other (sickle cell crisis,cellulitis r lower leg) COURSE Treatment Treatment: Patient remained well stable during ER evaluation. We did to repeat H&H on this patient and his hemoglobin was now 6.1 and hematocrit was 17.5. He did have a WBC of 14.9.Patient also had this right lower lobe also with increased drainage in which the dressing was changed we did a culture and of that and he also had a lactic acid level done that was normal he had blood culture sent x 2 we did do a chest x-ray which was negative for infiltrate the patient was started by giving mL of 1 L bolus of fluids and he also was given 2 mg of Dilaudid IV for pain. The patient was also given Zosyn 3.375 mg IV to start. The patient's reticulocyte count was 13.4 we did discussed this patient with Dr. Singh at 1715 he said the patient could be admitted for further treatment.The patient was made aware of the intent to admit and he was agreeable to the admission we will get a consultation with Dr. Velez for further evaluation of the right lower leg cellulitis versus stasis dermatitis. [facility]OR Labs Reviewed 12/17/24 13:38 12/17/24 13:38 Laboratory: 12/17/24 14:39 Leg - Right Wound Gram Stain - Final WBC 14.9 X10^3/uL (3.6-10.0) H 12/17/24 13:38 RBC 1.85 X10^6/uL (4.7-6.0) L 12/17/24 13:38 Hgb 6.1 g/dL (13.5-18.0) L* 12/17/24 13:38 Hct 17.5 % (42.0-54.0) L* 12/17/24 13:38 MCV 94.6 fL (80.0-100.0) 12/17/24 13:38 MCH 32.9 pg (27.0-34.0) 12/17/24 13:38 MCHC 34.8 g/dL (33.0-35.0) 12/17/24 13:38 RDW 22.1 % (11.6-16.5) H 12/17/24 13:38 Plt Count 647 X10^3/uL (150.0-450.0) H 12/17/24 13:38 Plt Count Comment Increased (ADEQUATE) 12/17/24 13:38 MPV 7.5 fL (7.4-11.0) 12/17/24 13:38 Neut % (Auto) 57.5 % (42.0-75.0) 12/17/24 13:38 Lymph % (Auto) 30.6 % (21.0-51.0) 12/17/24 13:38 [place] % (Auto) 7.3 % (0.0-13.0) 12/17/24 13:38 Eos % (Auto) 3.9 % (0.9-2.9) H 12/17/24 13:38 Baso % (Auto) 0.7 % (0.2-1.0) 12/17/24 13:38 Neut # (Auto) 8.6 x10^3/uL (2.2-4.8) H 12/17/24 13:38 Lymph # (Auto) 4.6 X10^3/uL (1.3-2.9) H 12/17/24 13:38 [place] # (Auto) 1.1 x10^3/uL (0.3-0.8) H 12/17/24 13:38 Eos # (Auto) 0.6 x10^3/uL (0.0-0.2) H 12/17/24 13:38 Baso # (Auto) 0.1 X10^3/uL (0.0-0.1) 12/17/24 13:38 Absolute Nucleated RBC 1.0 /100WBC 12/17/24 13:38 Plt Morphology Comment Normal (NORMAL) 12/17/24 13:38 RBC Morphology Abnormal (NORMAL) 12/17/24 13:38 Anisocytosis 2+ A 12/17/24 13:38 Sickle Cells Slight A 12/17/24 13:38 Tear Drop Cells Slight 12/17/24 13:38 Ovalocytes 1+ A 12/17/24 13:38 Absolute Retic 0.2519 10^6/uL 12/17/24 13:38 Percent Retic 13.49 % (0.8-2.2) H 12/17/24 13:38 Sodium 136 mmol/L (136-145) 12/17/24 13:38 Corrected Sodium 137 mmol/L (136-145) 12/17/24 13:38 Potassium 4.4 mmol/L (3.5-5.1) 12/17/24 13:38 Chloride 107 mmol/L (98-107) 12/17/24 13:38 Carbon Dioxide 23.8 mmol/L (21-32) 12/17/24 13:38 BUN 7 mg/dL (7-18) 12/17/24 13:38 Creatinine 0.83 mg/dL (0.70-1.30) 12/17/24 13:38 Est GFR (MDRD) Af Amer > 60 (>60) 12/17/24 13:38 Est GFR (MDRD) Non-Af > 60 (>60) 12/17/24 13:38 Glucose 122 mg/dL (65-99) H 12/17/24 13:38 Lactic Acid 0.6 mmol/L (0.4-2.0) 12/17/24 14:53 Calcium 8.2 mg/dL (8.5-10.1) L 12/17/24 13:38 Corrected Calcium TNP 12/17/24 13:38 Total Bilirubin 4.20 mg/dL (0.2-1.0) H 12/17/24 13:38 AST 36 Units/L (15-37) 12/17/24 13:38 ALT 18 Units/L (12-78) 12/17/24 13:38 Alkaline Phosphatase 113 Units/L (46-116) 12/17/24 13:38 Total Protein 7.6 g/dL (6.4-8.2) 12/17/24 13:38 Albumin 3.4 g/dL (3.4-5.0) 12/17/24 13:38 Globulin 4.2 g/dL (2.5-4.5) 12/17/24 13:38 Albumin/Globulin Ratio 0.8 Ratio (1.1-2.1) L 12/17/24 13:38 Specimen Type Clean catch urine 12/17/24 17:33 Urine Color Yellow (YELLOW) 12/17/24 17:33 Urine Appearance Clear (CLEAR) 12/17/24 17: Urine pH 7.0 (5.0 - 8.0) 12/17/24 17:33 Ur Specific [place] 1.005 (1.000-1.030) 12/17/24 17: Urine Protein 1+ (NEGATIVE) 12/17/24 17: Urine Glucose (UA) Negative (NEGATIVE) 12/17/24 17: Urine Ketones Negative (NEGATIVE) 12/17/24 17: Urine Blood Negative (NEGATIVE) 12/17/24 17: Urine Nitrite Negative (NEGATIVE) 12/17/24: Urine Bilirubin Negative (NEGATIVE) 12/17/24 17: Urine Urobilinogen 2+ (NORMAL) 12/17/24 17:33 Ur Leukocyte Esterase Negative (NEGATIVE) 12/17/24 17: Urine RBC None seen /HPF (0-3) 12/17/24 17: Urine WBC None seen /HPF (0-5) 12/17/24 17:33 Ur Squamous Epith Cells Negative /HPF (NEGATIVE) 12/17/24 17: Urine Bacteria Trace /HPF (NEGATIVE) 12/17/24 17: Ur Culture Indicated? No/not indicated 12/17/24 17:33 Opioid Opioid Risk Tool Age (Pablo box if 16-45): No History of Preadolescent Sexual Abuse: No Psychological Disease: Depression Total: 0 Total Score Risk Category: Low Risk Copyright: Trevin JOHNSON predicting aberrant behaviors Discharge Plan Diagnosis Discharge Problem: Sickle cell crisis, Cellulitis and abscess of leg, Anemia Discharge Plan Patient Disposition: 09 ADMITTED INPATIENT Condition: Stable Orders to Discharge Patient Discharge Orders: Transfer (Routine); Ordered 12/17/24 Ordered By: Mandeep Lancaster
[2024-12-17 14:10] LABS: RETICULOCYTE % 13.49 % (0.8-2.2)
[2024-12-17 14:13] LABS: PLATELET MORPHOLOGY COMMENT NORMAL (NORMAL)
[2024-12-17] MEDS: NS 1,000 ML IV 1,000 ML IV ONE (14:15)
[2024-12-17] MEDS: DILAUDID INJ IVP ONE (14:15)
[2024-12-17] MEDS ORDERED: ZOSYN VIAL 3.375 GRAMS IV ONE (16:34)
[2024-12-17] MEDS ORDERED: NS 100 ML IV 100 ML ONE (16:34)
--- NOTE | 2024-12-17 16:34 | RAD ---
EXAM: CHEST, 1 VIEW HISTORY: SICKLE CELL DISEASE; GENERALIZED PAIN; COMPARISON: March 09 TECHNIQUE: Portable chest FINDINGS: Stable size and morphology of the cardiomediastinal silhouette; heart size remains subjectively prominent, although magnified by portable acquisition. Left-sided chest port is in place with catheter tip oriented at the cavoatrial junction. Lungs are equally expanded without consolidating infiltrates or pleural fluid collections. There is chronic coarsening of the interstitial lung markings within the dependent lung bases; this likely corresponds to chronic interstitial scarring.. No evidence of pneumothorax or free air below the diaphragm. No acute osseous abnormalities of the chest. IMPRESSION: Stable chest radiograph without acute abnormalities. Additional chronic findings are detailed above. THIS IS AN ELECTRONICALLY VERIFIED FINAL REPORT 12/17/2024 4:31 PM - Electronically signed by Bennie Young MD
[2024-12-17] MEDS: ZOSYN VIAL 3.375 GRAMS 3.375 G in NS 100 ML IV 100 ML IV ONE (16:44)
[2024-12-17 17:53] LABS: BLOOD/HEMOGLOBIN,URINE NEGATIVE (NEGATIVE); LEUKOCYTE ESTERASE ,URINE NEGATIVE (NEGATIVE); NITRITES,URINE NEGATIVE (NEGATIVE)
[2024-12-17 18:02] LABS: APPEARANCE,URINE CLEAR (CLEAR); SQUAMOUS EPITHELIAL CELL,UR NEGATIVE /HPF (NEGATIVE)
[2024-12-17] MEDS ORDERED: PHENERGAN TAB 25 MG PO PRN (18:16)
[2024-12-17] MEDS: NS 1,000 ML IV 1,000 ML IV SCH (19:02)
[2024-12-17] MEDS: DILAUDID INJ IVP PRN (19:06)
[2024-12-17] MEDS: ZOSYN VIAL 3.375 GRAMS 3.375 G in NS 100 ML IV 100 ML IV SCH (19:06)
[2024-12-17 19:15] VITALS: BMI 20.5
[2024-12-17] MEDS: NS 250 ML IV 25 ML IV PRN (19:20)
[2024-12-18 06:49] LABS: MEAN PLATELET VOLUME 8.0 fL (7.4-11.0); RED CELL DISTRIBUTION WIDTH 22.1 % (11.6-16.5)
[2024-12-18 06:58] LABS: COR CA(FOR HYPOALB) 8.8 mg/dL (8.5-10.1); CREATININE 0.87 mg/dL (0.70-1.30); eGFR NON BLACK RACES > 60 (>60)
[2024-12-18 08:02] LABS: PLATELET MORPHOLOGY COMMENT NORMAL (NORMAL)
[2024-12-18] MEDS: FOLIC ACID TAB 1 MG PO SCH (11:43)
[2024-12-18] MEDS: HYDREA PO SCH (11:43)
[2024-12-18] MEDS: PERCOCET TAB 5/325 MG PO PRN (12:58)
[2024-12-18] MEDS: TORADOL 15 MG VIAL IVP PRN (15:27)
[2024-12-18] MEDS: SILVADENE TOP NR (15:36)
[2024-12-18] MEDS: HYDROGEN PEROXIDE 3% EXT PRN (15:36)
[2024-12-19 06:07] LABS: MEAN PLATELET VOLUME 7.9 fL (7.4-11.0); RED CELL DISTRIBUTION WIDTH 23.5 % (11.6-16.5)
[2024-12-19 06:15] LABS: COR CA(FOR HYPOALB) 8.8 mg/dL (8.5-10.1); CREATININE 0.92 mg/dL (0.70-1.30); eGFR NON BLACK RACES > 60 (>60)
[2024-12-19 07:14] LABS: PLATELET MORPHOLOGY COMMENT NORMAL (NORMAL)
--- NOTE | 2024-12-19 12:07 | EKG ---
Test Reason : bradycardia Blood Pressure : */* mmHG Vent. Rate : 45 BPM Atrial Rate : 45 BPM P-R Int : 164 ms QRS Dur : 84 ms QT Int : 460 ms P-R-T Axes : 64 14 4 degrees QTc Int : 397 ms Sinus bradycardia with sinus arrhythmia Minimal voltage criteria for LVH, may be normal variant ( Sokolow-Kyle ) Borderline ECG No previous ECGs available Confirmed by Shmuel Cox MD ([id number]) on 12/19/2024 5:16:39 PM Referred By: Confirmed By: Shmuel Cox MD
[2024-12-19] MEDS: ROCEPHIN VIAL 1 GRAM 1 G in NS 100 ML IV 100 ML IV SCH (15:53)
--- NOTE | 2024-12-20 02:36 | EKG ---
Test Reason : bradycardia Blood Pressure : */* mmHG Vent. Rate : 38 BPM Atrial Rate : 38 BPM P-R Int : 160 ms QRS Dur : 82 ms QT Int : 496 ms P-R-T Axes : 33 69 5 degrees QTc Int : 394 ms Marked sinus bradycardia Abnormal ECG When compared with ECG of 19-DEC-2024 12:04, No significant change was found Confirmed by Shmuel Cox MD ([id number]) on 12/20/2024 7:26:36 AM Referred By: Confirmed By: Shmuel Cox MD
[2024-12-20 05:14] LABS: COR CA(FOR HYPOALB) 8.8 mg/dL (8.5-10.1); CREATININE 0.92 mg/dL (0.70-1.30); eGFR NON BLACK RACES > 60 (>60)
[2024-12-20 10:41] LABS: MEAN PLATELET VOLUME 7.4 fL (7.4-11.0); RED CELL DISTRIBUTION WIDTH 24.3 % (11.6-16.5)
[2024-12-20 11:08] LABS: PLATELET MORPHOLOGY COMMENT NORMAL (NORMAL)
[2024-12-20] MEDS: MORPHINE SULFATE INJ 4 MG IVP ONE (12:02)
--- NOTE | 2024-12-20 12:02 | EKG ---
Test Reason : bradycardia Blood Pressure : */* mmHG Vent. Rate : 43 BPM Atrial Rate : 43 BPM P-R Int : 164 ms QRS Dur : 86 ms QT Int : 492 ms P-R-T Axes : 53 18 7 degrees QTc Int : 415 ms Marked sinus bradycardia Abnormal ECG When compared with ECG of 20-DEC-2024 02:34, No significant change was found Confirmed by Shmuel Cox MD ([id number]) on 12/20/2024 1:28:22 PM Referred By: Confirmed By: Shmuel Cox MD
[2024-12-20] MEDS: MORPHINE SULFATE INJ 4 MG IM ONE (12:20)
[2024-12-20] MEDS: HYDROGEN PEROXIDE 3% ONE (12:45)
[2024-12-20] MEDS: SILVADENE ONE (12:46)
--- NOTE | 2024-12-20 12:52 | DR.CONSULT ---
CONSULT Consultation for Day of: Date: 12/20/24 Chief Complaint Chief Complaint: r leg pain/anemia Allergies Allergies Allergy/AdvReac Type Severity Reaction Status Date / Time Egg Derived Allergy Verified 11/23/24 14:40 mayonnaise Allergy Verified 11/23/24 14:40 ondansetron (From Zofran) Allergy Verified 11/23/24 14:40 History of Present Illness History of Present Illness: 39 yo male- SS disease- admitted for severe anemia/r leg wound needs debridement- HR 60-80 upon admission when very anemia- after blood- hr 40s, bp 120-130- denies syncope/presyncope- is taking narcotics for pain that couls contribute to bradycardia- Past Medical History Past Medical History: Anemia, Depression, GERD and PUD Additional Medical History: Sickle Cell Disease Past Surgical History Surgical History: Other Additional Surgical History: Skin Graft (R) Leg Wound Family History Family Medical History: Diabetes Mellitus and Hypertension Social History Does patient currently use any type of tobacco product: Yes Have you used tobacco products in the last 12 months: Yes Type of Tobacco Use: Cigarettes How many years tobacco product used: 25 Does any household member use tobacco: Yes Alcohol Use: None Drug Use: None Medications Home Medications: Egg Derived Allergy (Verified 11/23/24 14:40) mayonnaise Allergy (Verified 11/23/24 14:40) ondansetron (From Zofran) Allergy (Verified 11/23/24 14:40) New Prescriptions folic acid 1 mg tablet 1 mg PO DAILY #30 tabs 12/20/24 [Rx] hydroxyurea 500 mg capsule 500 mg PO BID #60 caps 12/20/24 [Rx] Physical Exam Vital Signs: Vital Signs Temperature 98.2 F Pulse Rate [Radial] 44 Respiratory Rate 16 Blood Pressure [Right Arm] 134/69 O2 Sat by Pulse Oximetry 100 alert ox3 nad clear lungs marisela r foot bandaged/l foot pulse ok no edema ekg: SB tele: hr 39-49 labs: hct was 17 -up to 28 w blood, chm ok but albumon 2.8- thyroids pending CXR: nad, l port/chronic interstitial markings Plan (1) Sickle cell crisis: Status: Acute (2) Leg wound, right: Status: Chronic Qualifiers: Encounter type: sequela Qualified Code(s): S81.801S - Unspecified open wound, right lower leg, sequela (3) SSS (sick sinus syndrome): Status: Acute Plan: avoid meds that could contribute if possible ( narcotics)- check thyroid labs- check echo- easiest way to r/o sinus node incompetency is treadmill- he will give it a try in am. (4) Preop cardiovascular exam: Status: Acute
[2024-12-20 13:21] LABS: TSH (3RD GENERATION) 2.494 uIU/mL (0.358-3.74)
--- NOTE | 2024-12-20 13:52 | DR.PROGNOT ---
HOSPITAL PROGRESS NOTE Progress Note for Day of: Progress Note Date: 12/20/24 Chief Complaint Chief Complaint: We were planning to debride his right leg ulcers but patient was having significant bradycardia, the procedure was canceled till medical and cardiac clearance. Patient denies any significant palpitation or chest pain, his hemoglobin is up to 9.6, electrolytes are normal BUN/creatinine are normal, bilirubin is 1.9, Past Medical Family Social History Allergies: Allergies Egg Derived Allergy (Verified 11/23/24 14:40) mayonnaise Allergy (Verified 11/23/24 14:40) ondansetron (From Zofran) Allergy (Verified 11/23/24 14:40) Vital Signs Vital Signs: Vital Signs Temperature 98.2 F Temperature 98.2 F Pulse Rate [Radial] 55 Pulse Rate [Radial] 44 Respiratory Rate 18 Respiratory Rate 16 Respiratory Rate 16 Respiratory Rate 16 Blood Pressure [Right Arm] 143/70 Blood Pressure [Right Arm] 134/69 O2 Sat by Pulse Oximetry 98 O2 Sat by Pulse Oximetry 100 Physical Exam Oriented: Normal Eyes: Normal Ear: Normal Nose: Normal Throat: Normal Respiratory: Normal Cardiovascular: Bradycardia (Pulse rate is irregular and sometimes it is down to 32.) and Irregular (Irregular,) Speech Pattern: Clear and Appropriate Laboratory and Diagnostics 12/20/24 10:32 12/20/24 04:21 Labs: 12/17/24 14:39 Leg - Right Wound Gram Stain - Final 12/17/24 14:39 Leg - Right Wound Culture - Final Providencia Rettgeri Staphylococcus Aureus 12/17/24 14:53 Blood Blood Culture - Preliminary 12/17/24 13:38 Blood Blood Culture - Preliminary Laboratory WBC 8.0 X10^3/uL (3.6-10.0) 12/20/24 10:32 RBC 3.38 X10^6/uL (4.7-6.0) L 12/20/24 10:32 Hgb 9.6 g/dL (13.5-18.0) L 12/20/24 10:32 Hct 28.1 % (42.0-54.0) L 12/20/24 10:32 MCV 83.2 fL (80.0-100.0) 12/20/24 10:32 MCH 28.4 pg (27.0-34.0) 12/20/24 10:32 MCHC 34.2 g/dL (33.0-35.0) 12/20/24 10:32 RDW 24.3 % (11.6-16.5) H 12/20/24 10:32 Plt Count 491 X10^3/uL (150.0-450.0) H 12/20/24 10:32 Plt Count Comment Increased (ADEQUATE) 12/20/24 10:32 MPV 7.4 fL (7.4-11.0) 12/20/24 10:32 Neut % (Auto) 47.5 % (42.0-75.0) 12/20/24 10:32 Lymph % (Auto) 37.2 % (21.0-51.0) 12/20/24 10:32 [place] % (Auto) 10.1 % (0.0-13.0) 12/20/24 10:32 Eos % (Auto) 4.4 % (0.9-2.9) H 12/20/24 10:32 Baso % (Auto) 0.8 % (0.2-1.0) 12/20/24 10:32 Neut # (Auto) 3.8 x10^3/uL (2.2-4.8) 12/20/24 10:32 Lymph # (Auto) 3.0 X10^3/uL (1.3-2.9) H 12/20/24 10:32 [place] # (Auto) 0.8 x10^3/uL (0.3-0.8) 12/20/24 10:32 Eos # (Auto) 0.4 x10^3/uL (0.0-0.2) H 12/20/24 10:32 Baso # (Auto) 0.1 X10^3/uL (0.0-0.1) 12/20/24 10:32 Absolute Nucleated RBC 0.5 /100WBC 12/20/24 10:32 Total Counted 100 12/18/24 05:43 Neutrophils % (Manual) 57 % (39-76) 12/18/24 05:43 Lymphocytes % (Manual) 31 % (13-43) 12/18/24 05:43 Monocytes % (Manual) 8 % (4-9) 12/18/24 05:43 Eosinophils % (Manual) 4 % (0-6) 12/18/24 05:43 Plt Morphology Comment Normal (NORMAL) 12/20/24 10:32 RBC Morphology Abnormal (NORMAL) 12/20/24 10:32 Anisocytosis 3+ A 12/20/24 10:32 Sickle Cells Slight A 12/20/24 10:32 Target Cells Slight A 12/20/24 10:32 Tear Drop Cells Slight 12/17/24 13:38 Ovalocytes Present 12/19/24 05:18 Absolute Retic 0.2519 10^6/uL 12/17/24 13:38 Percent Retic 13.49 % (0.8-2.2) H 12/17/24 13:38 Sodium 140 mmol/L (136-145) 12/20/24 04:21 Corrected Sodium TNP 12/20/24 04:21 Potassium 4.4 mmol/L (3.5-5.1) 12/20/24 04:21 Chloride 110 mmol/L (98-107) H 12/20/24 04:21 Carbon Dioxide 18.6 mmol/L (21-32) L 12/20/24 04:21 BUN 9 mg/dL (7-18) 12/20/24 04:21 Creatinine 0.92 mg/dL (0.70-1.30) 12/20/24 04:21 Est GFR (MDRD) Af Amer > 60 (>60) 12/20/24 04:21 Est GFR (MDRD) Non-Af > 60 (>60) 12/20/24 04:21 Glucose 81 mg/dL (65-99) 12/20/24 04:21 POC Glucose (mg/dL) 76 mg/dL (65-99) 12/19/24 11:23 Lactic Acid 0.6 mmol/L (0.4-2.0) 12/17/24 14:53 Calcium 7.8 mg/dL (8.5-10.1) L 12/20/24 04:21 Corrected Calcium 8.8 mg/dL (8.5-10.1) 12/20/24 04:21 Total Bilirubin 1.90 mg/dL (0.2-1.0) H 12/20/24 04:21 AST 55 Units/L (15-37) H 12/20/24 04:21 ALT 34 Units/L (12-78) 12/20/24 04:21 Alkaline Phosphatase 89 Units/L (46-116) 12/20/24 04:21 Total Protein 6.8 g/dL (6.4-8.2) 12/20/24 04:21 Albumin 2.8 g/dL (3.4-5.0) L 12/20/24 04:21 Globulin 4.0 g/dL (2.5-4.5) 12/20/24 04:21 Albumin/Globulin Ratio 0.7 Ratio (1.1-2.1) L 12/20/24 04:21 Thyroxine (T4) 5.7 ug/dL (4.7-13.3) 12/20/24 10:32 TSH 3rd Generation 2.494 uIU/mL (0.358-3.74) 12/20/24 10:32 Specimen Type Clean catch urine 12/17/24 17: Urine Color Yellow (YELLOW) 12/17/24 17: Urine Appearance Clear (CLEAR) 12/17/24: Urine pH 7.0 (5.0 - 8.0) 12/17/24 17: Ur Specific [place] 1.005 (1.000-1.030) 12/17/24 17: Urine Protein 1+ (NEGATIVE) 12/17/24 17: Urine Glucose (UA) Negative (NEGATIVE) 12/17/24 17: Urine Ketones Negative (NEGATIVE) 12/17/24 17: Urine Blood Negative (NEGATIVE) 12/17/24 17: Urine Nitrite Negative (NEGATIVE) 12/17/24: Urine Bilirubin Negative (NEGATIVE) 12/17/24 17: Urine Urobilinogen 2+ (NORMAL) 12/17/24 17: Ur Leukocyte Esterase Negative (NEGATIVE) 12/17/24 17: Urine RBC None seen /HPF (0-3) 12/17/24 17: Urine WBC None seen /HPF (0-5) 12/17/24 17: Ur Squamous Epith Cells Negative /HPF (NEGATIVE) 12/17/24 17: Urine Bacteria Trace /HPF (NEGATIVE) 12/17/24 17:33 Ur Culture Indicated? No/not indicated 12/17/24 17: Urine Opiates Screen Negative (NEG=<300) 12/19/24 12:06 Urine Methadone Screen Negative (NEG=<300) 12/19/24 12:06 Ur Barbiturates Screen Negative (NEG=<200) 12/19/24 12:06 Ur Phencyclidine Scrn Negative (NEG=<25) 12/19/24 12:06 Ur Amphetamines Screen Negative (NEG=<1000) 12/19/24 12:06 U Benzodiazepines Scrn Negative (NEG=<200) 12/19/24 12:06 Urine Cocaine Screen Negative (NEG=<300) 12/19/24 12:06 U Marijuana (THC) Screen Positive (NEG=<50) A 12/19/24 12:06 Blood Type B POSITIVE 12/17/24 13:38 Antibody Screen Negative 12/17/24 13:38 Crossmatch See Detail 12/17/24 13:38 Assessment and Plan 1: Infected right leg ulcers. Debridement was canceled because of the cardiac dysrhythmia and bradycardia. Will clean the ulcers and debride them after clearance 2: Anemia with sickle cell, corrected with transfusion Problem Patient Problems: Patient Problems Sickle cell crisis (Acute) D57.00 Cellulitis and abscess of leg (Acute) L02.419, L03.119 Leg ulcers positive for Pseudomonas and sensitive to Cipro. Anemia (Acute) D64.9
[2024-12-21 06:01] LABS: MEAN PLATELET VOLUME 8.2 fL (7.4-11.0); RED CELL DISTRIBUTION WIDTH 23.4 % (11.6-16.5)
[2024-12-21 06:10] LABS: COR CA(FOR HYPOALB) 8.8 mg/dL (8.5-10.1); CREATININE 0.83 mg/dL (0.70-1.30); eGFR NON BLACK RACES > 60 (>60)
[2024-12-21 06:41] LABS: PLATELET MORPHOLOGY COMMENT NORMAL (NORMAL)
--- NOTE | 2024-12-21 08:56 | NOTE.SOAP ---
Soap Note Note for Day of Date of Exam: 12/21/24 Subjective Data Subjective Data: no syncope/presyncope- c/o R leg pain Objective Data Objective Data: hr 40-50 stress test: 4 minutes hr to 100- stopped due to leg pain thyroid: normal echo: normal lv/mild/modMR pa 64 Assessment Assessment: sss but able to get hr >100 with walking- suspect narcotics contributing, pulm htn 64 as a complication from sickle cell Plan Plan: his pulm pressures make anesthesia tricky- probably better served at institution capable of treating potential RV dysfunction/etc that anesthesia could precipitate- avoid narcotics if possible due to low hr
[2024-12-21 09:32] VITALS: PULSE 50
[2024-12-21] MEDS: LEVAQUIN PREMIX IV 500 MG 500 MG/100 ML BAG IV SCH (11:22)
[2024-12-21 12:32] VITALS: BP 135/77; RESP 19; TEMP 98.4; O2SAT 97
[2024-12-21] MEDS: SILVADENE TOP SCH (15:03)
== END 2024-12-21 15:55 | disposition home or self-care (01) | DRG 812 ==
LOC: ER 13:19 → MED/SURG 18:11
PROVIDERS: ADMIT Obstetrics & Gynecology Obstetrics; ATTEND Obstetrics & Gynecology Obstetrics
DX: R04.0 Epistaxis; M54.59 Other low back pain; Z72.0 Tobacco use; Z16.29 Resistance to other single specified antibiotic; L97.818 Non-pressure chronic ulcer of other part of right lower leg with other specified severity; Z87.11 Personal history of peptic ulcer disease; E83.51 Hypocalcemia; R94.31 Abnormal electrocardiogram [ECG] [EKG]; Z59.868 Other specified financial insecurity; D64.89 Other specified anemias; L03.115 Cellulitis of right lower limb; E80.6 Other disorders of bilirubin metabolism; K21.9 Gastro-esophageal reflux disease without esophagitis; B95.61 Methicillin susceptible Staphylococcus aureus infection as the cause of diseases classified elsewhere; Z01.810 Encounter for preprocedural cardiovascular examination; Z16.12 Extended spectrum beta lactamase (ESBL) resistance; R73.09 Other abnormal glucose; R60.0 Localized edema; D72.828 Other elevated white blood cell count; R10.84 Generalized abdominal pain; E86.0 Dehydration; Z16.19 Resistance to other specified beta lactam antibiotics; F32.89 Other specified depressive episodes; M79.605 Pain in left leg; B96.89 Other specified bacterial agents as the cause of diseases classified elsewhere; L02.415 Cutaneous abscess of right lower limb; D57.09 Hb-SS disease with crisis with other specified complication; Z53.8 Procedure and treatment not carried out for other reasons; F12.90 Cannabis use, unspecified, uncomplicated; M79.604 Pain in right leg; I49.5 Sick sinus syndrome; R00.1 Bradycardia, unspecified